=== PATIENT | male | born 1945 ===

== ENCOUNTER 2017-06-24 09:50 | Inpatient (IN) | payer MEDICARE ==
[2017-06-24 10:02] VITALS: BMI 30.2
--- NOTE | 2017-06-24 10:18 | RAD ---
PROCEDURE: CHEST RADIOGRAPH, 1 VIEW HISTORY: SOB COMPARISON: No prior FINDINGS: LUNGS: Clear. PLEURA: No pneumothorax or pleural fluid seen. CARDIOVASCULAR: Normal. OSSEOUS STRUCTURES: No significant abnormalities. VISUALIZED UPPER ABDOMEN: Normal. OTHER FINDINGS: None. IMPRESSION: No active disease.
[2017-06-24 10:24] LABS: BASO # 0.1 K/uL (0.0-0.2); BASO % 1.3 % (0.0-2.0); EOS # 0.1 K/uL (0.0-0.7); EOS % 1.3 % (0.0-4.0); HEMOGLOBIN 14.5 g/dL (12.0-18.0); LYMPH % 11.3 % (20.0-40.0); MEAN CELL VOLUME 88.3 fL (80.0-94.0); MEAN CORPUSCULAR HEMOGLOBIN 30.9 pg (27.0-31.0); MEAN PLATELET VOLUME 9.6 fL (7.2-11.7); MONO # 0.7 K/uL (0.0-0.8); MONO % 7.8 % (0.0-10.0); NEUT # 7.2 K/uL (1.8-7.0); NEUT % 78.3 % (50.0-75.0); NRBC % 0.1 % (0.0-2.0); RBC 4.7 Mil/uL (4.40-5.90); RED CELL DISTRIBUTION WIDTH 13.6 % (11.5-14.5); WHITE BLOOD COUNT 9.2 K/uL (4.8-10.8)
--- NOTE | 2017-06-24 10:35 | C.PDOC ---
History Of Present Illness 72 yr old male presents to the ER with complaints of SOB for the past 3 weeks. Patient states the SOB worsens at night time when he lays down. Also admits to increasing leg edema. Denies fever, chest pain, palpitations, cough, light headedness, nausea, vomiting, abdominal pain or dizziness. Time Seen by Provider: 06/24/17 09:53 Chief Complaint (Nursing): Shortness Of Breath History Per: Patient History/Exam Limitations: no limitations Onset/Duration Of Symptoms: Days (3 weeks) Current Symptoms Are (Timing): Still Present Exacerbating Factor(s): Laying Flat Current Respiratory Medications: See Home Med List Past Medical History Reviewed: Historical Data, Nursing Documentation, Vital Signs Vital Signs: Last Vital Signs Temp 98 F 06/24/17 10:03 Pulse 67 06/24/17 11:27 Resp 24 06/24/17 11:27 BP 154/86 H 06/24/17 11:27 Pulse Ox 82 L 06/24/17 12:39 - Medical History PMH: HTN, Hypercholesterolemia Family History: States: No Known Family Hx - Social History Hx Alcohol Use: Yes Hx Substance Use: No - Immunization History Hx Tetanus Toxoid Vaccination: Yes Hx Influenza Vaccination: No Hx Pneumococcal Vaccination: No Review Of Systems Except As Marked, All Systems Reviewed And Found Negative. Constitutional: Negative for: Fever Cardiovascular: Negative for: Chest Pain, Palpitations, Light Headedness Respiratory: Positive for: Shortness of Breath. Negative for: Cough Gastrointestinal: Negative for: Nausea, Vomiting, Abdominal Pain Neurological: Negative for: Dizziness Physical Exam - Physical Exam Appears: Non-toxic, No Acute Distress, Other ((+) comfortable) Skin: Warm, Dry, No Rash Eye(s): bilateral: Normal Inspection, PERRL, EOMI Nose: Normal Oral Mucosa: Moist Lips: Normal Appearing Throat: Normal, No Erythema, No Exudate, No Drooling, No Mass Neck: Normal, Normal ROM, Supple Cardiovascular: Rhythm Regular, No Murmur Respiratory: Rales (at the bases, bilaterally), No Wheezing Gastrointestinal/Abdominal: Normal Exam, Soft, No Tenderness, No Guarding, No Rebound Extremity: Normal ROM, Other ((+) +2 pitting edema of lower extremities) Neurological/Psych: Oriented x3, Normal Speech, Normal Motor ED Course And Treatment - Laboratory Results Result Diagrams: 06/24/17 10:21 06/24/17 10:21 ECG: Interpreted By Me, Viewed By Me ECG Rhythm: Atrial Fibrillation Interpretation Of ECG: Normal axis. No ST changes. T wave inversions in 2,3, AVF , V4-V6. Rate From EC (BPM) O2 Sat by Pulse Oximetry: 82 (RA) Pulse Ox Interpretation: Normal - Radiology CXR: Interpreted by Me, Viewed By Me CXR Interpretation: Yes: Other ((+) pulmonary vascular congestion) - CT Scan/US CT - Angio Chest Other Rad Studies (CT/US): Read By Radiologist, Radiology Report Reviewed Progress Note: PLAN: CT - Angio Chest, CXR, EKG, Labs, Nitroglycerin SL, Lasix IV & Re-eval. - Physician Consult Information Physician Contacted: Angel Armijo Outcome Of Conversation: Discussed patient with Dr. Armijo, he cofirms patient has h/o chronic atrial fibrillation on Xarelto, Digoxin. Disposition - Disposition Forms: [employer] (Togolese) - Scribe Statement The provider has reviewed the documentation as recorded by the Deuceibsusanna Samaniego Provider Attestation: All medical record entries made by the Scribe were at my direction and personally dictated by me. I have reviewed the chart and agree that the record accurately reflects my personal performance of the history, physical exam, medical decision making, and the department course for this patient. I have also personally directed, reviewed, and agree with the discharge instructions and disposition.
[2017-06-24 10:36] LABS: ABG ALLEN TEST POS; ARTERIAL BLOOD GAS O2 SAT 98.4 % (95-98); ARTERIAL BLOOD GAS PCO2 42 mm/Hg (35-45); ARTERIAL BLOOD GAS PH 7.33 (7.35-7.45); ARTERIAL BLOOD GAS PO2 95 mm/Hg (80-100); ARTERIAL BLOOD GAS TCO2 23.4 mmol/L (22-28)
[2017-06-24 10:37] LABS: ALB/GLOB RATIO 1.5 (1.0-2.1); ALBUMIN 4.1 g/dL (3.5-5.0); ALT/SGPT 54 U/L (21-72); AST/SGOT 35 U/L (17-59); BLOOD UREA NITROGEN 18 mg/dL (9-20); CALCIUM 8.5 mg/dl (8.6-10.4); GFR AFRICAN-AMERICAN > 60; GFR NON-AFRICAN AMERICAN > 60
[2017-06-24 10:49] LABS: B-TYPE NATRIURETIC PEPTIDE 3710 pg/mL (0-900); CK-MB 1.42 ng/mL (0.0-3.38)
[2017-06-24] MEDS ORDERED: (Novolin R) Insulin Human Regular 100 units/ml vial IV ONE (12:28)
[2017-06-24] MEDS ORDERED: Iodixanol 320 MG/ML 100 ML BOTTLE IV ONE (13:14)
[2017-06-24] MEDS ORDERED: (Novolin R) Insulin Human Regular 100 units/ml vial ONE (14:13)
--- NOTE | 2017-06-24 14:37 | CT ---
PROCEDURE: CT Chest with contrast (Pulmonary Angiogram) HISTORY: hypoxia, sob COMPARISON: None available. TECHNIQUE: Axial computed tomography images were obtained of the chest in the pulmonary arterial phase of enhancement. Coronal and sagittal reformatted images were created and reviewed. Intravenous contrast dose: 100 mL Visipaque 320 Radiation dose: Total exam DLP = 603.61 mGy-cm. This CT exam was performed using one or more of the following dose reduction techniques: Automated exposure control, adjustment of the mA and/or kV according to patient size, and/or use of iterative reconstruction technique. FINDINGS: PULMONARY ARTERIES: Unremarkable. No pulmonary embolism. AORTA: No acute findings. No thoracic aortic aneurysm. LUNGS: Diffuse ground-glass opacity in the upper portion of both lungs, predominantly in the apices. Nonspecific. Bilateral lower lobe compressive atelectasis secondary to pleural effusions. PLEURAL SPACES: Moderate bilateral pleural effusion. No pneumothorax. HEART: Normal heart size. LYMPH NODES: Few mildly enlarged mediastinal nodes, nonspecific. BONES, CHEST WALL: Unremarkable. No fracture or destructive lesion OTHER FINDINGS: Nonspecific pericholecystic fluid about a contracted gallbladder with no calcified stones. IMPRESSION: No evidence of pulmonary embolism. Moderate bilateral pleural effusion with lower lobe compressive atelectasis bilaterally. Nonspecific mild mediastinal lymphadenopathy. Diffuse ground-glass opacity in both lung apices. Extensive differential diagnosis. Please correlate with clinical evaluation.
--- NOTE | 2017-06-24 16:33 | CP.PCM.HP ---
History of Present Illness - History of Present Illness History of Present Illness: Full Code Health Care Proxy: Mykel Tillman (friend) # [phone] PMD: Dr. Armijo [place] Caller: Dr. Jose Hogue CC: "shortness of breath" HPI:72 year old male with past medical history of HTN, afib, DM, and HLD who presents to the ED for shortness of breath. Patient states he has been having shortness of breath for the past 3 weeks but it became worse this week and especially last night. Patient states he can barely walk one block without having shortness of breath. He states when he walks more than a block after eating he then becomes nauseated and vomits. He has been sleeping with 3 pillows for about a week. He denies recent travel or any one sick at home. Patient states he was recently at his PMD office Dr. Armijo who gave him a water pill to remove some of the swelling in his legs. He states he has noticed the swelling for the past 3 weeks. Patient states he was recently at his screen and cyclone [employer]aire[employer] office where he had some testing done but is not sure which tests those were. Past Medical History: HTN, Afib, DM, hypothyroid; HLD Past Surgical History: Denies Allergies: NKDA Family History: Mom - breast cancer Medications: Xeralto 20mg daily, digoxin 125mg daily, crestor 5mg HS, Losartan 100mg daily, Amlodipine 5mg daily, metoprolol XL 100mg daily, Metformin 1000mg BID, Januvia 100mg qd, Glimepride 4mg qd, Trulicity .75/1.5 qweek; Synthroid 100mg daily Social History: Lives at home with his who is currently in [facility]. Drinks about 1-2 shots of whiskey per day and 2-3 shots of whiskey on the weekends for the past 15 years and sometimes also has a beer with the whiskey, denies illicit drug use, denies smoking. Present on Admission - Present on Admission Any Indicators Present on Admission: No Review of Systems - Constitutional Constitutional: absent: Fever, Weakness - EENT Eyes: absent: Blurred Vision - Cardiovascular Cardiovascular: Dyspnea, Dyspnea on Exertion, Edema. absent: Chest Pain, Chest Pain with Activity, Lightheadedness, Palpitations - Respiratory Respiratory: Dyspnea, Dyspnea on Exertion - Gastrointestinal Gastrointestinal: Nausea, Vomiting. absent: Abdominal Pain, Constipation, Diarrhea - Genitourinary Genitourinary: absent: Dysuria - Neurological Neurological: absent: Dizziness, Headaches Past Patient History - Past Social History Smoking Status: Never Smoked - CARDIAC Hx Hypercholesterolemia: Yes Hx Hypertension: Yes - ENDOCRINE/METABOLIC Hx Diabetes Mellitus Type 1: Yes - PSYCHIATRIC Hx Substance Use: No - SURGICAL HISTORY Hx Surgeries: No - ANESTHESIA Hx Anesthesia: No Meds Allergies/Adverse Reactions: Allergies Allergy/AdvReac Type Severity Reaction Status Date / Time No Known Allergies Allergy Verified 06/24/17 10:02 Physical Exam - Constitutional Appears: No Acute Distress - Head Exam Head Exam: ATRAUMATIC, NORMAL INSPECTION - Eye Exam Eye Exam: EOMI, Normal appearance - ENT Exam ENT Exam: Mucous Membranes Moist - Respiratory Exam Respiratory Exam: Clear to Auscultation Bilateral, NORMAL BREATHING PATTERN - Cardiovascular Exam Cardiovascular Exam: Irregular Rhythm, +S1, +S2. absent: JVD - GI/Abdominal Exam GI & Abdominal Exam: Normal Bowel Sounds, Soft. absent: Tenderness - Extremities Exam Extremities exam: Positive for: pedal edema (+2 bilateral pedal edema ). Negative for: calf tenderness, tenderness - Neurological Exam Neurological exam: Alert, CN II-XII Intact, Oriented x3 - Psychiatric Exam Psychiatric exam: Normal Affect, Normal Mood - Skin Skin Exam: Dry, Intact, Normal Color, Warm Results - Vital Signs Recent Vital Signs: Last Vital Signs Temp 97.4 F L 06/24/17 14:05 Pulse 57 L 06/24/17 15:13 Resp 22 06/24/17 15:13 BP 134/80 06/24/17 14:05 Pulse Ox 99 06/24/17 15:13 - Labs Result Diagrams: 06/24/17 10:21 06/24/17 10:21 Labs: Laboratory Results - last 24 hr 06/24/17 06/24/17 06/24/17 10:21 10:21 10:33 WBC 9.2 RBC 4.70 Hgb 14.5 Hct 41.5 MCV 88.3 MCH 30.9 MCHC 35.0 RDW 13.6 Plt Count 181 MPV 9.6 Neut % (Auto) 78.3 H Lymph % (Auto) 11.3 L [place] % (Auto) 7.8 Eos % (Auto) 1.3 Baso % (Auto) 1.3 Neut # 7.2 H Lymph # 1.0 [place] # 0.7 Eos # 0.1 Baso # 0.1 Puncture Site Rr pCO2 42 pO2 95 HCO3 22.0 ABG pH 7.33 L ABG Total CO2 23.4 ABG O2 Saturation 98.4 H ABG Base Excess -3.7 L Ed Test Pos ABG Potassium 3.5 L A-a O2 Difference 566.0 Respiratory Index 6.0 Glucose 282 H Lactate 2.0 Liter Flow 15.0 FiO2 100.0 Sodium 128 L 131.0 L Potassium 4.8 Chloride 92 L 99.0 Carbon Dioxide 23 Anion Gap 18 BUN 18 Creatinine 1.0 Est GFR ( Amer) > 60 Est GFR (Non-Af Amer) > 60 POC Glucose (mg/dL) Random Glucose 300 H Calcium 8.5 L Total Bilirubin 0.8 AST 35 ALT 54 Alkaline Phosphatase 67 Total Creatine Kinase 40 L CK-MB (Mass) 1.42 Troponin I < 0.0120 NT-Pro-B Natriuret Pep 3710 H Total Protein 6.8 Albumin 4.1 Globulin 2.7 Albumin/Globulin Ratio 1.5 TSH 3rd Generation Arterial Blood Potassium 3.5 L Digoxin 06/24/17 06/24/17 06/24/17 12:39 12:39 14:08 WBC RBC Hgb Hct MCV MCH MCHC RDW Plt Count MPV Neut % (Auto) Lymph % (Auto) [place] % (Auto) Eos % (Auto) Baso % (Auto) Neut # Lymph # [place] # Eos # Baso # Puncture Site pCO2 pO2 HCO3 ABG pH ABG Total CO2 ABG O2 Saturation ABG Base Excess Ed Test ABG Potassium A-a O2 Difference Respiratory Index Glucose Lactate Liter Flow FiO2 Sodium Potassium Chloride Carbon Dioxide Anion Gap BUN Creatinine Est GFR ( Amer) Est GFR (Non-Af Amer) POC Glucose (mg/dL) 239 H Random Glucose Calcium Total Bilirubin AST ALT Alkaline Phosphatase Total Creatine Kinase CK-MB (Mass) Troponin I NT-Pro-B Natriuret Pep Total Protein Albumin Globulin Albumin/Globulin Ratio TSH 3rd Generation 8.47 H Arterial Blood Potassium Digoxin 1.9 Assessment & Plan - Assessment and Plan (Free Text) Assessment: 1.) New Onset CHF - Cardiology Consult: Dr. Bay --> help appreciated - ECHO was done as an outpatient 06/22/17: Please see full report in chart * EF 55-60% * Left ventricle cavity is normal in size; the aortic valve is tri-leaflet and calcified. There is no significant aortic regurgitation. - Monitory daily weight - Head of bed elevated - Strict I/Os - Images: * Chest X-ray: No active disease * Chest CT: No evidence of pulmonary embolism. Moderate bilateral pleural effusion with lower lobe compressive atelectasis bilaterally. Nonspecific mild mediastinal lymphadenopathy. Diffuse ground-glass opacity in both lung apices. Extensive differential diagnosis. Please correlate with clinical evaluation. - 1L fluid restriction - Lasix 40mg IV q12h 2.) Hypervolemia/Hyponatremia - likely secondary to CHF - 1L fluid restriction - Lasix 40mg IV q12h - Monitor weight daily - weight on admission 149.8lbs 3) Bilateral LE edema - f/u venous doppler - Wells Score: 1 4.) History of Hypothyroid - Elevated TSH - Repeat TSH and free T4 in the AM 5.) History of Afib - Monitor on tele for 24 hours if okay then can transfer to [facility]-surg - Rate controlled - CHADs(2) Score: 3 - Medications * Metoprolol Succinate XL 100mg po daily * Xarelto 20mg po daily * Digoxin 125mg po daily 6.) History of HTN - Continue home medications: * Norvasc 5mg po daily * Metoprolol Succinate XL 100mg po daily * Losartan 100mg po daily 7.) History of HLD - f/u lipid panel in the AM - Continue home medication * Crestor 5mg po HS 8.) History of DM Type 2 - f/u hA1c in the AM - home medications held - Insulin sliding scale - moderate - Accuchecks - Hypoglycemia protocol - Losartan 100mg po daily - Crestor 5mg po HS 9.) Bilateral Pleural effusion - Chest CT: Moderate bilateral pleural effusion with lower lobe compressive atelectasis bilaterally. - Pulm Consult: Dr. Newton --> help appreciated 10.) Prophylaxis - DVT: Xarelto 20mg po daily - GI: Protonix 40mg IV daily - Heart Healthy/Moderate Carb diet/2gNa Case discussed with Dr. Yeison Jack PGY-1
[2017-06-24] MEDS ORDERED: Ipratropium 0.02% Inhal Soln (0.5 mg/2.5 ml) UD IH ONE (16:40)
[2017-06-24] MEDS: (Novolin R) Insulin Human Regular 100 units/ml vial SC SCH (22:06)
[2017-06-24 22:17] LABS: ARTERIAL BLOOD GAS HCO3 25.6 mmol/L (21-28); ARTERIAL BLOOD GAS HEMOGLOBIN 13.7 g/dL (11.7-17.4); ARTERIAL BLOOD GAS O2 SAT 98.9 % (95-98); ARTERIAL BLOOD GAS PCO2 38 mm/Hg (35-45); ARTERIAL BLOOD GAS PH 7.43 (7.35-7.45); ARTERIAL BLOOD GAS PO2 95 mm/Hg (80-100); ARTERIAL BLOOD GAS TCO2 26.4 mmol/L (22-28)
[2017-06-25 06:30] LABS: BASO # 0.1 K/uL (0.0-0.2); BASO % 1.1 % (0.0-2.0); EOS # 0.2 K/uL (0.0-0.7); HEMOGLOBIN 13.6 g/dL (12.0-18.0); LYMPH # 0.9 K/uL (1.0-4.3); MEAN CELL VOLUME 87.1 fL (80.0-94.0); MEAN CORPUSCULAR HGB CONC 35.7 g/dL (33.0-37.0); MEAN PLATELET VOLUME 9.8 fL (7.2-11.7); MONO # 0.9 K/uL (0.0-0.8); MONO % 10.6 % (0.0-10.0); NEUT # 6.1 K/uL (1.8-7.0); NEUT % 75.3 % (50.0-75.0); RBC 4.38 Mil/uL (4.40-5.90); RED CELL DISTRIBUTION WIDTH 13.7 % (11.5-14.5); WHITE BLOOD COUNT 8.1 K/uL (4.8-10.8)
[2017-06-25] MEDS: Levothyroxine 100 MCG TAB PO SCH (06:38)
[2017-06-25 06:48] LABS: ALB/GLOB RATIO 1.4 (1.0-2.1); ALBUMIN 3.5 g/dL (3.5-5.0); ALT/SGPT 56 U/L (21-72); AST/SGOT 36 U/L (17-59); BLOOD UREA NITROGEN 20 mg/dL (9-20); CALCIUM 8.7 mg/dl (8.6-10.4); GFR AFRICAN-AMERICAN > 60; GFR NON-AFRICAN AMERICAN > 60; HDL CHOLESTEROL 25 mg/dL (30-70); MAGNESIUM 1.4 mg/dL (1.6-2.3)
[2017-06-25 06:56] LABS: LDL CHOLESTEROL 52 mg/dL (0-129)
[2017-06-25] MEDS: (Novolin R) Insulin Human Regular 100 units/ml vial SC SCH ×4 (08:00→21:13)
--- NOTE | 2017-06-25 09:02 | CP.PCM.CON ---
History of Present Illness - History of Present Illness History of Present Illness: CC: "shortness of breath" HPI:72 year old male with past medical history of HTN, afib, DM, and HLD who presents to the ED for shortness of breath. Patient states he has been having shortness of breath for the past 3 weeks but it became worse this week and especially last night. Patient states he can barely walk one block without having shortness of breath. He states when he walks more than a block after eating he then becomes nauseated and vomits. He has been sleeping with 3 pillows for about a week. He denies recent travel or any one sick at home. Patient states he was recently at his PMD office Dr. Armijo who gave him a water pill to remove some of the swelling in his legs. He states he has noticed the swelling for the past 3 weeks. Patient states he was recently at his [employer] office where he had some testing done but is not sure which tests those were. Past Medical History: HTN, Afib, DM, hypothyroid; HLD Past Surgical History: Denies Allergies: NKDA Family History: Mom - breast cancer Medications: Xeralto 20mg daily, digoxin 125mg daily, crestor 5mg HS, Losartan 100mg daily, Amlodipine 5mg daily, metoprolol XL 100mg daily, Metformin 1000mg BID, Januvia 100mg qd, Glimepride 4mg qd, Trulicity .75/1.5 qweek; Synthroid 100mg daily Social History: Lives at home with his who is currently in [facility]. Drinks about 1-2 shots of whiskey per day and 2-3 shots of whiskey on the weekends for the past 15 years and sometimes also has a beer with the whiskey, denies illicit drug use, denies smoking. Present on Admission - Present on Admission Any Indicators Present on Admission: No Review of Systems - Constitutional Constitutional: absent: Fever, Weakness - EENT Eyes: absent: Blurred Vision - Cardiovascular Cardiovascular: Dyspnea, Dyspnea on Exertion, Edema. absent: Chest Pain, Chest Pain with Activity, Lightheadedness, Palpitations - Respiratory Respiratory: Dyspnea, Dyspnea on Exertion - Gastrointestinal Gastrointestinal: Nausea, Vomiting. absent: Abdominal Pain, Constipation, Diarrhea - Genitourinary Genitourinary: absent: Dysuria - Neurological Neurological: absent: Dizziness, Headaches Meds Allergies/Adverse Reactions: Allergies Allergy/AdvReac Type Severity Reaction Status Date / Time No Known Allergies Allergy Verified 06/24/17 10:02 Physical Exam - Constitutional Appears: No Acute Distress - Head Exam Head Exam: ATRAUMATIC, NORMAL INSPECTION - Eye Exam Eye Exam: EOMI, Normal appearance - ENT Exam ENT Exam: Mucous Membranes Moist - Respiratory Exam Respiratory Exam: Clear to Auscultation Bilateral, NORMAL BREATHING PATTERN - Cardiovascular Exam Cardiovascular Exam: Irregular Rhythm, +S1, +S2. absent: JVD - GI/Abdominal Exam GI & Abdominal Exam: Normal Bowel Sounds, Soft. absent: Tenderness - Extremities Exam Extremities exam: Positive for: pedal edema (+2 bilateral pedal edema ). Negative for: calf tenderness, tenderness - Neurological Exam Neurological exam: Alert, CN II-XII Intact, Oriented x3 - Psychiatric Exam Psychiatric exam: Normal Affect, Normal Mood - Skin Skin Exam: Dry, Intact, Normal Color, Warm Past Patient History - Past Medical History & Family History Past Medical History?: Yes - Past Social History Smoking Status: Never Smoked - CARDIAC Hx Hypercholesterolemia: Yes Hx Hypertension: Yes - PULMONARY Hx Respiratory Disorders: No - NEUROLOGICAL Hx Neurological Disorder: No - HEENT Hx HEENT Problems: Yes Other/Comment: wear eyeglasses - RENAL Hx Chronic Kidney Disease: No - ENDOCRINE/METABOLIC Hx Diabetes Mellitus Type 1: Yes - HEMATOLOGICAL/ONCOLOGICAL Hx Blood Disorders: No - INTEGUMENTARY Hx Dermatological Problems: No - MUSCULOSKELETAL/RHEUMATOLOGICAL Hx Falls: No - GASTROINTESTINAL Hx Gastrointestinal Disorders: No - GENITOURINARY/GYNECOLOGICAL Hx Genitourinary Disorders: Yes Hx Prostate Problems: Yes (Hx of prostate surgery) - PSYCHIATRIC Hx Substance Use: No - SURGICAL HISTORY Hx Surgeries: No - ANESTHESIA Hx Anesthesia: No Meds Allergies/Adverse Reactions: Allergies Allergy/AdvReac Type Severity Reaction Status Date / Time No Known Allergies Allergy Verified 06/24/17 10:02 - Medications Medications: Current Medications Amlodipine Besylate (Norvasc) 5 mg PO DAILY [facility] Digoxin (Lanoxin) 125 mg PO DAILY@1800 [facility] Furosemide (Lasix) 40 mg IVP Q12H [facility] Last Admin: 06/25/17 06:38 Dose: 40 mg Insulin Human Regular (Novolin R) 0 unit SC ACHS [facility] PRN Reason: Protocol Last Admin: 06/24/17 22:06 Dose: Not Given Levothyroxine Sodium (Synthroid) 100 mcg PO DAILY@0630 [facility] Last Admin: 06/25/17 06:38 Dose: 100 mcg Losartan Potassium (Cozaar) 100 mg PO DAILY [facility] Metoprolol Succinate (Toprol Xl) 100 mg PO DAILY [facility] Pantoprazole Sodium (Protonix Inj) 40 mg IVP DAILY [facility] Rivaroxaban (Xarelto) 20 mg PO DAILY [facility] Rosuvastatin Calcium (Crestor) 5 mg PO HS [facility] Last Admin: 06/24/17 22:05 Dose: Not Given Results - Vital Signs Recent Vital Signs: Last Vital Signs Temp 97.5 F L 06/25/17 07:05 Pulse 70 06/25/17 07:40 Resp 20 06/25/17 07:05 BP 157/89 H 06/25/17 07:05 Pulse Ox 97 06/25/17 07:05 - Labs Result Diagrams: 06/25/17 06:21 06/25/17 06:21 Labs: Laboratory Results - last 24 hr 06/24/17 06/24/17 06/24/17 10:21 10:21 10:33 WBC 9.2 RBC 4.70 Hgb 14.5 Hct 41.5 MCV 88.3 MCH 30.9 MCHC 35.0 RDW 13.6 Plt Count 181 MPV 9.6 Neut % (Auto) 78.3 H Lymph % (Auto) 11.3 L [facility] % (Auto) 7.8 Eos % (Auto) 1.3 Baso % (Auto) 1.3 Neut # 7.2 H Lymph # 1.0 [facility] # 0.7 Eos # 0.1 Baso # 0.1 Puncture Site Rr pCO2 42 pO2 95 HCO3 22.0 ABG pH 7.33 L ABG Total CO2 23.4 ABG O2 Saturation 98.4 H ABG Base Excess -3.7 L ABG Hemoglobin ABG Carboxyhemoglobin POC ABG HHb (Measured) ABG Methemoglobin Ed Test Pos ABG Potassium 3.5 L A-a O2 Difference 566.0 Respiratory Index 6.0 Hgb O2 Saturation Glucose 282 H Lactate 2.0 Liter Flow 15.0 FiO2 100.0 Sodium 128 L 131.0 L Potassium 4.8 Chloride 92 L 99.0 Carbon Dioxide 23 Anion Gap 18 BUN 18 Creatinine 1.0 Est GFR ( Amer) > 60 Est GFR (Non-Af Amer) > 60 POC Glucose (mg/dL) Random Glucose 300 H Calcium 8.5 L Phosphorus Magnesium Total Bilirubin 0.8 AST 35 ALT 54 Alkaline Phosphatase 67 Total Creatine Kinase 40 L CK-MB (Mass) 1.42 Troponin I < 0.0120 NT-Pro-B Natriuret Pep 3710 H Total Protein 6.8 Albumin 4.1 Globulin 2.7 Albumin/Globulin Ratio 1.5 Triglycerides Cholesterol LDL Cholesterol Direct HDL Cholesterol Free T4 TSH 3rd Generation Arterial Blood Potassium 3.5 L Digoxin 06/24/17 06/24/17 06/24/17 12:39 12:39 14:08 WBC RBC Hgb Hct MCV MCH MCHC RDW Plt Count MPV Neut % (Auto) Lymph % (Auto) [facility] % (Auto) Eos % (Auto) Baso % (Auto) Neut # Lymph # [facility] # Eos # Baso # Puncture Site pCO2 pO2 HCO3 ABG pH ABG Total CO2 ABG O2 Saturation ABG Base Excess ABG Hemoglobin ABG Carboxyhemoglobin POC ABG HHb (Measured) ABG Methemoglobin Ed Test ABG Potassium A-a O2 Difference Respiratory Index Hgb O2 Saturation Glucose Lactate Liter Flow FiO2 Sodium Potassium Chloride Carbon Dioxide Anion Gap BUN Creatinine Est GFR ( Amer) Est GFR (Non-Af Amer) POC Glucose (mg/dL) 239 H Random Glucose Calcium Phosphorus Magnesium Total Bilirubin AST ALT Alkaline Phosphatase Total Creatine Kinase CK-MB (Mass) Troponin I NT-Pro-B Natriuret Pep Total Protein Albumin Globulin Albumin/Globulin Ratio Triglycerides Cholesterol LDL Cholesterol Direct HDL Cholesterol Free T4 TSH 3rd Generation 8.47 H Arterial Blood Potassium Digoxin 1.9 06/24/17 06/24/17 06/24/17 17:05 21:05 22:12 WBC RBC Hgb Hct MCV MCH MCHC RDW Plt Count MPV Neut % (Auto) Lymph % (Auto) [facility] % (Auto) Eos % (Auto) Baso % (Auto) Neut # Lymph # [facility] # Eos # Baso # Puncture Site Rra pCO2 38 pO2 95 HCO3 25.6 ABG pH 7.43 ABG Total CO2 26.4 ABG O2 Saturation 98.9 H ABG Base Excess 1.0 ABG Hemoglobin 13.7 ABG Carboxyhemoglobin 2.0 H POC ABG HHb (Measured) 1.1 ABG Methemoglobin 1.6 Ed Test Na ABG Potassium A-a O2 Difference 571.0 Respiratory Index 6.0 Hgb O2 Saturation 95.2 Glucose Lactate Liter Flow 15.0 FiO2 100.0 Sodium Potassium Chloride Carbon Dioxide Anion Gap BUN Creatinine Est GFR ( Amer) Est GFR (Non-Af Amer) POC Glucose (mg/dL) 164 H 185 H Random Glucose Calcium Phosphorus Magnesium Total Bilirubin AST ALT Alkaline Phosphatase Total Creatine Kinase CK-MB (Mass) Troponin I NT-Pro-B Natriuret Pep Total Protein Albumin Globulin Albumin/Globulin Ratio Triglycerides Cholesterol LDL Cholesterol Direct HDL Cholesterol Free T4 TSH 3rd Generation Arterial Blood Potassium Digoxin 06/25/17 06/25/17 06/25/17 06:21 06:21 06:21 WBC 8.1 RBC 4.38 L Hgb 13.6 Hct 38.1 MCV 87.1 MCH 31.0 MCHC 35.7 RDW 13.7 Plt Count 177 MPV 9.8 Neut % (Auto) 75.3 H Lymph % (Auto) 11.0 L [place] % (Auto) 10.6 H Eos % (Auto) 2.0 Baso % (Auto) 1.1 Neut # 6.1 Lymph # 0.9 L [place] # 0.9 H Eos # 0.2 Baso # 0.1 Puncture Site pCO2 pO2 HCO3 ABG pH ABG Total CO2 ABG O2 Saturation ABG Base Excess ABG Hemoglobin ABG Carboxyhemoglobin POC ABG HHb (Measured) ABG Methemoglobin Ed Test ABG Potassium A-a O2 Difference Respiratory Index Hgb O2 Saturation Glucose Lactate Liter Flow FiO2 Sodium 130 L Potassium 3.9 Chloride 93 L Carbon Dioxide 28 Anion Gap 12 BUN 20 Creatinine 0.9 Est GFR ( Amer) > 60 Est GFR (Non-Af Amer) > 60 POC Glucose (mg/dL) Random Glucose 173 H Calcium 8.7 Phosphorus 4.3 Magnesium 1.4 L Total Bilirubin 0.8 AST 36 ALT 56 Alkaline Phosphatase 59 Total Creatine Kinase CK-MB (Mass) Troponin I NT-Pro-B Natriuret Pep Total Protein 6.1 L Albumin 3.5 Globulin 2.5 Albumin/Globulin Ratio 1.4 Triglycerides 106 Cholesterol 98 LDL Cholesterol Direct 52 HDL Cholesterol 25 L Free T4 0.96 TSH 3rd Generation 6.42 H Arterial Blood Potassium Digoxin 06/25/17 06:33 WBC RBC Hgb Hct MCV MCH MCHC RDW Plt Count MPV Neut % (Auto) Lymph % (Auto) [facility] % (Auto) Eos % (Auto) Baso % (Auto) Neut # Lymph # [facility] # Eos # Baso # Puncture Site pCO2 pO2 HCO3 ABG pH ABG Total CO2 ABG O2 Saturation ABG Base Excess ABG Hemoglobin ABG Carboxyhemoglobin POC ABG HHb (Measured) ABG Methemoglobin Ed Test ABG Potassium A-a O2 Difference Respiratory Index Hgb O2 Saturation Glucose Lactate Liter Flow FiO2 Sodium Potassium Chloride Carbon Dioxide Anion Gap BUN Creatinine Est GFR ( Amer) Est GFR (Non-Af Amer) POC Glucose (mg/dL) 167 H Random Glucose Calcium Phosphorus Magnesium Total Bilirubin AST ALT Alkaline Phosphatase Total Creatine Kinase CK-MB (Mass) Troponin I NT-Pro-B Natriuret Pep Total Protein Albumin Globulin Albumin/Globulin Ratio Triglycerides Cholesterol LDL Cholesterol Direct HDL Cholesterol Free T4 TSH 3rd Generation Arterial Blood Potassium Digoxin Assessment & Plan - Assessment and Plan (Free Text) Assessment: Assessment & Plan - Assessment and Plan (Free Text) Assessment: 1.) New Onset CHF/CHF with preserved EF - ECHO was done as an outpatient 06/22/17: Please see full report in chart * EF 55-60% * Left ventricle cavity is normal in size; the aortic valve is tri-leaflet and calcified. There is no significant aortic regurgitation. - Monitory daily weight - Head of bed elevated - Strict I/Os - Images: * Chest X-ray: No active disease * Chest CT: No evidence of pulmonary embolism. Moderate bilateral pleural effusion with lower lobe compressive atelectasis bilaterally. Nonspecific mild mediastinal lymphadenopathy. Diffuse ground-glass opacity in both lung apices. Extensive differential diagnosis. Please correlate with clinical evaluation. - 1L fluid restriction - Lasix 40mg IV q12h 2.) Hypervolemia/Hyponatremia - likely secondary to CHF - 1L fluid restriction - Lasix 40mg IV q12h - Monitor weight daily - weight on admission 149.8lbs 3) Bilateral LE edema - f/u venous doppler - Wells Score: 1 4.) History of Hypothyroid - Elevated TSH - Repeat TSH and free T4 in the AM 5.) History of Afib - Monitor on tele for 24 hours if okay then can transfer to [facility]-surg - Rate controlled - CHADs(2) Score: 3 - Medications * Metoprolol Succinate XL 100mg po daily * Xarelto 20mg po daily * Digoxin 125mg po daily 6.) History of HTN - Continue home medications: * Norvasc 5mg po daily * Metoprolol Succinate XL 100mg po daily * Losartan 100mg po daily 7.) History of HLD - f/u lipid panel in the AM - Continue home medication * Crestor 5mg po HS 8.) History of DM Type 2 - f/u hA1c in the AM - home medications held - Insulin sliding scale - moderate - Accuchecks - Hypoglycemia protocol - Losartan 100mg po daily - Crestor 5mg po HS 9.) Bilateral Pleural effusion - Chest CT: Moderate bilateral pleural effusion with lower lobe compressive atelectasis bilaterally. - Pulm Consult: Dr. Newton --> help appreciated 10.) Prophylaxis - DVT: Xarelto 20mg po daily - GI: Protonix 40mg IV daily - Heart Healthy/Moderate Carb diet/2gNa No further cardiac work up recommended at this time. Trop: Negative Continue CHF mgt
[2017-06-25] MEDS: Metoprolol Succinate 100 mg XL Tab PO SCH (09:26)
--- NOTE | 2017-06-25 15:13 | CP.PCM.CON ---
Past Patient History - Past Medical History & Family History Past Medical History?: Yes - Past Social History Smoking Status: Never Smoked - CARDIAC Hx Hypercholesterolemia: Yes Hx Hypertension: Yes - PULMONARY Hx Respiratory Disorders: No - NEUROLOGICAL Hx Neurological Disorder: No - HEENT Hx HEENT Problems: Yes Other/Comment: wear eyeglasses - RENAL Hx Chronic Kidney Disease: No - ENDOCRINE/METABOLIC Hx Diabetes Mellitus Type 1: Yes - HEMATOLOGICAL/ONCOLOGICAL Hx Blood Disorders: No - INTEGUMENTARY Hx Dermatological Problems: No - MUSCULOSKELETAL/RHEUMATOLOGICAL Hx Falls: No - GASTROINTESTINAL Hx Gastrointestinal Disorders: No - GENITOURINARY/GYNECOLOGICAL Hx Genitourinary Disorders: Yes Hx Prostate Problems: Yes (Hx of prostate surgery) - PSYCHIATRIC Hx Substance Use: No - SURGICAL HISTORY Hx Surgeries: No - ANESTHESIA Hx Anesthesia: No Meds Allergies/Adverse Reactions: Allergies Allergy/AdvReac Type Severity Reaction Status Date / Time No Known Allergies Allergy Verified 06/24/17 10:02 - Medications Medications: Current Medications Amlodipine Besylate (Norvasc) 5 mg PO DAILY [facility] Last Admin: 06/25/17 09:25 Dose: 5 mg Digoxin (Lanoxin) 125 mg PO DAILY@1800 [facility] Furosemide (Lasix) 40 mg IVP Q12H [facility] Last Admin: 06/25/17 06:38 Dose: 40 mg Insulin Human Regular (Novolin R) 0 unit SC [facility] PRN Reason: Protocol Last Admin: 06/25/17 13:00 Dose: Not Given Levothyroxine Sodium (Synthroid) 100 mcg PO DAILY@0630 [facility] Last Admin: 06/25/17 06:38 Dose: 100 mcg Losartan Potassium (Cozaar) 100 mg PO DAILY [facility] Last Admin: 06/25/17 09:25 Dose: 100 mg Metoprolol Succinate (Toprol Xl) 100 mg PO DAILY [facility] Last Admin: 06/25/17 09:26 Dose: 100 mg Pantoprazole Sodium (Protonix Inj) 40 mg IVP DAILY [facility] Last Admin: 06/25/17 09:26 Dose: 40 mg Pneumococcal Polyvalent Vaccine (Pneumovax 23 Vaccine) 0.5 ml IM .ONCE ONE Stop: 06/27/17 12:01 Rivaroxaban (Xarelto) 20 mg PO DAILY [facility] Last Admin: 06/25/17 09:27 Dose: 20 mg Rosuvastatin Calcium (Crestor) 5 mg PO [facility] Last Admin: 06/24/17 22:05 Dose: Not Given Results - Vital Signs Recent Vital Signs: Last Vital Signs Temp 97.5 F L 06/25/17 07:05 Pulse 70 06/25/17 07:40 Resp 20 06/25/17 07:05 BP 157/89 H 06/25/17 07:05 Pulse Ox 97 06/25/17 07:05 - Labs Result Diagrams: 06/25/17 06:21 06/25/17 06:21 Labs: Laboratory Results - last 24 hr 06/24/17 06/24/17 06/24/17 17:05 21:05 22:12 WBC RBC Hgb Hct MCV MCH MCHC RDW Plt Count MPV Neut % (Auto) Lymph % (Auto) [place] % (Auto) Eos % (Auto) Baso % (Auto) Neut # Lymph # [place] # Eos # Baso # Puncture Site Rra pCO2 38 pO2 95 HCO3 25.6 ABG pH 7.43 ABG Total CO2 26.4 ABG O2 Saturation 98.9 H ABG Base Excess 1.0 ABG Hemoglobin 13.7 ABG Carboxyhemoglobin 2.0 H POC ABG HHb (Measured) 1.1 ABG Methemoglobin 1.6 Ed Test Na A-a O2 Difference 571.0 Respiratory Index 6.0 Hgb O2 Saturation 95.2 Liter Flow 15.0 FiO2 100.0 Sodium Potassium Chloride Carbon Dioxide Anion Gap BUN Creatinine Est GFR ( Amer) Est GFR (Non-Af Amer) POC Glucose (mg/dL) 164 H 185 H Random Glucose Calcium Phosphorus Magnesium Total Bilirubin AST ALT Alkaline Phosphatase Total Protein Albumin Globulin Albumin/Globulin Ratio Triglycerides Cholesterol LDL Cholesterol Direct HDL Cholesterol Free T4 TSH 3rd Generation 06/25/17 06/25/17 06/25/17 06:21 06:21 06:21 WBC 8.1 RBC 4.38 L Hgb 13.6 Hct 38.1 MCV 87.1 MCH 31.0 MCHC 35.7 RDW 13.7 Plt Count 177 MPV 9.8 Neut % (Auto) 75.3 H Lymph % (Auto) 11.0 L [place] % (Auto) 10.6 H Eos % (Auto) 2.0 Baso % (Auto) 1.1 Neut # 6.1 Lymph # 0.9 L [place] # 0.9 H Eos # 0.2 Baso # 0.1 Puncture Site pCO2 pO2 HCO3 ABG pH ABG Total CO2 ABG O2 Saturation ABG Base Excess ABG Hemoglobin ABG Carboxyhemoglobin POC ABG HHb (Measured) ABG Methemoglobin Ed Test A-a O2 Difference Respiratory Index Hgb O2 Saturation Liter Flow FiO2 Sodium 130 L Potassium 3.9 Chloride 93 L Carbon Dioxide 28 Anion Gap 12 BUN 20 Creatinine 0.9 Est GFR ( Amer) > 60 Est GFR (Non-Af Amer) > 60 POC Glucose (mg/dL) Random Glucose 173 H Calcium 8.7 Phosphorus 4.3 Magnesium 1.4 L Total Bilirubin 0.8 AST 36 ALT 56 Alkaline Phosphatase 59 Total Protein 6.1 L Albumin 3.5 Globulin 2.5 Albumin/Globulin Ratio 1.4 Triglycerides 106 Cholesterol 98 LDL Cholesterol Direct 52 HDL Cholesterol 25 L Free T4 0.96 TSH 3rd Generation 6.42 H 06/25/17 06/25/17 06:33 11:09 WBC RBC Hgb Hct MCV MCH MCHC RDW Plt Count MPV Neut % (Auto) Lymph % (Auto) [place] % (Auto) Eos % (Auto) Baso % (Auto) Neut # Lymph # [place] # Eos # Baso # Puncture Site pCO2 pO2 HCO3 ABG pH ABG Total CO2 ABG O2 Saturation ABG Base Excess ABG Hemoglobin ABG Carboxyhemoglobin POC ABG HHb (Measured) ABG Methemoglobin Ed Test A-a O2 Difference Respiratory Index Hgb O2 Saturation Liter Flow FiO2 Sodium Potassium Chloride Carbon Dioxide Anion Gap BUN Creatinine Est GFR ( Amer) Est GFR (Non-Af Amer) POC Glucose (mg/dL) 167 H 226 H Random Glucose Calcium Phosphorus Magnesium Total Bilirubin AST ALT Alkaline Phosphatase Total Protein Albumin Globulin Albumin/Globulin Ratio Triglycerides Cholesterol LDL Cholesterol Direct HDL Cholesterol Free T4 TSH 3rd Generation
--- NOTE | 2017-06-25 16:18 | CP.PCM.PN ---
<Ramos King - Last Filed: 06/25/17 18:46> Subjective - Date & Time of Evaluation Date of Evaluation: 06/25/17 Time of Evaluation: 08:16 - Subjective Subjective: Ramos Gallegos-PGY1 Patient was seen and examined at bedside. Per nursing no acute events occurred overnight. The patient denies any abdominal pain, fevers, chills, dizziness, changes in vision, abdominal pain, syncopal episodes, or any other complaints. Objective - Vital Signs/Intake and Output Vital Signs (last 24 hours): Temp Pulse Resp BP Pulse Ox 98.0 F 60 21 144/80 98 06/25/17 15:00 06/25/17 15:00 06/25/17 15:00 06/25/17 15:00 06/25/17 15:00 Intake and Output: 06/25/17 06/25/17 06:59 18:59 Intake Total 300 360 Output Total 1350 2200 Balance -1050 -1840 - Medications Medications: Current Medications Amlodipine Besylate (Norvasc) 5 mg PO DAILY [facility] Last Admin: 06/25/17 09:25 Dose: 5 mg Digoxin (Lanoxin) 125 mg PO DAILY@1800 [facility] Furosemide (Lasix) 40 mg IVP Q12H [facility] Last Admin: 06/25/17 06:38 Dose: 40 mg Insulin Human Regular (Novolin R) [address] [facility] PRN Reason: Protocol Last Admin: 06/25/17 13:00 Dose: Not Given Levothyroxine Sodium (Synthroid) 100 mcg PO DAILY@0630 [facility] Last Admin: 06/25/17 06:38 Dose: 100 mcg Losartan Potassium (Cozaar) 100 mg PO DAILY [facility] Last Admin: 06/25/17 09:25 Dose: 100 mg Metoprolol Succinate (Toprol Xl) 100 mg PO DAILY [facility] Last Admin: 06/25/17 09:26 Dose: 100 mg Pantoprazole Sodium (Protonix Inj) 40 mg IVP DAILY [facility] Last Admin: 06/25/17 09:26 Dose: 40 mg Pneumococcal Polyvalent Vaccine (Pneumovax 23 Vaccine) 0.5 ml IM .ONCE ONE Stop: 06/27/17 12:01 Rivaroxaban (Xarelto) 20 mg PO DAILY [facility] Last Admin: 06/25/17 09:27 Dose: 20 mg Rosuvastatin Calcium (Crestor) 5 mg PO HS [facility] Last Admin: 06/24/17 22:05 Dose: Not Given - Labs Labs: 06/25/17 06:21 06/25/17 06:21 - Head Exam Head Exam: ATRAUMATIC, NORMAL INSPECTION, NORMOCEPHALIC - Eye Exam Eye Exam: EOMI, Normal appearance, PERRL. absent: Periorbital tenderness Pupil Exam: NORMAL ACCOMODATION, PERRL. absent: Irregular, Unequal - ENT Exam ENT Exam: Mucous Membranes Moist, Normal Exam, Normal Oropharynx - Neck Exam Neck Exam: absent: Lymphadenopathy, Thyromegaly - Respiratory Exam Respiratory Exam: Clear to Ausculation Bilateral, NORMAL BREATHING PATTERN. absent: Chest Wall Tenderness, Prolonged Expiratory Phase, Respiratory Distress - Cardiovascular Exam Cardiovascular Exam: REGULAR RHYTHM, RRR, +S1, +S2. absent: Gallop, Rubs - GI/Abdominal Exam GI & Abdominal Exam: Soft, Normal Bowel Sounds. absent: Rigid, Hyperactive Bowel Sounds - Extremities Exam Extremities Exam: Full ROM. absent: Pedal Edema - Back Exam Back Exam: NORMAL INSPECTION. absent: CVA tenderness (L), CVA tenderness (R), paraspinal tenderness - Neurological Exam Neurological Exam: Alert, Awake - Psychiatric Exam Psychiatric exam: Normal Affect, Normal Mood - Skin Skin Exam: Dry, Intact, Normal Color, Warm Assessment and Plan - Assessment and Plan (Free Text) Plan: 1.) New Onset CHF - Cardiology Consult: Dr. Bay --> help appreciated - ECHO was done as an outpatient 06/22/17: Please see full report in chart * EF 55-60% * Left ventricle cavity is normal in size; the aortic valve is tri-leaflet and calcified. There is no significant aortic regurgitation. - Monitory daily weight - Head of bed elevated - Strict I/Os - Images: * Chest X-ray: No active disease * Chest CT: No evidence of pulmonary embolism. Moderate bilateral pleural effusion with lower lobe compressive atelectasis bilaterally. Nonspecific mild mediastinal lymphadenopathy. Diffuse ground-glass opacity in both lung apices. Extensive differential diagnosis. Please correlate with clinical evaluation. - 1L fluid restriction - Continue Lasix 40mg IV q12h 2.) Hypervolemia/Hyponatremia - likely secondary to CHF - 1L fluid restriction - Continue Lasix 40mg IV q12h - Monitor weight daily - weight on admission 149.8lbs. Weight today 141. Patient able to walk down the hallway with no complaints of shortness of breath. 3) Bilateral LE edema - venous doppler taken. Will f/u with official read. - Wells Score: 1 4.)Subclinical Hypothyroid - Elevated TSH - Repeat TSH elevated. Repeat T4 normal. Will continue to monitor. 5.) History of Afib - Monitor on tele for 24 hours if okay then can transfer to [facility] - Rate controlled - CHADs(2) Score: 3 - Medications * Metoprolol Succinate XL 100mg po daily * Xarelto 20mg po daily * Digoxin 125mg po daily 6.) History of HTN - Continue home medications: * Continue Norvasc 5mg po daily * Continue Metoprolol Succinate XL 100mg po daily * Continue Losartan 100mg po daily 7.) History of HLD - Lipid panel within normal limits except : HDL 25. - Continue home medication * Crestor 5mg po HS 8.) History of DM Type 2 - f/u hA1c in the AM - home medications held - Insulin sliding scale - moderate - Accuchecks - Hypoglycemia protocol - Losartan 100mg po daily - Crestor 5mg po HS 9.) Bilateral Pleural effusion - Chest CT: Moderate bilateral pleural effusion with lower lobe compressive atelectasis bilaterally. - Pulm Consult: Dr. Newton --> help appreciated 10.) Prophylaxis - DVT: Xarelto 20mg po daily - GI: Protonix 40mg IV daily - Heart Healthy/Moderate Carb diet/2gNa <Satnam Latham - Last Filed: 06/25/17 20:18> Objective - Vital Signs/Intake and Output Vital Signs (last 24 hours): Temp Pulse Resp BP Pulse Ox 98.0 F 60 21 136/72 98 06/25/17 15:00 06/25/17 15:00 06/25/17 15:00 06/25/17 18:15 06/25/17 15:00 Intake and Output: 06/25/17 06/26/17 18:59 06:59 Intake Total 360 Output Total 2200 Balance -1840 - Medications Medications: Current Medications Amlodipine Besylate (Norvasc) 5 mg PO DAILY [facility] Last Admin: 06/25/17 09:25 Dose: 5 mg Digoxin (Lanoxin) 0.125 mg PO DAILY@1800 [facility] Last Admin: 06/25/17 18:15 Dose: 0.125 mg Furosemide (Lasix) 40 mg IVP Q12H [facility] Last Admin: 06/25/17 18:15 Dose: 40 mg Insulin Human Regular (Novolin R) 0 unit SC [facility] PRN Reason: Protocol Last Admin: 06/25/17 17:06 Dose: 3 unit Levothyroxine Sodium (Synthroid) 100 mcg PO DAILY@0630 [facility] Last Admin: 06/25/17 06:38 Dose: 100 mcg Losartan Potassium (Cozaar) 100 mg PO DAILY [facility] Last Admin: 06/25/17 09:25 Dose: 100 mg Metoprolol Succinate (Toprol Xl) 100 mg PO DAILY [facility] Last Admin: 06/25/17 09:26 Dose: 100 mg Pantoprazole Sodium (Protonix Inj) 40 mg IVP DAILY [facility] Last Admin: 06/25/17 09:26 Dose: 40 mg Pneumococcal Polyvalent Vaccine (Pneumovax 23 Vaccine) 0.5 ml IM .ONCE ONE Stop: 06/27/17 12:01 Rivaroxaban (Xarelto) 20 mg PO DAILY [facility] Last Admin: 06/25/17 09:27 Dose: 20 mg Rosuvastatin Calcium (Crestor) 5 mg PO HS [facility] Last Admin: 06/24/17 22:05 Dose: Not Given - Labs Labs: 06/25/17 06:21 06/25/17 06:21 Attending/Attestation - Attestation I have personally seen and examined this patient.: Yes I have fully participated in the care of the patient.: Yes I have reviewed all pertinent clinical information, including history, physical exam and plan: Yes Notes (Text): 06/25/17 20:15 Patient was seen and examined at 3:45 PM 650 B Exam, assessment and plan were gone over with the resident Also on ROS: States he is urinating a lot because of the lasix SOB has significantly improved: can now lay flat in bed and only requiring 1 pillow, able to walk the length of the hallway with me without SOB Also on PE: Extremities: 1 + Pitting edema from the ankles to just below the bilateral tibial tuberosities (improved since my exam in the ER on 06/24/17) If patient continues to improve then we will likely discharge to home on morning. Satnam Latham D.O.
[2017-06-25] MEDS: Digoxin 125 mcg (0.125 mg) Tab PO SCH (18:15)
--- NOTE | 2017-06-25 18:35 | CARD ---
APPROVED REPORT EKG Measurement Heart [id number] <Conclusion> Atrial fibrillation ST & T wave abnormality, consider inferolateral ischemia Abnormal ECG
--- NOTE | 2017-06-25 22:33 | CP.PCM.PN ---
Objective - Vital Signs/Intake and Output Vital Signs (last 24 hours): Temp Pulse Resp BP Pulse Ox 98.0 F 60 21 136/72 98 06/25/17 15:00 06/25/17 15:00 06/25/17 15:00 06/25/17 18:15 06/25/17 15:00 Intake and Output: 06/25/17 06/26/17 18:59 06:59 Intake Total 360 Output Total 2200 Balance -1840 - Medications Medications: Current Medications Amlodipine Besylate (Norvasc) 5 mg PO DAILY [facility] Last Admin: 06/25/17 09:25 Dose: 5 mg Digoxin (Lanoxin) 0.125 mg PO DAILY@1800 [facility] Last Admin: 06/25/17 18:15 Dose: 0.125 mg Furosemide (Lasix) 40 mg IVP Q12H [facility] Last Admin: 06/25/17 18:15 Dose: 40 mg Insulin Human Regular (Novolin R) 0 unit SC [facility] PRN Reason: Protocol Last Admin: 06/25/17 21:13 Dose: Not Given Levothyroxine Sodium (Synthroid) 100 mcg PO DAILY@0630 [facility] Last Admin: 06/25/17 06:38 Dose: 100 mcg Losartan Potassium (Cozaar) 100 mg PO DAILY [facility] Last Admin: 06/25/17 09:25 Dose: 100 mg Metoprolol Succinate (Toprol Xl) 100 mg PO DAILY [facility] Last Admin: 06/25/17 09:26 Dose: 100 mg Pantoprazole Sodium (Protonix Inj) 40 mg IVP DAILY [facility] Last Admin: 06/25/17 09:26 Dose: 40 mg Pneumococcal Polyvalent Vaccine (Pneumovax 23 Vaccine) 0.5 ml IM .ONCE ONE Stop: 06/27/17 12:01 Rivaroxaban (Xarelto) 20 mg PO DAILY [facility] Last Admin: 06/25/17 09:27 Dose: 20 mg Rosuvastatin Calcium (Crestor) 5 mg PO HS [facility] Last Admin: 06/25/17 21:50 Dose: 5 mg - Labs Labs: 06/25/17 06:21 06/25/17 06:21
[2017-06-26 00:18] VITALS: RESP 20
[2017-06-26] MEDS: Levothyroxine 100 MCG TAB PO SCH (05:58)
[2017-06-26] MEDS: (Novolin R) Insulin Human Regular 100 units/ml vial SC SCH ×4 (07:40→21:45)
[2017-06-26 07:55] LABS: BASO # 0.1 K/uL (0.0-0.2); BASO % 0.7 % (0.0-2.0); EOS # 0.2 K/uL (0.0-0.7); EOS % 2.3 % (0.0-4.0); HEMOGLOBIN 13.7 g/dL (12.0-18.0); LYMPH # 1.2 K/uL (1.0-4.3); LYMPH % 13.7 % (20.0-40.0); MEAN CELL VOLUME 88.8 fL (80.0-94.0); MEAN CORPUSCULAR HEMOGLOBIN 30.3 pg (27.0-31.0); MEAN CORPUSCULAR HGB CONC 34.1 g/dL (33.0-37.0); MEAN PLATELET VOLUME 9.8 fL (7.2-11.7); MONO # 0.9 K/uL (0.0-0.8); MONO % 9.9 % (0.0-10.0); NEUT # 6.4 K/uL (1.8-7.0); NEUT % 73.4 % (50.0-75.0); RBC 4.53 Mil/uL (4.40-5.90); RED CELL DISTRIBUTION WIDTH 13.7 % (11.5-14.5); WHITE BLOOD COUNT 8.7 K/uL (4.8-10.8)
[2017-06-26 08:28] LABS: ALB/GLOB RATIO 1.2 (1.0-2.1); ALBUMIN 3.6 g/dL (3.5-5.0); ALT/SGPT 49 U/L (21-72); AST/SGOT 45 U/L (17-59); BLOOD UREA NITROGEN 20 mg/dL (9-20); CALCIUM 8.5 mg/dl (8.6-10.4); GFR AFRICAN-AMERICAN > 60; GFR NON-AFRICAN AMERICAN > 60; MAGNESIUM 1.5 mg/dL (1.6-2.3)
[2017-06-26] MEDS ORDERED: Potassium Chloride 20 mEq ER Tab PO ONE ×2 (09:45→12:30)
--- NOTE | 2017-06-26 09:46 | CP.PCM.PN ---
Subjective - Date & Time of Evaluation Date of Evaluation: 06/26/17 Time of Evaluation: 09:30 - Subjective Subjective: Hospitalist Progress Note Patient was seen and examined at 9:30 AM 06/26/17 72 year old male was admitted for new onset CHF on 06/24/17. Since the start of Lasix diuresis, he has lost 8 pounds, his bilateral lower extremity edema is now trace, he can walk the full lenght of 6 tower without getting SOB, he can lay flat on his bed without getting SOB or coughing/wheezing. Upon FULL ROS NO chest pain NO palpitations SOB has significantly improved: can lay flat in bed, no longer requiring 3 pillows at night, walking without getting short of breath NO dysphagia/odynophagia NO abdominal pain NO n/v/d/c: moving his bowels NO burning/pain with urination: urinating mucho because of the lasix NO lightheadedness/dizziness NO new changes in vision NO new changes in hearing NO paresthesias Exam: General: AAOX3, NAD HEENT: NCA, EOMI, PERRLA, NO cervical/supraclavicular/submandibular lymphadenopathy Cardio: NS1 and NS2, NO M/R/G Resp: CTA B/L, NO R/R/W GI: BSx4, Soft, NT, NO HSM, NO guarding/rebound tenderness Ext: Pulses are strong and equal, Capillary Refill is 2 seconds, Trace pitting edema from ankles to just below the tibial tuberosities Neuro: CN II through XII are grossly intact Exam: 1.) New Onset CHF - Cardiology Consult: Dr. Bay --> help appreciated - ECHO was done as an outpatient 06/22/17: Please see full report in chart * EF 55-60% * Left ventricle cavity is normal in size; the aortic valve is tri-leaflet and calcified. There is no significant aortic regurgitation. - Monitory daily weight: in ER on 06/23/17 his weight was 149.8 and today it is 141 - Head of bed elevated - Strict I/Os - Images: * Chest X-ray: No active disease * Chest CT: No evidence of pulmonary embolism. Moderate bilateral pleural effusion with lower lobe compressive atelectasis bilaterally. Nonspecific mild mediastinal lymphadenopathy. Diffuse ground-glass opacity in both lung apices. Extensive differential diagnosis. Please correlate with clinical evaluation. - 1L fluid restriction - Continue Lasix 40mg IV q12h 2.) Hypervolemia/Hyponatremia - likely secondary to CHF - 1L fluid restriction - Continue Lasix 40mg IV q12h - Monitor weight daily: in ER on 06/23/17 his weight was 149.8 and today 06/26/17 it is 141 3) Bilateral LE edema - Venous Dopplers Bilateral LE are negative for DVT 4.)Subclinical Hypothyroid - Elevated TSH - Repeat TSH elevated. Repeat T4 normal. Will continue to monitor. 5.) History of Afib - Rate controlled - CHADs(2) Score: 3 - Medications * Metoprolol Succinate XL 100mg po daily * Xarelto 20mg po daily * Digoxin 125mg po daily 6.) History of HTN - Continue home medications: * Continue Norvasc 5mg po daily * Continue Metoprolol Succinate XL 100mg po daily * Continue Losartan 100mg po daily 7.) History of HLD - Lipid panel within normal limits except : HDL 25. - Continue home medication * Crestor 5mg po HS 8.) History of DM Type 2 - HgBA1C 9.9 - home medications held due to the new onset CHF - Insulin sliding scale - moderate - Accuchecks - Hypoglycemia protocol - Losartan 100mg po daily - Crestor 5mg po HS 9.) Bilateral Pleural effusion - Chest CT: Moderate bilateral pleural effusion with lower lobe compressive atelectasis bilaterally. - Pulm Consult: Dr. Newton --> help appreciated - His breathing is significantly improved since admission. Repeat Chest X Ray ordered 10.) Prophylaxis - DVT: Xarelto 20mg po daily - GI: Protonix 40mg IV daily - Heart Healthy/Moderate Carb diet/2gNa Medicine Team please speak with Dr. Bay prior to discharging patient to get cardiac clearance. I have reached out to him at the time of my exam of this patient, but unfortunately not heard back from him. If cleared by Dr. Bay, then I recommend the following discharge instructions: 1). Follow up with your Primary Care Physician Dr. Armijo in the next 7 to 10 days. 2). Your diabetes is NOT under control. Through Dr. Armijo's office, obtain referral for [facility]. 3). Through Dr. Armijo's office you will have to have your Thyroid blood work repeated in 2 to 4 weeks. 4). Schedule follow up with your Colon Therapist Dr. Mykel Garcia to take place in the next 7 to 10 days. 5). The following prescriptions were provided to you. Please have them filled at your pharmacy and use as directed: Glimepiride 4 mg, 1 tablet by mouth 1x/day (lunch), Disp #30, NO refills Trulicity 1.5 mg/0.5 ml, Inject once a week on the normal day that you do it, Disp #4 prefilled syringes Januvia 100 mg, 1 tablet by mouth 1x/day (breakfast), Disp #30, NO refills Metformin 1000 mg, 1 tablet by mouth 2x/day (breakfast and dinner), Disp #60, NO refills Norvasc 5 mg, 1 tablet by mouth 1x/day (lunch), Disp #30, NO refills Metoprolol Succinate 100 mg, 1 tablet by mouth 1x/day (breakfast), Disp #30, NO refills Losartan 100 mg, 1 tablet by mouth 1x/day (dinner), Disp #30, NO refills Lasix 40 mg, 1 tablet by mouth 1x/day (breakfast), Disp #30, NO refills Digoxin 0.125 mg, 1 tablet by mouth 1x/day (lunch), Disp #30, NO refills Levothyroxine 100 mcg, 1 tablet by mouth 1x/day (breakfast), Disp #30, NO refills Xarelto 20 mg, 1 tablet by mouth 1x/day (lunch), Disp #30, NO refills Crestor 5 mg, 1 tablet by mouth 1x/day (dinner), Disp #30, NO refills 6). Until you see Dr. Armijo please continue to limit yourself to roughly 1 liter of fluids per day. 7). Weigh yourself daily in the morning. If your weight has increased by more than 3 pounds, please notify the office of your Colon Therapist Dr. Mykel Garcia or the office of your Primary Care Physician Dr. Armijo immediately for further instructions. 8). Please follow the instructions in the Heart Failure diet. 9). Please take care and be well. Objective - Vital Signs/Intake and Output Vital Signs (last 24 hours): Temp Pulse Resp BP Pulse Ox 97.3 F L 65 20 132/70 98 06/25/17 23:00 06/26/17 07:50 06/25/17 23:00 06/26/17 05:58 06/25/17 15:00 Intake and Output: 06/26/17 06/26/17 06:59 18:59 Intake Total 572 Output Total 1375 Balance -803 - Medications Medications: Current Medications Amlodipine Besylate (Norvasc) 5 mg PO DAILY [facility] Last Admin: 06/25/17 09:25 Dose: 5 mg Digoxin (Lanoxin) 0.125 mg PO DAILY@1800 [facility] Last Admin: 06/25/17 18:15 Dose: 0.125 mg Furosemide (Lasix) 40 mg IVP Q12H [facility] Last Admin: 06/26/17 05:58 Dose: 40 mg Insulin Human Regular (Novolin R) 0 unit SC [facility] PRN Reason: Protocol Last Admin: 06/26/17 07:40 Dose: 3 unit Levothyroxine Sodium (Synthroid) 100 mcg PO DAILY@0630 [facility] Last Admin: 06/26/17 05:58 Dose: 100 mcg Losartan Potassium (Cozaar) 100 mg PO DAILY [facility] Last Admin: 06/25/17 09:25 Dose: 100 mg Metoprolol Succinate (Toprol Xl) 100 mg PO DAILY [facility] Last Admin: 06/25/17 09:26 Dose: 100 mg Pantoprazole Sodium (Protonix Inj) 40 mg IVP DAILY [facility] Last Admin: 06/25/17 09:26 Dose: 40 mg Pneumococcal Polyvalent Vaccine (Pneumovax 23 Vaccine) 0.5 ml IM .ONCE ONE Stop: 06/27/17 12:01 Rivaroxaban (Xarelto) 20 mg PO DAILY [facility] Last Admin: 06/25/17 09:27 Dose: 20 mg Rosuvastatin Calcium (Crestor) 5 mg PO HS [facility] Last Admin: 06/25/17 21:50 Dose: 5 mg - Labs Labs: 06/26/17 07:45 06/26/17 07:45
[2017-06-26] MEDS: Metoprolol Succinate 100 mg XL Tab PO SCH (10:15)
--- NOTE | 2017-06-26 12:48 | RAD ---
Chest x-ray two views History: Congestive heart failure. Comparison: 06/24/2017 Findings: Persistent moderate venous congestion. Persistent bilateral hilar prominence. Tortuous ectatic aorta. Cardiomegaly. Degenerative changes in the spine. Impression: Persistent moderate venous congestion. Persistent bilateral hilar prominence. Tortuous ectatic aorta. Cardiomegaly. Degenerative changes in the spine.
[2017-06-26 17:14] VITALS: PULSE 67
[2017-06-26] MEDS: Digoxin 125 mcg (0.125 mg) Tab PO SCH (17:14)
[2017-06-27] MEDS: Levothyroxine 100 MCG TAB PO SCH (06:06)
[2017-06-27 06:36] LABS: BASO # 0.1 K/uL (0.0-0.2); BASO % 0.9 % (0.0-2.0); EOS # 0.2 K/uL (0.0-0.7); EOS % 1.9 % (0.0-4.0); HEMOGLOBIN 13.8 g/dL (12.0-18.0); LYMPH # 1.2 K/uL (1.0-4.3); LYMPH % 12.5 % (20.0-40.0); MEAN CELL VOLUME 88.5 fL (80.0-94.0); MEAN CORPUSCULAR HEMOGLOBIN 30.2 pg (27.0-31.0); MEAN CORPUSCULAR HGB CONC 34.1 g/dL (33.0-37.0); MEAN PLATELET VOLUME 9.9 fL (7.2-11.7); NEUT # 6.9 K/uL (1.8-7.0); NEUT % 73.7 % (50.0-75.0); RBC 4.59 Mil/uL (4.40-5.90); RED CELL DISTRIBUTION WIDTH 13.8 % (11.5-14.5); WHITE BLOOD COUNT 9.3 K/uL (4.8-10.8)
--- NOTE | 2017-06-27 07:49 | CP.PCM.PN ---
Objective - Vital Signs/Intake and Output Vital Signs (last 24 hours): Temp Pulse Resp BP Pulse Ox 97.8 F 91 H 20 165/80 H 97 06/27/17 04:00 06/27/17 04:00 06/27/17 04:00 06/27/17 06:05 06/26/17 23:00 Intake and Output: 06/27/17 06/27/17 06:59 18:59 Intake Total 150 Output Total 575 Balance -425 - Medications Medications: Current Medications Amlodipine Besylate (Norvasc) 5 mg PO DAILY [facility] Last Admin: 06/26/17 10:14 Dose: 5 mg Digoxin (Lanoxin) 0.125 mg PO DAILY@1800 [facility] Last Admin: 06/26/17 17:14 Dose: 0.125 mg Furosemide (Lasix) 40 mg IVP Q12H [facility] Last Admin: 06/27/17 06:05 Dose: 40 mg Insulin Human Regular (Novolin R) 0 unit SC ACHS [facility] PRN Reason: Protocol Last Admin: 06/26/17 21:45 Dose: Not Given Levothyroxine Sodium (Synthroid) 100 mcg PO DAILY@0630 [facility] Last Admin: 06/27/17 06:06 Dose: 100 mcg Losartan Potassium (Cozaar) 100 mg PO DAILY [facility] Last Admin: 06/26/17 10:14 Dose: 100 mg Metoprolol Succinate (Toprol Xl) 100 mg PO DAILY [facility] Last Admin: 06/26/17 10:15 Dose: 100 mg Pantoprazole Sodium (Protonix Inj) 40 mg IVP DAILY [facility] Last Admin: 06/26/17 10:15 Dose: 40 mg Pneumococcal Polyvalent Vaccine (Pneumovax 23 Vaccine) 0.5 ml IM .ONCE ONE Stop: 06/27/17 12:01 Rivaroxaban (Xarelto) 20 mg PO DAILY [facility] Last Admin: 06/26/17 10:15 Dose: 20 mg Rosuvastatin Calcium (Crestor) 5 mg PO HS [facility] Last Admin: 06/26/17 21:49 Dose: 5 mg - Labs Labs: 06/27/17 06:27 06/26/17 07:45
[2017-06-27 07:57] LABS: ALB/GLOB RATIO 1.4 (1.0-2.1); ALBUMIN 3.8 g/dL (3.5-5.0); ALT/SGPT 48 U/L (21-72); AST/SGOT 31 U/L (17-59); BLOOD UREA NITROGEN 18 mg/dL (9-20); CALCIUM 8.7 mg/dl (8.6-10.4); GFR AFRICAN-AMERICAN > 60; GFR NON-AFRICAN AMERICAN > 60; MAGNESIUM 1.4 mg/dL (1.6-2.3)
[2017-06-27] MEDS: (Novolin R) Insulin Human Regular 100 units/ml vial SC SCH ×2 (08:29→13:30)
[2017-06-27] MEDS: Metoprolol Succinate 100 mg XL Tab PO SCH (10:33)
[2017-06-27] MEDS ORDERED: Pneumococcal 23-Valent Vaccine IM ONE (12:00)
--- NOTE | 2017-06-27 14:05 | CP.PCM.DIS ---
<Amy Jack - Last Filed: 06/27/17 18:40> Provider - Provider Date of Admission: 06/24/17 12:43 Attending physician: Kriss Doshi DO Time Spent in preparation of Discharge (in minutes): 40 Hospital Course - Lab Results Lab Results: Most Recent Lab Values WBC 9.3 K/uL (4.8-10.8) 06/27/17 06:27 RBC 4.59 Mil/uL (4.40-5.90) 06/27/17 06:27 Hgb 13.8 g/dL (12.0-18.0) 06/27/17 06:27 Hct 40.6 % (35.0-51.0) 06/27/17 06:27 MCV 88.5 fL (80.0-94.0) 06/27/17 06:27 MCH 30.2 pg (27.0-31.0) 06/27/17 06:27 MCHC 34.1 g/dL (33.0-37.0) 06/27/17 06:27 RDW 13.8 % (11.5-14.5) 06/27/17 06:27 Plt Count 177 K/uL (130-400) 06/27/17 06:27 MPV 9.9 fL (7.2-11.7) 06/27/17 06:27 Neut % (Auto) 73.7 % (50.0-75.0) 06/27/17 06:27 Lymph % (Auto) 12.5 % (20.0-40.0) L 06/27/17 06:27 Gordon % (Auto) 11.0 % (0.0-10.0) H 06/27/17 06:27 Eos % (Auto) 1.9 % (0.0-4.0) 06/27/17 06:27 Baso % (Auto) 0.9 % (0.0-2.0) 06/27/17 06:27 Neut # 6.9 K/uL (1.8-7.0) 06/27/17 06:27 Lymph # 1.2 K/uL (1.0-4.3) 06/27/17 06:27 Gordon # 1.0 K/uL (0.0-0.8) H 06/27/17 06:27 Eos # 0.2 K/uL (0.0-0.7) 06/27/17 06:27 Baso # 0.1 K/uL (0.0-0.2) 06/27/17 06:27 Puncture Site Rra 06/24/17 22:12 pCO2 38 mm/Hg (35-45) 06/24/17 22:12 pO2 95 mm/Hg (80-100) 06/24/17 22:12 HCO3 25.6 mmol/L (21-28) 06/24/17 22:12 ABG pH 7.43 (7.35-7.45) 06/24/17 22:12 ABG Total CO2 26.4 mmol/L (22-28) 06/24/17 22:12 ABG O2 Saturation 98.9 % (95-98) H 06/24/17 22:12 ABG Base Excess 1.0 mmol/L (-2.0-3.0) 06/24/17 22:12 ABG Hemoglobin 13.7 g/dL (11.7-17.4) 06/24/17 22:12 ABG Carboxyhemoglobin 2.0 % (0.5-1.5) H 06/24/17 22:12 POC ABG HHb (Measured) 1.1 % (0.0-5.0) 06/24/17 22:12 ABG Methemoglobin 1.6 % (0.0-3.0) 06/24/17 22:12 Ed Test Na 06/24/17 22:12 ABG Potassium 3.5 mmol/L (3.6-5.2) L 06/24/17 10:33 A-a O2 Difference 571.0 mm/Hg 06/24/17 22:12 Respiratory Index 6.0 06/24/17 22:12 Hgb O2 Saturation 95.2 % (95.0-98.0) 06/24/17 22:12 Sodium 131.0 mmol/l (132-148) L 06/24/17 10:33 Chloride 99.0 mmol/L (98-107) 06/24/17 10:33 Glucose 282 mg/dl (75-110) H 06/24/17 10:33 Lactate 2.0 mmol/L (0.7-2.1) 06/24/17 10:33 Liter Flow 15.0 06/24/17 22:12 FiO2 100.0 % 06/24/17 22:12 Sodium 129 mmol/L (132-148) L 06/27/17 06:27 Potassium 4.1 mmol/L (3.6-5.2) 06/27/17 06:27 Chloride 92 mmol/L (98-107) L 06/27/17 06:27 Carbon Dioxide 30 mmol/L (22-30) 06/27/17 06:27 Anion Gap 11 (10-20) 06/27/17 06:27 BUN 18 mg/dL (9-20) 06/27/17 06:27 Creatinine 0.8 mg/dL (0.8-1.5) 06/27/17 06:27 Est GFR ( Amer) > 60 06/27/17 06:27 Est GFR (Non-Af Amer) > 60 06/27/17 06:27 POC Glucose (mg/dL) 253 mg/dL (65-110) H 06/27/17 11:34 Random Glucose 250 mg/dL (75-110) H 06/27/17 06:27 Hemoglobin A1c 9.9 % (4.2-6.5) H 06/25/17 06:21 Calcium 8.7 mg/dl (8.6-10.4) 06/27/17 06:27 Phosphorus 2.8 mg/dL (2.5-4.5) 06/27/17 06:27 Magnesium 1.4 mg/dL (1.6-2.3) L 06/27/17 06:27 Total Bilirubin 1.1 mg/dL (0.2-1.3) 06/27/17 06:27 AST 31 U/L (17-59) 06/27/17 06:27 ALT 48 U/L (21-72) 06/27/17 06:27 Alkaline Phosphatase 60 U/L (38-126) 06/27/17 06:27 Total Creatine Kinase 40 U/L (55-170) L 06/24/17 10:21 CK-MB (Mass) 1.42 ng/mL (0.0-3.38) 06/24/17 10:21 Troponin I < 0.0120 ng/mL (0.00-0.120) 06/24/17 10:21 NT-Pro-B Natriuret Pep 3710 pg/mL (0-900) H 06/24/17 10:21 Total Protein 6.5 g/dL (6.3-8.3) 06/27/17 06:27 Albumin 3.8 g/dL (3.5-5.0) 06/27/17 06:27 Globulin 2.7 gm/dL (2.2-3.9) 06/27/17 06:27 Albumin/Globulin Ratio 1.4 (1.0-2.1) 06/27/17 06:27 Triglycerides 106 mg/dL (0-149) 06/25/17 06:21 Cholesterol 98 mg/dL (0-199) 06/25/17 06:21 LDL Cholesterol Direct 52 mg/dL (0-129) 06/25/17 06:21 HDL Cholesterol 25 mg/dL (30-70) L 06/25/17 06:21 Free T4 0.96 ng/dL (0.78-2.19) 06/25/17 06:21 TSH 3rd Generation 6.42 mIU/L (0.46-4.68) H 06/25/17 06:21 Arterial Blood Potassium 3.5 mmol/L (3.6-5.2) L 06/24/17 10:33 Digoxin 1.9 ng/mL (0.8-2.0) 06/24/17 12:39 - Hospital Course Hospital Course: Full Code Health Care Proxy: Mykel Layne (friend) # [phone] PMD: Dr. Armijo [address] Man: Dr. Jose Hogue CC: "shortness of breath" HPI:72 year old male with past medical history of HTN, afib, DM, and HLD who presents to the ED for shortness of breath. Patient states he has been having shortness of breath for the past 3 weeks but it became worse this week and especially last night. Patient states he can barely walk one block without having shortness of breath. He states when he walks more than a block after eating he then becomes nauseated and vomits. He has been sleeping with 3 pillows for about a week. He denies recent travel or any one sick at home. Patient states he was recently at his PMD office Dr. Armijo who gave him a water pill to remove some of the swelling in his legs. He states he has noticed the swelling for the past 3 weeks. Patient states he was recently at his weeder thinner office where he had some testing done but is not sure which tests those were. Past Medical History: HTN, Afib, DM, hypothyroid; HLD Past Surgical History: Denies Allergies: NKDA Family History: Mom - breast cancer Medications: Xeralto 20mg daily, digoxin 125mg daily, crestor 5mg HS, Losartan 100mg daily, Amlodipine 5mg daily, metoprolol XL 100mg daily, Metformin 1000mg BID, Januvia 100mg qd, Glimepride 4mg qd, Trulicity .75/1.5 qweek; Synthroid 100mg daily Social History: Lives at home with his who is currently in [facility]. Drinks about 1-2 shots of whiskey per day and 2-3 shots of whiskey on the weekends for the past 15 years and sometimes also has a beer with the whiskey, denies illicit drug use, denies smokin Hospital Course: During hospital course patient's weeder thinner was contacted. ECHO was done as an outpatient 06/22/17: EF 55-60% and Left ventricle cavity is normal in size; the aortic valve is tri-leaflet and calcified. There is no significant aortic regurgitation. Patient had strict I/Os, daily weights, 1L fluid restriction and lasix 40mg IV q12h was given. [facility] Man Dr. Bay was consulted. Patient was placed on tele due to history of afib and new onset CHF. Patient was rate controlled and continued patient's home medications which were confirmed with patient's weeder thinner. - Images: * Chest X-ray: No active disease * Chest CT: No evidence of pulmonary embolism. Moderate bilateral pleural effusion with lower lobe compressive atelectasis bilaterally. Nonspecific mild mediastinal lymphadenopathy. Diffuse ground-glass opacity in both lung apices. Extensive differential diagnosis. Please correlate with clinical evaluation * Venous Doppler: negative Patient was seen and examined at bedside. Per nursing no acute events occurred overnight. The patient denies any abdominal pain, fevers, chills, dizziness, chest pain, difficulty breathing, nausea or vomiting. Patient states he is ready to go home. Discussed patient's discharge with weeder thinner Dr. Bay who stated patient was okay for discharge. Discussed with patient the importance of 1L fluid restriction. Also discussed with the patient to follow up with PMD and with weeder thinner. Patient states he has a weeder thinner appointment 07/01/17. 1). Follow up with your Primary Care Physician Dr. Armijo in the next 7 to 10 days. 2). Your diabetes is NOT under control. Through Dr. Armijo's office, obtain referral for Archives Director. 3). Through Dr. Armijo's office you will have to have your Thyroid blood work repeated in 2 to 4 weeks. 4). Schedule follow up with your [facility] [address] Man Dr. Mykel Garcia to take place in the next 7 to 10 days. 5). The following prescriptions were provided to you. Please have them filled at your pharmacy and use as directed: Glimepiride 4 mg, 1 tablet by mouth 1x/day (lunch), Disp #30, NO refills Trulicity 1.5 mg/0.5 ml, Inject once a week on the normal day that you do it, Disp #4 prefilled syringes Januvia 100 mg, 1 tablet by mouth 1x/day (breakfast), Disp #30, NO refills Metformin 1000 mg, 1 tablet by mouth 2x/day (breakfast and dinner), Disp #60, NO refills Norvasc 5 mg, 1 tablet by mouth 1x/day (lunch), Disp #30, NO refills Metoprolol Succinate 100 mg, 1 tablet by mouth 1x/day (breakfast), Disp #30, NO refills Losartan 100 mg, 1 tablet by mouth 1x/day (dinner), Disp #30, NO refills Lasix 40 mg, 1 tablet by mouth 1x/day (breakfast), Disp #30, NO refills Digoxin 0.125 mg, 1 tablet by mouth 1x/day (lunch), Disp #30, NO refills Levothyroxine 100 mcg, 1 tablet by mouth 1x/day (breakfast), Disp #30, NO refills Xarelto 20 mg, 1 tablet by mouth 1x/day (lunch), Disp #30, NO refills Crestor 5 mg, 1 tablet by mouth 1x/day (dinner), Disp #30, NO refills 6). Until you see Dr. Armijo please continue to limit yourself to roughly 1 liter of fluids per day. 7). Weigh yourself daily in the morning. If your weight has increased by more than 3 pounds, please notify the office of your [facility] [address] [facility] Dr. Mykel Garcia or the office of your Primary Care Physician Dr. Aleksander callejas for further instructions. 8). Please follow the instructions in the Heart Failure diet. This is a summary of patient's hospital course, please see chart for full details. Discharge Exam - Head Exam Head Exam: ATRAUMATIC, NORMAL INSPECTION, NORMOCEPHALIC - Eye Exam Eye Exam: EOMI, Normal appearance - ENT Exam ENT Exam: Mucous Membranes Moist - Respiratory Exam Respiratory Exam: Clear to PA & Lateral, NORMAL BREATHING PATTERN - Cardiovascular Exam Cardiovascular Exam: REGULAR RHYTHM, +S1, +S2 - GI/Abdominal Exam GI & Abdominal Exam: Normal Bowel Sounds, Soft. absent: Tenderness - Extremities Exam Extremities exam: normal inspection - Neurological Exam Neurological exam: Alert, Oriented x3 - Psychiatric Exam Psychiatric exam: Normal Affect, Normal Mood - Skin Skin Exam: Normal Color, Warm Discharge Plan - Discharge Medications Prescriptions: RX: amLODIPine [Norvasc] 5 mg PO DAILY #30 tab Dulaglutide [Trulicity] 1.5 mg SC Q7D #4 ml RX: Furosemide 40 mg PO DAILY #30 tablet RX: Glimepiride 4 mg PO DAILY #30 tablet RX: Levothyroxine [Synthroid] 100 mcg PO DAILY #30 tab RX: Losartan Potassium 100 mg PO DAILY #30 tablet RX: MetFORMIN [glucoPHAGE] 1,000 mg PO BID #60 tab RX: Metoprolol Succinate 100 mg PO DAILY #30 tab.er.24h RX: Rosuvastatin Calcium 5 mg PO DAILY #30 tablet SITagliptin [Januvia] 100 mg PO DAILY #30 tab - Follow Up Plan Condition: GOOD Disposition: HOME/ ROUTINE Instructions: Metoprolol (By mouth), Furosemide (By mouth), Levothyroxine (By mouth), Amlodipine (By mouth), Losartan (By mouth), Glimepiride (By mouth), Metformin (By mouth), Rosuvastatin (By mouth), Sitagliptin (By mouth), Dulaglutide (By injection), Heart Failure (DC), Heart Healthy Diet (DC), Diabetic Foot Care (DC), Basic Carbohydrate Counting (DC), Meal Planning with the Plate Method (DC), Meal Planning with Diabetes Exchanges (DC) Additional Instructions: 1). Follow up with your Primary Care Physician Dr. Armijo in the next 7 to 10 days. 2). Your diabetes is NOT under control. Through Dr. Armijo's office, obtain referral for Archives Director. 3). Through Dr. Armijo's office you will have to have your Thyroid blood work repeated in 2 to 4 weeks. 4). Schedule follow up with your [facility] [address] Man Dr. Mykel Garcia to take place in the next 7 to 10 days. 5). The following prescriptions were provided to you. Please have them filled at your pharmacy and use as directed: Glimepiride 4 mg, 1 tablet by mouth 1x/day (lunch), Disp #30, NO refills Trulicity 1.5 mg/0.5 ml, Inject once a week on the normal day that you do it, Disp #4 prefilled syringes Januvia 100 mg, 1 tablet by mouth 1x/day (breakfast), Disp #30, NO refills Metformin 1000 mg, 1 tablet by mouth 2x/day (breakfast and dinner), Disp #60, NO refills Norvasc 5 mg, 1 tablet by mouth 1x/day (lunch), Disp #30, NO refills Metoprolol Succinate 100 mg, 1 tablet by mouth 1x/day (breakfast), Disp #30, NO refills Losartan 100 mg, 1 tablet by mouth 1x/day (dinner), Disp #30, NO refills Lasix 40 mg, 1 tablet by mouth 1x/day (breakfast), Disp #30, NO refills Digoxin 0.125 mg, 1 tablet by mouth 1x/day (lunch), Disp #30, NO refills Levothyroxine 100 mcg, 1 tablet by mouth 1x/day (breakfast), Disp #30, NO refills Xarelto 20 mg, 1 tablet by mouth 1x/day (lunch), Disp #30, NO refills Crestor 5 mg, 1 tablet by mouth 1x/day (dinner), Disp #30, NO refills 6). Until you see Dr. Armijo please continue to limit yourself to roughly 1 liter of fluids per day. 7). Weigh yourself daily in the morning. If your weight has increased by more than 3 pounds, please notify the office of your [facility] [address] Man Dr. Mykel Garcia or the office of your Primary Care Physician Dr. Armijo immediately for further instructions. 8). Please follow the instructions in the Heart Failure diet. Referrals: Angel Armijo MD [Staff Provider] - <Kriss Doshi V - Last Filed: 06/27/17 21:21> Provider - Provider Date of Admission: 06/24/17 12:43 Attending physician: Kriss Doshi, Hospital Course - Lab Results Lab Results: Most Recent Lab Values WBC 9.3 K/uL (4.8-10.8) 06/27/17 06:27 RBC 4.59 Mil/uL (4.40-5.90) 06/27/17 06:27 Hgb 13.8 g/dL (12.0-18.0) 06/27/17 06:27 Hct 40.6 % (35.0-51.0) 06/27/17 06:27 MCV 88.5 fL (80.0-94.0) 06/27/17 06:27 MCH 30.2 pg (27.0-31.0) 06/27/17 06:27 MCHC 34.1 g/dL (33.0-37.0) 06/27/17 06:27 RDW 13.8 % (11.5-14.5) 06/27/17 06:27 Plt Count 177 K/uL (130-400) 06/27/17 06:27 MPV 9.9 fL (7.2-11.7) 06/27/17 06:27 Neut % (Auto) 73.7 % (50.0-75.0) 06/27/17 06:27 Lymph % (Auto) 12.5 % (20.0-40.0) L 06/27/17 06:27 Gordon % (Auto) 11.0 % (0.0-10.0) H 06/27/17 06:27 Eos % (Auto) 1.9 % (0.0-4.0) 06/27/17 06:27 Baso % (Auto) 0.9 % (0.0-2.0) 06/27/17 06:27 Neut # 6.9 K/uL (1.8-7.0) 06/27/17 06:27 Lymph # 1.2 K/uL (1.0-4.3) 06/27/17 06:27 Gordon # 1.0 K/uL (0.0-0.8) H 06/27/17 06:27 Eos # 0.2 K/uL (0.0-0.7) 06/27/17 06:27 Baso # 0.1 K/uL (0.0-0.2) 06/27/17 06:27 Puncture Site Rra 06/24/17 22:12 pCO2 38 mm/Hg (35-45) 06/24/17 22:12 pO2 95 mm/Hg (80-100) 06/24/17 22:12 HCO3 25.6 mmol/L (21-28) 06/24/17 22:12 ABG pH 7.43 (7.35-7.45) 06/24/17 22:12 ABG Total CO2 26.4 mmol/L (22-28) 06/24/17 22:12 ABG O2 Saturation 98.9 % (95-98) H 06/24/17 22:12 ABG Base Excess 1.0 mmol/L (-2.0-3.0) 06/24/17 22:12 ABG Hemoglobin 13.7 g/dL (11.7-17.4) 06/24/17 22:12 ABG Carboxyhemoglobin 2.0 % (0.5-1.5) H 06/24/17 22:12 POC ABG HHb (Measured) 1.1 % (0.0-5.0) 06/24/17 22:12 ABG Methemoglobin 1.6 % (0.0-3.0) 06/24/17 22:12 Ed Test Na 06/24/17 22:12 ABG Potassium 3.5 mmol/L (3.6-5.2) L 06/24/17 10:33 A-a O2 Difference 571.0 mm/Hg 06/24/17 22:12 Respiratory Index 6.0 06/24/17 22:12 Hgb O2 Saturation 95.2 % (95.0-98.0) 06/24/17 22:12 Sodium 131.0 mmol/l (132-148) L 06/24/17 10:33 Chloride 99.0 mmol/L (98-107) 06/24/17 10:33 Glucose 282 mg/dl (75-110) H 06/24/17 10:33 Lactate 2.0 mmol/L (0.7-2.1) 06/24/17 10:33 Liter Flow 15.0 06/24/17 22:12 FiO2 100.0 % 06/24/17 22:12 Sodium 129 mmol/L (132-148) L 06/27/17 06:27 Potassium 4.1 mmol/L (3.6-5.2) 06/27/17 06:27 Chloride 92 mmol/L (98-107) L 06/27/17 06:27 Carbon Dioxide 30 mmol/L (22-30) 06/27/17 06:27 Anion Gap 11 (10-20) 06/27/17 06:27 BUN 18 mg/dL (9-20) 06/27/17 06:27 Creatinine 0.8 mg/dL (0.8-1.5) 06/27/17 06:27 Est GFR ( Amer) > 60 06/27/17 06:27 Est GFR (Non-Af Amer) > 60 06/27/17 06:27 POC Glucose (mg/dL) 253 mg/dL (65-110) H 06/27/17 11:34 Random Glucose 250 mg/dL (75-110) H 06/27/17 06:27 Hemoglobin A1c 9.9 % (4.2-6.5) H 06/25/17 06:21 Calcium 8.7 mg/dl (8.6-10.4) 06/27/17 06:27 Phosphorus 2.8 mg/dL (2.5-4.5) 06/27/17 06:27 Magnesium 1.4 mg/dL (1.6-2.3) L 06/27/17 06:27 Total Bilirubin 1.1 mg/dL (0.2-1.3) 06/27/17 06:27 AST 31 U/L (17-59) 06/27/17 06:27 ALT 48 U/L (21-72) 06/27/17 06:27 Alkaline Phosphatase 60 U/L (38-126) 06/27/17 06:27 Total Creatine Kinase 40 U/L (55-170) L 06/24/17 10:21 CK-MB (Mass) 1.42 ng/mL (0.0-3.38) 06/24/17 10:21 Troponin I < 0.0120 ng/mL (0.00-0.120) 06/24/17 10:21 NT-Pro-B Natriuret Pep 3710 pg/mL (0-900) H 06/24/17 10:21 Total Protein 6.5 g/dL (6.3-8.3) 06/27/17 06:27 Albumin 3.8 g/dL (3.5-5.0) 06/27/17 06:27 Globulin 2.7 gm/dL (2.2-3.9) 06/27/17 06:27 Albumin/Globulin Ratio 1.4 (1.0-2.1) 06/27/17 06:27 Triglycerides 106 mg/dL (0-149) 06/25/17 06:21 Cholesterol 98 mg/dL (0-199) 06/25/17 06:21 LDL Cholesterol Direct 52 mg/dL (0-129) 06/25/17 06:21 HDL Cholesterol 25 mg/dL (30-70) L 06/25/17 06:21 Free T4 0.96 ng/dL (0.78-2.19) 06/25/17 06:21 TSH 3rd Generation 6.42 mIU/L (0.46-4.68) H 06/25/17 06:21 Arterial Blood Potassium 3.5 mmol/L (3.6-5.2) L 06/24/17 10:33 Digoxin 1.9 ng/mL (0.8-2.0) 06/24/17 12:39 Attending/Attestation - Attestation I have personally seen and examined this patient.: Yes I have fully participated in the care of the patient.: Yes I have reviewed all pertinent clinical information, including history, physical exam and plan: Yes Notes (Text): Patient seen, examined and case discussed with day-time resident. Patient denies acute complaints. Patient reports he is feeling better. Per pulmonary, stable for discharge. Per cardiology, stable for discharge. Patient to follow-up with his weeder thinner , Dr. Garcia on 07/01/17. Heart Failure core Measures completed on discharge. Discharge order and discharge instructions discussed with resident and patient at bedside. Discharge Diagnoses: 1) Acute on Chronic Heart Failure Exacerbation, Diastolic 2) Atrial Fibrillation 3) Lipid Disorder 4) Pleural Effusion secondary to Heart Failure Exacerbation 5) Hypertension 1) Norvasc 5 mg, 1 tablet by mouth 1x/day (lunch), Disp #30, NO refills 2) Metoprolol Succinate 100 mg, 1 tablet by mouth 1x/day (breakfast), Disp #30, NO refills 3) Losartan 100 mg, 1 tablet by mouth 1x/day (dinner), Disp #30, NO refills 4) Lasix 40 mg, 1 tablet by mouth 1x/day (breakfast), Disp #30, NO refills 5) Digoxin 0.125 mg, 1 tablet by mouth 1x/day (lunch), Disp #30, NO refills 6) Xarelto 20 mg, 1 tablet by mouth 1x/day (lunch), Disp #30, NO refills 7) Crestor 5 mg, 1 tablet by mouth 1x/day (dinner), Disp #30, NO refills Schedule follow up with your [facility] Dr. Mykel Garcia to take place in the next 7 to 10 days; appointment scheduled 07/01/17. Until you see Dr. Armijo please continue to limit yourself to roughly 1 liter of fluids per day. Weigh yourself daily in the morning. If your weight has increased by more than 3 pounds, please notify the office of your [facility] [address] [facility] Dr. Mykel Garcia or the office of your Primary Care Physician Dr. Armijo immediately for further instructions. Please follow the instructions in the Heart Failure diet. 6) Uncontrolled Diabetes Type 2 Scripts upon discharge: 1) Glimepiride 4 mg, 1 tablet by mouth 1x/day (lunch), Disp #30, NO refills 2) Trulicity 1.5 mg/0.5 ml, Inject once a week on the normal day that you do it , Disp #4 prefilled syringes 3) Januvia 100 mg, 1 tablet by mouth 1x/day (breakfast), Disp #30, NO refills 4)Metformin 1000 mg, 1 tablet by mouth 2x/day (breakfast and dinner), Disp #60, NO refills Your diabetes is NOT under control. Through Dr. Armijo's office, recommended for referral for Archives Director. 7) Thyroid Disease 1) Levothyroxine 100 mcg, 1 tablet by mouth 1x/day (breakfast), Disp #30, NO refills Through Dr. Armijo's office you will have to have your Thyroid blood work repeated in 2 to 4 weeks. This is a summary of patient's hospital course, please see chart for full details.
--- NOTE | 2017-06-27 15:14 | VASCLAB ---
PROCEDURE: Lower Extremity Venous Duplex Exam. HISTORY: bilateral pedal edema PRIORS: None. TECHNIQUE: Bilateral common femoral, femoral, popliteal and posterior tibial, peroneal and great saphenous veins were evaluated. Flow was assessed with color Doppler, compressibility, assessment of phasic flow and augmentation response. Report prepared by MELISSA Ulloa, RVT FINDINGS: RIGHT: 1. Common Femoral Vein: 1.1. Compressibility - Fully compressible: Thrombus - None : Flow - Phasic: Augmentation -Normal: Reflux - None. 2. Femoral Vein: 2.1. Compressibility - Fully compressible: Thrombus - None : Flow - Phasic: Augmentation -Normal: Reflux - None. 3. Popliteal Vein: 3.1. Compressibility - Fully compressible: Thrombus - None : Flow - Phasic: Augmentation -Normal: Reflux - None. 4. Posterior Tibial Vein: 4.1. Compressibility - Fully compressible: Thrombus - None: Flow - Phasic: Augmentation -Normal: Reflux - None. 5. Peroneal Vein: 5.1. Compressibility - Fully compressible: Thrombus - None: Flow - Phasic: Augmentation -Normal: Reflux - None. 6. Great Saphenous Vein: 6.1. Compressibility - Fully compressible: Thrombus - None: Flow - Phasic: Augmentation - Normal: Reflux - None. LEFT: 1. Common Femoral Vein: 1.1. Compressibility - Fully compressible: Thrombus - None: Flow - Phasic: Augmentation -Normal: Reflux - None. 2. Femoral Vein: 2.1. Compressibility - Fully compressible: Thrombus - None: Flow - Phasic: Augmentation -Normal: Reflux - None. 3. Popliteal Vein: 3.1. Compressibility - Fully compressible: Thrombus - None : Flow - Phasic: Augmentation -Normal: Reflux - None. 4. Posterior Tibial Vein: 4.1. Compressibility - Fully compressible: Thrombus - None: Flow - Phasic: Augmentation -Normal: Reflux - None. 5. Peroneal Vein: 5.1. Compressibility - Fully compressible: Thrombus - None: Flow - Phasic: Augmentation -Normal: Reflux - None. 6. Great Saphenous Vein: 6.1. Compressibility - Fully compressible: Thrombus - None: Flow - Phasic: Augmentation - Normal: Reflux - None. OTHER FINDINGS: Right: None significant. Left: None significant. IMPRESSION: Right: No evidence of deep or superficial vein thrombosis of the right lower extremity. Normal valve function noted of the right side. Left: No evidence of deep or superficial vein thrombosis of the left lower extremity. Normal valve function noted of the left side.
[2017-06-27 16:54] VITALS: BP 155/80; PULSE 68; TEMP 98.5; O2SAT 96
--- NOTE | 2017-06-27 21:22 | PCM.HF ---
Heart Failure Core Measure - Heart Failure Ejection Fraction: 40 % or Greater Left Ventricular Function to be assessed after discharge: Yes [id number] Inhibitor Prescribed: No Contraindication/Reason for not providing: ARB Beta-Abimael Prescribed: Metoprolol Succinate Angiotensin II Receptor Abimael Prescribed: Yes AnticoagulationTherapy for Atrial Fibrillation/Atrialflutter: Yes Aldosterone Antagonist Prescribed: No Contraindication/Reason for not providing: not clinically indicated Contraindication/Reason for not providing: not clinically indicated Contraindication/Reason for not providing: not clinically indicated Contraindication/Reason for not providing: not clinically indicated - Follow up Will be discharged to: Home Follow Up Date (must be within 7 days from discharge): 07/01/17 Follow Up Time: 09:00
== END 2017-06-27 16:51 | disposition home or self-care (01) | DRG 292 ==
LOC: C.ER 09:50 → C.9E 12:43 → C.6T 15:47
PROVIDERS: ADMIT Hospitalist; ATTEND Hospitalist
DX: I11.0 Hypertensive heart disease with heart failure (principal); E87.1 Hypo-osmolality and hyponatremia; E11.65 Type 2 diabetes mellitus with hyperglycemia; I48.91 Unspecified atrial fibrillation; J98.11 Atelectasis; E78.5 Hyperlipidemia, unspecified; I50.33 Acute on chronic diastolic (congestive) heart failure; Z79.4 Long term (current) use of insulin; E03.9 Hypothyroidism, unspecified; Z79.84 Long term (current) use of oral hypoglycemic drugs

== ENCOUNTER 2017-09-08 13:20 | Inpatient (IN) | payer MEDICARE ==
[2017-09-08 13:36] VITALS: BMI 26.6
[2017-09-08 14:07] LABS: BASO # 0.1 K/uL (0.0-0.2); BASO % 1.2 % (0.0-2.0); EOS # 0.2 K/uL (0.0-0.7); HEMOGLOBIN 14.9 g/dL (12.0-18.0); LYMPH # 0.6 K/uL (1.0-4.3); LYMPH % 7.2 % (20.0-40.0); MEAN CORPUSCULAR HEMOGLOBIN 29.6 pg (27.0-31.0); MEAN CORPUSCULAR HGB CONC 34.4 g/dL (33.0-37.0); MEAN PLATELET VOLUME 9.3 fL (7.2-11.7); MONO # 0.7 K/uL (0.0-0.8); MONO % 8.5 % (0.0-10.0); NEUT # 6.7 K/uL (1.8-7.0); NEUT % 81.1 % (50.0-75.0); NRBC % 0.1 % (0.0-2.0); PLATELET COUNT 185 K/uL (130-400); RBC 5.03 Mil/uL (4.40-5.90); RED CELL DISTRIBUTION WIDTH 15.5 % (11.5-14.5); WHITE BLOOD COUNT 8.3 K/uL (4.8-10.8)
[2017-09-08 14:11] LABS: MEAN CELL VOLUME 86.2 fL (80.0-94.0)
[2017-09-08 14:15] LABS: INR 1.2; PROTHROMBIN TIME 13.8 SECONDS (9.7-12.2)
[2017-09-08 14:24] LABS: ALB/GLOB RATIO 1.2 (1.0-2.1); ALBUMIN 3.7 g/dL (3.5-5.0); ALT/SGPT 15 U/L (21-72); AST/SGOT 28 U/L (17-59); BLOOD UREA NITROGEN 17 mg/dL (9-20); CALCIUM 8.6 mg/dl (8.6-10.4); GFR AFRICAN-AMERICAN > 60; GFR NON-AFRICAN AMERICAN 59
[2017-09-08 14:33] LABS: B-TYPE NATRIURETIC PEPTIDE 5540 pg/mL (0-900); BANDS 1 % (0-2); BASOPHIL 1 % (0-2); LYMPHOCYTE 5 % (20-40); MONOCYTE 12 % (0-10); NEUTROPHIL 80 % (50-75); PLATELET ESTIMATE NORMAL (NORMAL); REACTIVE LYMPHOCYTES 1 % (0-0); TOTAL CELLS COUNTED 100
[2017-09-08 14:34] LABS: ANISOCYTOSIS SLIGHT; BURR CELLS MODERATE
--- NOTE | 2017-09-08 15:28 | C.PDOC ---
Time Seen by Provider: 09/08/17 13:39 Chief Complaint (Nursing): Shortness Of Breath History Per: Patient Onset/Duration Of Symptoms: Days (1) Current Symptoms Are (Timing): Worse Associated Symptoms: Ankle/Leg Swelling, Other (Nausea) Additional History Per: Prior Records Past Medical History Reviewed: Historical Data, Nursing Documentation, Vital Signs Vital Signs: Last Vital Signs Temp 97.3 F L 09/08/17 13:35 Pulse 60 09/08/17 14:43 Resp 18 09/08/17 14:43 BP 92/69 L 09/08/17 14:43 Pulse Ox 88 L 09/08/17 15:30 - Medical History PMH: Atrial Fibrillation, CHF, HTN, Hypercholesterolemia Family History: States: Unknown Family Hx - Social History Hx Tobacco Use: No Hx Alcohol Use: Yes Hx Substance Use: No - Immunization History Hx Tetanus Toxoid Vaccination: Yes Hx Influenza Vaccination: No Hx Pneumococcal Vaccination: No Review Of Systems Except As Marked, All Systems Reviewed And Found Negative. Constitutional: Negative for: Fever Cardiovascular: Positive for: Edema. Negative for: Chest Pain Respiratory: Positive for: Shortness of Breath. Negative for: Hemoptysis Gastrointestinal: Positive for: Nausea. Negative for: Vomiting, Abdominal Pain Musculoskeletal: Negative for: Neck Pain Skin: Negative for: Rash Neurological: Negative for: Weakness, Numbness, Headache Physical Exam - Physical Exam Appears: In Acute Distress Skin: Normal Color, Warm, Dry, No Rash Head: Atraumatic, Normacephalic Eye(s): bilateral: PERRL, EOMI Neck: Normal ROM, Supple Cardiovascular: Rhythm Irregular Respiratory: No Accessory Muscle Use, Rales Gastrointestinal/Abdominal: Soft, No Tenderness Extremity: Normal ROM, Pedal Edema Neurological/Psych: Oriented x3, Normal Motor, Normal Sensation ED Course And Treatment - Laboratory Results Result Diagrams: 09/08/17 14:03 09/08/17 14:03 Lab Interpretation: Abnormal Interpretation Of Abnormal: Elevated BNP ECG: Interpreted By Me, Viewed By Me ECG Rhythm: Atrial Fibrillation, Nonspecific Changes ECG Interpretation: No Changes From Prior Rate From EC O2 Sat by Pulse Oximetry: 88 (on RA) Pulse Ox Interpretation: Abnormal Interpretation Of Abnormal: Hypoxia on RA - Radiology CXR: Interpreted by Me, Viewed By Me CXR Interpretation: Yes: Cardiomegaly, Other (CHF) Progress Note: Pt was placed on BiPAP with improvement. Reassessment Condition: Improved Progress - Interventions Interventions:: Observation, Oxygen - Medications Administered Intravenous: Antiemetic, Diuretic - Data Reviewed Data Reviewed: Lab, Diagnostic imaging, EKG, Old records - Patient Status Patient status: Partially improved - Critical Care Citical Care: Excluding Proc Time Critical Care Time: 45 minutes - Continuity of Care Discussed patient case with:: Patient, ED Nurse, Covering for PMD - Patient Plan Patient Plan: Admission, Telemetry Disposition Discussed With : Ella Harrington Comment: She accepted pt on hospitalist service. Doctor Will See Patient In The: Hospital Counseled Patient/Family Regarding: Studies Performed, Diagnosis - Disposition Disposition: HOSPITALIZED Disposition Time: 15:30 Condition: GUARDED - Clinical Impression Clinical Impression: Acute exacerbation of CHF (congestive heart failure), Hypoxia
[2017-09-08] MEDS ORDERED: Home Med 1 UNIT (Dulaglutide [Trulicity] 1.5 MG) SC SCH (15:45)
--- NOTE | 2017-09-08 15:51 | RAD ---
Chest x-ray single frontal view History: Chest pain. Comparison: 06/24/2017 Findings: Mild venous congestion. Small right pleural effusion. Patchy right basilar airspace opacity. Enlarged ectatic aorta. Mild cardiomegaly. Degenerative changes in the spine and shoulders. Impression: Mild venous congestion. Small right pleural effusion. Patchy right basilar airspace opacity. Enlarged ectatic aorta. Mild cardiomegaly.
--- NOTE | 2017-09-08 15:51 | CP.PCM.HP ---
<Pranav TANKeri Cristian - Last Filed: 09/08/17 16:10> History of Present Illness - History of Present Illness History of Present Illness: CC: "shortness of breath" HPI:72 year old male with past medical history of HTN, afib, DM, and HLD who presents to the ED for shortness of breath. Patient states he vomited three times this morning and became short of breath and called ambulance. Patient reports lightheadedness but denies fevers, chills. Patient denies sore throat. Patient admits to cough productive of white phlegm. Patient also states his legs have been more swollen for the past one week. Patient states he did not eat today. Patient reports compliance with all medications and states he took all prescribed medications today. Past Medical History: HTN, Afib, DM, hypothyroid; HLD Past Surgical History: Denies Allergies: NKDA Family History: Mom - breast cancer Medications: Xeralto 20mg daily, digoxin 125mg daily, crestor 5mg HS, Losartan 100mg daily, Amlodipine 5mg daily, metoprolol XL 100mg daily, Metformin 1000mg BID, Januvia 100mg qd, Glimepride 4mg qd, Trulicity .75/1.5 qweek (Tuesdays); Synthroid 100mg daily Social History: Lives alone. Drinks about 1-2 shots of whiskey per day and 2-3 shots of whiskey on the weekends for the past 15 years and sometimes also has a beer with the whiskey, denies illicit drug use, denies smoking. Full Code Health Care Proxy: Mykel Tillman (friend) # [phone] PMD: Dr. Armijo Human Resources Assistant Manager: Dr. Jose Hogue Present on Admission - Present on Admission Any Indicators Present on Admission: Yes History of Uncontrolled Diabetes: Yes Review of Systems - Constitutional Constitutional: absent: Chills, Fever - EENT Eyes: absent: Change in Vision Nose/Mouth/Throat: absent: Nasal Congestion - Cardiovascular Cardiovascular: Dyspnea, Leg Edema, Lightheadedness, Pedal Edema. absent: Chest Pain, Chest Pain at Rest, Leg Ulcers, Palpitations - Respiratory Respiratory: Cough, Dyspnea, Dyspnea on Exertion - Gastrointestinal Gastrointestinal: Nausea, Vomiting. absent: Abdominal Pain, Constipation, Diarrhea - Genitourinary Genitourinary: absent: Difficulty Urinating, Dysuria - Musculoskeletal Musculoskeletal: absent: Muscle Weakness - Integumentary Integumentary: absent: Rash - Neurological Neurological: Dizziness. absent: Confusion, Focal Weakness Past Patient History - Past Medical History & Family History Past Medical History?: Yes - Past Social History Smoking Status: Never Smoked - CARDIAC Hx Atrial Fibrillation: Yes Hx Congestive Heart Failure: Yes Hx Hypercholesterolemia: Yes Hx Hypertension: Yes - PULMONARY Hx Respiratory Disorders: No - NEUROLOGICAL Hx Neurological Disorder: No - HEENT Hx HEENT Problems: Yes Other/Comment: wear eyeglasses - ENDOCRINE/METABOLIC Hx Endocrine Disorders: Yes Hx Diabetes Mellitus Type 1: Yes - HEMATOLOGICAL/ONCOLOGICAL Hx Blood Disorders: No - INTEGUMENTARY Hx Dermatological Problems: No - MUSCULOSKELETAL/RHEUMATOLOGICAL Hx Falls: No - GASTROINTESTINAL Hx Gastrointestinal Disorders: No - GENITOURINARY/GYNECOLOGICAL Hx Genitourinary Disorders: Yes Hx Prostate Problems: Yes (Hx of prostate surgery) - PSYCHIATRIC Hx Substance Use: No - SURGICAL HISTORY Hx Surgeries: No - ANESTHESIA Hx Anesthesia: No Meds Allergies/Adverse Reactions: Allergies Allergy/AdvReac Type Severity Reaction Status Date / Time No Known Allergies Allergy Verified 09/08/17 13:35 Physical Exam - Constitutional Appears: Non-toxic, No Acute Distress Additional comments: on bipap - Head Exam Head Exam: ATRAUMATIC, NORMAL INSPECTION - Eye Exam Eye Exam: EOMI, Normal appearance - ENT Exam ENT Exam: Mucous Membranes Moist - Neck Exam Neck exam: Positive for: Normal Inspection - Respiratory Exam Respiratory Exam: Rales (very mild basilar). absent: Accessory Muscle Use, Respiratory Distress - Cardiovascular Exam Cardiovascular Exam: Irregular Rhythm, +S1, +S2 - GI/Abdominal Exam GI & Abdominal Exam: Distended, Normal Bowel Sounds, Soft. absent: Firm, Guarding, Tenderness - Extremities Exam Extremities exam: Positive for: pedal edema (to knees b/l) - Back Exam Back exam: NORMAL INSPECTION. absent: CVA tenderness (L), CVA tenderness (R) - Neurological Exam Neurological exam: Alert, Oriented x3 - Psychiatric Exam Psychiatric exam: Normal Affect, Normal Mood - Skin Skin Exam: Warm Results - Vital Signs Recent Vital Signs: Last Vital Signs Temp 97.3 F L 09/08/17 13:35 Pulse 60 09/08/17 14:43 Resp 18 09/08/17 14:43 BP 92/69 L 09/08/17 14:43 Pulse Ox 88 L 09/08/17 15:30 - Labs Result Diagrams: 09/08/17 14:03 09/08/17 14:03 Labs: Laboratory Results - last 24 hr 09/08/17 09/08/17 09/08/17 13:31 14:03 14:03 WBC 8.3 RBC 5.03 Hgb 14.9 Hct 43.4 MCV 86.2 D MCH 29.6 MCHC 34.4 RDW 15.5 H Plt Count 185 MPV 9.3 Neut % (Auto) 81.1 H Lymph % (Auto) 7.2 L Hardeman % (Auto) 8.5 Eos % (Auto) 2.0 Baso % (Auto) 1.2 Neut # (Auto) 6.7 Lymph # (Auto) 0.6 L Hardeman # (Auto) 0.7 Eos # (Auto) 0.2 Baso # (Auto) 0.1 Neutrophils % (Manual) 80 H Band Neutrophils % 1 Lymphocytes % (Manual) 5 L Reactive Lymphs % 1 H Monocytes % (Manual) 12 H Basophils % (Manual) 1 Platelet Estimate Normal Anisocytosis (manual) Slight Lincoln Cells Moderate PT INR APTT Sodium 129 L Potassium 4.7 Chloride 91 L Carbon Dioxide 22 Anion Gap 21 H BUN 17 Creatinine 1.2 Est GFR ( Amer) > 60 Est GFR (Non-Af Amer) 59 POC Glucose (mg/dL) 158 H Random Glucose 140 H Calcium 8.6 Magnesium 1.7 Total Bilirubin 1.3 AST 28 ALT 15 L D Alkaline Phosphatase 53 Troponin I < 0.0120 NT-Pro-B Natriuret Pep 5540 H Total Protein 6.6 Albumin 3.7 Globulin 3.0 Albumin/Globulin Ratio 1.2 Digoxin 09/08/17 09/08/17 14:03 14:03 WBC RBC Hgb Hct MCV MCH MCHC RDW Plt Count MPV Neut % (Auto) Lymph % (Auto) Hardeman % (Auto) Eos % (Auto) Baso % (Auto) Neut # (Auto) Lymph # (Auto) Hardeman # (Auto) Eos # (Auto) Baso # (Auto) Neutrophils % (Manual) Band Neutrophils % Lymphocytes % (Manual) Reactive Lymphs % Monocytes % (Manual) Basophils % (Manual) Platelet Estimate Anisocytosis (manual) Vinny Cells PT 13.8 H INR 1.2 APTT 30 Sodium Potassium Chloride Carbon Dioxide Anion Gap BUN Creatinine Est GFR ( Amer) Est GFR (Non-Af Amer) POC Glucose (mg/dL) Random Glucose Calcium Magnesium Total Bilirubin AST ALT Alkaline Phosphatase Troponin I NT-Pro-B Natriuret Pep Total Protein Albumin Globulin Albumin/Globulin Ratio Digoxin 1.5 Assessment & Plan - Assessment and Plan (Free Text) Assessment: CHF exacerbation, acute on chronic (preserved EF) - Patient is comfortable on BIPAP - BNP 5540 - first troponin negative, will continue to trend - ECHO was done as an outpatient 06/22/17: * EF 55-60% * Left ventricle cavity is normal in size; the aortic valve is tri-leaflet and calcified. There is no significant aortic regurgitation. * will order repeat echo - Monitory daily weight - Head of bed elevated - Strict I/Os - Images: * Chest X-ray: mild venous congestion, small right pleural effusion, patchy right basilar airspace opacity. enlarged ectatic aorta. mild cardiomegaly. degenerative changes in spine and shoulders - will start coverage with zithromax and rocephin due to possible infiltrate/ opacity on CXR - 1500cc fluid restriction - Dr. Bay, cardiology, consulted- help appreciated * Lasix 40mg IV stat x 1 dose, then 20 IV BID Hypervolemia/Hyponatremia - likely secondary to CHF - 1500cc fluid restriction - Lasix 20mg IV q12h - Monitor weight daily - monitor I/Os Hypothyroid - Continue home medication * Synthroid 100mg PO daily History of Afib - Monitor on tele - Rate controlled - CHADs(2) Score: 3 - Medications * Metoprolol Succinate XL 100mg po daily * Xarelto 20mg po daily * Digoxin 0.125mg po daily, dig level 1.5 Hypertension - Continue home medications: * Metoprolol Succinate XL 100mg po daily * Losartan 100mg po daily - holding Norvasc as patient's blood pressure currently low-end normal History of HLD - Continue home medication * Crestor 5mg po HS Diabetes - Continue Januvia 100mg daily - patient used Trulicity on Tuesday (once/ weekly medication) - Insulin sliding scale - moderate - Accuchecks - Hypoglycemia protocol Prophylaxis - DVT: Xarelto 20mg po daily - GI: Not indicated <Ella Harrington - Last Filed: 09/08/17 17:43> Results - Vital Signs Recent Vital Signs: Last Vital Signs Temp 97.8 F 09/08/17 17:10 Pulse 62 09/08/17 17:10 Resp 20 09/08/17 17:10 BP 120/81 09/08/17 17:10 Pulse Ox 95 09/08/17 17:10 - Labs Result Diagrams: 09/08/17 14:03 09/08/17 14:03 Labs: Laboratory Results - last 24 hr 09/08/17 09/08/17 09/08/17 13:31 14:03 14:03 WBC 8.3 RBC 5.03 Hgb 14.9 Hct 43.4 MCV 86.2 D MCH 29.6 MCHC 34.4 RDW 15.5 H Plt Count 185 MPV 9.3 Neut % (Auto) 81.1 H Lymph % (Auto) 7.2 L Hardeman % (Auto) 8.5 Eos % (Auto) 2.0 Baso % (Auto) 1.2 Neut # (Auto) 6.7 Lymph # (Auto) 0.6 L Hardeman # (Auto) 0.7 Eos # (Auto) 0.2 Baso # (Auto) 0.1 Neutrophils % (Manual) 80 H Band Neutrophils % 1 Lymphocytes % (Manual) 5 L Reactive Lymphs % 1 H Monocytes % (Manual) 12 H Basophils % (Manual) 1 Platelet Estimate Normal Anisocytosis (manual) Slight Lincoln Cells Moderate PT INR APTT Sodium 129 L Potassium 4.7 Chloride 91 L Carbon Dioxide 22 Anion Gap 21 H BUN 17 Creatinine 1.2 Est GFR ( Amer) > 60 Est GFR (Non-Af Amer) 59 POC Glucose (mg/dL) 158 H Random Glucose 140 H Calcium 8.6 Magnesium 1.7 Total Bilirubin 1.3 AST 28 ALT 15 L D Alkaline Phosphatase 53 Troponin I < 0.0120 NT-Pro-B Natriuret Pep 5540 H Total Protein 6.6 Albumin 3.7 Globulin 3.0 Albumin/Globulin Ratio 1.2 Digoxin 09/08/17 09/08/17 09/08/17 14:03 14:03 16:31 WBC RBC Hgb Hct MCV MCH MCHC RDW Plt Count MPV Neut % (Auto) Lymph % (Auto) Hardeman % (Auto) Eos % (Auto) Baso % (Auto) Neut # (Auto) Lymph # (Auto) Hardeman # (Auto) Eos # (Auto) Baso # (Auto) Neutrophils % (Manual) Band Neutrophils % Lymphocytes % (Manual) Reactive Lymphs % Monocytes % (Manual) Basophils % (Manual) Platelet Estimate Anisocytosis (manual) Vinny Cells PT 13.8 H INR 1.2 APTT 30 Sodium Potassium Chloride Carbon Dioxide Anion Gap BUN Creatinine Est GFR ( Amer) Est GFR (Non-Af Amer) POC Glucose (mg/dL) 123 H Random Glucose Calcium Magnesium Total Bilirubin AST ALT Alkaline Phosphatase Troponin I NT-Pro-B Natriuret Pep Total Protein Albumin Globulin Albumin/Globulin Ratio Digoxin 1.5 Attending/Attestation - Attestation I have personally seen and examined this patient.: Yes I have fully participated in the care of the patient.: Yes I have reviewed all pertinent clinical information: Yes Notes (Text): 72 year old male with past medical history of HTN, afib, DM, and HLD who presents to the ED for shortness of breath.Increasing leg swelling,sob and s/p vomiting.He has pulmonary congestion,anasarca and cough with sputum.No fever. Chest x ray mild congestion with right side effusion. In the ER his BP was low.It improved during examination. Patient was seen and examined by me in the emergency room.He is complaining of leg edema and s/p . 1. CHF exacerbation, acute on chronic (preserved EF) 2.Hypervolemia/Hyponatremia 3.Hypothyroid 4.History of Afib 5.Hypertension 6.History of HLD 7.Diabetes patient feels better after started on BIPAP and had Lasix d/W The assessment and the plan discussed with the resident in detail. I agree with the documentation. 09/08/17 17:40
[2017-09-08] MEDS ORDERED: Glucagon Recombinant 1 mg Inj IM PRN (15:54)
[2017-09-08] MEDS ORDERED: Dextrose 50% SYRINGE Inj (50 ml) IV PRN (15:54)
[2017-09-08] MEDS: (Novolin R) Insulin Human Regular 100 units/ml vial SC SCH ×2 (16:31→21:37)
[2017-09-08] MEDS: Azithromycin 500 MG in Sodium Chloride 0.9% 250 ML IVPB SCH (17:17)
[2017-09-08] MEDS: Digoxin 125 mcg (0.125 mg) Tab PO SCH (18:06)
[2017-09-09] MEDS: Levothyroxine 100 MCG TAB PO SCH (06:50)
--- NOTE | 2017-09-09 07:10 | CP.PCM.PN ---
Addendum entered and electronically signed by Catalina Ewing 09/09/17 15:42 : hematuria -- Dr. Smith (urology) consulted, help appreciated Original Note: <Catalina Ewing - Last Filed: 09/09/17 14:25> Subjective - Date & Time of Evaluation Date of Evaluation: 09/09/17 Time of Evaluation: 07:00 - Subjective Subjective: PGY1- Medicine Note for Dr. Harrington Patient seen and examined at bedside and in no acute distress. Patient sitting up and eating and says he is feeling much better. Patient still has some shortness of breath, but says it is much better than yesterday. Patient noted to have hematuria from mendoza, but says at home his urine has just been dark. Patient denies having had any symptoms of urinary frequency, hesitancy, or dysuria. Patient denies any chest pain, abdominal pain, nausea, vomiting, constipation, or diarrhea. Objective - Vital Signs/Intake and Output Vital Signs (last 24 hours): Temp Pulse Resp BP Pulse Ox 97.2 F L 66 20 168/96 H 95 09/08/17 23:50 09/08/17 23:50 09/08/17 23:50 09/09/17 06:50 09/08/17 23:50 Intake and Output: 09/09/17 09/09/17 06:59 18:59 Intake Total 400 100 Output Total 600 Balance -200 100 - Medications Medications: Current Medications Amlodipine Besylate (Norvasc) 5 mg PO DAILY [facility] Dextrose (Dextrose 50% Inj) 0 ml IV STAT PRN; Protocol PRN Reason: Hypoglycemia Protocol Dextrose (Glutose 15) 0 gm PO ONCE PRN; Protocol PRN Reason: Hypoglycemia Protocol Digoxin (Digoxin) 0.125 mg PO DAILY@1800 [facility] Last Admin: 09/08/17 18:06 Dose: 0.125 mg Furosemide (Lasix) 20 mg IVP BID [facility] Last Admin: 09/09/17 06:50 Dose: 20 mg Glucagon (Glucagen Diagnostic Kit) 0 mg IM STAT PRN; Protocol PRN Reason: Hypoglycemia Protocol Dextrose (Dextrose 5% In Water 1000 Ml) 1,000 mls @ 0 mls/hr IV .Q0M PRN; Protocol; Per Protocol PRN Reason: Hypoglycemia Protocol Ceftriaxone Sodium 1 gm/ (Sodium Chloride) 100 mls @ 100 mls/hr IVPB DAILY [facility] PRN Reason: Protocol Last Admin: 09/08/17 17:12 Dose: 100 mls/hr Azithromycin 500 mg/ Sodium (Chloride) 250 mls @ 167 mls/hr IVPB Q24H [facility] PRN Reason: Protocol Last Admin: 09/08/17 17:17 Dose: 167 mls/hr Insulin Human Regular (Novolin R) 0 unit SC ACHS [facility] PRN Reason: Protocol Last Admin: 09/08/17 21:37 Dose: Not Given Levothyroxine Sodium (Synthroid) 100 mcg PO 0630 [facility] Last Admin: 09/09/17 06:50 Dose: 100 mcg Losartan Potassium (Cozaar) 100 mg PO DAILY [facility] Metoprolol Succinate (Toprol Xl) 100 mg PO DAILY [facility] Pneumococcal Polyvalent Vaccine (Pneumovax 23 Vaccine) 0.5 ml IM .ONCE ONE Stop: 09/11/17 10:01 Rivaroxaban (Xarelto) 20 mg PO DAILY [facility] Rosuvastatin Calcium (Crestor) 5 mg PO DAILY [facility] Sitagliptin Phosphate (Januvia) 100 mg PO DAILY [facility] - Labs Labs: 09/08/17 14:03 09/08/17 14:03 PT 13.8 SECONDS (9.7-12.2) H 09/08/17 14:03 INR 1.2 09/08/17 14:03 APTT 30 SECONDS (21-34) 09/08/17 14:03 - Constitutional Appears: Non-toxic, No Acute Distress - Head Exam Head Exam: ATRAUMATIC, NORMAL INSPECTION, NORMOCEPHALIC - Eye Exam Eye Exam: EOMI, Normal appearance - ENT Exam ENT Exam: Mucous Membranes Moist - Respiratory Exam Respiratory Exam: Decreased Breath Sounds, Rhonchi. absent: Accessory Muscle Use - Cardiovascular Exam Cardiovascular Exam: RRR, +S1, +S2 - GI/Abdominal Exam GI & Abdominal Exam: Firm, Normal Bowel Sounds. absent: Tenderness - Extremities Exam Extremities Exam: Pedal Edema. absent: Tenderness - Neurological Exam Neurological Exam: Alert, Awake, Oriented x3 - Psychiatric Exam Psychiatric exam: Normal Affect, Normal Mood - Skin Skin Exam: Intact, Normal Color, Warm Assessment and Plan - Assessment and Plan (Free Text) Assessment: CHF exacerbation, acute on chronic (preserved EF) - Patient is comfortable on BIPAP - BNP 5540 -troponins negative x 3 - ECHO was done as an outpatient 06/22/17: * EF 55-60% * Left ventricle cavity is normal in size; the aortic valve is tri-leaflet and calcified. There is no significant aortic regurgitation. * will order repeat echo - Monitory daily weight - Head of bed elevated - Strict I/Os - Images: * Chest X-ray: mild venous congestion, small right pleural effusion, patchy right basilar airspace opacity. enlarged ectatic aorta. mild cardiomegaly. degenerative changes in spine and shoulders - will start coverage with zithromax and rocephin due to possible infiltrate/ opacity on CXR - 1500cc fluid restriction - Dr. Bay, cardiology, consulted- help appreciated * Lasix 40mg IV stat x 1 dose, then 20 IV BID Hypervolemia/Hyponatremia - likely secondary to CHF - 1500cc fluid restriction - Lasix 20mg IV q12h - Monitor weight daily - monitor I/Os Hematuria -f/u UA, urine culture Hypothyroid - Continue home medication * Synthroid 100mg PO daily History of Afib - Monitor on tele - Rate controlled - CHADs(2) Score: 3 - Medications * Metoprolol Succinate XL 100mg po daily * Xarelto 20mg po daily * Digoxin 0.125mg po daily, dig level 1.5 Hypertension - Continue home medications: * Metoprolol Succinate XL 100mg po daily * Losartan 100mg po daily * Norvasc 5mg po daily History of HLD - Continue home medication * Crestor 5mg po HS Diabetes - Continue Januvia 100mg daily - patient used Trulicity on Tuesday (once/ weekly medication) - Insulin sliding scale - moderate - Accuchecks - Hypoglycemia protocol Prophylaxis - DVT: Xarelto 20mg po daily, scds contraindicated - GI: Not indicated <Ella Harrington - Last Filed: 09/09/17 16:36> Objective - Vital Signs/Intake and Output Vital Signs (last 24 hours): Temp Pulse Resp BP Pulse Ox 97.4 F L 78 20 132/83 97 09/09/17 08:15 09/09/17 12:41 09/09/17 10:44 09/09/17 12:41 09/09/17 10:44 Intake and Output: 09/09/17 09/09/17 06:59 18:59 Intake Total 400 550 Output Total 600 200 Balance -200 350 - Medications Medications: Current Medications Amlodipine Besylate (Norvasc) 5 mg PO DAILY [facility] Last Admin: 09/09/17 12:42 Dose: 5 mg Dextrose (Dextrose 50% Inj) 0 ml IV STAT PRN; Protocol PRN Reason: Hypoglycemia Protocol Dextrose (Glutose 15) 0 gm PO ONCE PRN; Protocol PRN Reason: Hypoglycemia Protocol Digoxin (Digoxin) 0.125 mg PO DAILY@1800 [facility] Last Admin: 09/08/17 18:06 Dose: 0.125 mg Furosemide (Lasix) 20 mg IVP BID [facility] Last Admin: 09/09/17 10:21 Dose: Not Given Glucagon (Glucagen Diagnostic Kit) 0 mg IM STAT PRN; Protocol PRN Reason: Hypoglycemia Protocol Dextrose (Dextrose 5% In Water 1000 Ml) 1,000 mls @ 0 mls/hr IV .Q0M PRN; Protocol; Per Protocol PRN Reason: Hypoglycemia Protocol Ceftriaxone Sodium 1 gm/ (Sodium Chloride) 100 mls @ 100 mls/hr IVPB DAILY [facility] PRN Reason: Protocol Last Admin: 09/09/17 10:46 Dose: 100 mls/hr Azithromycin 500 mg/ Sodium (Chloride) 250 mls @ 167 mls/hr IVPB Q24H [facility] PRN Reason: Protocol Last Admin: 09/08/17 17:17 Dose: 167 mls/hr Insulin Human Regular (Novolin R) 0 unit SC ACHS [facility] PRN Reason: Protocol Last Admin: 09/09/17 12:42 Dose: 2 unit Levothyroxine Sodium (Synthroid) 100 mcg PO 0630 [facility] Last Admin: 09/09/17 06:50 Dose: 100 mcg Losartan Potassium (Cozaar) 100 mg PO DAILY [facility] Last Admin: 09/09/17 10:46 Dose: 100 mg Metoprolol Succinate (Toprol Xl) 100 mg PO DAILY [facility] Last Admin: 09/09/17 10:46 Dose: 100 mg Pneumococcal Polyvalent Vaccine (Pneumovax 23 Vaccine) 0.5 ml IM .ONCE ONE Stop: 09/11/17 10:01 Rivaroxaban (Xarelto) 20 mg PO DAILY [facility] Last Admin: 09/09/17 10:46 Dose: 20 mg Rosuvastatin Calcium (Crestor) 5 mg PO [facility] Sitagliptin Phosphate (Januvia) 100 mg PO DAILY [facility] Last Admin: 09/09/17 10:46 Dose: 100 mg - Labs Labs: 09/09/17 07:06 09/09/17 07:06 PT 13.8 SECONDS (9.7-12.2) H 09/08/17 14:03 INR 1.2 09/08/17 14:03 APTT 30 SECONDS (21-34) 09/08/17 14:03 Attending/Attestation - Attestation I have personally seen and examined this patient.: Yes I have fully participated in the care of the patient.: Yes I have reviewed all pertinent clinical information, including history, physical exam and plan: Yes Notes (Text): Patient was seen and examined Has no complain,sitting and eating.Feels much better Off BIPAP. Had pink urine/hematuria s/p Mendoza cath for urinary retention. continue xarelta,monitor hematuria and follow cbc 1. CHF exacerbation, acute on chronic (preserved EF) 2.Hypervolemia/Hyponatremia 3.Hypothyroid 4.History of Afib 5.Hypertension 6.History of HLD 7.Diabetes continue current medication d/W The assessment and the plan discussed with the resident in detail. I agree with the documentation of the resident's assessment and the plan 09/09/17 16:35
[2017-09-09 07:22] LABS: BASO # 0.1 K/uL (0.0-0.2); BASO % 0.5 % (0.0-2.0); EOS # 0.1 K/uL (0.0-0.7); EOS % 0.8 % (0.0-4.0); HEMOGLOBIN 14.5 g/dL (12.0-18.0); LYMPH # 0.6 K/uL (1.0-4.3); LYMPH % 5.9 % (20.0-40.0); MEAN CELL VOLUME 86.2 fL (80.0-94.0); MEAN CORPUSCULAR HEMOGLOBIN 29.9 pg (27.0-31.0); MEAN CORPUSCULAR HGB CONC 34.6 g/dL (33.0-37.0); MEAN PLATELET VOLUME 9.3 fL (7.2-11.7); MONO # 1.2 K/uL (0.0-0.8); MONO % 11.2 % (0.0-10.0); NEUT # 8.9 K/uL (1.8-7.0); NEUT % 81.6 % (50.0-75.0); NRBC % 0.1 % (0.0-2.0); PLATELET COUNT 162 K/uL (130-400); RBC 4.87 Mil/uL (4.40-5.90); RED CELL DISTRIBUTION WIDTH 15.4 % (11.5-14.5); WHITE BLOOD COUNT 10.9 K/uL (4.8-10.8)
[2017-09-09 07:43] LABS: ALB/GLOB RATIO 1.2 (1.0-2.1); ALBUMIN 3.4 g/dL (3.5-5.0); CALCIUM 8.6 mg/dl (8.6-10.4)
[2017-09-09] MEDS: (Novolin R) Insulin Human Regular 100 units/ml vial SC SCH ×4 (08:16→21:44)
[2017-09-09 09:25] LABS: ANISOCYTOSIS SLIGHT; LYMPHOCYTE 6 % (20-40); MONOCYTE 10 % (0-10); NEUTROPHIL 84 % (50-75); PLATELET ESTIMATE NORMAL (NORMAL); POIKILOCYTOSIS SLIGHT; TOTAL CELLS COUNTED 100
[2017-09-09 09:26] LABS: OVALOCYTES SLIGHT
[2017-09-09 09:27] LABS: BURR CELLS SLIGHT; GIANT PLATELETS PRESENT; LARGE PLATELETS PRESENT
[2017-09-09] MEDS: Metoprolol Succinate 100 mg XL Tab PO SCH (10:46)
--- NOTE | 2017-09-09 11:39 | CP.PCM.PN ---
Subjective - Date & Time of Evaluation Date of Evaluation: 09/09/17 Time of Evaluation: 11:39 - Subjective Subjective: PGY [address] Bay's Cardiology service Objective - Vital Signs/Intake and Output Vital Signs (last 24 hours): Temp Pulse Resp BP Pulse Ox 97.4 F L 71 20 125/80 97 09/09/17 08:15 09/09/17 10:44 09/09/17 10:44 09/09/17 10:44 09/09/17 10:44 Intake and Output: 09/09/17 09/09/17 06:59 18:59 Intake Total 400 100 Output Total 600 Balance -200 100 - Medications Medications: Current Medications Amlodipine Besylate (Norvasc) 5 mg PO DAILY [facility] Dextrose (Dextrose 50% Inj) 0 ml IV STAT PRN; Protocol PRN Reason: Hypoglycemia Protocol Dextrose (Glutose 15) 0 gm PO ONCE PRN; Protocol PRN Reason: Hypoglycemia Protocol Digoxin (Digoxin) 0.125 mg PO DAILY@1800 [facility] Last Admin: 09/08/17 18:06 Dose: 0.125 mg Furosemide (Lasix) 20 mg IVP BID [facility] Last Admin: 09/09/17 10:21 Dose: Not Given Glucagon (Glucagen Diagnostic Kit) 0 mg IM STAT PRN; Protocol PRN Reason: Hypoglycemia Protocol Dextrose (Dextrose 5% In Water 1000 Ml) 1,000 mls @ 0 mls/hr IV .Q0M PRN; Protocol; Per Protocol PRN Reason: Hypoglycemia Protocol Ceftriaxone Sodium 1 gm/ (Sodium Chloride) 100 mls @ 100 mls/hr IVPB DAILY [facility] PRN Reason: Protocol Last Admin: 09/09/17 10:46 Dose: 100 mls/hr Azithromycin 500 mg/ Sodium (Chloride) 250 mls @ 167 mls/hr IVPB Q24H [facility] PRN Reason: Protocol Last Admin: 09/08/17 17:17 Dose: 167 mls/hr Insulin Human Regular (Novolin R) 0 unit SC ACHS [facility] PRN Reason: Protocol Last Admin: 09/09/17 08:16 Dose: Not Given Levothyroxine Sodium (Synthroid) 100 mcg PO 0630 [facility] Last Admin: 09/09/17 06:50 Dose: 100 mcg Losartan Potassium (Cozaar) 100 mg PO DAILY [facility] Last Admin: 09/09/17 10:46 Dose: 100 mg Metoprolol Succinate (Toprol Xl) 100 mg PO DAILY [facility] Last Admin: 09/09/17 10:46 Dose: 100 mg Pneumococcal Polyvalent Vaccine (Pneumovax 23 Vaccine) 0.5 ml IM .ONCE ONE Stop: 09/11/17 10:01 Rivaroxaban (Xarelto) 20 mg PO DAILY [facility] Last Admin: 09/09/17 10:46 Dose: 20 mg Rosuvastatin Calcium (Crestor) 5 mg PO [facility] Sitagliptin Phosphate (Januvia) 100 mg PO DAILY [facility] Last Admin: 09/09/17 10:46 Dose: 100 mg - Labs Labs: 09/09/17 07:06 09/09/17 07:06 PT 13.8 SECONDS (9.7-12.2) H 09/08/17 14:03 INR 1.2 09/08/17 14:03 APTT 30 SECONDS (21-34) 09/08/17 14:03
--- NOTE | 2017-09-09 12:46 | CP.PCM.CON ---
<Andres Turner - Last Filed: 09/09/17 18:45> History of Present Illness - History of Present Illness History of Present Illness: PGY-[address] BAY's Cardiology service Consult reason: CHF exacerbation HPI: Patient is a 72 year old black male, with PMHx of HTN, afib, DM, and HLD, who presents to the ED for shortness of breath. Admits vomited three times this morning and became short of breath and called ambulance. Patient reports lightheadedness but denies fevers, chills. Patient denies sore throat. Patient admits to cough productive of white phlegm. Patient also states his legs have been more swollen for the past one week. Patient states he did not eat today. Patient reports compliance with all medications and states he took all prescribed medications today. Patient seen and examined at bedside. Patient found resting comfortably. Denies acute chest pain/palpitations, but admits to shortness of breath with more than "a few steps." Admits using 2-3 pillows to sleep at night recently. Past Medical History: HTN, Afib, DM, hypothyroid, HLD Past Surgical History: Denies Allergies: NKDA Family History: Mom - breast cancer Medications: Xeralto 20mg daily, digoxin 125mg daily, crestor 5mg HS, Losartan 100mg daily, Amlodipine 5mg daily, metoprolol XL 100mg daily, Metformin 1000mg BID, Januvia 100mg qd, Glimepride 4mg qd, Trulicity .75/1.5 qweek (Tuesdays); Synthroid 100mg daily Social History: Lives alone. Drinks about 1-2 shots of whiskey per day and 2-3 shots of whiskey on the weekends for the past 15 years and sometimes also has a beer with the whiskey, denies illicit drug use, denies smoking. PMD: Dr. Armijo Lumber Sticker: Dr. Jose Hogue Review of Systems - Constitutional Constitutional: absent: Chills, Fever - EENT Eyes: absent: Change in Vision - Respiratory Respiratory: Cough, Dyspnea, Dyspnea on Exertion. absent: Wheezing - Gastrointestinal Gastrointestinal: absent: Abdominal Pain, Vomiting - Musculoskeletal Musculoskeletal: absent: Numbness, Tingling - Integumentary Integumentary: absent: Jaundice - Neurological Neurological: absent: Numbness, Tingling - Endocrine Endocrine: absent: Polydipsia, Polyuria Past Patient History - Past Medical History & Family History Past Medical History?: Yes - Past Social History Smoking Status: Never Smoked - CARDIAC Hx Atrial Fibrillation: Yes Hx Congestive Heart Failure: Yes Hx Hypercholesterolemia: Yes Hx Hypertension: Yes - PULMONARY Hx Respiratory Disorders: No - NEUROLOGICAL Hx Neurological Disorder: No - HEENT Hx HEENT Problems: Yes Other/Comment: wear eyeglasses - ENDOCRINE/METABOLIC Hx Endocrine Disorders: Yes Hx Diabetes Mellitus Type 1: Yes - HEMATOLOGICAL/ONCOLOGICAL Hx Blood Disorders: No - INTEGUMENTARY Hx Dermatological Problems: No - MUSCULOSKELETAL/RHEUMATOLOGICAL Hx Falls: No - GASTROINTESTINAL Hx Gastrointestinal Disorders: No - GENITOURINARY/GYNECOLOGICAL Hx Genitourinary Disorders: Yes Hx Prostate Problems: Yes (Hx of prostate surgery) - PSYCHIATRIC Hx Substance Use: No - SURGICAL HISTORY Hx Surgeries: No - ANESTHESIA Hx Anesthesia: No Meds Allergies/Adverse Reactions: Allergies Allergy/AdvReac Type Severity Reaction Status Date / Time No Known Allergies Allergy Verified 09/08/17 13:35 - Medications Medications: Current Medications Amlodipine Besylate (Norvasc) 5 mg PO DAILY [facility] Dextrose (Dextrose 50% Inj) 0 ml IV STAT PRN; Protocol PRN Reason: Hypoglycemia Protocol Dextrose (Glutose 15) 0 gm PO ONCE PRN; Protocol PRN Reason: Hypoglycemia Protocol Digoxin (Digoxin) 0.125 mg PO DAILY@1800 [facility] Last Admin: 09/08/17 18:06 Dose: 0.125 mg Furosemide (Lasix) 20 mg IVP BID [facility] Last Admin: 09/09/17 10:21 Dose: Not Given Glucagon (Glucagen Diagnostic Kit) 0 mg IM STAT PRN; Protocol PRN Reason: Hypoglycemia Protocol Dextrose (Dextrose 5% In Water 1000 Ml) 1,000 mls @ 0 mls/hr IV .Q0M PRN; Protocol; Per Protocol PRN Reason: Hypoglycemia Protocol Ceftriaxone Sodium 1 gm/ (Sodium Chloride) 100 mls @ 100 mls/hr IVPB DAILY [facility] PRN Reason: Protocol Last Admin: 09/09/17 10:46 Dose: 100 mls/hr Azithromycin 500 mg/ Sodium (Chloride) 250 mls @ 167 mls/hr IVPB Q24H [facility] PRN Reason: Protocol Last Admin: 09/08/17 17:17 Dose: 167 mls/hr Insulin Human Regular (Novolin R) 0 unit SC ACHS [facility] PRN Reason: Protocol Last Admin: 09/09/17 08:16 Dose: Not Given Levothyroxine Sodium (Synthroid) 100 mcg PO 0630 [facility] Last Admin: 09/09/17 06:50 Dose: 100 mcg Losartan Potassium (Cozaar) 100 mg PO DAILY [facility] Last Admin: 09/09/17 10:46 Dose: 100 mg Metoprolol Succinate (Toprol Xl) 100 mg PO DAILY [facility] Last Admin: 09/09/17 10:46 Dose: 100 mg Pneumococcal Polyvalent Vaccine (Pneumovax 23 Vaccine) 0.5 ml IM .ONCE ONE Stop: 09/11/17 10:01 Rivaroxaban (Xarelto) 20 mg PO DAILY [facility] Last Admin: 09/09/17 10:46 Dose: 20 mg Rosuvastatin Calcium (Crestor) 5 mg PO [facility] Sitagliptin Phosphate (Januvia) 100 mg PO DAILY [facility] Last Admin: 09/09/17 10:46 Dose: 100 mg Physical Exam - Constitutional Appears: Non-toxic, No Acute Distress - Head Exam Head Exam: ATRAUMATIC, NORMAL INSPECTION - Eye Exam Eye Exam: EOMI, PERRL - ENT Exam ENT Exam: Mucous Membranes Moist - Respiratory Exam Respiratory Exam: absent: Clear to Auscultation Bilateral, Rales, Rhonchi - Cardiovascular Exam Cardiovascular Exam: REGULAR RHYTHM, +S1, +S2 - GI/Abdominal Exam GI & Abdominal Exam: Normal Bowel Sounds, Soft. absent: Tenderness - Extremities Exam Extremities exam: Positive for: pedal edema, pedal pulses present. Negative for : normal inspection - Back Exam Back exam: absent: CVA tenderness (L), CVA tenderness (R) - Neurological Exam Neurological exam: Alert, Oriented x3 - Psychiatric Exam Psychiatric exam: Normal Mood - Skin Skin Exam: Dry, Intact Results - Vital Signs Recent Vital Signs: Last Vital Signs Temp 97.4 F L 09/09/17 08:15 Pulse 71 09/09/17 10:44 Resp 20 09/09/17 10:44 BP 125/80 09/09/17 10:44 Pulse Ox 97 09/09/17 10:44 - Labs Result Diagrams: 09/09/17 07:06 09/09/17 07:06 Labs: Laboratory Results - last 24 hr 09/08/17 09/08/17 09/08/17 13:31 14:03 14:03 WBC 8.3 RBC 5.03 Hgb 14.9 Hct 43.4 MCV 86.2 D MCH 29.6 MCHC 34.4 RDW 15.5 H Plt Count 185 MPV 9.3 Neut % (Auto) 81.1 H Lymph % (Auto) 7.2 L [place] % (Auto) 8.5 Eos % (Auto) 2.0 Baso % (Auto) 1.2 Neut # (Auto) 6.7 Lymph # (Auto) 0.6 L [place] # (Auto) 0.7 Eos # (Auto) 0.2 Baso # (Auto) 0.1 Neutrophils % (Manual) 80 H Band Neutrophils % 1 Lymphocytes % (Manual) 5 L Reactive Lymphs % 1 H Monocytes % (Manual) 12 H Basophils % (Manual) 1 Platelet Estimate Normal Plt Clumps, EDTA Large Platelets Giant Platelets Poikilocytosis (manual Anisocytosis (manual) Slight Ovalocytes Amenia Cells Moderate PT INR APTT Sodium 129 L Potassium 4.7 Chloride 91 L Carbon Dioxide 22 Anion Gap 21 H BUN 17 Creatinine 1.2 Est GFR ( Amer) > 60 Est GFR (Non-Af Amer) 59 POC Glucose (mg/dL) 158 H Random Glucose 140 H Calcium 8.6 Phosphorus Magnesium 1.7 Total Bilirubin 1.3 AST 28 ALT 15 L D Alkaline Phosphatase 53 Total Creatine Kinase CK-MB (Mass) Troponin I < 0.0120 NT-Pro-B Natriuret Pep 5540 H Total Protein 6.6 Albumin 3.7 Globulin 3.0 Albumin/Globulin Ratio 1.2 Procalcitonin Digoxin 09/08/17 09/08/17 09/08/17 14:03 14:03 16:31 WBC RBC Hgb Hct MCV MCH MCHC RDW Plt Count MPV Neut % (Auto) Lymph % (Auto) [place] % (Auto) Eos % (Auto) Baso % (Auto) Neut # (Auto) Lymph # (Auto) [place] # (Auto) Eos # (Auto) Baso # (Auto) Neutrophils % (Manual) Band Neutrophils % Lymphocytes % (Manual) Reactive Lymphs % Monocytes % (Manual) Basophils % (Manual) Platelet Estimate Plt Clumps, EDTA Large Platelets Giant Platelets Poikilocytosis (manual Anisocytosis (manual) Ovalocytes Amenia Cells PT 13.8 H INR 1.2 APTT 30 Sodium Potassium Chloride Carbon Dioxide Anion Gap BUN Creatinine Est GFR ( Amer) Est GFR (Non-Af Amer) POC Glucose (mg/dL) 123 H Random Glucose Calcium Phosphorus Magnesium Total Bilirubin AST ALT Alkaline Phosphatase Total Creatine Kinase CK-MB (Mass) Troponin I NT-Pro-B Natriuret Pep Total Protein Albumin Globulin Albumin/Globulin Ratio Procalcitonin Digoxin 1.5 09/08/17 09/08/17 09/08/17 19:29 19:29 21:05 WBC RBC Hgb Hct MCV MCH MCHC RDW Plt Count MPV Neut % (Auto) Lymph % (Auto) [place] % (Auto) Eos % (Auto) Baso % (Auto) Neut # (Auto) Lymph # (Auto) [place] # (Auto) Eos # (Auto) Baso # (Auto) Neutrophils % (Manual) Band Neutrophils % Lymphocytes % (Manual) Reactive Lymphs % Monocytes % (Manual) Basophils % (Manual) Platelet Estimate Plt Clumps, EDTA Large Platelets Giant Platelets Poikilocytosis (manual Anisocytosis (manual) Ovalocytes Vinny Cells PT INR APTT Sodium Potassium Chloride Carbon Dioxide Anion Gap BUN Creatinine Est GFR ( Amer) Est GFR (Non-Af Amer) POC Glucose (mg/dL) 147 H Random Glucose Calcium Phosphorus Magnesium Total Bilirubin AST ALT Alkaline Phosphatase Total Creatine Kinase 47 L CK-MB (Mass) 1.30 Troponin I < 0.0120 NT-Pro-B Natriuret Pep Total Protein Albumin Globulin Albumin/Globulin Ratio Procalcitonin < 0.05 L Digoxin 09/09/17 09/09/17 09/09/17 02:24 06:36 07:06 WBC 10.9 H RBC 4.87 Hgb 14.5 Hct 41.9 MCV 86.2 MCH 29.9 MCHC 34.6 RDW 15.4 H Plt Count 162 MPV 9.3 Neut % (Auto) 81.6 H Lymph % (Auto) 5.9 L [place] % (Auto) 11.2 H Eos % (Auto) 0.8 Baso % (Auto) 0.5 Neut # (Auto) 8.9 H Lymph # (Auto) 0.6 L [place] # (Auto) 1.2 H Eos # (Auto) 0.1 Baso # (Auto) 0.1 Neutrophils % (Manual) 84 H Band Neutrophils % Lymphocytes % (Manual) 6 L Reactive Lymphs % Monocytes % (Manual) 10 Basophils % (Manual) Platelet Estimate Normal Plt Clumps, EDTA Large Platelets Present Giant Platelets Present Poikilocytosis (manual Slight Anisocytosis (manual) Slight Ovalocytes Slight Vinny Cells Slight PT INR APTT Sodium Potassium Chloride Carbon Dioxide Anion Gap BUN Creatinine Est GFR ( Amer) Est GFR (Non-Af Amer) POC Glucose (mg/dL) 98 Random Glucose Calcium Phosphorus Magnesium Total Bilirubin AST ALT Alkaline Phosphatase Total Creatine Kinase 49 L CK-MB (Mass) 1.40 Troponin I < 0.0120 NT-Pro-B Natriuret Pep Total Protein Albumin Globulin Albumin/Globulin Ratio Procalcitonin Digoxin 09/09/17 09/09/17 07:06 11:41 WBC RBC Hgb Hct MCV MCH MCHC RDW Plt Count MPV Neut % (Auto) Lymph % (Auto) [place] % (Auto) Eos % (Auto) Baso % (Auto) Neut # (Auto) Lymph # (Auto) [place] # (Auto) Eos # (Auto) Baso # (Auto) Neutrophils % (Manual) Band Neutrophils % Lymphocytes % (Manual) Reactive Lymphs % Monocytes % (Manual) Basophils % (Manual) Platelet Estimate Plt Clumps, EDTA Large Platelets Giant Platelets Poikilocytosis (manual Anisocytosis (manual) Ovalocytes Vinny Cells PT INR APTT Sodium 127 L Potassium 4.6 Chloride 93 L Carbon Dioxide 22 Anion Gap 16 BUN 20 Creatinine 1.4 Est GFR ( Amer) 60 Est GFR (Non-Af Amer) 50 POC Glucose (mg/dL) 182 H Random Glucose 91 Calcium 8.6 Phosphorus 5.0 H Magnesium 1.7 Total Bilirubin 0.9 AST 23 ALT 17 L Alkaline Phosphatase 54 Total Creatine Kinase CK-MB (Mass) Troponin I NT-Pro-B Natriuret Pep Total Protein 6.2 L Albumin 3.4 L Globulin 2.8 Albumin/Globulin Ratio 1.2 Procalcitonin Digoxin Assessment & Plan - Assessment and Plan (Free Text) Plan: CHF exacerbation, acute on chronic (preserved EF) Admitted to [facility] Continue fluid restriction, daily weights, I/Os - BNP 5540 (previous 3710) - Chest X-ray: mild venous congestion, small right pleural effusion, patchy right basilar airspace opacity. enlarged ectatic aorta. mild cardiomegaly. degenerative changes in spine and shoulders - Troponin negative x3 - ECHO (06/22/17): EF 55-60%, Left ventricle cavity is normal in size; the aortic valve is tri-leaflet and calcified. There is no significant aortic regurgitation. - f/u repeat ECHO History of Afib Rate controlled - CHADs(2) Score: 3; Hasbled 2 Continue Medications - Metoprolol Succinate XL 100mg po daily - Xarelto 20mg po daily - Digoxin 0.125mg po daily, dig level 1.5 Hypertension Elevated once this AM, o/w well controlled Metoprolol Succinate XL 100mg po daily Losartan 100mg po daily Norvasc 5mg po daily History of HLD Crestor 5mg po HS Disposition: Waiting on results of echo. Continue diuresis. Possible stress test 09/12/17. Andres Turner PGY-2 D/w with Dr. Bay <Jesus Bay - Last Filed: 09/09/17 22:05> Meds - Medications Medications: Current Medications Amlodipine Besylate (Norvasc) 5 mg PO DAILY [facility] Last Admin: 09/09/17 12:42 Dose: 5 mg Dextrose (Dextrose 50% Inj) 0 ml IV STAT PRN; Protocol PRN Reason: Hypoglycemia Protocol Dextrose (Glutose 15) 0 gm PO ONCE PRN; Protocol PRN Reason: Hypoglycemia Protocol Digoxin (Digoxin) 0.125 mg PO DAILY@1800 [facility] Last Admin: 09/09/17 18:49 Dose: 0.125 mg Furosemide (Lasix) 20 mg IVP BID [facility] Last Admin: 09/09/17 20:00 Dose: Not Given Glucagon (Glucagen Diagnostic Kit) 0 mg IM STAT PRN; Protocol PRN Reason: Hypoglycemia Protocol Dextrose (Dextrose 5% In Water 1000 Ml) 1,000 mls @ 0 mls/hr IV .Q0M PRN; Protocol; Per Protocol PRN Reason: Hypoglycemia Protocol Ceftriaxone Sodium 1 gm/ (Sodium Chloride) 100 mls @ 100 mls/hr IVPB DAILY [facility] PRN Reason: Protocol Last Admin: 09/09/17 10:46 Dose: 100 mls/hr Azithromycin 500 mg/ Sodium (Chloride) 250 mls @ 167 mls/hr IVPB Q24H [facility] PRN Reason: Protocol Last Admin: 09/09/17 18:57 Dose: 167 mls/hr Insulin Human Regular (Novolin R) 0 unit SC ACHS [facility] PRN Reason: Protocol Last Admin: 09/09/17 21:44 Dose: Not Given Levothyroxine Sodium (Synthroid) 100 mcg PO 0630 [facility] Last Admin: 09/09/17 06:50 Dose: 100 mcg Losartan Potassium (Cozaar) 100 mg PO DAILY [facility] Last Admin: 09/09/17 10:46 Dose: 100 mg Metoprolol Succinate (Toprol Xl) 100 mg PO DAILY [facility] Last Admin: 09/09/17 10:46 Dose: 100 mg Pneumococcal Polyvalent Vaccine (Pneumovax 23 Vaccine) 0.5 ml IM .ONCE ONE Stop: 09/11/17 10:01 Rivaroxaban (Xarelto) 20 mg PO DAILY [facility] Last Admin: 09/09/17 10:46 Dose: 20 mg Rosuvastatin Calcium (Crestor) 5 mg PO [facility] Sitagliptin Phosphate (Januvia) 100 mg PO DAILY [facility] Last Admin: 09/09/17 10:46 Dose: 100 mg Results - Vital Signs Recent Vital Signs: Last Vital Signs Temp 97.1 F L 09/09/17 15:18 Pulse 74 09/09/17 15:18 Resp 20 09/09/17 15:18 BP 91/45 L 09/09/17 20:00 Pulse Ox 97 09/09/17 15:18 - Labs Result Diagrams: 09/09/17 07:06 09/09/17 07:06 Labs: Laboratory Results - last 24 hr 09/09/17 09/09/17 09/09/17 02:24 06:36 07:06 WBC 10.9 H RBC 4.87 Hgb 14.5 Hct 41.9 MCV 86.2 MCH 29.9 MCHC 34.6 RDW 15.4 H Plt Count 162 MPV 9.3 Neut % (Auto) 81.6 H Lymph % (Auto) 5.9 L [place] % (Auto) 11.2 H Eos % (Auto) 0.8 Baso % (Auto) 0.5 Neut # (Auto) 8.9 H Lymph # (Auto) 0.6 L [place] # (Auto) 1.2 H Eos # (Auto) 0.1 Baso # (Auto) 0.1 Neutrophils % (Manual) 84 H Lymphocytes % (Manual) 6 L Monocytes % (Manual) 10 Platelet Estimate Normal Plt Clumps, EDTA Large Platelets Present Giant Platelets Present Poikilocytosis (manual Slight Anisocytosis (manual) Slight Ovalocytes Slight Amenia Cells Slight Sodium Potassium Chloride Carbon Dioxide Anion Gap BUN Creatinine Est GFR ( Amer) Est GFR (Non-Af Amer) POC Glucose (mg/dL) 98 Random Glucose Calcium Phosphorus Magnesium Total Bilirubin AST ALT Alkaline Phosphatase Total Creatine Kinase 49 L CK-MB (Mass) 1.40 Troponin I < 0.0120 Total Protein Albumin Globulin Albumin/Globulin Ratio Urine Color Urine Clarity Urine pH Ur Specific [place] Urine Protein Urine Glucose (UA) Urine Ketones Urine Blood Urine Nitrate Urine Bilirubin Urine Urobilinogen Ur Leukocyte Esterase Urine WBC (Auto) Urine RBC (Auto) Ur Squamous Epith Cells Urine Bacteria 09/09/17 09/09/17 09/09/17 07:06 11:41 14:52 WBC RBC Hgb Hct MCV MCH MCHC RDW Plt Count MPV Neut % (Auto) Lymph % (Auto) [place] % (Auto) Eos % (Auto) Baso % (Auto) Neut # (Auto) Lymph # (Auto) [place] # (Auto) Eos # (Auto) Baso # (Auto) Neutrophils % (Manual) Lymphocytes % (Manual) Monocytes % (Manual) Platelet Estimate Plt Clumps, EDTA Large Platelets Giant Platelets Poikilocytosis (manual Anisocytosis (manual) Ovalocytes Vinny Cells Sodium 127 L Potassium 4.6 Chloride 93 L Carbon Dioxide 22 Anion Gap 16 BUN 20 Creatinine 1.4 Est GFR ( Amer) 60 Est GFR (Non-Af Amer) 50 POC Glucose (mg/dL) 182 H Random Glucose 91 Calcium 8.6 Phosphorus 5.0 H Magnesium 1.7 Total Bilirubin 0.9 AST 23 ALT 17 L Alkaline Phosphatase 54 Total Creatine Kinase CK-MB (Mass) Troponin I Total Protein 6.2 L Albumin 3.4 L Globulin 2.8 Albumin/Globulin Ratio 1.2 Urine Color Red Urine Clarity Hazy Urine pH 6.0 Ur Specific [place] 1.011 Urine Protein 2+ H Urine Glucose (UA) Normal Urine Ketones Negative Urine Blood 3+ H Urine Nitrate Negative Urine Bilirubin Negative Urine Urobilinogen Normal Ur Leukocyte Esterase 1+ H Urine WBC (Auto) 88 H Urine RBC (Auto) 4129 H Ur Squamous Epith Cells 5 Urine Bacteria Occ H 09/09/17 09/09/17 16:25 21:23 WBC RBC Hgb Hct MCV MCH MCHC RDW Plt Count MPV Neut % (Auto) Lymph % (Auto) [place] % (Auto) Eos % (Auto) Baso % (Auto) Neut # (Auto) Lymph # (Auto) [place] # (Auto) Eos # (Auto) Baso # (Auto) Neutrophils % (Manual) Lymphocytes % (Manual) Monocytes % (Manual) Platelet Estimate Plt Clumps, EDTA Large Platelets Giant Platelets Poikilocytosis (manual Anisocytosis (manual) Ovalocytes Vinny Cells Sodium Potassium Chloride Carbon Dioxide Anion Gap BUN Creatinine Est GFR ( Amer) Est GFR (Non-Af Amer) POC Glucose (mg/dL) 154 H 143 H Random Glucose Calcium Phosphorus Magnesium Total Bilirubin AST ALT Alkaline Phosphatase Total Creatine Kinase CK-MB (Mass) Troponin I Total Protein Albumin Globulin Albumin/Globulin Ratio Urine Color Urine Clarity Urine pH Ur Specific [place] Urine Protein Urine Glucose (UA) Urine Ketones Urine Blood Urine Nitrate Urine Bilirubin Urine Urobilinogen Ur Leukocyte Esterase Urine WBC (Auto) Urine RBC (Auto) Ur Squamous Epith Cells Urine Bacteria Assessment & Plan - Assessment and Plan (Free Text) Plan: Patient seen and evaluated personally by mn Plan of care d/w the medical bill processor and as documented
[2017-09-09 15:38] LABS: SQUAMOUS EPITHIAL 5 /hpf (0-5); URINE BACTERIA OCC (<OCC); URINE BILIRUBIN NEGATIVE (NEGATIVE); URINE BLOOD 3+ (NEGATIVE); URINE CLARITY Hazy (Clear); URINE COLOR Red (YELLOW); URINE GLUCOSE (UA) NORMAL (Normal); URINE LEUKOCYTE ESTERASE 1+ Leu/uL (Negative); URINE PROTEIN 2+ mg/dL (NEGATIVE); URINE UROBILINOGEN NORMAL mg/dL (0.2-1.0)
--- NOTE | 2017-09-09 17:44 | CARD ---
APPROVED REPORT EXAM: Two-dimensional and M-mode echocardiogram with Doppler and color Doppler. Other Information Quality : GoodRhythm : INDICATION Dyspnea Congestive Heart Failure 2D DIMENSIONS IVSd1.3 (0.7-1.1cm)LVDd3.8 (3.9-5.9cm) PWd1.3 (0.7-1.1cm)LVDs2.7 (2.5-4.0cm) FS (%) 27.5 %LVEF (%)55.0 (>50%) M-Mode DIMENSIONS Left Atrium (MM)4.43 (2.5-4.0cm)Aortic Root3.95 (2.2-3.7cm) Aortic Cusp Exc.1.47 (1.5-2.0cm) Mitral Valve MV E Owxiakon06.7cm/sE/A ratio0.0 TDI E/Lateral E'0.0E/Medial E'0.0 Tricuspid Valve TR Peak [id number] Peak Gr.65mmHg LEFT VENTRICLE There is borderline concentric left ventricular hypertrophy. The left ventricular systolic function is normal. The left ventricular ejection fraction is within the normal range. There is a flattened septum consistent with right ventricle volume and pressure overload. Transmitral Doppler flow pattern is Grade II-pseudonormal filling dynamics. RIGHT VENTRICLE The right ventricle is mildly to moderately dilated. Systolic function is mildly to moderately reduced. ATRIA The left atrium is moderately dilated. The right atrium is moderately to severely dilated. The interatrial septum bows toward left atrium consistent with elevated right atrial pressure. AORTIC VALVE The aortic valve is moderately sclerotic with mildly dreasec systolic excursion. No aortic regurgitation is present. MITRAL VALVE The mitral valve is normal in structure. TRICUSPID VALVE The tricuspid valve is normal in structure. There is severe tricuspid regurgitation. Right ventricular systolic pressure is estimated at greater than 60 mmHg. There is severe pulmonary hypertension. PULMONIC VALVE The pulmonic valve is not well visualized. There is mild pulmonic valvular regurgitation. GREAT VESSELS The aortic root is borderline enlarged. The aortic root displays mild to moderate sclerocalcific changes. Dilated IVC with poor inspiration collapse is consistent with elevated right atrial pressure. PERICARDIAL EFFUSION There is no pericardial effusion. <Conclusion> There is borderline concentric left ventricular hypertrophy. The left ventricular systolic function is normal. There is a flattened septum consistent with right ventricle pressure overload. Transmitral Doppler flow pattern is Grade II-pseudonormal filling dynamics. The right ventricle is moderately dilated with mildly to moderately reduced systolic function. The right atrium is moderately to severely dilated. The interatrial septum bows toward left atrium consistent with elevated right atrial pressure. Aortic valve sclerosis. The aortic valve is moderately sclerotic with mildly dreasec systolic excursion. There is severe tricuspid regurgitation. Right ventricular systolic pressure is estimated at greater than 60 mmHg compatible with severe pulmonary hypertension. Dilated IVC with poor inspiration collapse is consistent with elevated right atrial pressure. There is no pericardial effusion.
[2017-09-09] MEDS: Digoxin 125 mcg (0.125 mg) Tab PO SCH (18:49)
[2017-09-09] MEDS: Azithromycin 500 MG in Sodium Chloride 0.9% 250 ML IVPB SCH (18:57)
[2017-09-10] MEDS: Levothyroxine 100 MCG TAB PO SCH (06:16)
[2017-09-10] MEDS: (Novolin R) Insulin Human Regular 100 units/ml vial SC SCH ×4 (07:55→21:49)
[2017-09-10 08:24] LABS: BASO # 0.1 K/uL (0.0-0.2); BASO % 1.1 % (0.0-2.0); EOS # 0.2 K/uL (0.0-0.7); EOS % 1.4 % (0.0-4.0); HEMOGLOBIN 13.9 g/dL (12.0-18.0); LYMPH # 0.8 K/uL (1.0-4.3); LYMPH % 6.1 % (20.0-40.0); MEAN CELL VOLUME 86.6 fL (80.0-94.0); MEAN CORPUSCULAR HEMOGLOBIN 29.3 pg (27.0-31.0); MEAN CORPUSCULAR HGB CONC 33.9 g/dL (33.0-37.0); MEAN PLATELET VOLUME 9.3 fL (7.2-11.7); MONO # 1.5 K/uL (0.0-0.8); MONO % 11.3 % (0.0-10.0); NEUT # 10.7 K/uL (1.8-7.0); NEUT % 80.1 % (50.0-75.0); NRBC % 0.1 % (0.0-2.0); PLATELET COUNT 167 K/uL (130-400); RBC 4.74 Mil/uL (4.40-5.90); RED CELL DISTRIBUTION WIDTH 15.6 % (11.5-14.5); WHITE BLOOD COUNT 13.4 K/uL (4.8-10.8)
[2017-09-10 08:41] LABS: ALB/GLOB RATIO 1.1 (1.0-2.1); ALBUMIN 3.2 g/dL (3.5-5.0); ALT/SGPT 16 U/L (21-72); AST/SGOT 28 U/L (17-59); BLOOD UREA NITROGEN 22 mg/dL (9-20); CALCIUM 8.6 mg/dl (8.6-10.4); GFR AFRICAN-AMERICAN > 60; GFR NON-AFRICAN AMERICAN 54
[2017-09-10] MEDS: Metoprolol Succinate 100 mg XL Tab PO SCH (10:19)
[2017-09-10 10:45] LABS: ANISOCYTOSIS SLIGHT; BANDS 2 % (0-2); BASOPHIL 1 % (0-2); EOSINOPHIL 1 % (0-4); LYMPHOCYTE 7 % (20-40); MONOCYTE 11 % (0-10); NEUTROPHIL 78 % (50-75); PLATELET ESTIMATE NORMAL (NORMAL); TOTAL CELLS COUNTED 100
[2017-09-10 10:46] LABS: BURR CELLS SLIGHT; LARGE PLATELETS PRESENT; OVALOCYTES SLIGHT; POIKILOCYTOSIS SLIGHT
--- NOTE | 2017-09-10 11:58 | CP.PCM.PN ---
<Dasha Harley - Last Filed: 09/10/17 11:55> Subjective - Date & Time of Evaluation Date of Evaluation: 09/10/17 Time of Evaluation: 08:00 - Subjective Subjective: Patient seen and examined at bedside and in no acute distress. Patient sitting up and eating and says he is feeling much better. Patient still has some shortness of breath, but says it is much better than yesterday. Patient noted to have hematuria from mendoza yesterday but now is dorothea blood. Per nursing the patient accidentally pulled out his mendoza overnight and has since been reinserted. Patient was also noted to have blood around his IV site. Patient denies having had any symptoms of urinary frequency, hesitancy, or dysuria. Patient denies any chest pain, abdominal pain, dizziness, nausea, vomiting, constipation, or diarrhea. Objective - Vital Signs/Intake and Output Vital Signs (last 24 hours): Temp Pulse Resp BP Pulse Ox 97.6 F 63 20 103/72 96 09/10/17 07:00 09/10/17 07:00 09/10/17 07:00 09/10/17 10:20 09/10/17 07:00 Intake and Output: 09/10/17 09/10/17 06:59 18:59 Output Total 600 Balance -600 - Medications Medications: Current Medications Amlodipine Besylate (Norvasc) 5 mg PO DAILY [facility] Last Admin: 09/10/17 10:19 Dose: 5 mg Dextrose (Dextrose 50% Inj) 0 ml IV STAT PRN; Protocol PRN Reason: Hypoglycemia Protocol Dextrose (Glutose 15) 0 gm PO ONCE PRN; Protocol PRN Reason: Hypoglycemia Protocol Digoxin (Digoxin) 0.125 mg PO DAILY@1800 [facility] Last Admin: 09/09/17 18:49 Dose: 0.125 mg Furosemide (Lasix) 40 mg IVP Q12 [facility] Last Admin: 09/10/17 10:20 Dose: 40 mg Glucagon (Glucagen Diagnostic Kit) 0 mg IM STAT PRN; Protocol PRN Reason: Hypoglycemia Protocol Dextrose (Dextrose 5% In Water 1000 Ml) 1,000 mls @ 0 mls/hr IV .Q0M PRN; Protocol; Per Protocol PRN Reason: Hypoglycemia Protocol Ceftriaxone Sodium 1 gm/ (Sodium Chloride) 100 mls @ 100 mls/hr IVPB DAILY [facility] PRN Reason: Protocol Last Admin: 09/10/17 10:20 Dose: 100 mls/hr Azithromycin 500 mg/ Sodium (Chloride) 250 mls @ 167 mls/hr IVPB Q24H [facility] PRN Reason: Protocol Last Admin: 09/09/17 18:57 Dose: 167 mls/hr Insulin Human Regular (Novolin R) 0 unit SC ACHS [facility] PRN Reason: Protocol Last Admin: 09/10/17 07:55 Dose: Not Given Levothyroxine Sodium (Synthroid) 100 mcg PO 0630 [facility] Last Admin: 09/10/17 06:16 Dose: 100 mcg Losartan Potassium (Cozaar) 100 mg PO DAILY [facility] Last Admin: 09/10/17 10:19 Dose: 100 mg Metoprolol Succinate (Toprol Xl) 100 mg PO DAILY [facility] Last Admin: 09/10/17 10:19 Dose: 100 mg Pneumococcal Polyvalent Vaccine (Pneumovax 23 Vaccine) 0.5 ml IM .ONCE ONE Stop: 09/11/17 10:01 Rivaroxaban (Xarelto) 20 mg PO DAILY [facility] Last Admin: 09/09/17 10:46 Dose: 20 mg Rosuvastatin Calcium (Crestor) 5 mg PO HS [facility] Last Admin: 09/09/17 22:14 Dose: 5 mg Sitagliptin Phosphate (Januvia) 100 mg PO DAILY [facility] Last Admin: 09/10/17 10:19 Dose: 100 mg - Labs Labs: 09/10/17 08:11 09/10/17 08:11 PT 13.8 SECONDS (9.7-12.2) H 09/08/17 14:03 INR 1.2 09/08/17 14:03 APTT 30 SECONDS (21-34) 09/08/17 14:03 - Constitutional Appears: Non-toxic, No Acute Distress - Head Exam Head Exam: NORMAL INSPECTION - Eye Exam Eye Exam: EOMI - ENT Exam ENT Exam: Mucous Membranes Moist - Respiratory Exam Respiratory Exam: Clear to Ausculation Bilateral, NORMAL BREATHING PATTERN. absent: Respiratory Distress - Cardiovascular Exam Cardiovascular Exam: Irregular Rhythm, +S1, +S2 - GI/Abdominal Exam GI & Abdominal Exam: Soft, Normal Bowel Sounds. absent: Distended, Firm, Guarding, Tenderness - Exam Additional comments: dorothea blood in mendoza bag. - Extremities Exam Extremities Exam: Pedal Edema Additional comments: small amount of blood around IV site on left arm - Back Exam Back Exam: NORMAL INSPECTION - Neurological Exam Neurological Exam: Alert, Awake, CN II-XII Intact, Oriented x3 - Psychiatric Exam Psychiatric exam: Normal Affect, Normal Mood Assessment and Plan - Assessment and Plan (Free Text) Assessment: CHF exacerbation, acute on chronic (preserved EF) - Dr. Bay, cardiology, consulted- help appreciated * Lasix 40mg IV stat x 1 dose, then 20 IV BID - possible stress test on tuesday - Patient is comfortable on BIPAP at night - BNP 5540 -troponins negative x 3 - ECHO was done as an outpatient 06/22/17: * EF 55-60% * Left ventricle cavity is normal in size; the aortic valve is tri-leaflet and calcified. There is no significant aortic regurgitation. * will order repeat echo - Monitory daily weight - Head of bed elevated - Strict I/Os - Images: * Chest X-ray: mild venous congestion, small right pleural effusion, patchy right basilar airspace opacity. enlarged ectatic aorta. mild cardiomegaly. degenerative changes in spine and shoulders - will start coverage with zithromax and rocephin due to possible infiltrate/ opacity on CXR - 1500cc fluid restriction Hematuria -Dr. Smith consulted (urology) - help appreciated - f/u urine culture - Dorothea blood seen in mendoza bag (patient pulled out on accident overnight), will monitor CBC Hypervolemia/Hyponatremia - likely secondary to CHF - 1500cc fluid restriction - Lasix 20mg IV q12h - Monitor weight daily - monitor I/Os Hypothyroid - Continue home medication * Synthroid 100mg PO daily History of Afib - Monitor on tele - Rate controlled - CHADs(2) Score: 3 - Medications * Metoprolol Succinate XL 100mg po daily * Xarelto 20mg po daily - will hold today during to bleeding * Digoxin 0.125mg po daily, dig level 1.5 Hypertension - Continue home medications: * Metoprolol Succinate XL 100mg po daily * Losartan 100mg po daily * Norvasc 5mg po daily History of HLD - Continue home medication * Crestor 5mg po HS Diabetes - Continue Januvia 100mg daily - patient used Trulicity on Tuesday (once/ weekly medication) - Insulin sliding scale - moderate - Accuchecks - Hypoglycemia protocol Prophylaxis - DVT: Xarelto 20mg po daily, scds contraindicated - will hold xarelto today due to dorothea hematuria - GI: Not indicated <Ella Harrington - Last Filed: 09/10/17 14:35> Objective - Vital Signs/Intake and Output Vital Signs (last 24 hours): Temp Pulse Resp BP Pulse Ox 97.6 F 63 20 103/72 96 09/10/17 07:00 09/10/17 07:00 09/10/17 07:00 09/10/17 10:20 09/10/17 07:00 Intake and Output: 09/10/17 09/10/17 06:59 18:59 Output Total 600 Balance -600 - Medications Medications: Current Medications Amlodipine Besylate (Norvasc) 5 mg PO DAILY [facility] Last Admin: 09/10/17 10:19 Dose: 5 mg Dextrose (Dextrose 50% Inj) 0 ml IV STAT PRN; Protocol PRN Reason: Hypoglycemia Protocol Dextrose (Glutose 15) 0 gm PO ONCE PRN; Protocol PRN Reason: Hypoglycemia Protocol Digoxin (Digoxin) 0.125 mg PO DAILY@1800 [facility] Last Admin: 09/09/17 18:49 Dose: 0.125 mg Furosemide (Lasix) 40 mg IVP Q12 [facility] Last Admin: 09/10/17 10:20 Dose: 40 mg Glucagon (Glucagen Diagnostic Kit) 0 mg IM STAT PRN; Protocol PRN Reason: Hypoglycemia Protocol Dextrose (Dextrose 5% In Water 1000 Ml) 1,000 mls @ 0 mls/hr IV .Q0M PRN; Protocol; Per Protocol PRN Reason: Hypoglycemia Protocol Ceftriaxone Sodium 1 gm/ (Sodium Chloride) 100 mls @ 100 mls/hr IVPB DAILY [facility] PRN Reason: Protocol Last Admin: 09/10/17 10:20 Dose: 100 mls/hr Azithromycin 500 mg/ Sodium (Chloride) 250 mls @ 167 mls/hr IVPB Q24H [facility] PRN Reason: Protocol Last Admin: 09/09/17 18:57 Dose: 167 mls/hr Insulin Human Regular (Novolin R) 0 unit SC ACHS [facility] PRN Reason: Protocol Last Admin: 09/10/17 13:10 Dose: Not Given Levothyroxine Sodium (Synthroid) 100 mcg PO 0630 [facility] Last Admin: 09/10/17 06:16 Dose: 100 mcg Losartan Potassium (Cozaar) 100 mg PO DAILY [facility] Last Admin: 09/10/17 10:19 Dose: 100 mg Metoprolol Succinate (Toprol Xl) 100 mg PO DAILY [facility] Last Admin: 09/10/17 10:19 Dose: 100 mg Pneumococcal Polyvalent Vaccine (Pneumovax 23 Vaccine) 0.5 ml IM .ONCE ONE Stop: 09/11/17 10:01 Rivaroxaban (Xarelto) 20 mg PO DAILY [facility] Last Admin: 09/09/17 10:46 Dose: 20 mg Rosuvastatin Calcium (Crestor) 5 mg PO HS [facility] Last Admin: 09/09/17 22:14 Dose: 5 mg Sitagliptin Phosphate (Januvia) 100 mg PO DAILY [facility] Last Admin: 09/10/17 10:19 Dose: 100 mg - Labs Labs: 09/10/17 08:11 09/10/17 08:11 PT 13.8 SECONDS (9.7-12.2) H 09/08/17 14:03 INR 1.2 09/08/17 14:03 APTT 30 SECONDS (21-34) 09/08/17 14:03 Attending/Attestation - Attestation I have personally seen and examined this patient.: Yes I have fully participated in the care of the patient.: Yes I have reviewed all pertinent clinical information, including history, physical exam and plan: Yes Notes (Text): Patient was seen and examined by me. has gross hematuria.Not in pain,Has edematous legs and scrotum.lying on bed without sob His faley came out last night.started bleeding. s/p Mendoza cath replaced Hold Xarelta 1. CHF exacerbation, acute on chronic (preserved EF) 2.Hypervolemia/Hyponatremia 3.Hypothyroid 4.History of Afib 5.Hypertension 6.History of HLD 7.Diabetes d/w Dr Bay. we will hold Xarelta and consider DVT prophylaxis tomorrow. I increased his Lasix to 40mg bid.Monitor BP d/W The assessment and the plan discussed with the resident in detail. I agree with the documentation of the resident's assessment and the plan
[2017-09-10] MEDS ORDERED: Iodixanol 320 MG/ML 100 ML BOTTLE IV ONE (14:19)
--- NOTE | 2017-09-10 16:46 | CT ---
PROCEDURE: CT Abdomen and Pelvis with and without intravenous contrast HISTORY: hemaaturia/ trauma from mendoza, patient ripped out COMPARISON: None. TECHNIQUE: Axial images of the abdomen were obtained in the pre contrast, portal venous and delayed phases of enhancement. Coronal and sagittal reformats were generated. Contrast dose: 100 Visipaque 320 Radiation dose: Total exam DLP = 2790.01 mGy-cm. This CT exam was performed using one or more of the following dose reduction techniques: Automated exposure control, adjustment of the mA and/or kV according to patient size, and/or use of iterative reconstruction technique. FINDINGS: LOWER THORAX: UnremarkableThere is moderate right and small left pleural effusion. Partial atelectasis of the right lung lower lobe. The heart is mildly to moderately enlarged. No evidence of pericardial effusion. . LIVER: Unremarkable. No gross lesion or ductal dilatation. GALLBLADDER AND BILE DUCTS: Unremarkable. PANCREAS: Unremarkable. No gross lesion or ductal dilatation. SPLEEN: Unremarkable. ADRENALS: Unremarkable. No mass. KIDNEYS AND URETERS: There is no evidence of nephrolithiasis or hydronephrosis. Focal defect noted at the right kidney cortex in the mid to upper pole likely represent prior injury or infarction. VASCULATURE: Unremarkable. No aortic aneurysm. BOWEL: Unremarkable. No obstruction. No gross mural thickening. APPENDIX: There is no evidence of appendicitis. PERITONEUM: There is a small to moderate amount of ascites in the abdomen and pelvis. LYMPH NODES: Unremarkable. No enlarged lymph nodes. BLADDER: There is high attenuation fluid noted in the urinary bladder likely hemorrhage. There is Mendoza catheter seen in the bladder. The delayed post-contrast images demonstrate foci of filling defect around the Mendoza catheter likely represent clots. No evidence of contrast extravasation outside the urinary bladder. REPRODUCTIVE: Prostate is moderately enlarged. BONES: No acute fracture. OTHER FINDINGS: Small inguinal hernia seen bilaterally contains fat and fluid. Incidentally noted is moderate hydrocele in the scrotum. IMPRESSION: High attenuation fluid in the bladder likely represent hemorrhage and clots. No CT evidence of bladder rupture. Small to moderate amount of ascites in the abdomen and pelvis. Moderate anasarca. Moderately enlarged prostate. Moderate right and small left pleural effusion.
[2017-09-10] MEDS: Digoxin 125 mcg (0.125 mg) Tab PO SCH (17:52)
[2017-09-10] MEDS: Azithromycin 500 MG in Sodium Chloride 0.9% 250 ML IVPB SCH (17:52)
[2017-09-11] MEDS: Levothyroxine 100 MCG TAB PO SCH (05:56)
--- NOTE | 2017-09-11 06:20 | CP.PCM.PN ---
Subjective - Date & Time of Evaluation Date of Evaluation: 09/10/17 Time of Evaluation: 19:10 - Subjective Subjective: Patient seen and evaluated Improved breathing Acute on Chronic diastolic CHF (EF 55%) A Fib Severe pulmonary HTN Xarelto held due to hematuria (Traumatic) Check CTA r/o PE (Severe pulmonary HTN on ECHO) Continue diuresis Objective - Vital Signs/Intake and Output Vital Signs (last 24 hours): Temp Pulse Resp BP Pulse Ox 97.3 F L 69 20 102/65 96 09/10/17 23:45 09/11/17 04:44 09/10/17 23:45 09/10/17 23:45 09/10/17 23:45 - Medications Medications: Current Medications Amlodipine Besylate (Norvasc) 5 mg PO DAILY [facility] Last Admin: 09/10/17 10:19 Dose: 5 mg Dextrose (Dextrose 50% Inj) 0 ml IV STAT PRN; Protocol PRN Reason: Hypoglycemia Protocol Dextrose (Glutose 15) 0 gm PO ONCE PRN; Protocol PRN Reason: Hypoglycemia Protocol Digoxin (Digoxin) 0.125 mg PO DAILY@1800 [facility] Last Admin: 09/10/17 17:52 Dose: 0.125 mg Furosemide (Lasix) 40 mg IVP Q12 [facility] Last Admin: 09/10/17 21:48 Dose: 40 mg Glucagon (Glucagen Diagnostic Kit) 0 mg IM STAT PRN; Protocol PRN Reason: Hypoglycemia Protocol Dextrose (Dextrose 5% In Water 1000 Ml) 1,000 mls @ 0 mls/hr IV .Q0M PRN; Protocol; Per Protocol PRN Reason: Hypoglycemia Protocol Azithromycin 500 mg/ Sodium (Chloride) 250 mls @ 167 mls/hr IVPB Q24H [facility] PRN Reason: Protocol Last Admin: 09/10/17 17:52 Dose: 167 mls/hr Ceftriaxone Sodium (Rocephin Iv 1 Gm Duplex) 50 mls @ 100 mls/hr IVPB DAILY [facility] PRN Reason: Protocol Insulin Human Regular (Novolin R) 0 unit SC ACHS [facility] PRN Reason: Protocol Last Admin: 09/10/17 21:49 Dose: Not Given Levothyroxine Sodium (Synthroid) 100 mcg PO 0630 [facility] Last Admin: 09/11/17 05:56 Dose: 100 mcg Losartan Potassium (Cozaar) 100 mg PO DAILY [facility] Last Admin: 04/14/18 10:19 Dose: 100 mg Metoprolol Succinate (Toprol Xl) 100 mg PO DAILY [facility] Last Admin: 09/10/17 10:19 Dose: 100 mg Pneumococcal Polyvalent Vaccine (Pneumovax 23 Vaccine) 0.5 ml IM .ONCE ONE Stop: 09/11/17 10:01 Rivaroxaban (Xarelto) 20 mg PO DAILY [facility] Last Admin: 09/09/17 10:46 Dose: 20 mg Rosuvastatin Calcium (Crestor) 5 mg PO HS [facility] Last Admin: 09/10/17 21:48 Dose: 5 mg Sitagliptin Phosphate (Januvia) 100 mg PO DAILY [facility] Last Admin: 09/10/17 10:19 Dose: 100 mg - Labs Labs: 09/10/17 08:11 09/10/17 08:11 PT 13.8 SECONDS (9.7-12.2) H 09/08/17 14:03 INR 1.2 09/08/17 14:03 APTT 30 SECONDS (21-34) 09/08/17 14:03
[2017-09-11 07:53] LABS: BASO # 0.1 K/uL (0.0-0.2); BASO % 1.2 % (0.0-2.0); EOS # 0.2 K/uL (0.0-0.7); EOS % 1.8 % (0.0-4.0); HEMOGLOBIN 12.4 g/dL (12.0-18.0); LYMPH # 0.9 K/uL (1.0-4.3); LYMPH % 8.9 % (20.0-40.0); MEAN CELL VOLUME 85.9 fL (80.0-94.0); MEAN CORPUSCULAR HEMOGLOBIN 29.7 pg (27.0-31.0); MEAN CORPUSCULAR HGB CONC 34.6 g/dL (33.0-37.0); MEAN PLATELET VOLUME 9.2 fL (7.2-11.7); MONO # 1.3 K/uL (0.0-0.8); MONO % 13.3 % (0.0-10.0); NEUT # 7.4 K/uL (1.8-7.0); NEUT % 74.8 % (50.0-75.0); NRBC % 0.1 % (0.0-2.0); PLATELET COUNT 140 K/uL (130-400); RBC 4.19 Mil/uL (4.40-5.90); RED CELL DISTRIBUTION WIDTH 15.5 % (11.5-14.5); WHITE BLOOD COUNT 9.8 K/uL (4.8-10.8)
[2017-09-11 08:05] LABS: ALBUMIN 2.8 g/dL (3.5-5.0); ALT/SGPT 27 U/L (21-72); AST/SGOT 23 U/L (17-59); BLOOD UREA NITROGEN 26 mg/dL (9-20); CALCIUM 8.2 mg/dl (8.6-10.4); GFR AFRICAN-AMERICAN > 60; GFR NON-AFRICAN AMERICAN 54
[2017-09-11] MEDS: (Novolin R) Insulin Human Regular 100 units/ml vial SC SCH ×4 (08:08→21:24)
[2017-09-11 09:00] LABS: EOSINOPHIL 3 % (0-4); LYMPHOCYTE 13 % (20-40); MONOCYTE 6 % (0-10); NEUTROPHIL 78 % (50-75); TOTAL CELLS COUNTED 100
[2017-09-11 09:01] LABS: ANISOCYTOSIS SLIGHT; PLATELET ESTIMATE NORMAL (NORMAL); POIKILOCYTOSIS SLIGHT
[2017-09-11 09:02] LABS: BURR CELLS SLIGHT; OVALOCYTES SLIGHT
[2017-09-11 09:03] LABS: LARGE PLATELETS PRESENT
[2017-09-11] MEDS ORDERED: Pneumococcal 23-Valent Vaccine IM ONE (10:00)
[2017-09-11] MEDS: Metoprolol Succinate 100 mg XL Tab PO SCH (10:11)
[2017-09-11] MEDS: cefTRIAXone IV 1 gm in Dextros 50 ML IVPB SCH (10:11)
--- NOTE | 2017-09-11 10:38 | CARD ---
APPROVED REPORT EKG Measurement Heart [id number] <Conclusion> Atrial fibrillation Low voltage QRS Septal infarct, age undetermined cannot be excluded. Nonspecific ST/T abnormality. Abnormal ECG
--- NOTE | 2017-09-11 10:40 | CARD ---
APPROVED REPORT EKG Measurement Heart [id number] <Conclusion> Atrial fibrillation Poor R wave progression ST & T wave abnormality: nonspecific Abnormal ECG
--- NOTE | 2017-09-11 10:47 | CP.PCM.PN ---
<Dasha Harley - Last Filed: 09/11/17 10:51> Subjective - Date & Time of Evaluation Date of Evaluation: 09/11/17 Time of Evaluation: 08:00 - Subjective Subjective: Patient seen and examined at bedside and in no acute distress. He was eating is breakfast and was not using bipap. Patient sitting up and eating and says he is feeling much better. Patient still has some shortness of breath, but says it is much better than yesterday. Patient noted to have hematuria from mendoza yesterday but now improving. Patient denies any chest pain, abdominal pain, dizziness, nausea, vomiting, constipation, or diarrhea. Objective - Vital Signs/Intake and Output Vital Signs (last 24 hours): Temp Pulse Resp BP Pulse Ox 97.8 F 63 20 133/84 96 09/11/17 08:10 09/11/17 08:10 09/11/17 08:10 09/11/17 10:07 09/11/17 08:10 - Medications Medications: Current Medications Amlodipine Besylate (Norvasc) 5 mg PO DAILY [facility] Last Admin: 09/11/17 10:10 Dose: 5 mg Dextrose (Dextrose 50% Inj) 0 ml IV STAT PRN; Protocol PRN Reason: Hypoglycemia Protocol Dextrose (Glutose 15) 0 gm PO ONCE PRN; Protocol PRN Reason: Hypoglycemia Protocol Digoxin (Digoxin) 0.125 mg PO DAILY@1800 [facility] Last Admin: 09/10/17 17:52 Dose: 0.125 mg Furosemide (Lasix) 40 mg IVP Q12 [facility] Last Admin: 09/11/17 10:07 Dose: 40 mg Glucagon (Glucagen Diagnostic Kit) 0 mg IM STAT PRN; Protocol PRN Reason: Hypoglycemia Protocol Heparin Sodium (Porcine) (Heparin) 5,000 units SC Q12 [facility] Dextrose (Dextrose 5% In Water 1000 Ml) 1,000 mls @ 0 mls/hr IV .Q0M PRN; Protocol; Per Protocol PRN Reason: Hypoglycemia Protocol Azithromycin 500 mg/ Sodium (Chloride) 250 mls @ 167 mls/hr IVPB Q24H [facility] PRN Reason: Protocol Last Admin: 09/10/17 17:52 Dose: 167 mls/hr Ceftriaxone Sodium (Rocephin Iv 1 Gm Duplex) 50 mls @ 100 mls/hr IVPB DAILY [facility] PRN Reason: Protocol Last Admin: 09/11/17 10:11 Dose: 100 mls/hr Insulin Human Regular (Novolin R) 0 unit SC ACHS [facility] PRN Reason: Protocol Last Admin: 09/11/17 08:08 Dose: Not Given Levothyroxine Sodium (Synthroid) 100 mcg PO 0630 [facility] Last Admin: 09/11/17 05:56 Dose: 100 mcg Losartan Potassium (Cozaar) 100 mg PO DAILY [facility] Last Admin: 09/11/17 10:10 Dose: 100 mg Metoprolol Succinate (Toprol Xl) 100 mg PO DAILY [facility] Last Admin: 09/11/17 10:11 Dose: 100 mg Rivaroxaban (Xarelto) 20 mg PO DAILY [facility] Last Admin: 09/09/17 10:46 Dose: 20 mg Rosuvastatin Calcium (Crestor) 5 mg PO HS [facility] Last Admin: 09/10/17 21:48 Dose: 5 mg Sitagliptin Phosphate (Januvia) 100 mg PO DAILY [facility] Last Admin: 09/11/17 10:10 Dose: 100 mg - Labs Labs: 09/11/17 07:41 09/11/17 07:41 PT 13.8 SECONDS (9.7-12.2) H 09/08/17 14:03 INR 1.2 09/08/17 14:03 APTT 30 SECONDS (21-34) 09/08/17 14:03 - Constitutional Appears: Non-toxic, No Acute Distress, Chronically Ill - Head Exam Head Exam: NORMAL INSPECTION - Eye Exam Eye Exam: Normal appearance Pupil Exam: NORMAL ACCOMODATION - Respiratory Exam Respiratory Exam: Decreased Breath Sounds, NORMAL BREATHING PATTERN. absent: Respiratory Distress - Cardiovascular Exam Cardiovascular Exam: Irregular Rhythm, +S1, +S2 - GI/Abdominal Exam GI & Abdominal Exam: Soft, Normal Bowel Sounds. absent: Distended, Firm, Guarding, Tenderness - Exam Additional comments: testicular swelling present but improving - Extremities Exam Extremities Exam: Pedal Edema. absent: Calf Tenderness Additional comments: b/l leg edema improving from yesterday - Back Exam Back Exam: NORMAL INSPECTION - Neurological Exam Neurological Exam: Alert, Awake, CN II-XII Intact, Oriented x3 - Psychiatric Exam Psychiatric exam: Normal Affect, Normal Mood Assessment and Plan - Assessment and Plan (Free Text) Assessment: CHF exacerbation, acute on chronic (preserved EF) - Dr. Bay, cardiology, consulted- help appreciated * Lasix 40mg IV BID possible stress test on tuesday - Patient is comfortable on BIPAP at night - BNP 5540 -troponins negative x 3 - ECHO was done as an outpatient 06/22/17: * EF 55-60% * Left ventricle cavity is normal in size; the aortic valve is tri-leaflet and calcified. There is no significant aortic regurgitation. * Repeat echo shows severe pulm htn - f/u official report - Monitory daily weight, Head of bed elevated , Strict I/Os, 1500cc fluid restriction - Images: * Chest X-ray: mild venous congestion, small right pleural effusion, patchy right basilar airspace opacity. enlarged ectatic aorta. mild cardiomegaly. degenerative changes in spine and shoulders - Will start coverage with zithromax and rocephin due to possible infiltrate/ opacity on CXR Pulmonary hypertension Per cardiology the repeat echo shows progressed pulmonary htn. Would like to order CT Angio to look for PE but the patient received contrast yesterday for abdominal ct scan. Renal function is boarderline so will hold off and order CT Angio on Tuesday (tomorrow) Hematuria -Dr. Perico Smith consulted (urology) - help appreciated - Urine culture 09/09 - negative - CBC is stable, hematuria is improving today (09/10 [place] blood seen in mendoza bag- patient pulled out on accident overnight on 09/10) - f/u CT abd/pelvis Hypervolemia/Hyponatremia - likely secondary to CHF - 1500cc fluid restriction - Lasix 40mg IV q12h - Monitor weight daily - monitor I/Os Hypothyroid - Continue home medication * Synthroid 100mg PO daily History of Afib - Monitor on tele - Rate controlled - CHADs(2) Score: 3 - Medications * Metoprolol Succinate XL 100mg po daily * Xarelto 20mg po daily - will hold today during to bleeding * Digoxin 0.125mg po daily, dig level 1.5 Hypertension - Continue home medications: * Metoprolol Succinate XL 100mg po daily * Losartan 100mg po daily * Norvasc 5mg po daily History of HLD - Continue home medication * Crestor 5mg po HS Diabetes - Continue Januvia 100mg daily - patient used Trulicity on Tuesday (once/ weekly medication) - Insulin sliding scale - moderate - Accuchecks - Hypoglycemia protocol Prophylaxis - DVT: Xarelto 20mg po daily, scds contraindicated - will hold xarelto today due to dorothea hematuria Will give Heparin 5000 U SC Q12 for now until Xarelto can be restarted - GI: Not indicated <Ella Harrington - Last Filed: 09/11/17 11:11> Objective - Vital Signs/Intake and Output Vital Signs (last 24 hours): Temp Pulse Resp BP Pulse Ox 97.8 F 63 20 133/84 96 09/11/17 08:10 09/11/17 08:10 09/11/17 08:10 09/11/17 10:07 09/11/17 08:10 - Medications Medications: Current Medications Amlodipine Besylate (Norvasc) 5 mg PO DAILY [facility] Last Admin: 09/11/17 10:10 Dose: 5 mg Dextrose (Dextrose 50% Inj) 0 ml IV STAT PRN; Protocol PRN Reason: Hypoglycemia Protocol Dextrose (Glutose 15) 0 gm PO ONCE PRN; Protocol PRN Reason: Hypoglycemia Protocol Digoxin (Digoxin) 0.125 mg PO DAILY@1800 [facility] Last Admin: 09/10/17 17:52 Dose: 0.125 mg Furosemide (Lasix) 40 mg IVP Q12 [facility] Last Admin: 09/11/17 10:07 Dose: 40 mg Glucagon (Glucagen Diagnostic Kit) 0 mg IM STAT PRN; Protocol PRN Reason: Hypoglycemia Protocol Heparin Sodium (Porcine) (Heparin) 5,000 units SC Q12 [facility] Dextrose (Dextrose 5% In Water 1000 Ml) 1,000 mls @ 0 mls/hr IV .Q0M PRN; Protocol; Per Protocol PRN Reason: Hypoglycemia Protocol Azithromycin 500 mg/ Sodium (Chloride) 250 mls @ 167 mls/hr IVPB Q24H [facility] PRN Reason: Protocol Last Admin: 09/10/17 17:52 Dose: 167 mls/hr Ceftriaxone Sodium (Rocephin Iv 1 Gm Duplex) 50 mls @ 100 mls/hr IVPB DAILY [facility] PRN Reason: Protocol Last Admin: 09/11/17 10:11 Dose: 100 mls/hr Insulin Human Regular (Novolin R) 0 unit SC ACHS [facility] PRN Reason: Protocol Last Admin: 09/11/17 08:08 Dose: Not Given Levothyroxine Sodium (Synthroid) 100 mcg PO 0630 [facility] Last Admin: 04/15/18 05:56 Dose: 100 mcg Losartan Potassium (Cozaar) 100 mg PO DAILY [facility] Last Admin: 09/11/17 10:10 Dose: 100 mg Metoprolol Succinate (Toprol Xl) 100 mg PO DAILY [facility] Last Admin: 09/11/17 10:11 Dose: 100 mg Rivaroxaban (Xarelto) 20 mg PO DAILY [facility] Last Admin: 09/09/17 10:46 Dose: 20 mg Rosuvastatin Calcium (Crestor) 5 mg PO HS [facility] Last Admin: 09/10/17 21:48 Dose: 5 mg Sitagliptin Phosphate (Januvia) 100 mg PO DAILY [facility] Last Admin: 09/11/17 10:10 Dose: 100 mg - Labs Labs: 09/11/17 07:41 09/11/17 07:41 PT 13.8 SECONDS (9.7-12.2) H 09/08/17 14:03 INR 1.2 09/08/17 14:03 APTT 30 SECONDS (21-34) 09/08/17 14:03 Attending/Attestation - Attestation I have personally seen and examined this patient.: Yes I have fully participated in the care of the patient.: Yes I have reviewed all pertinent clinical information, including history, physical exam and plan: Yes Notes (Text): Patient was seen and examined by me.Lying on bed comfortable,no sob,no complain.His leg and scrotal edema is improving. His urine is clear,no more hematuria. Xarelta on hold.We started on Heparin SQ for DVT prophylaxis. May resume Xarelta to tomorrow. Echo report noted. Has severe pulmonary HTN. Dr Bay is recommending CTA chest to rule out PE. Patient had CT abd pelvis with contrast yesterday. His Creatinine is 1.3 with GFR 54 and he is on Lasix. We will avoid contrast today.Dr Beard agrees to have CTA tomorrow Patient has faley cath ,s/p urinary retention follows Dr Smith Afib rate controlled on toprol xl and digoxin.Resume xarelta if no bleeding His sodium is 128 .Continue lasix,monitor sodium. continue fluid restriction continue his diabetic home meds except metformin Discussed with the resident taking care of the patient I agree with the documentation of the resident's assessment and the plan
[2017-09-11] MEDS: Azithromycin 500 MG in Sodium Chloride 0.9% 250 ML IVPB SCH (17:23)
[2017-09-11] MEDS: Digoxin 125 mcg (0.125 mg) Tab PO SCH (17:35)
--- NOTE | 2017-09-11 22:41 | CP.PCM.PN ---
Subjective - Date & Time of Evaluation Date of Evaluation: 09/11/17 Time of Evaluation: 16:20 - Subjective Subjective: Patient seen and evaluated Denies chest pain and dyspnea Review of Systems - Constitutional Constitutional: absent: Chills, Fever - EENT Eyes: absent: Change in Vision - Respiratory Respiratory: Cough, Dyspnea, Dyspnea on Exertion. absent: Wheezing - Gastrointestinal Gastrointestinal: absent: Abdominal Pain, Vomiting - Musculoskeletal Musculoskeletal: absent: Numbness, Tingling - Integumentary Integumentary: absent: Jaundice - Neurological Neurological: absent: Numbness, Tingling - Endocrine Endocrine: absent: Polydipsia, Polyuria Physical Exam - Constitutional Appears: Non-toxic, No Acute Distress - Head Exam Head Exam: ATRAUMATIC, NORMAL INSPECTION - Eye Exam Eye Exam: EOMI, PERRL - ENT Exam ENT Exam: Mucous Membranes Moist - Respiratory Exam Respiratory Exam: absent: Clear to Auscultation Bilateral, Rales, Rhonchi - Cardiovascular Exam Cardiovascular Exam: REGULAR RHYTHM, +S1, +S2 - GI/Abdominal Exam GI & Abdominal Exam: Normal Bowel Sounds, Soft. absent: Tenderness - Extremities Exam Extremities exam: Positive for: pedal edema, pedal pulses present. Negative for : normal inspection - Back Exam Back exam: absent: CVA tenderness (L), CVA tenderness (R) - Neurological Exam Neurological exam: Alert, Oriented x3 - Psychiatric Exam Psychiatric exam: Normal Mood - Skin Skin Exam: Dry, Intact Objective - Vital Signs/Intake and Output Vital Signs (last 24 hours): Temp Pulse Resp BP Pulse Ox 98 F 78 20 135/90 99 09/11/17 16:00 09/11/17 22:01 09/11/17 16:00 09/11/17 21:38 09/11/17 16:00 Intake and Output: 09/11/17 09/12/17 18:59 06:59 Intake Total 450 Output Total 600 600 Balance -150 -600 - Medications Medications: Current Medications Amlodipine Besylate (Norvasc) 5 mg PO DAILY [facility] Last Admin: 09/11/17 10:10 Dose: 5 mg Dextrose (Dextrose 50% Inj) 0 ml IV STAT PRN; Protocol PRN Reason: Hypoglycemia Protocol Dextrose (Glutose 15) 0 gm PO ONCE PRN; Protocol PRN Reason: Hypoglycemia Protocol Digoxin (Digoxin) 0.125 mg PO DAILY@1800 [facility] Last Admin: 09/11/17 17:35 Dose: 0.125 mg Furosemide (Lasix) 40 mg IVP Q12 [facility] Last Admin: 09/11/17 21:38 Dose: 40 mg Glucagon (Glucagen Diagnostic Kit) 0 mg IM STAT PRN; Protocol PRN Reason: Hypoglycemia Protocol Heparin Sodium (Porcine) (Heparin) 5,000 units SC Q12 [facility] Last Admin: 09/11/17 12:29 Dose: Not Given Dextrose (Dextrose 5% In Water 1000 Ml) 1,000 mls @ 0 mls/hr IV .Q0M PRN; Protocol; Per Protocol PRN Reason: Hypoglycemia Protocol Azithromycin 500 mg/ Sodium (Chloride) 250 mls @ 167 mls/hr IVPB Q24H [facility] PRN Reason: Protocol Last Admin: 09/11/17 17:23 Dose: 167 mls/hr Ceftriaxone Sodium (Rocephin Iv 1 Gm Duplex) 50 mls @ 100 mls/hr IVPB DAILY [facility] PRN Reason: Protocol Last Admin: 09/11/17 10:11 Dose: 100 mls/hr Insulin Human Regular (Novolin R) 0 unit SC ACHS [facility] PRN Reason: Protocol Last Admin: 09/11/17 21:24 Dose: Not Given Levothyroxine Sodium (Synthroid) 100 mcg PO 0630 [facility] Last Admin: 09/11/17 05:56 Dose: 100 mcg Losartan Potassium (Cozaar) 100 mg PO DAILY [facility] Last Admin: 09/11/17 10:10 Dose: 100 mg Metoprolol Succinate (Toprol Xl) 100 mg PO DAILY [facility] Last Admin: 09/11/17 10:11 Dose: 100 mg Rivaroxaban (Xarelto) 20 mg PO DAILY [facility] Last Admin: 09/09/17 10:46 Dose: 20 mg Rosuvastatin Calcium (Crestor) 5 mg PO HS [facility] Last Admin: 09/11/17 21:38 Dose: 5 mg Sitagliptin Phosphate (Januvia) 100 mg PO DAILY [facility] Last Admin: 09/11/17 10:10 Dose: 100 mg - Labs Labs: 09/11/17 07:41 09/11/17 07:41 PT 13.8 SECONDS (9.7-12.2) H 09/08/17 14:03 INR 1.2 09/08/17 14:03 APTT 30 SECONDS (21-34) 09/08/17 14:03 Assessment and Plan - Assessment and Plan (Free Text) Assessment: CHF exacerbation, acute on chronic (preserved EF) * Lasix 40mg IV BID. [place] decrease as tolerated. Monitor lytes * Diastolic CHF Pulmonary hypertension Per cardiology the repeat echo shows progressed pulmonary htn. Would like to order CT Angio to look for PE but the patient received contrast yesterday for abdominal ct scan. Renal function is boarderline so will hold off and order CT Angio on Tuesday (tomorrow) Hematuria -Dr. Perico Smith consulted (urology) - help appreciated - Urine culture 09/09 - negative - CBC is stable, hematuria is improving today (09/10 [place] blood seen in mendoza bag- patient pulled out on accident overnight on 09/10) - f/u CT abd/pelvis Hypervolemia/Hyponatremia - likely secondary to CHF - 1500cc fluid restriction - Lasix 40mg IV q12h - Monitor weight daily - monitor I/Os Hypothyroid - Continue home medication * Synthroid 100mg PO daily History of Afib - Monitor on tele - Rate controlled - CHADs(2) Score: 3 - Medications * Metoprolol Succinate XL 100mg po daily * Xarelto 20mg po daily - will hold today during to bleeding * Digoxin 0.125mg po daily, dig level 1.5 Hypertension - Continue home medications: * Metoprolol Succinate XL 100mg po daily * Losartan 100mg po daily * Norvasc 5mg po daily History of HLD - Continue home medication * Crestor 5mg po HS Diabetes - Continue Januvia 100mg daily - patient used Trulicity on Tuesday (once/ weekly medication) - Insulin sliding scale - moderate - Accuchecks - Hypoglycemia protocol Prophylaxis - DVT: Xarelto 20mg po daily, scds contraindicated - will hold xarelto today due to dorothea hematuria Will give Heparin 5000 U SC Q12 for now until Xarelto can be restarted - GI: Not indicated
[2017-09-12] MEDS: Levothyroxine 100 MCG TAB PO SCH (05:57)
[2017-09-12 06:46] LABS: BASO # 0.1 K/uL (0.0-0.2); EOS # 0.3 K/uL (0.0-0.7); EOS % 2.3 % (0.0-4.0); HEMOGLOBIN 12.7 g/dL (12.0-18.0); LYMPH # 0.7 K/uL (1.0-4.3); LYMPH % 6.1 % (20.0-40.0); MEAN CELL VOLUME 86.3 fL (80.0-94.0); MEAN CORPUSCULAR HEMOGLOBIN 29.7 pg (27.0-31.0); MEAN CORPUSCULAR HGB CONC 34.4 g/dL (33.0-37.0); MEAN PLATELET VOLUME 9.1 fL (7.2-11.7); MONO # 1.1 K/uL (0.0-0.8); MONO % 9.6 % (0.0-10.0); NEUT # 9.3 K/uL (1.8-7.0); PLATELET COUNT 137 K/uL (130-400); RBC 4.27 Mil/uL (4.40-5.90); RED CELL DISTRIBUTION WIDTH 15.7 % (11.5-14.5); WHITE BLOOD COUNT 11.5 K/uL (4.8-10.8)
[2017-09-12 07:13] LABS: ALB/GLOB RATIO 1.1 (1.0-2.1); ALBUMIN 3.2 g/dL (3.5-5.0); ALT/SGPT 15 U/L (21-72); AST/SGOT 22 U/L (17-59); BLOOD UREA NITROGEN 23 mg/dL (9-20); CALCIUM 8.5 mg/dl (8.6-10.4); GFR AFRICAN-AMERICAN > 60; GFR NON-AFRICAN AMERICAN 54
[2017-09-12] MEDS: (Novolin R) Insulin Human Regular 100 units/ml vial SC SCH ×4 (07:45→21:40)
[2017-09-12 08:20] LABS: EOSINOPHIL 2 % (0-4); LYMPHOCYTE 3 % (20-40); MONOCYTE 4 % (0-10); NEUTROPHIL 91 % (50-75); PLATELET ESTIMATE NORMAL (NORMAL); TOTAL CELLS COUNTED 100
[2017-09-12 08:23] LABS: ANISOCYTOSIS SLIGHT
[2017-09-12 08:24] LABS: LARGE PLATELETS PRESENT; OVALOCYTES SLIGHT
[2017-09-12] MEDS: cefTRIAXone IV 1 gm in Dextros 50 ML IVPB SCH (09:35)
[2017-09-12] MEDS: Metoprolol Succinate 100 mg XL Tab PO SCH (09:39)
--- NOTE | 2017-09-12 10:52 | CP.PCM.PN ---
Addendum entered and electronically signed by Catalina Ewing 09/12/17 17:04 : No PE, increased lasix to 60mg ivp q12h Original Note: <Catalnia Ewing - Last Filed: 09/12/17 15:43> Subjective - Date & Time of Evaluation Date of Evaluation: 09/12/17 Time of Evaluation: 07:00 - Subjective Subjective: PGY1- Medicine Note for Dr. Chan Patient seen and examined at bedside and in no acute distress. Patient is on bipap and says that he feels okay. Patient is comfortable on bipap, but gets very short of breath without it. Patient denies chest pain, abdominal pain, nausea, vomiting, constipation, diarrhea. As per nursing, staff tried to help him walk to the bathroom but he could not tolerate being off of bipap and became very short of breath. Objective - Vital Signs/Intake and Output Vital Signs (last 24 hours): Temp Pulse Resp BP Pulse Ox 98 F 80 20 132/70 96 09/12/17 07:50 09/12/17 09:00 09/12/17 07:50 09/12/17 09:38 09/11/17 23:50 Intake and Output: 09/12/17 09/12/17 06:59 18:59 Output Total 1900 Balance -1900 - Medications Medications: Current Medications Amlodipine Besylate (Norvasc) 5 mg PO DAILY [facility] Last Admin: 09/12/17 09:39 Dose: 5 mg Dextrose (Dextrose 50% Inj) 0 ml IV STAT PRN; Protocol PRN Reason: Hypoglycemia Protocol Dextrose (Glutose 15) 0 gm PO ONCE PRN; Protocol PRN Reason: Hypoglycemia Protocol Digoxin (Digoxin) 0.125 mg PO DAILY@1800 [facility] Last Admin: 09/11/17 17:35 Dose: 0.125 mg Furosemide (Lasix) 40 mg IVP Q12 [facility] Last Admin: 09/12/17 09:38 Dose: 40 mg Glucagon (Glucagen Diagnostic Kit) 0 mg IM STAT PRN; Protocol PRN Reason: Hypoglycemia Protocol Heparin Sodium (Porcine) (Heparin) 5,000 units SC Q12 [facility] Last Admin: 09/12/17 09:52 Dose: Not Given Dextrose (Dextrose 5% In Water 1000 Ml) 1,000 mls @ 0 mls/hr IV .Q0M PRN; Protocol; Per Protocol PRN Reason: Hypoglycemia Protocol Azithromycin 500 mg/ Sodium (Chloride) 250 mls @ 167 mls/hr IVPB Q24H [facility] PRN Reason: Protocol Last Admin: 09/11/17 17:23 Dose: 167 mls/hr Ceftriaxone Sodium (Rocephin Iv 1 Gm Duplex) 50 mls @ 100 mls/hr IVPB DAILY [facility] PRN Reason: Protocol Last Admin: 09/12/17 09:35 Dose: 100 mls/hr Insulin Human Regular (Novolin R) 0 unit SC ACHS [facility] PRN Reason: Protocol Last Admin: 09/12/17 07:45 Dose: Not Given Levothyroxine Sodium (Synthroid) 100 mcg PO 0630 [facility] Last Admin: 09/12/17 05:57 Dose: 100 mcg Losartan Potassium (Cozaar) 100 mg PO DAILY [facility] Last Admin: 09/12/17 09:37 Dose: 100 mg Metoprolol Succinate (Toprol Xl) 100 mg PO DAILY [facility] Last Admin: 09/12/17 09:39 Dose: 100 mg Rivaroxaban (Xarelto) 20 mg PO DAILY [facility] Last Admin: 09/09/17 10:46 Dose: 20 mg Rosuvastatin Calcium (Crestor) 5 mg PO HS [facility] Last Admin: 09/11/17 21:38 Dose: 5 mg Sitagliptin Phosphate (Januvia) 100 mg PO DAILY [facility] Last Admin: 09/12/17 09:38 Dose: 100 mg - Labs Labs: 09/12/17 06:38 09/12/17 06:38 PT 13.8 SECONDS (9.7-12.2) H 09/08/17 14:03 INR 1.2 09/08/17 14:03 APTT 30 SECONDS (21-34) 09/08/17 14:03 - Constitutional Appears: Non-toxic, No Acute Distress - Head Exam Head Exam: ATRAUMATIC, NORMAL INSPECTION, NORMOCEPHALIC - Eye Exam Eye Exam: EOMI, Normal appearance - ENT Exam ENT Exam: Mucous Membranes Moist - Respiratory Exam Respiratory Exam: Decreased Breath Sounds, Rhonchi. absent: Accessory Muscle Use - Cardiovascular Exam Cardiovascular Exam: Irregular Rhythm, RRR, +S1, +S2 - GI/Abdominal Exam GI & Abdominal Exam: Soft, Normal Bowel Sounds. absent: Tenderness - Extremities Exam Extremities Exam: Pedal Edema Additional comments: 3+ pitting edema b/l - Neurological Exam Neurological Exam: Alert, Awake, Oriented x3 - Psychiatric Exam Psychiatric exam: Normal Affect, Normal Mood - Skin Skin Exam: Intact, Normal Color, Warm Assessment and Plan - Assessment and Plan (Free Text) Assessment: CHF exacerbation, acute on chronic (preserved EF) - Dr. Bay, cardiology, consulted- help appreciated * Lasix 40mg IV BID possible stress test on tuesday - Patient is comfortable on BIPAP at night - BNP 5540 -troponins negative x 3 - ECHO was done as an outpatient 06/22/17: * EF 55-60%, borderline conecntric left ventricular hypertrophy, grade II pseudonormal filling dynamics * Left ventricle cavity is normal in size; the aortic valve is tri-leaflet and calcified. There is no significant aortic regurgitation. * Repeat echo 09/08/17: LVEF-55%, - Monitory daily weight, Head of bed elevated , Strict I/Os, 1500cc fluid restriction - Images: * Chest X-ray: mild venous congestion, small right pleural effusion, patchy right basilar airspace opacity. enlarged ectatic aorta. mild cardiomegaly. degenerative changes in spine and shoulders - Will start coverage with zithromax and rocephin due to possible infiltrate/ opacity on CXR -f/u cxray Pulmonary hypertension Per cardiology the repeat echo shows progressed pulmonary htn F/U CTA B/L Pleural Effusion follow up CTA Pulm consult, Dr. Newton, help appreciated Hematuria -Dr. Perico Smith consulted (urology) - help appreciated - Urine culture 09/09 - negative - CBC is stable, hematuria is improving (09/10 Praveen blood seen in mendoza bag- patient pulled out on accident overnight on 09/10) - CT abd/pelvis: high attenuation fluid in bladder likely represent hemorrhage and clots. No CT evidence of bladder rupture. Small to moderate amount of ascites in abdomen and pelvis. Moderate anasarca. Moderately enlarged prostate. Moderate right and small left pleural effusion. Hypervolemia/Hyponatremia - likely secondary to CHF - 1500cc fluid restriction - Lasix 40mg IV q12h - Monitor weight daily - monitor I/Os Hypothyroid - Continue home medication * Synthroid 100mg PO daily History of Afib - Monitor on tele - Rate controlled - CHADs(2) Score: 3 - Medications * Metoprolol Succinate XL 100mg po daily * Xarelto 20mg po daily will restart on 09/13 * Digoxin 0.125mg po daily, dig level 1.5 Hypertension - Continue home medications: * Metoprolol Succinate XL 100mg po daily * Losartan 100mg po daily * Norvasc 5mg po daily History of HLD - Continue home medication * Crestor 5mg po HS Diabetes - Continue Januvia 100mg daily - patient used Trulicity on Tuesday (once/ weekly medication) - Insulin sliding scale - moderate - Accuchecks - Hypoglycemia protocol Prophylaxis - DVT: Xarelto 20mg po daily (restart on 09/13, stopped heparin) scds contraindicated - GI: Not indicated <Luis M Chan H - Last Filed: 09/12/17 18:41> Objective - Vital Signs/Intake and Output Vital Signs (last 24 hours): Temp Pulse Resp BP Pulse Ox 97.8 F 90 18 147/83 96 09/12/17 15:06 09/12/17 15:06 09/12/17 15:06 09/12/17 15:06 09/12/17 15:06 Intake and Output: 09/12/17 09/12/17 06:59 18:59 Intake Total 400 Output Total 1900 1100 Balance -1900 -700 - Medications Medications: Current Medications Amlodipine Besylate (Norvasc) 5 mg PO DAILY [facility] Last Admin: 09/12/17 09:39 Dose: 5 mg Dextrose (Dextrose 50% Inj) 0 ml IV STAT PRN; Protocol PRN Reason: Hypoglycemia Protocol Dextrose (Glutose 15) 0 gm PO ONCE PRN; Protocol PRN Reason: Hypoglycemia Protocol Digoxin (Digoxin) 0.125 mg PO DAILY@1800 [facility] Last Admin: 09/12/17 18:21 Dose: 0.125 mg Furosemide (Lasix) 60 mg IVP Q12 [facility] Glucagon (Glucagen Diagnostic Kit) 0 mg IM STAT PRN; Protocol PRN Reason: Hypoglycemia Protocol Dextrose (Dextrose 5% In Water 1000 Ml) 1,000 mls @ 0 mls/hr IV .Q0M PRN; Protocol; Per Protocol PRN Reason: Hypoglycemia Protocol Azithromycin 500 mg/ Sodium (Chloride) 250 mls @ 167 mls/hr IVPB Q24H [facility] PRN Reason: Protocol Last Admin: 09/12/17 18:23 Dose: 167 mls/hr Ceftriaxone Sodium (Rocephin Iv 1 Gm Duplex) 50 mls @ 100 mls/hr IVPB DAILY [facility] PRN Reason: Protocol Last Admin: 09/12/17 09:35 Dose: 100 mls/hr Insulin Human Regular (Novolin R) 0 unit SC ACHS [facility] PRN Reason: Protocol Last Admin: 09/12/17 18:22 Dose: 2 unit Levothyroxine Sodium (Synthroid) 100 mcg PO 0630 [facility] Last Admin: 09/12/17 05:57 Dose: 100 mcg Losartan Potassium (Cozaar) 100 mg PO DAILY [facility] Last Admin: 09/12/17 09:37 Dose: 100 mg Metoprolol Succinate (Toprol Xl) 100 mg PO DAILY [facility] Last Admin: 09/12/17 09:39 Dose: 100 mg Rivaroxaban (Xarelto) 20 mg PO DAILY [facility] Last Admin: 09/09/17 10:46 Dose: 20 mg Rosuvastatin Calcium (Crestor) 5 mg PO HS [facility] Last Admin: 09/11/17 21:38 Dose: 5 mg Sitagliptin Phosphate (Januvia) 100 mg PO DAILY [facility] Last Admin: 09/12/17 09:38 Dose: 100 mg - Labs Labs: 09/12/17 06:38 09/12/17 06:38 PT 13.8 SECONDS (9.7-12.2) H 09/08/17 14:03 INR 1.2 09/08/17 14:03 APTT 30 SECONDS (21-34) 09/08/17 14:03 Attending/Attestation - Attestation I have personally seen and examined this patient.: Yes I have fully participated in the care of the patient.: Yes I have reviewed all pertinent clinical information, including history, physical exam and plan: Yes Notes (Text): 09/12/17 18:32 Medical attending: Patient was seen and examined by me. Agree with the above note by the resident. The patient earlier in the morning tried to stand and walk to the bathroom on his own according to the nurse. The RN oberserved the patient being short of breath and had him layback down. The Bipap was then restarted As mentioned previously there is a history of CHF as well as valvular disease. We will try increasing his Lasix IV to 60 BID. Hopefully this will help further diurese the patient He had a CTA and this ruled out PE This also showed he does have pleural effusions - they are smaller than the previous time he was here. I was worried he may have had larger pleural effusions and then require a thoracentesis With reguards to the hematuria - we are continuing to hold the Xarelto at this time. Today the mendoza bag appeared dark yellow - there was some debris seen. Urology is planning on possible cystotoscopy soon. He has atrial fibrillation and currently not on Xarelto due to the recent hematuria. The rate is controlled with digoxin, BB, and cardizem thank you Luis M Chan
--- NOTE | 2017-09-12 12:48 | RAD ---
Chest x-ray single frontal view History: Pleural effusion. Congestive heart failure. Comparison: 09/08/2017 Findings Biapical pleural thickening with upper lobe granulomatous changes. Moderate to severe venous congestion with patchy bibasilar airspace opacities. Right hilar prominence. Trace bilateral pleural effusions. Cardiomegaly. Degenerative changes in the spine and shoulders. Impression: Biapical pleural thickening with upper lobe granulomatous changes. Moderate to severe venous congestion with patchy bibasilar airspace opacities. Right hilar prominence. Trace bilateral pleural effusions. Cardiomegaly.
--- NOTE | 2017-09-12 13:30 | PCM.URO ---
Urology Progress Note - Objective Lab Studies: Reviewed (dx: hematuria plans : to be discussed cystoscopy -- the timing is to be discussed) Lab Results Last 24 Hours: Laboratory Results - last 24 hr 09/11/17 09/11/17 09/12/17 16:50 21:07 06:38 WBC 11.5 H RBC 4.27 L Hgb 12.7 Hct 36.8 MCV 86.3 MCH 29.7 MCHC 34.4 RDW 15.7 H Plt Count 137 MPV 9.1 Neut % (Auto) 81.0 H Lymph % (Auto) 6.1 L Gray % (Auto) 9.6 Eos % (Auto) 2.3 Baso % (Auto) 1.0 Neut # (Auto) 9.3 H Lymph # (Auto) 0.7 L Gray # (Auto) 1.1 H Eos # (Auto) 0.3 Baso # (Auto) 0.1 Neutrophils % (Manual) 91 H Lymphocytes % (Manual) 3 L Monocytes % (Manual) 4 Eosinophils % (Manual) 2 Platelet Estimate Normal Large Platelets Present Anisocytosis (manual) Slight Ovalocytes Slight Sodium Potassium Chloride Carbon Dioxide Anion Gap BUN Creatinine Est GFR ( Amer) Est GFR (Non-Af Amer) POC Glucose (mg/dL) 166 H 138 H Random Glucose Calcium Phosphorus Magnesium Total Bilirubin AST ALT Alkaline Phosphatase Total Protein Albumin Globulin Albumin/Globulin Ratio 09/12/17 06:38 WBC RBC Hgb Hct MCV MCH MCHC RDW Plt Count MPV Neut % (Auto) Lymph % (Auto) Gray % (Auto) Eos % (Auto) Baso % (Auto) Neut # (Auto) Lymph # (Auto) Gray # (Auto) Eos # (Auto) Baso # (Auto) Neutrophils % (Manual) Lymphocytes % (Manual) Monocytes % (Manual) Eosinophils % (Manual) Platelet Estimate Large Platelets Anisocytosis (manual) Ovalocytes Sodium 133 Potassium 4.0 Chloride 95 L Carbon Dioxide 26 Anion Gap 15 BUN 23 H Creatinine 1.3 Est GFR ( Amer) > 60 Est GFR (Non-Af Amer) 54 POC Glucose (mg/dL) Random Glucose 151 H Calcium 8.5 L Phosphorus 3.1 Magnesium 1.7 Total Bilirubin 0.7 AST 22 ALT 15 L D Alkaline Phosphatase 72 Total Protein 6.2 L Albumin 3.2 L Globulin 3.0 Albumin/Globulin Ratio 1.1 Intake & Output: Intake & Output 04/15/18 04/16/18 04/16/18 18:59 06:59 18:59 Intake Total 450 Output Total 600 1900 Balance -150 -1900 Weight 171 lb Intake: Intake, IV Amount 50 Left Antecubital 50 Oral 400 Output: Urine 600 1900 Urethral (Cao) 600 1900 Vital Signs: Vital Signs - 24 hr 09/11/17 09/11/17 09/11/17 15:13 16:00 16:09 Temperature 98 F Pulse Rate 77 73 72 Respiratory 20 Rate Blood Pressure 118/77 O2 Sat by Pulse 99 Oximetry 09/11/17 09/11/17 09/11/17 21:38 22:01 23:40 Temperature Pulse Rate 78 81 Respiratory Rate Blood Pressure 135/90 O2 Sat by Pulse Oximetry 09/11/17 09/12/17 09/12/17 23:50 00:50 04:04 Temperature 97.5 F L Pulse Rate 77 77 75 Respiratory 20 Rate Blood Pressure 123/81 O2 Sat by Pulse 96 Oximetry 09/12/17 09/12/17 09/12/17 04:16 07:40 07:50 Temperature 98 F Pulse Rate 75 74 71 Respiratory 20 Rate Blood Pressure 130/71 O2 Sat by Pulse Oximetry 09/12/17 09/12/17 09/12/17 09:00 09:38 13:12 Temperature Pulse Rate 80 85 Respiratory Rate Blood Pressure 132/70 O2 Sat by Pulse Oximetry
[2017-09-12] MEDS ORDERED: Iodixanol 320 MG/ML 100 ML BOTTLE IV ONE (14:49)
--- NOTE | 2017-09-12 16:30 | CT ---
PROCEDURE: CT Chest with contrast (Pulmonary Angiogram) HISTORY: sob, pleural effusions, chf COMPARISON: None available. TECHNIQUE: Axial computed tomography images were obtained of the chest in the pulmonary arterial phase of enhancement. Coronal and sagittal reformatted images were created and reviewed. Intravenous contrast dose: 100 mL Visipaque 320 Radiation dose: Total exam DLP = 600.48 mGy-cm. This CT exam was performed using one or more of the following dose reduction techniques: Automated exposure control, adjustment of the mA and/or kV according to patient size, and/or use of iterative reconstruction technique. FINDINGS: PULMONARY ARTERIES: Evaluation is somewhat technically limited by timing of the scan relative to contrast bolus. Limited evaluation of segmental/subsegmental pulmonary artery branches particularly in the right lung. No pulmonary arterial filling defect is visualized in the opacified vessels. AORTA: No acute findings. No thoracic aortic aneurysm. LUNGS: Bilateral lower lobe subsegmental/compressive atelectasis. Extensive patchy ground-glass opacity in both upper lobes common nonspecific. No pulmonary mass identified. PLEURAL SPACES: Small left pleural effusion and small to moderate right pleural effusion. HEART: Cardiomegaly. LYMPH NODES: No lymphadenopathy. BONES, CHEST WALL: Unremarkable. No fracture or destructive lesion OTHER FINDINGS: Abdominal ascites. There are wedge like areas of nonenhancement seen in the upper half of both the right and left kidney raising suspicion of pyelonephritis. However, the scan is obtained early enough in the arterial phase that the reliability of this finding is questionable. Please correlate with urinalysis. IMPRESSION: No evidence of pulmonary embolism. Examination technically limited for evaluation of segmental/subsegmental pulmonary artery branches particularly on the right side. Small to moderate pleural effusions. Lower lobe compressive atelectasis. Extensive patchy ground-glass opacities in both upper lobes, possibly infectious. Ascites. Finding of wedge like areas of decreased cortical enhancement in the upper half of both kidneys of questionable significance due to the very early stage of enhancement at the time of image acquisition. He has DEXA by openings scan
--- NOTE | 2017-09-12 17:00 | CP.PCM.CON ---
History of Present Illness - History of Present Illness History of Present Illness: Reason for consult: pleural effusions, CHF HPI: 72M with PMHx HTN, DM, Afib, Hypothryoid, HLD presented to the ED 09/08 with shortness of breath and vomiting and leg swelling x 1 day. He admitted to a cough productive of white sputum. He was admitted for a CHF exacerbation. Patient has been on BiPAP and states that he does not feel short of breath when on it. Per nursing, the patient was being assisted to the toilet and was taken off BiPAP and oxygen when he became cyanotic and lethargic. They immediately brought him back to bed and put on the BiPAP and he improved. Today, during the interview, the patient was on BiPAP resting comfortably, although he did have periods of increased RR after sitting up. He reports a non- productive cough at night but did not complain of it today. He notes that he still has leg swelling but that it is a bit better. he denies palpitations, nausea, vomiting, fever, chills and headache. PMHx: HTN, DM, Afib, Hypothryoid, HLD PSH: none Allergies: NKDA SH: denies tobacco use, illicit drug use. active alcohol use Review of Systems - Review of Systems All systems: reviewed and no additional remarkable complaints except (Shortness of breath) Past Patient History - Past Medical History & Family History Past Medical History?: Yes - Past Social History Smoking Status: Never Smoked - CARDIAC Hx Atrial Fibrillation: Yes Hx Congestive Heart Failure: Yes Hx Hypercholesterolemia: Yes Hx Hypertension: Yes - PULMONARY Hx Respiratory Disorders: No - NEUROLOGICAL Hx Neurological Disorder: No - HEENT Hx HEENT Problems: Yes Other/Comment: wear eyeglasses - ENDOCRINE/METABOLIC Hx Endocrine Disorders: Yes Hx Diabetes Mellitus Type 1: Yes - HEMATOLOGICAL/ONCOLOGICAL Hx Blood Disorders: No - INTEGUMENTARY Hx Dermatological Problems: No - MUSCULOSKELETAL/RHEUMATOLOGICAL Hx Falls: No - GASTROINTESTINAL Hx Gastrointestinal Disorders: No - GENITOURINARY/GYNECOLOGICAL Hx Genitourinary Disorders: Yes Hx Prostate Problems: Yes (Hx of prostate surgery) - PSYCHIATRIC Hx Substance Use: No - SURGICAL HISTORY Hx Surgeries: No - ANESTHESIA Hx Anesthesia: No Meds Allergies/Adverse Reactions: Allergies Allergy/AdvReac Type Severity Reaction Status Date / Time No Known Allergies Allergy Verified 09/08/17 13:35 - Medications Medications: Current Medications Amlodipine Besylate (Norvasc) 5 mg PO DAILY [facility] Last Admin: 09/12/17 09:39 Dose: 5 mg Dextrose (Dextrose 50% Inj) 0 ml IV STAT PRN; Protocol PRN Reason: Hypoglycemia Protocol Dextrose (Glutose 15) 0 gm PO ONCE PRN; Protocol PRN Reason: Hypoglycemia Protocol Digoxin (Digoxin) 0.125 mg PO DAILY@1800 [facility] Last Admin: 09/11/17 17:35 Dose: 0.125 mg Furosemide (Lasix) 40 mg IVP Q12 [facility] Last Admin: 09/12/17 09:38 Dose: 40 mg Glucagon (Glucagen Diagnostic Kit) 0 mg IM STAT PRN; Protocol PRN Reason: Hypoglycemia Protocol Dextrose (Dextrose 5% In Water 1000 Ml) 1,000 mls @ 0 mls/hr IV .Q0M PRN; Protocol; Per Protocol PRN Reason: Hypoglycemia Protocol Azithromycin 500 mg/ Sodium (Chloride) 250 mls @ 167 mls/hr IVPB Q24H [facility] PRN Reason: Protocol Last Admin: 09/11/17 17:23 Dose: 167 mls/hr Ceftriaxone Sodium (Rocephin Iv 1 Gm Duplex) 50 mls @ 100 mls/hr IVPB DAILY [facility] PRN Reason: Protocol Last Admin: 09/12/17 09:35 Dose: 100 mls/hr Insulin Human Regular (Novolin R) 0 unit SC ACHS [facility] PRN Reason: Protocol Last Admin: 09/12/17 11:30 Dose: Not Given Levothyroxine Sodium (Synthroid) 100 mcg PO 0630 [facility] Last Admin: 09/12/17 05:57 Dose: 100 mcg Losartan Potassium (Cozaar) 100 mg PO DAILY [facility] Last Admin: 09/12/17 09:37 Dose: 100 mg Metoprolol Succinate (Toprol Xl) 100 mg PO DAILY [facility] Last Admin: 09/12/17 09:39 Dose: 100 mg Rivaroxaban (Xarelto) 20 mg PO DAILY [facility] Last Admin: 09/09/17 10:46 Dose: 20 mg Rosuvastatin Calcium (Crestor) 5 mg PO HS [facility] Last Admin: 09/11/17 21:38 Dose: 5 mg Sitagliptin Phosphate (Januvia) 100 mg PO DAILY [facility] Last Admin: 09/12/17 09:38 Dose: 100 mg Physical Exam - Head Exam Head Exam: ATRAUMATIC, NORMOCEPHALIC Results - Vital Signs Recent Vital Signs: Last Vital Signs Temp 97.8 F 09/12/17 15:06 Pulse 90 09/12/17 15:06 Resp 18 09/12/17 15:06 BP 147/83 09/12/17 15:06 Pulse Ox 96 09/12/17 15:06 - Labs Result Diagrams: 09/12/17 06:38 09/12/17 06:38 Labs: Laboratory Results - last 24 hr 09/11/17 09/11/17 09/12/17 16:50 21:07 06:38 WBC 11.5 H RBC 4.27 L Hgb 12.7 Hct 36.8 MCV 86.3 MCH 29.7 MCHC 34.4 RDW 15.7 H Plt Count 137 MPV 9.1 Neut % (Auto) 81.0 H Lymph % (Auto) 6.1 L Hudson % (Auto) 9.6 Eos % (Auto) 2.3 Baso % (Auto) 1.0 Neut # (Auto) 9.3 H Lymph # (Auto) 0.7 L Hudson # (Auto) 1.1 H Eos # (Auto) 0.3 Baso # (Auto) 0.1 Neutrophils % (Manual) 91 H Lymphocytes % (Manual) 3 L Monocytes % (Manual) 4 Eosinophils % (Manual) 2 Platelet Estimate Normal Large Platelets Present Anisocytosis (manual) Slight Ovalocytes Slight Sodium Potassium Chloride Carbon Dioxide Anion Gap BUN Creatinine Est GFR ( Amer) Est GFR (Non-Af Amer) POC Glucose (mg/dL) 166 H 138 H Random Glucose Calcium Phosphorus Magnesium Total Bilirubin AST ALT Alkaline Phosphatase Total Protein Albumin Globulin Albumin/Globulin Ratio 09/12/17 09/12/17 09/12/17 06:38 11:34 16:21 WBC RBC Hgb Hct MCV MCH MCHC RDW Plt Count MPV Neut % (Auto) Lymph % (Auto) Hudson % (Auto) Eos % (Auto) Baso % (Auto) Neut # (Auto) Lymph # (Auto) Hudson # (Auto) Eos # (Auto) Baso # (Auto) Neutrophils % (Manual) Lymphocytes % (Manual) Monocytes % (Manual) Eosinophils % (Manual) Platelet Estimate Large Platelets Anisocytosis (manual) Ovalocytes Sodium 133 Potassium 4.0 Chloride 95 L Carbon Dioxide 26 Anion Gap 15 BUN 23 H Creatinine 1.3 Est GFR ( Amer) > 60 Est GFR (Non-Af Amer) 54 POC Glucose (mg/dL) 167 H 162 H Random Glucose 151 H Calcium 8.5 L Phosphorus 3.1 Magnesium 1.7 Total Bilirubin 0.7 AST 22 ALT 15 L D Alkaline Phosphatase 72 Total Protein 6.2 L Albumin 3.2 L Globulin 3.0 Albumin/Globulin Ratio 1.1 Assessment & Plan - Assessment and Plan (Free Text) Assessment: 1. Dyspnea on Exertion, CHF exacerbation vs. PE - Patient received contrast tuesday for CT Abd/Pelvis, stat CTA ordered by primary team for today - Dr. Bay, cardiology on-board - Echo 09/08: right atrial and right ventricular dilation, pulmonary hypertension with RVSP>60 mmHg - duresis - ABG 2. Bilateral pleural effusions - CXR 09/12 after dyspneic episode: biapical pleural thickening with upper lobe granulomatous changes, moderate to severe venous congestion with patchy bibasilar airspace opacities, right hilar prominence, trace b/l pleural effusions, cardiomegaly - CXR 09/08: small right pleural effusion, patchy right basilar airspace opacity , mild cardiomegaly - CT Abd/Pelvis 09/10: moderate right and small left pleural effusions, partial atelectasis of the RLLL - pleural effusion secondary to CHF - CTA - Continue diuretics -Continue BiPAP
[2017-09-12] MEDS: Digoxin 125 mcg (0.125 mg) Tab PO SCH (18:21)
[2017-09-12] MEDS: Azithromycin 500 MG in Sodium Chloride 0.9% 250 ML IVPB SCH (18:23)
--- NOTE | 2017-09-12 22:43 | CP.PCM.PN ---
Subjective - Date & Time of Evaluation Date of Evaluation: 09/12/17 Time of Evaluation: 12:10 - Subjective Subjective: Patient seen and evaluated Denies chest pain and dyspnea Review of Systems - Constitutional Constitutional: absent: Chills, Fever - EENT Eyes: absent: Change in Vision - Respiratory Respiratory: Cough, Dyspnea, Dyspnea on Exertion. absent: Wheezing - Gastrointestinal Gastrointestinal: absent: Abdominal Pain, Vomiting - Musculoskeletal Musculoskeletal: absent: Numbness, Tingling - Integumentary Integumentary: absent: Jaundice - Neurological Neurological: absent: Numbness, Tingling - Endocrine Endocrine: absent: Polydipsia, Polyuria Physical Exam - Constitutional Appears: Non-toxic, No Acute Distress - Head Exam Head Exam: ATRAUMATIC, NORMAL INSPECTION - Eye Exam Eye Exam: EOMI, PERRL - ENT Exam ENT Exam: Mucous Membranes Moist - Respiratory Exam Respiratory Exam: absent: Clear to Auscultation Bilateral, Rales, Rhonchi - Cardiovascular Exam Cardiovascular Exam: REGULAR RHYTHM, +S1, +S2 - GI/Abdominal Exam GI & Abdominal Exam: Normal Bowel Sounds, Soft. absent: Tenderness - Extremities Exam Extremities exam: Positive for: pedal edema, pedal pulses present. Negative for : normal inspection - Back Exam Back exam: absent: CVA tenderness (L), CVA tenderness (R) - Neurological Exam Neurological exam: Alert, Oriented x3 - Psychiatric Exam Psychiatric exam: Normal Mood - Skin Skin Exam: Dry, Intact Objective - Vital Signs/Intake and Output Vital Signs (last 24 hours): Temp Pulse Resp BP Pulse Ox 97.8 F 88 18 143/83 96 09/12/17 15:06 09/12/17 22:14 09/12/17 15:06 09/12/17 21:45 09/12/17 15:06 Intake and Output: 09/12/17 09/13/17 18:59 06:59 Intake Total 400 Output Total 1100 Balance -700 - Medications Medications: Current Medications Amlodipine Besylate (Norvasc) 5 mg PO DAILY [facility] Last Admin: 09/12/17 09:39 Dose: 5 mg Dextrose (Dextrose 50% Inj) 0 ml IV STAT PRN; Protocol PRN Reason: Hypoglycemia Protocol Dextrose (Glutose 15) 0 gm PO ONCE PRN; Protocol PRN Reason: Hypoglycemia Protocol Digoxin (Digoxin) 0.125 mg PO DAILY@1800 [facility] Last Admin: 09/12/17 18:21 Dose: 0.125 mg Furosemide (Lasix) 60 mg IVP Q12 [facility] Last Admin: 09/12/17 21:45 Dose: 60 mg Glucagon (Glucagen Diagnostic Kit) 0 mg IM STAT PRN; Protocol PRN Reason: Hypoglycemia Protocol Dextrose (Dextrose 5% In Water 1000 Ml) 1,000 mls @ 0 mls/hr IV .Q0M PRN; Protocol; Per Protocol PRN Reason: Hypoglycemia Protocol Azithromycin 500 mg/ Sodium (Chloride) 250 mls @ 167 mls/hr IVPB Q24H [facility] PRN Reason: Protocol Last Admin: 09/12/17 18:23 Dose: 167 mls/hr Ceftriaxone Sodium (Rocephin Iv 1 Gm Duplex) 50 mls @ 100 mls/hr IVPB DAILY [facility] PRN Reason: Protocol Last Admin: 09/12/17 09:35 Dose: 100 mls/hr Insulin Human Regular (Novolin R) 0 unit SC ACHS [facility] PRN Reason: Protocol Last Admin: 09/12/17 21:40 Dose: Not Given Levothyroxine Sodium (Synthroid) 100 mcg PO 0630 [facility] Last Admin: 09/12/17 05:57 Dose: 100 mcg Losartan Potassium (Cozaar) 100 mg PO DAILY [facility] Last Admin: 09/12/17 09:37 Dose: 100 mg Metoprolol Succinate (Toprol Xl) 100 mg PO DAILY [facility] Last Admin: 09/12/17 09:39 Dose: 100 mg Rosuvastatin Calcium (Crestor) 5 mg PO HS [facility] Last Admin: 09/12/17 21:45 Dose: 5 mg Sitagliptin Phosphate (Januvia) 100 mg PO DAILY [facility] Last Admin: 09/12/17 09:38 Dose: 100 mg - Labs Labs: 09/12/17 06:38 09/12/17 06:38 PT 13.8 SECONDS (9.7-12.2) H 09/08/17 14:03 INR 1.2 09/08/17 14:03 APTT 30 SECONDS (21-34) 09/08/17 14:03 Assessment and Plan - Assessment and Plan (Free Text) Assessment: CHF exacerbation, acute on chronic (preserved EF) * Lasix 40mg IV BID. [place] decrease as tolerated. Monitor lytes * Diastolic CHF Pulmonary hypertension Per cardiology the repeat echo shows progressed pulmonary htn. Would like to order CT Angio to look for PE but the patient received contrast yesterday for abdominal ct scan. Renal function is boarderline so will hold off and order CT Angio on Tuesday (tomorrow) Hematuria -Dr. Perico Smith consulted (urology) - help appreciated - Urine culture 09/09 - negative - CBC is stable, hematuria is improving today (09/10 [place] blood seen in mendoza bag- patient pulled out on accident overnight on 09/10) - f/u CT abd/pelvis Hypervolemia/Hyponatremia - likely secondary to CHF - 1500cc fluid restriction - Lasix 40mg IV q12h - Monitor weight daily - monitor I/Os Hypothyroid - Continue home medication * Synthroid 100mg PO daily History of Afib - Monitor on tele - Rate controlled - CHADs(2) Score: 3 - Medications * Metoprolol Succinate XL 100mg po daily * Xarelto 20mg po daily - will hold today during to bleeding * Digoxin 0.125mg po daily, dig level 1.5 Hypertension - Continue home medications: * Metoprolol Succinate XL 100mg po daily * Losartan 100mg po daily * Norvasc 5mg po daily History of HLD - Continue home medication * Crestor 5mg po HS Diabetes - Continue Januvia 100mg daily - patient used Trulicity on Tuesday (once/ weekly medication) - Insulin sliding scale - moderate - Accuchecks - Hypoglycemia protocol Prophylaxis - DVT: Xarelto 20mg po daily, scds contraindicated - will hold xarelto today due to dorothea hematuria Will give Heparin 5000 U SC Q12 for now until Xarelto can be restarted - GI: Not indicated
[2017-09-13] MEDS: Levothyroxine 100 MCG TAB PO SCH (06:24)
[2017-09-13] MEDS ORDERED: Oxycodone/Acetaminophen 5/325 mg Tab PO PRN (07:12)
[2017-09-13] MEDS: (Novolin R) Insulin Human Regular 100 units/ml vial SC SCH ×4 (08:16→22:00)
[2017-09-13 08:41] LABS: BASO % 0.4 % (0.0-2.0); EOS # 0.2 K/uL (0.0-0.7); EOS % 1.6 % (0.0-4.0); HEMOGLOBIN 12.9 g/dL (12.0-18.0); LYMPH # 0.7 K/uL (1.0-4.3); MEAN CORPUSCULAR HEMOGLOBIN 29.4 pg (27.0-31.0); MEAN CORPUSCULAR HGB CONC 33.8 g/dL (33.0-37.0); MONO % 9.3 % (0.0-10.0); NEUT # 9.3 K/uL (1.8-7.0); NEUT % 82.7 % (50.0-75.0); PLATELET COUNT 153 K/uL (130-400); RBC 4.38 Mil/uL (4.40-5.90); RED CELL DISTRIBUTION WIDTH 15.7 % (11.5-14.5); WHITE BLOOD COUNT 11.3 K/uL (4.8-10.8)
[2017-09-13] MEDS: Metoprolol Succinate 100 mg XL Tab PO SCH ×2 (08:43→10:16)
[2017-09-13 09:01] LABS: ALB/GLOB RATIO 1.1 (1.0-2.1); ALBUMIN 3.6 g/dL (3.5-5.0); ALT/SGPT 19 U/L (21-72); AST/SGOT 28 U/L (17-59); BLOOD UREA NITROGEN 16 mg/dL (9-20); CALCIUM 8.8 mg/dl (8.6-10.4); GFR AFRICAN-AMERICAN > 60; GFR NON-AFRICAN AMERICAN > 60
[2017-09-13] MEDS: cefTRIAXone IV 1 gm in Dextros 50 ML IVPB SCH (10:15)
--- NOTE | 2017-09-13 10:19 | CP.PCM.PN ---
<Catalina Ewing - Last Filed: 09/13/17 16:21> Subjective - Date & Time of Evaluation Date of Evaluation: 09/13/17 Time of Evaluation: 07:00 - Subjective Subjective: PGY1- Medicine Note for Dr. Chan Patient seen and examined at bedside and in no acute distress. Patient is on bipap and says that he feels okay. Patient is comfortable on bipap, but gets very short of breath without it. Patient denies chest pain, abdominal pain, nausea, vomiting, constipation, diarrhea. Later in the morning patient was seen tolerating nasal cannula. Objective - Vital Signs/Intake and Output Vital Signs (last 24 hours): Temp Pulse Resp BP Pulse Ox 98.8 F 105 H 20 146/90 95 09/13/17 07:00 09/13/17 07:00 09/13/17 07:00 09/13/17 10:14 09/13/17 07:00 Intake and Output: 09/13/17 09/13/17 06:59 18:59 Intake Total 200 Output Total 1900 Balance -1700 - Medications Medications: Current Medications Amlodipine Besylate (Norvasc) 5 mg PO DAILY [facility] Last Admin: 09/13/17 10:15 Dose: Not Given Dextrose (Dextrose 50% Inj) 0 ml IV STAT PRN; Protocol PRN Reason: Hypoglycemia Protocol Dextrose (Glutose 15) 0 gm PO ONCE PRN; Protocol PRN Reason: Hypoglycemia Protocol Digoxin (Digoxin) 0.125 mg PO DAILY@1800 [facility] Last Admin: 09/12/17 18:21 Dose: 0.125 mg Furosemide (Lasix) 40 mg IVP Q12 [facility] Last Admin: 09/13/17 10:14 Dose: 40 mg Glucagon (Glucagen Diagnostic Kit) 0 mg IM STAT PRN; Protocol PRN Reason: Hypoglycemia Protocol Dextrose (Dextrose 5% In Water 1000 Ml) 1,000 mls @ 0 mls/hr IV .Q0M PRN; Protocol; Per Protocol PRN Reason: Hypoglycemia Protocol Azithromycin 500 mg/ Sodium (Chloride) 250 mls @ 167 mls/hr IVPB Q24H [facility] PRN Reason: Protocol Last Admin: 09/12/17 18:23 Dose: 167 mls/hr Ceftriaxone Sodium (Rocephin Iv 1 Gm Duplex) 50 mls @ 100 mls/hr IVPB DAILY [facility] PRN Reason: Protocol Last Admin: 09/13/17 10:15 Dose: 100 mls/hr Insulin Human Regular (Novolin R) 0 unit SC ACHS [facility] PRN Reason: Protocol Last Admin: 09/13/17 08:16 Dose: Not Given Levothyroxine Sodium (Synthroid) 100 mcg PO 0630 [facility] Last Admin: 09/13/17 06:24 Dose: 100 mcg Losartan Potassium (Cozaar) 100 mg PO DAILY [facility] Last Admin: 09/13/17 10:14 Dose: Not Given Metoprolol Succinate (Toprol Xl) 100 mg PO DAILY [facility] Last Admin: 09/13/17 10:16 Dose: Not Given Oxycodone/Acetaminophen (Percocet 5/325 Mg Tab) 1 tab PO Q6H PRN PRN Reason: Pain, moderate (4-7) Stop: 09/16/17 07:13 Rosuvastatin Calcium (Crestor) 5 mg PO HS [facility] Last Admin: 09/12/17 21:45 Dose: 5 mg Sitagliptin Phosphate (Januvia) 100 mg PO DAILY [facility] Last Admin: 09/13/17 10:14 Dose: Not Given Spironolactone (Aldactone) 50 mg PO DAILY [facility] - Labs Labs: 09/13/17 08:27 09/13/17 08:27 PT 13.8 SECONDS (9.7-12.2) H 09/08/17 14:03 INR 1.2 09/08/17 14:03 APTT 30 SECONDS (21-34) 09/08/17 14:03 - Additional Findings Additional findings: - Constitutional Appears: Non-toxic, No Acute Distress - Head Exam Head Exam: ATRAUMATIC, NORMAL INSPECTION, NORMOCEPHALIC - Eye Exam Eye Exam: EOMI, Normal appearance - ENT Exam ENT Exam: Mucous Membranes Moist - Respiratory Exam Respiratory Exam: Decreased Breath Sounds B/L lung bases absent: Accessory Muscle Use - Cardiovascular Exam Cardiovascular Exam: Irregular Rhythm, RRR, +S1, +S2 - GI/Abdominal Exam GI & Abdominal Exam: Soft, Normal Bowel Sounds. absent: Tenderness - Extremities Exam Extremities Exam: Pedal Edema Additional comments: 3+ pitting edema b/l - Neurological Exam Neurological Exam: Alert, Awake, Oriented x3 - Psychiatric Exam Psychiatric exam: Normal Affect, Normal Mood - Skin Skin Exam: Intact, Normal Color, Warm Assessment and Plan - Assessment and Plan (Free Text) Assessment: CHF exacerbation, acute on chronic (preserved EF) - Dr. Bay, cardiology, consulted- help appreciated * Lasix 40mg IV BID * Aldactone 50 mg po daily (added on 09/13/17) - Patient is comfortable on BIPAP at night - BNP 5540 -troponins negative x 3 - ECHO was done as an outpatient 06/22/17: * EF 55-60%, borderline conecntric left ventricular hypertrophy, grade II pseudonormal filling dynamics * Left ventricle cavity is normal in size; the aortic valve is tri-leaflet and calcified. There is no significant aortic regurgitation. * Repeat echo 09/08/17: LVEF-55%, borderline concentric left ventricular hypertrophy. left ventricular systolic function is normal. flattened septum consistent with right ventricle pressure overload. Grade II-pseudonormal filling dynamics. right ventricle is moderately dilated with mildly to moderately reduced systolic function. right atrium is moderately to severly dilated. aortic valve sclerosis. Severe tricuspid regurgitation. right ventricular systolic pressure is estimated at greater than 60 mmHg compatible with severe pulmonary hypertension. - Monitory daily weight, Head of bed elevated , Strict I/Os, 1500cc fluid restriction - Images: * Chest X-ray: mild venous congestion, small right pleural effusion, patchy right basilar airspace opacity. enlarged ectatic aorta. mild cardiomegaly. degenerative changes in spine and shoulders - Will start coverage with zithromax and rocephin due to possible infiltrate/ opacity on CXR Pulmonary hypertension Per cardiology the repeat echo shows progressed pulmonary htn CTA: No PE. Small to moderate pleural effusions. Lower lobe compressive atelectasis. Extensive patchy ground glass opacities in both upper lobes, possibly infectious. Ascites. Finding of wedge like areas of decreased cortical enhancement in the upper half of both kidneys of questionable significance due to the very early stage of enhancement at the time of image acquisition. B/L Pleural Effusion CTA- as above Pulm consult, Dr. Newton, help appreciated Hematuria -Dr. Perico Smith consulted (urology) - help appreciated -possible cystoscopy today 09/13, held xarelto - Urine culture 09/09 - negative - CBC is stable, hematuria is improving (09/10 [place] blood seen in mendoza bag- patient pulled out on accident overnight on 09/10) - CT abd/pelvis: high attenuation fluid in bladder likely represent hemorrhage and clots. No CT evidence of bladder rupture. Small to moderate amount of ascites in abdomen and pelvis. Moderate anasarca. Moderately enlarged prostate. Moderate right and small left pleural effusion. Hypervolemia/Hyponatremia - likely secondary to CHF - 1500cc fluid restriction - Lasix 40mg IV q12h - Monitor weight daily - monitor I/Os Hypothyroid - Continue home medication * Synthroid 100mg PO daily History of Afib - Monitor on tele - Rate controlled - CHADs(2) Score: 3 - Medications * Metoprolol Succinate XL 100mg po daily * Xarelto 20mg po daily will restart on 09/13 * Digoxin 0.125mg po daily, dig level 1.5 Hypertension - Continue home medications: * Metoprolol Succinate XL 100mg po daily * Losartan 100mg po daily * Norvasc 5mg po daily History of HLD - Continue home medication * Crestor 5mg po HS Diabetes - Continue Januvia 100mg daily - patient used Trulicity on Tuesday (once/ weekly medication) - Insulin sliding scale - moderate - Accuchecks - Hypoglycemia protocol Prophylaxis - DVT: Xarelto 20mg po daily (held due to possible cystoscopy) scds contraindicated - GI: Not indicated <RocioPeter H - Last Filed: 09/13/17 19:00> Objective - Vital Signs/Intake and Output Vital Signs (last 24 hours): Temp Pulse Resp BP Pulse Ox 98.0 F 208 H 18 149/84 94 L 09/13/17 15:12 09/13/17 15:12 09/13/17 15:12 09/13/17 15:12 09/13/17 15:12 Intake and Output: 09/13/17 09/13/17 06:59 18:59 Intake Total 200 1230 Output Total 1900 600 Balance -1700 630 - Medications Medications: Current Medications Amlodipine Besylate (Norvasc) 5 mg PO DAILY [facility] Last Admin: 09/13/17 10:15 Dose: Not Given Dextrose (Dextrose 50% Inj) 0 ml IV STAT PRN; Protocol PRN Reason: Hypoglycemia Protocol Dextrose (Glutose 15) 0 gm PO ONCE PRN; Protocol PRN Reason: Hypoglycemia Protocol Digoxin (Digoxin) 0.125 mg PO DAILY@1800 [facility] Last Admin: 09/12/17 18:21 Dose: 0.125 mg Furosemide (Lasix) 40 mg IVP Q12 [facility] Last Admin: 09/13/17 10:14 Dose: 40 mg Glucagon (Glucagen Diagnostic Kit) 0 mg IM STAT PRN; Protocol PRN Reason: Hypoglycemia Protocol Dextrose (Dextrose 5% In Water 1000 Ml) 1,000 mls @ 0 mls/hr IV .Q0M PRN; Protocol; Per Protocol PRN Reason: Hypoglycemia Protocol Azithromycin 500 mg/ Sodium (Chloride) 250 mls @ 167 mls/hr IVPB Q24H [facility] PRN Reason: Protocol Last Admin: 09/12/17 18:23 Dose: 167 mls/hr Ceftriaxone Sodium (Rocephin Iv 1 Gm Duplex) 50 mls @ 100 mls/hr IVPB DAILY [facility] PRN Reason: Protocol Last Admin: 09/13/17 10:15 Dose: 100 mls/hr Insulin Human Regular (Novolin R) 0 unit SC ACHS [facility] PRN Reason: Protocol Last Admin: 09/13/17 13:40 Dose: Not Given Levothyroxine Sodium (Synthroid) 100 mcg PO 0630 [facility] Last Admin: 09/13/17 06:24 Dose: 100 mcg Losartan Potassium (Cozaar) 100 mg PO DAILY [facility] Last Admin: 09/13/17 10:14 Dose: Not Given Metoprolol Succinate (Toprol Xl) 100 mg PO DAILY [facility] Last Admin: 09/13/17 10:16 Dose: Not Given Oxycodone/Acetaminophen (Percocet 5/325 Mg Tab) 1 tab PO Q6H PRN PRN Reason: Pain, moderate (4-7) Stop: 09/16/17 07:13 Rosuvastatin Calcium (Crestor) 5 mg PO HS [facility] Last Admin: 09/12/17 21:45 Dose: 5 mg Sitagliptin Phosphate (Januvia) 100 mg PO DAILY [facility] Last Admin: 09/13/17 10:14 Dose: Not Given Spironolactone (Aldactone) 50 mg PO DAILY [facility] - Labs Labs: 09/13/17 08:27 09/13/17 08:27 PT 13.8 SECONDS (9.7-12.2) H 09/08/17 14:03 INR 1.2 09/08/17 14:03 APTT 30 SECONDS (21-34) 09/08/17 14:03 Attending/Attestation - Attestation I have personally seen and examined this patient.: Yes I have fully participated in the care of the patient.: Yes I have reviewed all pertinent clinical information, including history, physical exam and plan: Yes
[2017-09-13 11:04] LABS: EOSINOPHIL 1 % (0-4); LYMPHOCYTE 3 % (20-40); MONOCYTE 11 % (0-10); NEUTROPHIL 85 % (50-75); TOTAL CELLS COUNTED 100
[2017-09-13 11:06] LABS: ANISOCYTOSIS SLIGHT; PLATELET ESTIMATE NORMAL (NORMAL)
--- NOTE | 2017-09-13 13:19 | RAD ---
HISTORY: Shortness of breath. COMPARISON: September 12, 2017. Single-view chest and CT pulmonary angiogram. FINDINGS: LUNGS: Worsening pulmonary edema. PLEURA: No significant pleural effusion identified, no pneumothorax apparent. CARDIOVASCULAR: Cardiomegaly/assumed cardiogenic pulmonary edema. OSSEOUS STRUCTURES: No significant abnormalities. VISUALIZED UPPER ABDOMEN: Normal. OTHER FINDINGS: None. IMPRESSION: Worsening pulmonary edema.
--- NOTE | 2017-09-13 15:49 | CP.PCM.PN ---
Subjective - Date & Time of Evaluation Date of Evaluation: 09/13/17 Time of Evaluation: 11:00 - Subjective Subjective: Patient seen and examined seated in a chair at bedside. The patient was on BiPAP resting comfortably, He reports that he feels better today. Spoke with his primary physician Dr. Chan. Assessment and Plan: 1. Dyspnea on Exertion, CHF exacerbation - O2 Sat 95-97% - CTA 09/12: No evidence of PE, extensive patchy ground-glass opacities in b/l upper lobes possibly infectious. - cardiology follow-up 4 severe pulmonary hypertension - Echo 09/08: right atrial and right ventricular dilation, pulmonary hypertension with RVSP>60 mmHg - duresis 2. Bilateral pleural effusions - CXR 09/12 after dyspneic episode: biapical pleural thickening with upper lobe granulomatous changes, moderate to severe venous congestion with patchy bibasilar airspace opacities, right hilar prominence, trace b/l pleural effusions, cardiomegaly - CXR 09/08: small right pleural effusion, patchy right basilar airspace opacity , mild cardiomegaly - CT Abd/Pelvis 09/10: moderate right and small left pleural effusions, partial atelectasis of the RLLL - CTA 09/12: small to moderate pleural effusions - consider to discontinue IV zithromax and rocephin Objective - Vital Signs/Intake and Output Vital Signs (last 24 hours): Temp Pulse Resp BP Pulse Ox 97.9 F 96 H 21 136/90 96 09/13/17 13:39 09/13/17 13:39 09/13/17 13:39 09/13/17 13:39 09/13/17 13:39 Intake and Output: 09/13/17 09/13/17 06:59 18:59 Intake Total 200 1180 Output Total 1900 600 Balance -1700 580 - Medications Medications: Current Medications Amlodipine Besylate (Norvasc) 5 mg PO DAILY [facility] Last Admin: 09/13/17 10:15 Dose: Not Given Dextrose (Dextrose 50% Inj) 0 ml IV STAT PRN; Protocol PRN Reason: Hypoglycemia Protocol Dextrose (Glutose 15) 0 gm PO ONCE PRN; Protocol PRN Reason: Hypoglycemia Protocol Digoxin (Digoxin) 0.125 mg PO DAILY@1800 [facility] Last Admin: 09/12/17 18:21 Dose: 0.125 mg Furosemide (Lasix) 40 mg IVP Q12 [facility] Last Admin: 09/13/17 10:14 Dose: 40 mg Glucagon (Glucagen Diagnostic Kit) 0 mg IM STAT PRN; Protocol PRN Reason: Hypoglycemia Protocol Dextrose (Dextrose 5% In Water 1000 Ml) 1,000 mls @ 0 mls/hr IV .Q0M PRN; Protocol; Per Protocol PRN Reason: Hypoglycemia Protocol Azithromycin 500 mg/ Sodium (Chloride) 250 mls @ 167 mls/hr IVPB Q24H [facility] PRN Reason: Protocol Last Admin: 09/12/17 18:23 Dose: 167 mls/hr Ceftriaxone Sodium (Rocephin Iv 1 Gm Duplex) 50 mls @ 100 mls/hr IVPB DAILY [facility] PRN Reason: Protocol Last Admin: 09/13/17 10:15 Dose: 100 mls/hr Insulin Human Regular (Novolin R) 0 unit SC ACHS [facility] PRN Reason: Protocol Last Admin: 09/13/17 13:40 Dose: Not Given Levothyroxine Sodium (Synthroid) 100 mcg PO 0630 [facility] Last Admin: 09/13/17 06:24 Dose: 100 mcg Losartan Potassium (Cozaar) 100 mg PO DAILY [facility] Last Admin: 09/13/17 10:14 Dose: Not Given Metoprolol Succinate (Toprol Xl) 100 mg PO DAILY [facility] Last Admin: 09/13/17 10:16 Dose: Not Given Oxycodone/Acetaminophen (Percocet 5/325 Mg Tab) 1 tab PO Q6H PRN PRN Reason: Pain, moderate (4-7) Stop: 09/16/17 07:13 Rosuvastatin Calcium (Crestor) 5 mg PO HS [facility] Last Admin: 09/12/17 21:45 Dose: 5 mg Sitagliptin Phosphate (Januvia) 100 mg PO DAILY [facility] Last Admin: 09/13/17 10:14 Dose: Not Given Spironolactone (Aldactone) 50 mg PO DAILY [facility] - Labs Labs: 09/13/17 08:27 09/13/17 08:27 PT 13.8 SECONDS (9.7-12.2) H 09/08/17 14:03 INR 1.2 09/08/17 14:03 APTT 30 SECONDS (21-34) 09/08/17 14:03
[2017-09-13] MEDS ORDERED: Midazolam 2 MG/2 ML VIAL ONE (16:38)
[2017-09-13] MEDS ORDERED: Iohexol 240 (50 ml) ONE (16:45)
[2017-09-13] MEDS ORDERED: Lidocaine 2% Jelly (Uro-Jet) ONE (16:45)
[2017-09-13] MEDS: Azithromycin 500 MG in Sodium Chloride 0.9% 250 ML IVPB SCH (18:00)
--- NOTE | 2017-09-13 18:45 | RAD ---
HISTORY: HEMATURIA COMPARISON: No prior. FINDINGS: BOWEL: Normal. No obstruction. No free air. BONES: Normal. OTHER FINDINGS: Delayed nephrograms identified consistent with a recent CT angiogram for pulmonary embolism with administration of 100 cc Visipaque 320 IMPRESSION: No acute findings related to/accounting for the clinical presentation. Additional benign and/or incidental findings described above.
[2017-09-13 22:03] LABS: ARTERIAL BLOOD GAS HCO3 24.5 mmol/L (21-28); ARTERIAL BLOOD GAS O2 SAT 98.8 % (95-98); ARTERIAL BLOOD GAS PCO2 46 mm/Hg (35-45); ARTERIAL BLOOD GAS PH 7.35 (7.35-7.45); ARTERIAL BLOOD GAS PO2 104 mm/Hg (80-100); ARTERIAL BLOOD GAS TCO2 26.8 mmol/L (22-28)
--- NOTE | 2017-09-13 22:33 | PCM.RRT ---
<Stephen Grove - Last Filed: 09/13/17 22:34> EGG BUYER Nurses Assessment - Situation Date: 09/13/17 Time EGG BUYER was called: 21:45 EGG BUYER Responder Arrival Time:: 21:45 EGG BUYER Location:: Med/Surg Room Number: 671A EGG BUYER Reason for Call: O2 Saturation below 90% EGG BUYER Called By: RN - IV IV Inserted during EGG BUYER?: No - Respiratory EGG BUYER Delivery Method: BiPAP @% Oxygen Flow Rate: 100 Received Nebulizer Treatments: Yes Was the Patient Intubated?: No Was the Patient Placed on a Ventilator?: No - Ventilator Settings FIO2 (% Oxygen): 100 - Diagnostic Test Ordered Other Diagnostic Test Ordered: bladder scan - Stat Labs Ordered EGG BUYER Stat Labs Ordered: ABG CPR started during EGG BUYER?: No - Vital Signs Vital Signs: Rapid Response Vital Sign Blood Pressure 169/124 Pulse Rate 98 Respiratory Rate 20 Oxygen Saturation 98 - Sepsis Screen Part 2 Sepsis Screen Part 2: Glucose elevated, Pt not on steroids - Time EGG BUYER Ended Time EGG BUYER Ended: 22:00 - Vital Signs at end of EGG BUYER Vital Signs at end of EGG BUYER: Rapid Response End Vital Sign Blood Pressure 146/101 Pulse Rate 98 Respiratory Rate 20 O2 Sat by Pulse Oximetry 98 - Recommendations Notifications: Attending Physician I.Reason for EGG BUYER - A) Acute Change in Patient: Subjective: Rapid responsive was called at 21:45 to room 671A where the patient was found to be unresponsive with oxygen sat of 78%. Per staff, patient was never placed back on BIPAP after dinner this evening. Bag valve mask was applied to relief patient's CO2 retention. Patient's saturation improved immediately and BIPAP was resumed. Upon reassessment, patient is awake, alert, oriented x3 and is resting in bed comfortably with 98% O2 saturation. - Neurological Status (Select all that apply): Alert, Oriented - Respiratory Oxygen Delivery Method: BiPAP @% Oxygen Flow Rate: 100 <Esau Hays - Last Filed: 09/14/17 07:35> EGG BUYER Nurses Assessment - Vital Signs Vital Signs: Rapid Response Vital Sign Blood Pressure 169/124 Pulse Rate 98 Respiratory Rate 20 Oxygen Saturation 98 - Vital Signs at end of EGG BUYER Vital Signs at end of EGG BUYER: Rapid Response End Vital Sign Blood Pressure 146/101 Pulse Rate 98 Respiratory Rate 20 O2 Sat by Pulse Oximetry 98 Attending/Attestation - Attestation I have personally seen and examined this patient.: Yes I have fully participated in the care of the patient.: Yes I have reviewed all pertinent clinical information, including history, physical exam and plan: Yes Notes (Text): 09/14/17 07:29 Patient was completely unresponsive during EGG BUYER, was put off bipap for meal, after aggressive bagging he woke up, and improved, and maintained tidal volume on bipap in about 450ml. Prior to EGG BUYER was on 70% fio2, overnight on 100% fio2 po2 was 100, this am even though ph improved, pco2 is 40, po2 is 65, on 100% fio2. Patient is not in distress, but lower side bp could not be diuresed. D/w Dr. Newton agreed to ICU transfer, since patient is negative for PE, RV function could be improved with dobutamine/milrenone drip with levophed to counter act vasodiation, or and diures aggressively. Cardiology may assess him for impella.
[2017-09-13] MEDS: Digoxin 125 mcg (0.125 mg) Tab PO SCH (23:04)
--- NOTE | 2017-09-13 23:30 | CP.PCM.PN ---
Subjective - Date & Time of Evaluation Date of Evaluation: 09/13/17 Time of Evaluation: 09:20 - Subjective Subjective: Patient seen and evaluated Denies chest pain and dyspnea Objective - Vital Signs/Intake and Output Vital Signs (last 24 hours): Temp Pulse Resp BP Pulse Ox 98.0 F 94 H 18 133/83 95 09/13/17 19:25 09/13/17 19:25 09/13/17 19:25 09/13/17 23:05 09/13/17 19:25 Intake and Output: 09/13/17 09/14/17 18:59 06:59 Intake Total 1455 Output Total 725 100 Balance 730 -100 - Medications Medications: Current Medications Amlodipine Besylate (Norvasc) 5 mg PO DAILY [facility] Last Admin: 09/13/17 10:15 Dose: Not Given Dextrose (Dextrose 50% Inj) 0 ml IV STAT PRN; Protocol PRN Reason: Hypoglycemia Protocol Dextrose (Glutose 15) 0 gm PO ONCE PRN; Protocol PRN Reason: Hypoglycemia Protocol Digoxin (Digoxin) 0.125 mg PO DAILY@1800 [facility] Last Admin: 09/13/17 23:04 Dose: 0.125 mg Furosemide (Lasix) 40 mg IVP Q12 [facility] Last Admin: 09/13/17 23:05 Dose: 40 mg Glucagon (Glucagen Diagnostic Kit) 0 mg IM STAT PRN; Protocol PRN Reason: Hypoglycemia Protocol Dextrose (Dextrose 5% In Water 1000 Ml) 1,000 mls @ 0 mls/hr IV .Q0M PRN; Protocol; Per Protocol PRN Reason: Hypoglycemia Protocol Azithromycin 500 mg/ Sodium (Chloride) 250 mls @ 167 mls/hr IVPB Q24H [facility] PRN Reason: Protocol Last Admin: 09/13/17 18:00 Dose: 175 mls Ceftriaxone Sodium (Rocephin Iv 1 Gm Duplex) 50 mls @ 100 mls/hr IVPB DAILY [facility] PRN Reason: Protocol Last Admin: 09/13/17 10:15 Dose: 100 mls/hr Insulin Human Regular (Novolin R) 0 unit SC ACHS [facility] PRN Reason: Protocol Last Admin: 09/13/17 22:00 Dose: Not Given Levothyroxine Sodium (Synthroid) 100 mcg PO 0630 [facility] Last Admin: 09/13/17 06:24 Dose: 100 mcg Losartan Potassium (Cozaar) 100 mg PO DAILY [facility] Last Admin: 04/17/18 10:14 Dose: Not Given Metoprolol Succinate (Toprol Xl) 100 mg PO DAILY [facility] Last Admin: 09/13/17 10:16 Dose: Not Given Oxycodone/Acetaminophen (Percocet 5/325 Mg Tab) 1 tab PO Q6H PRN PRN Reason: Pain, moderate (4-7) Stop: 09/16/17 07:13 Rosuvastatin Calcium (Crestor) 5 mg PO HS [facility] Last Admin: 09/13/17 23:04 Dose: 5 mg Sitagliptin Phosphate (Januvia) 100 mg PO DAILY [facility] Last Admin: 09/13/17 10:14 Dose: Not Given Spironolactone (Aldactone) 50 mg PO DAILY [facility] - Labs Labs: 09/13/17 08:27 09/13/17 08:27 PT 13.8 SECONDS (9.7-12.2) H 09/08/17 14:03 INR 1.2 09/08/17 14:03 APTT 30 SECONDS (21-34) 09/08/17 14:03
[2017-09-14] MEDS: Levothyroxine 100 MCG TAB PO SCH (05:30)
[2017-09-14 06:27] LABS: ABG ALLEN TEST POS; ARTERIAL BLOOD GAS HCO3 28.6 mmol/L (21-28); ARTERIAL BLOOD GAS O2 SAT 96.3 % (95-98); ARTERIAL BLOOD GAS PCO2 41 mm/Hg (35-45); ARTERIAL BLOOD GAS PH 7.46 (7.35-7.45); ARTERIAL BLOOD GAS PO2 65 mm/Hg (80-100); ARTERIAL BLOOD GAS TCO2 30.5 mmol/L (22-28)
[2017-09-14] MEDS: (Novolin R) Insulin Human Regular 100 units/ml vial SC SCH ×4 (08:01→21:34)
[2017-09-14 08:09] LABS: BASO # 0.1 K/uL (0.0-0.2); BASO % 0.7 % (0.0-2.0); EOS # 0.1 K/uL (0.0-0.7); EOS % 0.7 % (0.0-4.0); HEMOGLOBIN 11.6 g/dL (12.0-18.0); LYMPH # 0.5 K/uL (1.0-4.3); LYMPH % 5.9 % (20.0-40.0); MEAN CELL VOLUME 87.2 fL (80.0-94.0); MEAN CORPUSCULAR HEMOGLOBIN 29.6 pg (27.0-31.0); MEAN PLATELET VOLUME 9.1 fL (7.2-11.7); MONO # 0.7 K/uL (0.0-0.8); MONO % 8.1 % (0.0-10.0); NEUT # 7.3 K/uL (1.8-7.0); NEUT % 84.6 % (50.0-75.0); PLATELET COUNT 134 K/uL (130-400); RBC 3.91 Mil/uL (4.40-5.90); RED CELL DISTRIBUTION WIDTH 15.8 % (11.5-14.5); WHITE BLOOD COUNT 8.7 K/uL (4.8-10.8)
[2017-09-14 08:23] LABS: ALB/GLOB RATIO 1.1 (1.0-2.1); ALT/SGPT 33 U/L (21-72); AST/SGOT 35 U/L (17-59); BLOOD UREA NITROGEN 18 mg/dL (9-20); CALCIUM 8.3 mg/dl (8.6-10.4); GFR AFRICAN-AMERICAN > 60; GFR NON-AFRICAN AMERICAN > 60
--- NOTE | 2017-09-14 08:34 | RAD ---
HISTORY: SOB needing 100% fio2 COMPARISON: No prior. FINDINGS: LUNGS: Improved aeration bilaterally. Decreased, but persistent pulmonary vascular congestion. No focal consolidation. PLEURA: No significant pleural effusion identified, no pneumothorax apparent. CARDIOVASCULAR: Cardiomediastinal silhouette stably enlarged. OSSEOUS STRUCTURES: Unchanged. VISUALIZED UPPER ABDOMEN: Normal. OTHER FINDINGS: None. IMPRESSION: Improved aeration bilaterally with decreased, but persistent pulmonary vascular congestion.
--- NOTE | 2017-09-14 09:30 | CP.PCM.PN ---
Subjective - Date & Time of Evaluation Date of Evaluation: 09/14/17 Time of Evaluation: 09:15 - Subjective Subjective: Patient has now been moved down to the ICU bed 12 Overnight he did not have the Bipap on and an DUSTER TENDER was called after he was found to have a low SpO2 and AMS. The DUSTER TENDER team was able to bag valve mask patient and then after being placed back on Bipap he returned to his baseline. ABG showed he was retaining a lot of CO2 The chest XRAYs still look like a lot of vascular congestion. Previously I had him on 60 IV lasix BID. He has ongoing R side CHF and severe PHTN and also the R ventricular pressure is almost 70 mm Hg. RA is dilated and also tricupisid valve has a lot of problems I came and saw him @ 9:20 am and he was awake, alert, orientated and following commands on [place]. Objective - Vital Signs/Intake and Output Vital Signs (last 24 hours): Temp Pulse Resp BP Pulse Ox 98 F 72 20 133/87 94 L 09/14/17 07:00 09/14/17 08:09 09/14/17 07:00 09/14/17 07:00 09/14/17 07:00 Intake and Output: 09/14/17 09/14/17 06:59 18:59 Intake Total 200 Output Total 325 Balance -125 - Medications Medications: Current Medications Amlodipine Besylate (Norvasc) 5 mg PO DAILY [facility] Last Admin: 09/13/17 10:15 Dose: Not Given Dextrose (Dextrose 50% Inj) 0 ml IV STAT PRN; Protocol PRN Reason: Hypoglycemia Protocol Dextrose (Glutose 15) 0 gm PO ONCE PRN; Protocol PRN Reason: Hypoglycemia Protocol Digoxin (Digoxin) 0.125 mg PO DAILY@1800 [facility] Last Admin: 09/13/17 23:04 Dose: 0.125 mg Furosemide (Lasix) 40 mg IVP Q12 [facility] Last Admin: 09/13/17 23:05 Dose: 40 mg Glucagon (Glucagen Diagnostic Kit) 0 mg IM STAT PRN; Protocol PRN Reason: Hypoglycemia Protocol Dextrose (Dextrose 5% In Water 1000 Ml) 1,000 mls @ 0 mls/hr IV .Q0M PRN; Protocol; Per Protocol PRN Reason: Hypoglycemia Protocol Azithromycin 500 mg/ Sodium (Chloride) 250 mls @ 167 mls/hr IVPB Q24H [facility] PRN Reason: Protocol Last Admin: 09/13/17 18:00 Dose: 175 mls Ceftriaxone Sodium (Rocephin Iv 1 Gm Duplex) 50 mls @ 100 mls/hr IVPB DAILY [facility] PRN Reason: Protocol Last Admin: 09/13/17 10:15 Dose: 100 mls/hr Insulin Human Regular (Novolin R) 0 unit SC ACHS [facility] PRN Reason: Protocol Last Admin: 09/14/17 08:01 Dose: Not Given Levothyroxine Sodium (Synthroid) 100 mcg PO 0630 [facility] Last Admin: 09/14/17 05:30 Dose: 100 mcg Losartan Potassium (Cozaar) 100 mg PO DAILY [facility] Last Admin: 09/13/17 10:14 Dose: Not Given Metoprolol Succinate (Toprol Xl) 100 mg PO DAILY [facility] Last Admin: 09/13/17 10:16 Dose: Not Given Oxycodone/Acetaminophen (Percocet 5/325 Mg Tab) 1 tab PO Q6H PRN PRN Reason: Pain, moderate (4-7) Stop: 09/16/17 07:13 Rosuvastatin Calcium (Crestor) 5 mg PO HS [facility] Last Admin: 09/13/17 23:04 Dose: 5 mg Sitagliptin Phosphate (Januvia) 100 mg PO DAILY [facility] Last Admin: 09/13/17 10:14 Dose: Not Given Spironolactone (Aldactone) 50 mg PO DAILY [facility] - Labs Labs: 09/14/17 08:02 09/14/17 08:02 PT 13.8 SECONDS (9.7-12.2) H 09/08/17 14:03 INR 1.2 09/08/17 14:03 APTT 30 SECONDS (21-34) 09/08/17 14:03 - Constitutional Appears: Older Than Stated Age, Chronically Ill - Eye Exam Eye Exam: EOMI, Normal appearance - Respiratory Exam Respiratory Exam: Decreased Breath Sounds, Rales, Rhonchi - Cardiovascular Exam Cardiovascular Exam: Irregular Rhythm - GI/Abdominal Exam GI & Abdominal Exam: Distended, Soft, Normal Bowel Sounds. absent: Tenderness - Neurological Exam Neurological Exam: Alert, Awake, Oriented x3 Neuro motor strength exam: Left Upper Extremity: 5, Right Upper Extremity: 5 - Psychiatric Exam Psychiatric exam: Normal Affect, Normal Mood - Skin Skin Exam: Pallor, Pallor Assessment and Plan - Assessment and Plan (Free Text) Assessment: Hypercapnic Respiratory failure secondary to Right side CHF 09/14: Now moved to ICU. He remains on Bipap. ABG showed a lot of CO2 retention and this improved after he was placed back on Bipap The CXRAY still has a lot of congestion. Right side CHF exacerbation, acute on chronic (preserved EF) 09/14: CXRAYs still have a lot of congestion, on exam still with signifigant pitting edema. Will try increasing lasix back to 60 mg IV BID, Continue with Aldactone, and ARB, and BB - Patient is comfortable on BIPAP at night - BNP 5540 -troponins negative x 3 - ECHO was done as an outpatient 06/22/17: * EF 55-60%, borderline conecntric left ventricular hypertrophy, grade II pseudonormal filling dynamics * Left ventricle cavity is normal in size; the aortic valve is tri-leaflet and calcified. There is no significant aortic regurgitation. * Repeat echo 09/08/17: LVEF-55%, borderline concentric left ventricular hypertrophy. left ventricular systolic function is normal. flattened septum consistent with right ventricle pressure overload. Grade II-pseudonormal filling dynamics. right ventricle is moderately dilated with mildly to moderately reduced systolic function. right atrium is moderately to severly dilated. aortic valve sclerosis. Severe tricuspid regurgitation. right ventricular systolic pressure is estimated at greater than 60 mmHg compatible with severe pulmonary hypertension. Pulmonary hypertension Per cardiology the repeat echo shows progressed pulmonary htn CTA: No PE. Small to moderate pleural effusions. Lower lobe compressive atelectasis. Extensive patchy ground glass opacities in both upper lobes, possibly infectious. Ascites. Finding of wedge like areas of decreased cortical enhancement in the upper half of both kidneys of questionable significance due to the very early stage of enhancement at the time of image acquisition. B/L Pleural Effusion 09/14: We ordered the CT scan in case he developed worsening pleural effusion however compared to previous hospitalizations - the pleural effusions are smaller. I had thought maybe he would need a thoracenteis - however for now will monitor. Hematuria -Dr. Perico Smith consulted (urology) - help appreciated -possible cystoscopy today 09/13, held xarelto - Urine culture 09/09 - negative - CBC is stable, hematuria is improving (09/10 Praveen blood seen in mendoza bag- patient pulled out on accident overnight on 09/10) - CT abd/pelvis: high attenuation fluid in bladder likely represent hemorrhage and clots. No CT evidence of bladder rupture. Small to moderate amount of ascites in abdomen and pelvis. Moderate anasarca. Moderately enlarged prostate. Moderate right and small left pleural effusion. Hypervolemia/Hyponatremia 09/14: Today increased lasix to 60 IV BID. - Monitor weight daily - monitor I/Os Hypothyroid - Continue home medication * Synthroid 100mg PO daily History of Afib 09/14/2017: Currently of of the Xarelto at this moment as he just had procedure - Monitor on tele - Rate controlled - CHADs(2) Score: 3 - Medications * Metoprolol Succinate XL 100mg po daily * Xarelto 20mg po daily will restart on 09/13 * Digoxin 0.125mg po daily, dig level 1.5 Hypertension - Continue home medications: * Metoprolol Succinate XL 100mg po daily * Losartan 100mg po daily * Norvasc 5mg po daily History of HLD - Continue home medication * Crestor 5mg po HS Diabetes - Continue Januvia 100mg daily - patient used Trulicity on Tuesday (once/ weekly medication) - Insulin sliding scale - moderate - Accuchecks - Hypoglycemia protocol Prophylaxis - DVT: Xarelto 20mg po daily (held due to possible cystoscopy) scds contraindicated - GI: Not indicated
[2017-09-14 09:37] LABS: TOTAL CELLS COUNTED 100
[2017-09-14 09:38] LABS: ANISOCYTOSIS SLIGHT; BURR CELLS SLIGHT; HYPOCHROMIC SLIGHT; LYMPHOCYTE 5 % (20-40); MONOCYTE 8 % (0-10); NEUTROPHIL 87 % (50-75); PLATELET ESTIMATE NORMAL (NORMAL); POIKILOCYTOSIS SLIGHT
[2017-09-14] MEDS: Metoprolol Succinate 100 mg XL Tab PO SCH (09:56)
--- NOTE | 2017-09-14 10:26 | CP.PCM.CON ---
<Min Taylor - Last Filed: 09/14/17 12:26> History of Present Illness - History of Present Illness History of Present Illness: Critical Care Consult note for Dr. Newton Reason for consult: EXECUTIVE ADMIN This is a 72 year old male with PMHx HTN, A-fib, DM, HLD who presented to the hospital for shortness of breath. He was diagnosed with acute on chronic right sided CHF. Patient was being managed on the floors and kept on BiPAP. However, patient was taken off of BiPAP in order to eat but was never placed back on. Patient had episode of respiratory distress overnight and was bag masked for a period of time until he became responsive. He was subsequently placed back on BiPAP and critical care evaluation was requested. At this time, the patient is resting comfortably and is not short of breath. PMHx: HTN, Afib, DM, hypothyroid; HLD PSHx: Denies Allergies: NKDA Social History: Lives alone. Drinks about 1-2 shots of whiskey per day and 2-3 shots of whiskey on the weekends for the past 15 years and sometimes also has a beer with the whiskey, denies illicit drug use, denies smoking. Family History: Mother with breast cancer Review of Systems - Constitutional Constitutional: absent: Chills, Fever - EENT Eyes: absent: Change in Vision Ears: absent: Decreased Hearing Nose/Mouth/Throat: absent: Nasal Congestion - Cardiovascular Cardiovascular: absent: Chest Pain - Respiratory Respiratory: absent: Dyspnea - Gastrointestinal Gastrointestinal: absent: Abdominal Pain, Nausea, Vomiting - Genitourinary Genitourinary: Hematuria. absent: Dysuria - Musculoskeletal Musculoskeletal: absent: Back Pain - Integumentary Integumentary: absent: Rash - Neurological Neurological: absent: Weakness - Psychiatric Psychiatric: absent: Anxiety - Endocrine Endocrine: absent: Palpitations Past Patient History - Past Medical History & Family History Past Medical History?: Yes - Past Social History Smoking Status: Never Smoked - CARDIAC Hx Atrial Fibrillation: Yes Hx Congestive Heart Failure: Yes Hx Hypercholesterolemia: Yes Hx Hypertension: Yes - PULMONARY Hx Respiratory Disorders: No - NEUROLOGICAL Hx Neurological Disorder: No - HEENT Hx HEENT Problems: Yes Other/Comment: wear eyeglasses - ENDOCRINE/METABOLIC Hx Endocrine Disorders: Yes Hx Diabetes Mellitus Type 1: Yes - HEMATOLOGICAL/ONCOLOGICAL Hx Blood Disorders: No - INTEGUMENTARY Hx Dermatological Problems: No - MUSCULOSKELETAL/RHEUMATOLOGICAL Hx Falls: No - GASTROINTESTINAL Hx Gastrointestinal Disorders: No - GENITOURINARY/GYNECOLOGICAL Hx Genitourinary Disorders: Yes Hx Prostate Problems: Yes (Hx of prostate surgery) - PSYCHIATRIC Hx Substance Use: No - SURGICAL HISTORY Hx Surgeries: No - ANESTHESIA Hx Anesthesia: No Meds Allergies/Adverse Reactions: Allergies Allergy/AdvReac Type Severity Reaction Status Date / Time No Known Allergies Allergy Verified 09/08/17 13:35 - Medications Medications: Current Medications Amlodipine Besylate (Norvasc) 5 mg PO DAILY [facility] Last Admin: 09/14/17 09:56 Dose: 5 mg Dextrose (Dextrose 50% Inj) 0 ml IV STAT PRN; Protocol PRN Reason: Hypoglycemia Protocol Dextrose (Glutose 15) 0 gm PO ONCE PRN; Protocol PRN Reason: Hypoglycemia Protocol Digoxin (Digoxin) 0.125 mg PO DAILY@1800 [facility] Last Admin: 09/13/17 23:04 Dose: 0.125 mg Furosemide (Lasix) 60 mg IVP Q12 [facility] Last Admin: 09/14/17 09:56 Dose: 60 mg Glucagon (Glucagen Diagnostic Kit) 0 mg IM STAT PRN; Protocol PRN Reason: Hypoglycemia Protocol Dextrose (Dextrose 5% In Water 1000 Ml) 1,000 mls @ 0 mls/hr IV .Q0M PRN; Protocol; Per Protocol PRN Reason: Hypoglycemia Protocol Insulin Human Regular (Novolin R) 0 unit SC ACHS [facility] PRN Reason: Protocol Last Admin: 09/14/17 08:01 Dose: Not Given Levothyroxine Sodium (Synthroid) 100 mcg PO 0630 [facility] Last Admin: 09/14/17 05:30 Dose: 100 mcg Losartan Potassium (Cozaar) 100 mg PO DAILY [facility] Last Admin: 09/14/17 09:56 Dose: 100 mg Metoprolol Succinate (Toprol Xl) 100 mg PO DAILY [facility] Last Admin: 09/14/17 09:56 Dose: 100 mg Oxycodone/Acetaminophen (Percocet 5/325 Mg Tab) 1 tab PO Q6H PRN PRN Reason: Pain, moderate (4-7) Stop: 09/16/17 07:13 Rosuvastatin Calcium (Crestor) 5 mg PO HS [facility] Last Admin: 09/13/17 23:04 Dose: 5 mg Sitagliptin Phosphate (Januvia) 100 mg PO DAILY [facility] Last Admin: 04/18/18 09:56 Dose: 100 mg Spironolactone (Aldactone) 50 mg PO DAILY [facility] Last Admin: 09/14/17 09:56 Dose: 50 mg Physical Exam - Constitutional Appears: No Acute Distress - Head Exam Head Exam: ATRAUMATIC, NORMOCEPHALIC - Eye Exam Eye Exam: EOMI, PERRL - ENT Exam ENT Exam: Mucous Membranes Moist - Respiratory Exam Respiratory Exam: absent: Rales, Rhonchi, Wheezes Additional comments: Coarse breath sounds - Cardiovascular Exam Cardiovascular Exam: Irregular Rhythm, +S1, +S2 - GI/Abdominal Exam GI & Abdominal Exam: Distended, Normal Bowel Sounds, Soft. absent: Tenderness - Extremities Exam Extremities exam: Positive for: pedal edema (bilateral pitting), pedal pulses present - Neurological Exam Neurological exam: Alert, CN II-XII Intact, Oriented x3 - Psychiatric Exam Psychiatric exam: Normal Affect, Normal Mood - Skin Skin Exam: Dry, Warm Results - Vital Signs Recent Vital Signs: Last Vital Signs Temp 98 F 09/14/17 07:00 Pulse 72 09/14/17 08:09 Resp 20 09/14/17 07:00 BP 132/90 09/14/17 09:56 Pulse Ox 94 L 09/14/17 07:00 - Labs Result Diagrams: 09/14/17 08:02 09/14/17 08:02 Labs: Laboratory Results - last 24 hr 09/13/17 09/13/17 09/13/17 08:27 11:18 18:21 WBC RBC Hgb Hct MCV MCH MCHC RDW Plt Count MPV Neut % (Auto) Lymph % (Auto) Williamson % (Auto) Eos % (Auto) Baso % (Auto) Neut # (Auto) Lymph # (Auto) Williamson # (Auto) Eos # (Auto) Baso # (Auto) Neutrophils % (Manual) 85 H Lymphocytes % (Manual) 3 L Monocytes % (Manual) 11 H Eosinophils % (Manual) 1 Platelet Estimate Normal Hypochromasia (manual) Poikilocytosis (manual Anisocytosis (manual) Slight [place] Cells Puncture Site pCO2 pO2 HCO3 ABG pH ABG Total CO2 ABG O2 Saturation ABG Base Excess Ed Test ABG Potassium A-a O2 Difference Respiratory Index Sodium Chloride Glucose Lactate Vent Mode Mechanical Rate FiO2 Inspiratory BiPAP Expiratory BiPAP Crit Value Called To Crit Value Called By Crit Value Read Back Blood Gas Notified Time Potassium Carbon Dioxide Anion Gap BUN Creatinine Est GFR ( Amer) Est GFR (Non-Af Amer) POC Glucose (mg/dL) 214 H 116 H Random Glucose Calcium Phosphorus Magnesium Total Bilirubin AST ALT Alkaline Phosphatase Total Protein Albumin Globulin Albumin/Globulin Ratio Arterial Blood Potassium 09/13/17 09/13/17 09/13/17 21:16 21:50 22:00 WBC RBC Hgb Hct MCV MCH MCHC RDW Plt Count MPV Neut % (Auto) Lymph % (Auto) Williamson % (Auto) Eos % (Auto) Baso % (Auto) Neut # (Auto) Lymph # (Auto) Williamson # (Auto) Eos # (Auto) Baso # (Auto) Neutrophils % (Manual) Lymphocytes % (Manual) Monocytes % (Manual) Eosinophils % (Manual) Platelet Estimate Hypochromasia (manual) Poikilocytosis (manual Anisocytosis (manual) [place]inny Cells Puncture Site Rra pCO2 46 H pO2 104 H HCO3 24.5 ABG pH 7.35 ABG Total CO2 26.8 ABG O2 Saturation 98.8 H ABG Base Excess -0.6 Ed Test Na ABG Potassium 4.6 A-a O2 Difference 552.0 Respiratory Index 5.3 Sodium 138.0 Chloride 102.0 Glucose 193 H Lactate 4.9 H* Vent Mode Bipap Mechanical Rate 10 FiO2 100.0 Inspiratory BiPAP 14 Expiratory BiPAP 7 Crit Value Called To 6 tower nurse ladarius Crit Value Called By Beulah rt Crit Value Read Back Y Blood Gas Notified Time 2203 Potassium Carbon Dioxide Anion Gap BUN Creatinine Est GFR ( Amer) Est GFR (Non-Af Amer) POC Glucose (mg/dL) 118 H 171 H Random Glucose Calcium Phosphorus Magnesium Total Bilirubin AST ALT Alkaline Phosphatase Total Protein Albumin Globulin Albumin/Globulin Ratio Arterial Blood Potassium 4.6 09/14/17 09/14/17 09/14/17 06:20 06:47 08:02 WBC 8.7 RBC 3.91 L Hgb 11.6 L Hct 34.1 L MCV 87.2 MCH 29.6 MCHC 34.0 RDW 15.8 H Plt Count 134 MPV 9.1 Neut % (Auto) 84.6 H Lymph % (Auto) 5.9 L Williamson % (Auto) 8.1 Eos % (Auto) 0.7 Baso % (Auto) 0.7 Neut # (Auto) 7.3 H Lymph # (Auto) 0.5 L Williamson # (Auto) 0.7 Eos # (Auto) 0.1 Baso # (Auto) 0.1 Neutrophils % (Manual) 87 H Lymphocytes % (Manual) 5 L Monocytes % (Manual) 8 Eosinophils % (Manual) Platelet Estimate Normal Hypochromasia (manual) Slight Poikilocytosis (manual Slight Anisocytosis (manual) Slight [place] Cells Slight Puncture Site Rr pCO2 41 pO2 65 L HCO3 28.6 H ABG pH 7.46 H ABG Total CO2 30.5 H ABG O2 Saturation 96.3 ABG Base Excess 4.9 H Ed Test Pos ABG Potassium 4.1 A-a O2 Difference 597.0 Respiratory Index 9.2 Sodium 138.0 Chloride 104.0 Glucose 153 H Lactate 1.2 Vent Mode Bipap Mechanical Rate FiO2 100.0 Inspiratory BiPAP 14 Expiratory BiPAP 7 Crit Value Called To Crit Value Called By Crit Value Read Back Blood Gas Notified Time Potassium Carbon Dioxide Anion Gap BUN Creatinine Est GFR ( Amer) Est GFR (Non-Af Amer) POC Glucose (mg/dL) 159 H Random Glucose Calcium Phosphorus Magnesium Total Bilirubin AST ALT Alkaline Phosphatase Total Protein Albumin Globulin Albumin/Globulin Ratio Arterial Blood Potassium 4.1 09/14/17 08:02 WBC RBC Hgb Hct MCV MCH MCHC RDW Plt Count MPV Neut % (Auto) Lymph % (Auto) Williamson % (Auto) Eos % (Auto) Baso % (Auto) Neut # (Auto) Lymph # (Auto) Williamson # (Auto) Eos # (Auto) Baso # (Auto) Neutrophils % (Manual) Lymphocytes % (Manual) Monocytes % (Manual) Eosinophils % (Manual) Platelet Estimate Hypochromasia (manual) Poikilocytosis (manual Anisocytosis (manual) [place] Cells Puncture Site pCO2 pO2 HCO3 ABG pH ABG Total CO2 ABG O2 Saturation ABG Base Excess Ed Test ABG Potassium A-a O2 Difference Respiratory Index Sodium 137 Chloride 98 Glucose Lactate Vent Mode Mechanical Rate FiO2 Inspiratory BiPAP Expiratory BiPAP Crit Value Called To Crit Value Called By Crit Value Read Back Blood Gas Notified Time Potassium 4.1 Carbon Dioxide 29 Anion Gap 15 BUN 18 Creatinine 1.0 Est GFR ( Amer) > 60 Est GFR (Non-Af Amer) > 60 POC Glucose (mg/dL) Random Glucose 141 H Calcium 8.3 L Phosphorus 3.4 Magnesium 1.6 Total Bilirubin 0.9 AST 35 ALT 33 Alkaline Phosphatase 107 Total Protein 5.8 L Albumin 3.0 L Globulin 2.8 Albumin/Globulin Ratio 1.1 Arterial Blood Potassium Assessment & Plan - Assessment and Plan (Free Text) Assessment: This is a 72 year old male with PMHx HTN, A-fib, DM, HLD who presented to the hospital for shortness of breath. He was diagnosed with acute on chronic right sided CHF. Neuro Awake, verbal Cardio Acute on Chronic right sided CHF--right ventricle systolic dysfunction on echo Norvasc 5 mg PO daily Digoxin 0.125 mg PO daily Lasix 20 mg IV Q12H Losartan 100 mg PO daily Toprol XL 100 mg PO daily Aldactone 50 mg PO daily Crestor 5 mg PO HS Pulm Saturating well on BiPAP GI Heart Healthy Diet Endocrine Accuchecks ACHS Regular ISS Januvia 100 mg PO daily Synthroid 100 mcg PO daily Urology Hematuria urology on consult Prophylaxis VTE contraindicated due to bleed Discussed with Dr. Newton <Shilo Newton S - Last Filed: 09/14/17 18:10> Meds - Medications Medications: Current Medications Amlodipine Besylate (Norvasc) 5 mg PO DAILY [facility] Last Admin: 09/14/17 09:56 Dose: 5 mg Dextrose (Dextrose 50% Inj) 0 ml IV STAT PRN; Protocol PRN Reason: Hypoglycemia Protocol Dextrose (Glutose 15) 0 gm PO ONCE PRN; Protocol PRN Reason: Hypoglycemia Protocol Digoxin (Digoxin) 0.125 mg PO DAILY@1800 [facility] Last Admin: 09/14/17 17:24 Dose: 0.125 mg Furosemide (Lasix) 20 mg IVP Q12 [facility] Last Admin: 09/14/17 12:15 Dose: Not Given Glucagon (Glucagen Diagnostic Kit) 0 mg IM STAT PRN; Protocol PRN Reason: Hypoglycemia Protocol Dextrose (Dextrose 5% In Water 1000 Ml) 1,000 mls @ 0 mls/hr IV .Q0M PRN; Protocol; Per Protocol PRN Reason: Hypoglycemia Protocol Insulin Human Regular (Novolin R) 0 unit SC ACHS [facility] PRN Reason: Protocol Last Admin: 09/14/17 17:24 Dose: Not Given Levothyroxine Sodium (Synthroid) 100 mcg PO 0630 [facility] Last Admin: 09/14/17 05:30 Dose: 100 mcg Losartan Potassium (Cozaar) 100 mg PO DAILY [facility] Last Admin: 09/14/17 09:56 Dose: 100 mg Metoprolol Succinate (Toprol Xl) 100 mg PO DAILY [facility] Last Admin: 09/14/17 09:56 Dose: 100 mg Oxycodone/Acetaminophen (Percocet 5/325 Mg Tab) 1 tab PO Q6H PRN PRN Reason: Pain, moderate (4-7) Stop: 09/16/17 07:13 Rosuvastatin Calcium (Crestor) 5 mg PO [facility] Last Admin: 09/13/17 23:04 Dose: 5 mg Sitagliptin Phosphate (Januvia) 100 mg PO DAILY [facility] Last Admin: 09/14/17 09:56 Dose: 100 mg Spironolactone (Aldactone) 50 mg PO DAILY [facility] Last Admin: 09/14/17 09:56 Dose: 50 mg Results - Vital Signs Recent Vital Signs: Last Vital Signs Temp 97.8 F 09/14/17 16:00 Pulse 76 09/14/17 17:00 Resp 17 09/14/17 17:00 BP 136/85 09/14/17 16:31 Pulse Ox 96 09/14/17 17:00 - Labs Result Diagrams: 09/14/17 08:02 09/14/17 08:02 Labs: Laboratory Results - last 24 hr 09/13/17 09/13/17 09/13/17 18:21 21:16 21:50 WBC RBC Hgb Hct MCV MCH MCHC RDW Plt Count MPV Neut % (Auto) Lymph % (Auto) Williamson % (Auto) Eos % (Auto) Baso % (Auto) Neut # (Auto) Lymph # (Auto) Williamson # (Auto) Eos # (Auto) Baso # (Auto) Neutrophils % (Manual) Lymphocytes % (Manual) Monocytes % (Manual) Platelet Estimate Hypochromasia (manual) Poikilocytosis (manual Anisocytosis (manual) Vinny Cells Puncture Site pCO2 pO2 HCO3 ABG pH ABG Total CO2 ABG O2 Saturation ABG Base Excess Ed Test ABG Potassium A-a O2 Difference Respiratory Index Sodium Chloride Glucose Lactate Vent Mode Mechanical Rate FiO2 Inspiratory BiPAP Expiratory BiPAP Crit Value Called To Crit Value Called By Crit Value Read Back Blood Gas Notified Time Potassium Carbon Dioxide Anion Gap BUN Creatinine Est GFR ( Amer) Est GFR (Non-Af Amer) POC Glucose (mg/dL) 116 H 118 H 171 H Random Glucose Calcium Phosphorus Magnesium Total Bilirubin AST ALT Alkaline Phosphatase Total Protein Albumin Globulin Albumin/Globulin Ratio Arterial Blood Potassium 09/13/17 09/14/17 09/14/17 22:00 06:20 06:47 WBC RBC Hgb Hct MCV MCH MCHC RDW Plt Count MPV Neut % (Auto) Lymph % (Auto) Williamson % (Auto) Eos % (Auto) Baso % (Auto) Neut # (Auto) Lymph # (Auto) Williamson # (Auto) Eos # (Auto) Baso # (Auto) Neutrophils % (Manual) Lymphocytes % (Manual) Monocytes % (Manual) Platelet Estimate Hypochromasia (manual) Poikilocytosis (manual Anisocytosis (manual) [place] Cells Puncture Site Rra Rr pCO2 46 H 41 pO2 104 H 65 L HCO3 24.5 28.6 H ABG pH 7.35 7.46 H ABG Total CO2 26.8 30.5 H ABG O2 Saturation 98.8 H 96.3 ABG Base Excess -0.6 4.9 H Ed Test Na Pos ABG Potassium 4.6 4.1 A-a O2 Difference 552.0 597.0 Respiratory Index 5.3 9.2 Sodium 138.0 138.0 Chloride 102.0 104.0 Glucose 193 H 153 H Lactate 4.9 H* 1.2 Vent Mode Bipap Bipap Mechanical Rate 10 FiO2 100.0 100.0 Inspiratory BiPAP 14 14 Expiratory BiPAP 7 7 Crit Value Called To 6 shadeer nurse ladarius Crit Value Called By Beulah rt Crit Value Read Back Y Blood Gas Notified Time 3 Potassium Carbon Dioxide Anion Gap BUN Creatinine Est GFR ( Amer) Est GFR (Non-Af Amer) POC Glucose (mg/dL) 159 H Random Glucose Calcium Phosphorus Magnesium Total Bilirubin AST ALT Alkaline Phosphatase Total Protein Albumin Globulin Albumin/Globulin Ratio Arterial Blood Potassium 4.6 4.1 09/14/17 09/14/17 09/14/17 08:02 08:02 11:09 WBC 8.7 RBC 3.91 L Hgb 11.6 L Hct 34.1 L MCV 87.2 MCH 29.6 MCHC 34.0 RDW 15.8 H Plt Count 134 MPV 9.1 Neut % (Auto) 84.6 H Lymph % (Auto) 5.9 L Williamson % (Auto) 8.1 Eos % (Auto) 0.7 Baso % (Auto) 0.7 Neut # (Auto) 7.3 H Lymph # (Auto) 0.5 L Williamson # (Auto) 0.7 Eos # (Auto) 0.1 Baso # (Auto) 0.1 Neutrophils % (Manual) 87 H Lymphocytes % (Manual) 5 L Monocytes % (Manual) 8 Platelet Estimate Normal Hypochromasia (manual) Slight Poikilocytosis (manual Slight Anisocytosis (manual) Slight [place] Cells Slight Puncture Site pCO2 pO2 HCO3 ABG pH ABG Total CO2 ABG O2 Saturation ABG Base Excess Ed Test ABG Potassium A-a O2 Difference Respiratory Index Sodium 137 Chloride 98 Glucose Lactate Vent Mode Mechanical Rate FiO2 Inspiratory BiPAP Expiratory BiPAP Crit Value Called To Crit Value Called By Crit Value Read Back Blood Gas Notified Time Potassium 4.1 Carbon Dioxide 29 Anion Gap 15 BUN 18 Creatinine 1.0 Est GFR ( Amer) > 60 Est GFR (Non-Af Amer) > 60 POC Glucose (mg/dL) 133 H Random Glucose 141 H Calcium 8.3 L Phosphorus 3.4 Magnesium 1.6 Total Bilirubin 0.9 AST 35 ALT 33 Alkaline Phosphatase 107 Total Protein 5.8 L Albumin 3.0 L Globulin 2.8 Albumin/Globulin Ratio 1.1 Arterial Blood Potassium 09/14/18 16:03 WBC RBC Hgb Hct MCV MCH MCHC RDW Plt Count MPV Neut % (Auto) Lymph % (Auto) Williamson % (Auto) Eos % (Auto) Baso % (Auto) Neut # (Auto) Lymph # (Auto) Williamson # (Auto) Eos # (Auto) Baso # (Auto) Neutrophils % (Manual) Lymphocytes % (Manual) Monocytes % (Manual) Platelet Estimate Hypochromasia (manual) Poikilocytosis (manual Anisocytosis (manual) [place] Cells Puncture Site pCO2 pO2 HCO3 ABG pH ABG Total CO2 ABG O2 Saturation ABG Base Excess Ed Test ABG Potassium A-a O2 Difference Respiratory Index Sodium Chloride Glucose Lactate Vent Mode Mechanical Rate FiO2 Inspiratory BiPAP Expiratory BiPAP Crit Value Called To Crit Value Called By Crit Value Read Back Blood Gas Notified Time Potassium Carbon Dioxide Anion Gap BUN Creatinine Est GFR ( Amer) Est GFR (Non-Af Amer) POC Glucose (mg/dL) 149 H Random Glucose Calcium Phosphorus Magnesium Total Bilirubin AST ALT Alkaline Phosphatase Total Protein Albumin Globulin Albumin/Globulin Ratio Arterial Blood Potassium Attending/Attestation - Attestation I have personally seen and examined this patient.: Yes I have fully participated in the care of the patient.: Yes I have reviewed all pertinent clinical information: Yes Notes (Text): 09/14/17 18:07 patient seen and examined 72-year-old male transferred to ICU for respiratory failure requiring BiPAP Overnight off BiPAP patient became hypoxemic and hypercapnic Echocardiogram consistent with severely elevated right-sided pressures/ pulmonary hypertension Continue patient on BiPAP IV diuretics Continue to monitor in ICU Follow-up ABG
--- NOTE | 2017-09-14 11:51 | CP.PCM.PN ---
<Andres Turner - Last Filed: 09/14/17 11:53> Subjective - Date & Time of Evaluation Date of Evaluation: 09/14/17 Time of Evaluation: 11:51 - Subjective Subjective: PGY-[address] SEAMAN's Cardiology service Pt seen and examined at bedside. REHABILITATION MEDICINE PHYSICIAN note noted overnight - patient AMS after being off bipap and low spo2/high co2. Patient resting comfortably now on bipap. Denies chest pain, SOB, palpitations at this time. Objective - Vital Signs/Intake and Output Vital Signs (last 24 hours): Temp Pulse Resp BP Pulse Ox 98.2 F 80 13 137/88 97 09/14/17 08:30 09/14/17 11:00 09/14/17 11:00 09/14/17 10:31 09/14/17 11:00 Intake and Output: 09/14/17 09/14/17 06:59 18:59 Intake Total 200 120 Output Total 325 100 Balance -125 20 - Medications Medications: Current Medications Amlodipine Besylate (Norvasc) 5 mg PO DAILY [facility] Last Admin: 09/14/17 09:56 Dose: 5 mg Dextrose (Dextrose 50% Inj) 0 ml IV STAT PRN; Protocol PRN Reason: Hypoglycemia Protocol Dextrose (Glutose 15) 0 gm PO ONCE PRN; Protocol PRN Reason: Hypoglycemia Protocol Digoxin (Digoxin) 0.125 mg PO DAILY@1800 [facility] Last Admin: 09/13/17 23:04 Dose: 0.125 mg Furosemide (Lasix) 20 mg IVP Q12 [facility] Glucagon (Glucagen Diagnostic Kit) 0 mg IM STAT PRN; Protocol PRN Reason: Hypoglycemia Protocol Dextrose (Dextrose 5% In Water 1000 Ml) 1,000 mls @ 0 mls/hr IV .Q0M PRN; Protocol; Per Protocol PRN Reason: Hypoglycemia Protocol Insulin Human Regular (Novolin R) 0 unit SC ACHS [facility] PRN Reason: Protocol Last Admin: 09/14/17 11:35 Dose: Not Given Levothyroxine Sodium (Synthroid) 100 mcg PO 0630 [facility] Last Admin: 09/14/17 05:30 Dose: 100 mcg Losartan Potassium (Cozaar) 100 mg PO DAILY [facility] Last Admin: 09/14/17 09:56 Dose: 100 mg Metoprolol Succinate (Toprol Xl) 100 mg PO DAILY [facility] Last Admin: 09/14/17 09:56 Dose: 100 mg Oxycodone/Acetaminophen (Percocet 5/325 Mg Tab) 1 tab PO Q6H PRN PRN Reason: Pain, moderate (4-7) Stop: 09/16/17 07:13 Rosuvastatin Calcium (Crestor) 5 mg PO HS [facility] Last Admin: 09/13/17 23:04 Dose: 5 mg Sitagliptin Phosphate (Januvia) 100 mg PO DAILY [facility] Last Admin: 09/14/17 09:56 Dose: 100 mg Spironolactone (Aldactone) 50 mg PO DAILY [facility] Last Admin: 09/14/17 09:56 Dose: 50 mg - Labs Labs: 09/14/17 08:02 09/14/17 08:02 PT 13.8 SECONDS (9.7-12.2) H 09/08/17 14:03 INR 1.2 09/08/17 14:03 APTT 30 SECONDS (21-34) 09/08/17 14:03 - Additional Findings Additional findings: - Constitutional Appears: Older Than Stated Age, Chronically Ill - Eye Exam Eye Exam: EOMI, Normal appearance - Respiratory Exam Respiratory Exam: Decreased Breath Sounds, Rales, Rhonchi - pt on bipap machine - Cardiovascular Exam Cardiovascular Exam: Irregular Rhythm - GI/Abdominal Exam GI & Abdominal Exam: Distended, Soft, Normal Bowel Sounds. absent: Tenderness - Neurological Exam Neurological Exam: Alert, Awake, Oriented x3 - Psychiatric Exam Psychiatric exam: Normal Affect, Normal Mood - Skin Skin Exam: Pallor Assessment and Plan - Assessment and Plan (Free Text) Plan: CHF exacerbation, acute on chronic (preserved EF) Admitted to [facility] Continue fluid restriction, daily weights, I/Os - BNP 5540 (previous 3710) - Chest X-ray: mild venous congestion, small right pleural effusion, patchy right basilar airspace opacity. enlarged ectatic aorta. mild cardiomegaly. degenerative changes in spine and shoulders - Troponin negative x3 Decrease Lasix 20mg IV BID Aldactone 50 mg po daily Start IV nesiritide ggt - ECHO (06/22/17): EF 55-60%, Left ventricle cavity is normal in size; the aortic valve is tri-leaflet and calcified. There is no significant aortic regurgitation * Repeat echo 09/08/17: LVEF-55%, borderline concentric left ventricular hypertrophy. left ventricular systolic function is normal. flattened septum consistent with right ventricle pressure overload. Grade II-pseudonormal filling dynamics. right ventricle is moderately dilated with mildly to moderately reduced systolic function. right atrium is moderately to severly dilated. aortic valve sclerosis. Severe tricuspid regurgitation. right ventricular systolic pressure is estimated at greater than 60 mmHg compatible with severe pulmonary hypertension. Pulmonary hypertension repeat echo shows progressed pulmonary htn History of Afib Rate controlled - CHADs(2) Score: 3; Hasbled 2 Continue Medications - Metoprolol Succinate XL 100mg po daily - Digoxin 0.125mg po daily, dig level 1.5 Hypertension well controlled Metoprolol Succinate XL 100mg po daily Losartan 100mg po daily Norvasc 5mg po daily History of HLD Crestor 5mg po HS Discussed with Dr. Phu Turner PGY-2 <Jesus Seaman - Last Filed: 09/14/17 22:03> Objective - Vital Signs/Intake and Output Vital Signs (last 24 hours): Temp Pulse Resp BP Pulse Ox 98.7 F 78 14 112/79 93 L 09/14/17 20:00 09/14/17 21:00 09/14/17 21:00 09/14/17 21:34 09/14/17 21:00 Intake and Output: 09/14/17 09/15/17 18:59 06:59 Intake Total 670 50 Output Total 410 85 Balance 260 -35 - Medications Medications: Current Medications Amlodipine Besylate (Norvasc) 5 mg PO DAILY [facility] Last Admin: 09/14/17 09:56 Dose: 5 mg Dextrose (Dextrose 50% Inj) 0 ml IV STAT PRN; Protocol PRN Reason: Hypoglycemia Protocol Dextrose (Glutose 15) 0 gm PO ONCE PRN; Protocol PRN Reason: Hypoglycemia Protocol Digoxin (Digoxin) 0.125 mg PO DAILY@1800 [facility] Last Admin: 09/14/17 17:24 Dose: 0.125 mg Furosemide (Lasix) 20 mg IVP Q12 [facility] Last Admin: 09/14/17 21:34 Dose: 20 mg Glucagon (Glucagen Diagnostic Kit) 0 mg IM STAT PRN; Protocol PRN Reason: Hypoglycemia Protocol Dextrose (Dextrose 5% In Water 1000 Ml) 1,000 mls @ 0 mls/hr IV .Q0M PRN; Protocol; Per Protocol PRN Reason: Hypoglycemia Protocol Insulin Human Regular (Novolin R) 0 unit SC ACHS [facility] PRN Reason: Protocol Last Admin: 09/14/17 21:34 Dose: Not Given Levothyroxine Sodium (Synthroid) 100 mcg PO 0630 [facility] Last Admin: 09/14/17 05:30 Dose: 100 mcg Losartan Potassium (Cozaar) 100 mg PO DAILY [facility] Last Admin: 09/14/17 09:56 Dose: 100 mg Metoprolol Succinate (Toprol Xl) 100 mg PO DAILY [facility] Last Admin: 09/14/17 09:56 Dose: 100 mg Oxycodone/Acetaminophen (Percocet 5/325 Mg Tab) 1 tab PO Q6H PRN PRN Reason: Pain, moderate (4-7) Stop: 09/16/17 07:13 Rosuvastatin Calcium (Crestor) 5 mg PO HS [facility] Last Admin: 09/14/17 21:34 Dose: 5 mg Sitagliptin Phosphate (Januvia) 100 mg PO DAILY [facility] Last Admin: 09/14/17 09:56 Dose: 100 mg Spironolactone (Aldactone) 50 mg PO DAILY [facility] Last Admin: 09/14/17 09:56 Dose: 50 mg - Labs Labs: 09/14/17 08:02 09/14/17 08:02 PT 13.8 SECONDS (9.7-12.2) H 09/08/17 14:03 INR 1.2 09/08/17 14:03 APTT 30 SECONDS (21-34) 09/08/17 14:03 Assessment and Plan - Assessment and Plan (Free Text) Plan: Patient seen and evaluated personally by nm Plan of care d/w the biomedical equipment tech and as documented
--- NOTE | 2017-09-14 15:08 | RAD ---
INTRAOPERATIVE FLUOROSCOPY HISTORY: Hematuria. TECHNIQUE/FINDINGS: Fluoroscopic guidance was provided by Radiology department. Please see operative report for full details. 1 image was provided. Total fluoroscopy time was 1.5 seconds. IMPRESSION: As above
[2017-09-14] MEDS: Digoxin 125 mcg (0.125 mg) Tab PO SCH (17:24)
[2017-09-15] MEDS: Levothyroxine 100 MCG TAB PO SCH (05:46)
[2017-09-15 06:01] LABS: BASO # 0.1 K/uL (0.0-0.2); BASO % 0.8 % (0.0-2.0); EOS # 0.3 K/uL (0.0-0.7); EOS % 2.3 % (0.0-4.0); LYMPH # 0.6 K/uL (1.0-4.3); LYMPH % 5.2 % (20.0-40.0); MEAN CELL VOLUME 87.2 fL (80.0-94.0); MEAN CORPUSCULAR HEMOGLOBIN 29.8 pg (27.0-31.0); MEAN CORPUSCULAR HGB CONC 34.2 g/dL (33.0-37.0); MEAN PLATELET VOLUME 9.5 fL (7.2-11.7); MONO # 1.1 K/uL (0.0-0.8); NEUT # 8.9 K/uL (1.8-7.0); NEUT % 81.7 % (50.0-75.0); PLATELET COUNT 132 K/uL (130-400); RBC 4.37 Mil/uL (4.40-5.90); RED CELL DISTRIBUTION WIDTH 15.9 % (11.5-14.5); WHITE BLOOD COUNT 10.9 K/uL (4.8-10.8)
[2017-09-15 06:21] LABS: ALB/GLOB RATIO 1.1 (1.0-2.1); ALBUMIN 3.3 g/dL (3.5-5.0); ALT/SGPT 33 U/L (21-72); AST/SGOT 29 U/L (17-59); BLOOD UREA NITROGEN 19 mg/dL (9-20); CALCIUM 8.8 mg/dl (8.6-10.4); GFR AFRICAN-AMERICAN > 60; GFR NON-AFRICAN AMERICAN > 60
[2017-09-15] MEDS: (Novolin R) Insulin Human Regular 100 units/ml vial SC SCH ×4 (07:42→21:46)
[2017-09-15 08:21] LABS: EOSINOPHIL 2 % (0-4); LYMPHOCYTE 8 % (20-40); MONOCYTE 9 % (0-10); NEUTROPHIL 81 % (50-75); PLATELET ESTIMATE NORMAL (NORMAL); TOTAL CELLS COUNTED 100
[2017-09-15] MEDS: Metoprolol Succinate 100 mg XL Tab PO SCH (09:15)
--- NOTE | 2017-09-15 09:28 | RAD ---
HISTORY: sob, needing bipap COMPARISON: Chest x-ray 09/14/2017 TECHNIQUE: Chest one view . FINDINGS: LUNGS: Stable moderate pulmonary vascular congestion. PLEURA: Trace right pleural effusion. CARDIOVASCULAR: Stable cardiomegaly. OSSEOUS STRUCTURES: Osteoarthritic changes bilateral shoulders, right greater than left. VISUALIZED UPPER ABDOMEN: Unremarkable. OTHER FINDINGS: None. IMPRESSION: Stable moderate pulmonary vascular congestion. Stable cardiomegaly.
[2017-09-15 11:46] LABS: ARTERIAL BLOOD GAS HCO3 26.3 mmol/L (21-28); ARTERIAL BLOOD GAS HEMOGLOBIN 11.8 g/dL (11.7-17.4); ARTERIAL BLOOD GAS O2 SAT 94.1 % (95-98); ARTERIAL BLOOD GAS PCO2 36 mm/Hg (35-45); ARTERIAL BLOOD GAS PH 7.46 (7.35-7.45); ARTERIAL BLOOD GAS PO2 60 mm/Hg (80-100); ARTERIAL BLOOD GAS TCO2 26.7 mmol/L (22-28)
--- NOTE | 2017-09-15 16:04 | CP.CCUPN ---
<Min Taylor - Last Filed: 09/15/17 16:01> CCU Subjective - Physician Review Subjective (Free Text): 09/15/17 16:01 Patient seen and examined. Patient reports no acute complaints at this time. He is not short of breath nor does he have any chest pain at this time. Per nursing staff, he does well as long as he is not moving or off of the BiPAP. CCU Objective - Vital Signs / Intake & Output Vital Signs (Last 4 hours): Vital Signs Pulse Resp BP Pulse Ox 09/15/17 15:45 63 09/15/17 14:09 75 09/15/17 14:00 79 29 H 92 L 09/15/17 13:56 67 29 H 129/90 92 L 09/15/17 13:14 75 32 H 125/89 93 L 09/15/17 13:00 78 33 H 92 L 09/15/17 12:57 75 28 H 168/144 H 92 L Intake and Output (Last 8hrs): Intake & Output 09/15/17 09/15/17 09/15/17 06:59 14:59 22:59 Intake Total 150 540 Output Total 310 215 Balance -160 325 Weight 162 lb 12.8 oz Intake: Oral 150 540 Output: Urine 310 215 Urethral (Cao) 310 215 - Physical Exam Head: Positive for: Atraumatic, Normocephalic Pupils: Positive for: PERRL Extroacular Muscles: Positive for: EOMI Conjunctiva: Positive for: Normal Mouth: Positive for: Moist Mucous Membranes Respiratory/Chest: Positive for: Other (Coarse breath sounds). Negative for: Wheezes, Rales, Rhonchi Cardiovascular: Positive for: Normal S1, S2, Irregular Rhythm Abdomen: Positive for: Distention, Normal Bowel Sounds. Negative for: Tenderness Upper Extremity: Positive for: Normal Inspection Lower Extremity: Positive for: Edema Neurological: Positive for: GCS=15 Skin: Positive for: Warm, Dry Psychiatric: Positive for: Alert, Oriented x 3 - Medications Active Medications: Active Medications Generic Name Dose Route Start Last Admin Trade Name Freq PRN Reason Stop Dose Admin Amlodipine Besylate 5 mg 09/09/17 10:00 09/15/17 09:15 Norvasc PO 5 mg DAILY OMAR Administration Dextrose 0 ml 09/08/17 15:54 Dextrose 50% Inj IV STAT PRN Hypoglycemia Protocol Protocol Dextrose 0 gm 09/08/17 15:54 Glutose 15 PO ONCE PRN Hypoglycemia Protocol Protocol Digoxin 0.125 mg 09/08/17 18:00 09/14/17 17:24 Digoxin PO 0.125 mg DAILY@1800 OMAR Administration Furosemide 20 mg 09/14/17 12:00 09/15/17 09:15 Lasix IVP 20 mg Q12 OMAR Administration Glucagon 0 mg 09/08/17 15:54 Glucagen Diagnostic Kit IM STAT PRN Hypoglycemia Protocol Protocol Dextrose 1,000 mls @ 0 mls/hr 09/08/17 15:54 Dextrose 5% In Water 1000 Ml IV .Q0M PRN Hypoglycemia Protocol Protocol Per Protocol Insulin Human Regular 0 unit 09/08/17 16:30 09/15/17 11:38 Novolin R SC 2 unit ACHS OMAR Administration Protocol Levothyroxine Sodium 100 mcg 09/09/17 06:30 09/15/17 05:46 Synthroid PO 100 mcg 0630 OMAR Administration Losartan Potassium 100 mg 09/09/17 10:00 09/15/17 09:14 Cozaar PO 100 mg DAILY OMAR Administration Metoprolol Succinate 100 mg 09/09/17 10:00 09/15/17 09:15 Toprol Xl PO 100 mg DAILY OMAR Administration Oxycodone/Acetaminophen 1 tab 09/13/17 07:12 Percocet 5/325 Mg Tab PO 09/16/17 07:13 Q6H PRN Pain, moderate (4-7) Rosuvastatin Calcium 5 mg 09/09/17 22:00 09/14/17 21:34 Crestor PO 5 mg HS OMAR Administration Sitagliptin Phosphate 100 mg 09/09/17 10:00 09/15/17 09:15 Januvia PO 100 mg DAILY OMAR Administration Spironolactone 50 mg 09/13/17 10:00 09/15/17 09:15 Aldactone PO 50 mg DAILY OMAR Administration - Patient Studies Lab Studies: Microbiology Studies 09/14/17 Unknown MRSA Culture (Admit) - Final Nose MRSA NOT DETECTED Lab Studies 09/15/17 09/15/17 09/15/17 Range/Units 11:40 11:01 07:29 WBC (4.8-10.8) K/uL RBC (4.40-5.90) Mil/uL Hgb (12.0-18.0) g/dL Hct (35.0-51.0) % MCV (80.0-94.0) fL MCH (27.0-31.0) pg MCHC (33.0-37.0) g/dL RDW (11.5-14.5) % Plt Count (130-400) K/uL MPV (7.2-11.7) fL Neut % (Auto) (50.0-75.0) % Lymph % (Auto) (20.0-40.0) % Sabine % (Auto) (0.0-10.0) % Eos % (Auto) (0.0-4.0) % Baso % (Auto) (0.0-2.0) % Neut # (Auto) (1.8-7.0) K/uL Lymph # (Auto) (1.0-4.3) K/uL Sabine # (Auto) (0.0-0.8) K/uL Eos # (Auto) (0.0-0.7) K/uL Baso # (Auto) (0.0-0.2) K/uL Neutrophils % (Manual) (50-75) % Lymphocytes % (Manual) (20-40) % Monocytes % (Manual) (0-10) % Eosinophils % (Manual) (0-4) % Platelet Estimate (NORMAL) Puncture Site Lb pCO2 36 (35-45) mm/Hg pO2 60 L (80-100) mm/Hg HCO3 26.3 (21-28) mmol/L ABG pH 7.46 H (7.35-7.45) ABG Total CO2 26.7 (22-28) mmol/L ABG O2 Saturation 94.1 L (95-98) % ABG Base Excess 1.9 (-2.0-3.0) mmol/L ABG Hemoglobin 11.8 (11.7-17.4) g/dL ABG Carboxyhemoglobin 2.0 H (0.5-1.5) % POC ABG HHb (Measured) 5.7 H (0.0-5.0) % ABG Methemoglobin 1.1 (0.0-3.0) % Ed Test Na A-a O2 Difference 465.0 mm/Hg Respiratory Index 7.8 Hgb O2 Saturation 91.3 L (95.0-98.0) % FiO2 80.0 % Inspiratory BiPAP 14 Expiratory BiPAP 7 Sodium (132-148) mmol/L Potassium (3.6-5.2) mmol/L Chloride (98-107) mmol/L Carbon Dioxide (22-30) mmol/L Anion Gap (10-20) BUN (9-20) mg/dL Creatinine (0.8-1.5) mg/dL Est GFR ( Amer) Est GFR (Non-Af Amer) POC Glucose (mg/dL) 186 H 138 H (65-110) mg/dL Random Glucose (75-110) mg/dL Calcium (8.6-10.4) mg/dl Phosphorus (2.5-4.5) mg/dL Magnesium (1.6-2.3) mg/dL Total Bilirubin (0.2-1.3) mg/dL AST (17-59) U/L ALT (21-72) U/L Alkaline Phosphatase (38-126) U/L Total Protein (6.3-8.3) g/dL Albumin (3.5-5.0) g/dL Globulin (2.2-3.9) gm/dL Albumin/Globulin Ratio (1.0-2.1) Digoxin (0.8-2.0) ng/mL 09/15/17 09/15/17 09/15/17 Range/Units 05:53 05:53 05:53 WBC 10.9 H (4.8-10.8) K/uL RBC 4.37 L (4.40-5.90) Mil/uL Hgb 13.0 (12.0-18.0) g/dL Hct 38.1 (35.0-51.0) % MCV 87.2 (80.0-94.0) fL MCH 29.8 (27.0-31.0) pg MCHC 34.2 (33.0-37.0) g/dL RDW 15.9 H (11.5-14.5) % Plt Count 132 (130-400) K/uL MPV 9.5 (7.2-11.7) fL Neut % (Auto) 81.7 H (50.0-75.0) % Lymph % (Auto) 5.2 L (20.0-40.0) % Sabine % (Auto) 10.0 (0.0-10.0) % Eos % (Auto) 2.3 (0.0-4.0) % Baso % (Auto) 0.8 (0.0-2.0) % Neut # (Auto) 8.9 H (1.8-7.0) K/uL Lymph # (Auto) 0.6 L (1.0-4.3) K/uL Sabine # (Auto) 1.1 H (0.0-0.8) K/uL Eos # (Auto) 0.3 (0.0-0.7) K/uL Baso # (Auto) 0.1 (0.0-0.2) K/uL Neutrophils % (Manual) 81 H (50-75) % Lymphocytes % (Manual) 8 L (20-40) % Monocytes % (Manual) 9 (0-10) % Eosinophils % (Manual) 2 (0-4) % Platelet Estimate Normal (NORMAL) Puncture Site pCO2 (35-45) mm/Hg pO2 (80-100) mm/Hg HCO3 (21-28) mmol/L ABG pH (7.35-7.45) ABG Total CO2 (22-28) mmol/L ABG O2 Saturation (95-98) % ABG Base Excess (-2.0-3.0) mmol/L ABG Hemoglobin (11.7-17.4) g/dL ABG Carboxyhemoglobin (0.5-1.5) % POC ABG HHb (Measured) (0.0-5.0) % ABG Methemoglobin (0.0-3.0) % Ed Test A-a O2 Difference mm/Hg Respiratory Index Hgb O2 Saturation (95.0-98.0) % FiO2 % Inspiratory BiPAP Expiratory BiPAP Sodium 137 (132-148) mmol/L Potassium 4.1 (3.6-5.2) mmol/L Chloride 96 L (98-107) mmol/L Carbon Dioxide 28 (22-30) mmol/L Anion Gap 16 (10-20) BUN 19 (9-20) mg/dL Creatinine 1.0 (0.8-1.5) mg/dL Est GFR ( Amer) > 60 Est GFR (Non-Af Amer) > 60 POC Glucose (mg/dL) (65-110) mg/dL Random Glucose 139 H (75-110) mg/dL Calcium 8.8 (8.6-10.4) mg/dl Phosphorus 3.3 (2.5-4.5) mg/dL Magnesium 1.7 (1.6-2.3) mg/dL Total Bilirubin 1.2 (0.2-1.3) mg/dL AST 29 (17-59) U/L ALT 33 (21-72) U/L Alkaline Phosphatase 97 (38-126) U/L Total Protein 6.3 (6.3-8.3) g/dL Albumin 3.3 L (3.5-5.0) g/dL Globulin 3.1 (2.2-3.9) gm/dL Albumin/Globulin Ratio 1.1 (1.0-2.1) Digoxin 1.6 (0.8-2.0) ng/mL 09/14/17 09/14/17 Range/Units 21:11 16:03 WBC (4.8-10.8) K/uL RBC (4.40-5.90) Mil/uL Hgb (12.0-18.0) g/dL Hct (35.0-51.0) % MCV (80.0-94.0) fL MCH (27.0-31.0) pg MCHC (33.0-37.0) g/dL RDW (11.5-14.5) % Plt Count (130-400) K/uL MPV (7.2-11.7) fL Neut % (Auto) (50.0-75.0) % Lymph % (Auto) (20.0-40.0) % Sabine % (Auto) (0.0-10.0) % Eos % (Auto) (0.0-4.0) % Baso % (Auto) (0.0-2.0) % Neut # (Auto) (1.8-7.0) K/uL Lymph # (Auto) (1.0-4.3) K/uL Sabine # (Auto) (0.0-0.8) K/uL Eos # (Auto) (0.0-0.7) K/uL Baso # (Auto) (0.0-0.2) K/uL Neutrophils % (Manual) (50-75) % Lymphocytes % (Manual) (20-40) % Monocytes % (Manual) (0-10) % Eosinophils % (Manual) (0-4) % Platelet Estimate (NORMAL) Puncture Site pCO2 (35-45) mm/Hg pO2 (80-100) mm/Hg HCO3 (21-28) mmol/L ABG pH (7.35-7.45) ABG Total CO2 (22-28) mmol/L ABG O2 Saturation (95-98) % ABG Base Excess (-2.0-3.0) mmol/L ABG Hemoglobin (11.7-17.4) g/dL ABG Carboxyhemoglobin (0.5-1.5) % POC ABG HHb (Measured) (0.0-5.0) % ABG Methemoglobin (0.0-3.0) % Ed Test A-a O2 Difference mm/Hg Respiratory Index Hgb O2 Saturation (95.0-98.0) % FiO2 % Inspiratory BiPAP Expiratory BiPAP Sodium (132-148) mmol/L Potassium (3.6-5.2) mmol/L Chloride (98-107) mmol/L Carbon Dioxide (22-30) mmol/L Anion Gap (10-20) BUN (9-20) mg/dL Creatinine (0.8-1.5) mg/dL Est GFR ( Amer) Est GFR (Non-Af Amer) POC Glucose (mg/dL) 141 H 149 H (65-110) mg/dL Random Glucose (75-110) mg/dL Calcium (8.6-10.4) mg/dl Phosphorus (2.5-4.5) mg/dL Magnesium (1.6-2.3) mg/dL Total Bilirubin (0.2-1.3) mg/dL AST (17-59) U/L ALT (21-72) U/L Alkaline Phosphatase (38-126) U/L Total Protein (6.3-8.3) g/dL Albumin (3.5-5.0) g/dL Globulin (2.2-3.9) gm/dL Albumin/Globulin Ratio (1.0-2.1) Digoxin (0.8-2.0) ng/mL Laboratory Results - last 24 hr 04/09/14/17 09/15/17 16:03 21:11 05:53 WBC 10.9 H RBC 4.37 L Hgb 13.0 Hct 38.1 MCV 87.2 MCH 29.8 MCHC 34.2 RDW 15.9 H Plt Count 132 MPV 9.5 Neut % (Auto) 81.7 H Lymph % (Auto) 5.2 L Sabine % (Auto) 10.0 Eos % (Auto) 2.3 Baso % (Auto) 0.8 Neut # (Auto) 8.9 H Lymph # (Auto) 0.6 L Sabine # (Auto) 1.1 H Eos # (Auto) 0.3 Baso # (Auto) 0.1 Neutrophils % (Manual) 81 H Lymphocytes % (Manual) 8 L Monocytes % (Manual) 9 Eosinophils % (Manual) 2 Platelet Estimate Normal Puncture Site pCO2 pO2 HCO3 ABG pH ABG Total CO2 ABG O2 Saturation ABG Base Excess ABG Hemoglobin ABG Carboxyhemoglobin POC ABG HHb (Measured) ABG Methemoglobin Ed Test A-a O2 Difference Respiratory Index Hgb O2 Saturation FiO2 Inspiratory BiPAP Expiratory BiPAP Sodium Potassium Chloride Carbon Dioxide Anion Gap BUN Creatinine Est GFR ( Amer) Est GFR (Non-Af Amer) POC Glucose (mg/dL) 149 H 141 H Random Glucose Calcium Phosphorus Magnesium Total Bilirubin AST ALT Alkaline Phosphatase Total Protein Albumin Globulin Albumin/Globulin Ratio Digoxin 09/15/17 09/15/17 09/15/17 05:53 05:53 07:29 WBC RBC Hgb Hct MCV MCH MCHC RDW Plt Count MPV Neut % (Auto) Lymph % (Auto) Sabine % (Auto) Eos % (Auto) Baso % (Auto) Neut # (Auto) Lymph # (Auto) Sabine # (Auto) Eos # (Auto) Baso # (Auto) Neutrophils % (Manual) Lymphocytes % (Manual) Monocytes % (Manual) Eosinophils % (Manual) Platelet Estimate Puncture Site pCO2 pO2 HCO3 ABG pH ABG Total CO2 ABG O2 Saturation ABG Base Excess ABG Hemoglobin ABG Carboxyhemoglobin POC ABG HHb (Measured) ABG Methemoglobin Ed Test A-a O2 Difference Respiratory Index Hgb O2 Saturation FiO2 Inspiratory BiPAP Expiratory BiPAP Sodium 137 Potassium 4.1 Chloride 96 L Carbon Dioxide 28 Anion Gap 16 BUN 19 Creatinine 1.0 Est GFR ( Amer) > 60 Est GFR (Non-Af Amer) > 60 POC Glucose (mg/dL) 138 H Random Glucose 139 H Calcium 8.8 Phosphorus 3.3 Magnesium 1.7 Total Bilirubin 1.2 AST 29 ALT 33 Alkaline Phosphatase 97 Total Protein 6.3 Albumin 3.3 L Globulin 3.1 Albumin/Globulin Ratio 1.1 Digoxin 1.6 09/15/17 09/15/17 11:01 11:40 WBC RBC Hgb Hct MCV MCH MCHC RDW Plt Count MPV Neut % (Auto) Lymph % (Auto) Sabine % (Auto) Eos % (Auto) Baso % (Auto) Neut # (Auto) Lymph # (Auto) Sabine # (Auto) Eos # (Auto) Baso # (Auto) Neutrophils % (Manual) Lymphocytes % (Manual) Monocytes % (Manual) Eosinophils % (Manual) Platelet Estimate Puncture Site Lb pCO2 36 pO2 60 L HCO3 26.3 ABG pH 7.46 H ABG Total CO2 26.7 ABG O2 Saturation 94.1 L ABG Base Excess 1.9 ABG Hemoglobin 11.8 ABG Carboxyhemoglobin 2.0 H POC ABG HHb (Measured) 5.7 H ABG Methemoglobin 1.1 Ed Test Na A-a O2 Difference 465.0 Respiratory Index 7.8 Hgb O2 Saturation 91.3 L FiO2 80.0 Inspiratory BiPAP 14 Expiratory BiPAP 7 Sodium Potassium Chloride Carbon Dioxide Anion Gap BUN Creatinine Est GFR ( Amer) Est GFR (Non-Af Amer) POC Glucose (mg/dL) 186 H Random Glucose Calcium Phosphorus Magnesium Total Bilirubin AST ALT Alkaline Phosphatase Total Protein Albumin Globulin Albumin/Globulin Ratio Digoxin Fingerstick Blood Sugar Results: 186 Critical Care Progress Note - Nutrition Nutrition: Nutrition Category Date Time Status Heart Healthy Diet [DIET] Diets 09/14/17 Dinner Active Assessment/Plan - Assessment and Plan (Free Text) Assessment: This is a 72 year old male with PMHx HTN, A-fib, DM, HLD who presented to the hospital for shortness of breath. Echocardiogram showed acute on chronic right sided CHF He was diagnosed with acute on chronic right sided CHF. Patient was sent to the ICU because of rapid response on 09/14/17 where he desaturated off of BiPAP. He is being medically managed at this time with diuresis. Neuro Awake, verbal Cardio Assessments: Acute on Chronic right sided CHF, Hypertension, Atrial Fibrillation Norvasc 5 mg PO daily Digoxin 0.125 mg PO daily Lasix 20 mg IV Q12H Losartan 100 mg PO daily Toprol XL 100 mg PO daily Aldactone 50 mg PO daily Crestor 5 mg PO HS Pulm Assessments: Pulmonary Hypertension Saturating well on BiPAP GI Heart Healthy Diet Endocrine Assessments: DM 2, Hypothyroidism Accuchecks ACHS Regular ISS Januvia 100 mg PO daily Synthroid 100 mcg PO daily Urology Assessment: Blood clots in the bladder Hematuria urology on consult s/p cystoscopy and removal of clots Prophylaxis VTE contraindicated due to bleed GI ppx contraindicated Discussed with Dr. Houston <Alberto Houston - Last Filed: 09/15/17 16:59> CCU Objective - Vital Signs / Intake & Output Vital Signs (Last 4 hours): Vital Signs Pulse Resp BP Pulse Ox 09/15/17 16:00 70 28 H 95 09/15/17 15:56 63 25 H 116/90 93 L 09/15/17 15:45 63 09/15/17 15:00 60 13 91 L 09/15/17 14:56 61 17 121/88 91 L 09/15/17 14:09 75 09/15/17 14:00 79 29 H 92 L 09/15/17 13:56 67 29 H 129/90 92 L 09/15/17 13:14 75 32 H 125/89 93 L 09/15/17 13:00 78 33 H 92 L Intake and Output (Last 8hrs): Intake & Output 09/15/17 09/15/17 09/15/17 06:59 14:59 22:59 Intake Total 150 540 Output Total 310 215 Balance -160 325 Weight 162 lb 12.8 oz Intake: Oral 150 540 Output: Urine 310 215 Urethral (Cao) 310 215 - Medications Active Medications: Active Medications Generic Name Dose Route Start Last Admin Trade Name Freq PRN Reason Stop Dose Admin Amlodipine Besylate 5 mg 09/09/17 10:00 09/15/17 09:15 Norvasc PO 5 mg DAILY OMAR Administration Dextrose 0 ml 09/08/17 15:54 Dextrose 50% Inj IV STAT PRN Hypoglycemia Protocol Protocol Dextrose 0 gm 09/08/17 15:54 Glutose 15 PO ONCE PRN Hypoglycemia Protocol Protocol Digoxin 0.125 mg 09/08/17 18:00 09/14/17 17:24 Digoxin PO 0.125 mg DAILY@1800 OMAR Administration Furosemide 20 mg 09/14/17 12:00 09/15/17 09:15 Lasix IVP 20 mg Q12 OMAR Administration Glucagon 0 mg 09/08/17 15:54 Glucagen Diagnostic Kit IM STAT PRN Hypoglycemia Protocol Protocol Dextrose 1,000 mls @ 0 mls/hr 09/08/17 15:54 Dextrose 5% In Water 1000 Ml IV .Q0M PRN Hypoglycemia Protocol Protocol Per Protocol Insulin Human Regular 0 unit 09/08/17 16:30 09/15/17 16:24 Novolin R SC 2 unit ACHS OMAR Administration Protocol Levothyroxine Sodium 100 mcg 09/09/17 06:30 09/15/17 05:46 Synthroid PO 100 mcg 0630 OMAR Administration Losartan Potassium 100 mg 09/09/17 10:00 09/15/17 09:14 Cozaar PO 100 mg DAILY OMAR Administration Metoprolol Succinate 100 mg 09/09/17 10:00 09/15/17 09:15 Toprol Xl PO 100 mg DAILY OMAR Administration Oxycodone/Acetaminophen 1 tab 09/13/17 07:12 Percocet 5/325 Mg Tab PO 09/16/17 07:13 Q6H PRN Pain, moderate (4-7) Rosuvastatin Calcium 5 mg 09/09/17 22:00 09/14/17 21:34 Crestor PO 5 mg HS OMAR Administration Sitagliptin Phosphate 100 mg 09/09/17 10:00 09/15/17 09:15 Januvia PO 100 mg DAILY OMAR Administration Spironolactone 50 mg 09/13/17 10:00 09/15/17 09:15 Aldactone PO 50 mg DAILY OMAR Administration - Patient Studies Lab Studies: Microbiology Studies 09/14/17 Unknown MRSA Culture (Admit) - Final Nose MRSA NOT DETECTED Lab Studies 09/15/17 09/15/17 09/15/17 Range/Units 16:09 11:40 11:01 WBC (4.8-10.8) K/uL RBC (4.40-5.90) Mil/uL Hgb (12.0-18.0) g/dL Hct (35.0-51.0) % MCV (80.0-94.0) fL MCH (27.0-31.0) pg MCHC (33.0-37.0) g/dL RDW (11.5-14.5) % Plt Count (130-400) K/uL MPV (7.2-11.7) fL Neut % (Auto) (50.0-75.0) % Lymph % (Auto) (20.0-40.0) % Sabine % (Auto) (0.0-10.0) % Eos % (Auto) (0.0-4.0) % Baso % (Auto) (0.0-2.0) % Neut # (Auto) (1.8-7.0) K/uL Lymph # (Auto) (1.0-4.3) K/uL Sabine # (Auto) (0.0-0.8) K/uL Eos # (Auto) (0.0-0.7) K/uL Baso # (Auto) (0.0-0.2) K/uL Neutrophils % (Manual) (50-75) % Lymphocytes % (Manual) (20-40) % Monocytes % (Manual) (0-10) % Eosinophils % (Manual) (0-4) % Platelet Estimate (NORMAL) Puncture Site Lb pCO2 36 (35-45) mm/Hg pO2 60 L (80-100) mm/Hg HCO3 26.3 (21-28) mmol/L ABG pH 7.46 H (7.35-7.45) ABG Total CO2 26.7 (22-28) mmol/L ABG O2 Saturation 94.1 L (95-98) % ABG Base Excess 1.9 (-2.0-3.0) mmol/L ABG Hemoglobin 11.8 (11.7-17.4) g/dL ABG Carboxyhemoglobin 2.0 H (0.5-1.5) % POC ABG HHb (Measured) 5.7 H (0.0-5.0) % ABG Methemoglobin 1.1 (0.0-3.0) % Ed Test Na A-a O2 Difference 465.0 mm/Hg Respiratory Index 7.8 Hgb O2 Saturation 91.3 L (95.0-98.0) % FiO2 80.0 % Inspiratory BiPAP 14 Expiratory BiPAP 7 Sodium (132-148) mmol/L Potassium (3.6-5.2) mmol/L Chloride (98-107) mmol/L Carbon Dioxide (22-30) mmol/L Anion Gap (10-20) BUN (9-20) mg/dL Creatinine (0.8-1.5) mg/dL Est GFR ( Amer) Est GFR (Non-Af Amer) POC Glucose (mg/dL) 174 H 186 H (65-110) mg/dL Random Glucose (75-110) mg/dL Calcium (8.6-10.4) mg/dl Phosphorus (2.5-4.5) mg/dL Magnesium (1.6-2.3) mg/dL Total Bilirubin (0.2-1.3) mg/dL AST (17-59) U/L ALT (21-72) U/L Alkaline Phosphatase (38-126) U/L Total Protein (6.3-8.3) g/dL Albumin (3.5-5.0) g/dL Globulin (2.2-3.9) gm/dL Albumin/Globulin Ratio (1.0-2.1) Digoxin (0.8-2.0) ng/mL 09/15/17 09/15/17 09/15/17 Range/Units 07:29 05:53 05:53 WBC (4.8-10.8) K/uL RBC (4.40-5.90) Mil/uL Hgb (12.0-18.0) g/dL Hct (35.0-51.0) % MCV (80.0-94.0) fL MCH (27.0-31.0) pg MCHC (33.0-37.0) g/dL RDW (11.5-14.5) % Plt Count (130-400) K/uL MPV (7.2-11.7) fL Neut % (Auto) (50.0-75.0) % Lymph % (Auto) (20.0-40.0) % Sabine % (Auto) (0.0-10.0) % Eos % (Auto) (0.0-4.0) % Baso % (Auto) (0.0-2.0) % Neut # (Auto) (1.8-7.0) K/uL Lymph # (Auto) (1.0-4.3) K/uL Sabine # (Auto) (0.0-0.8) K/uL Eos # (Auto) (0.0-0.7) K/uL Baso # (Auto) (0.0-0.2) K/uL Neutrophils % (Manual) (50-75) % Lymphocytes % (Manual) (20-40) % Monocytes % (Manual) (0-10) % Eosinophils % (Manual) (0-4) % Platelet Estimate (NORMAL) Puncture Site pCO2 (35-45) mm/Hg pO2 (80-100) mm/Hg HCO3 (21-28) mmol/L ABG pH (7.35-7.45) ABG Total CO2 (22-28) mmol/L ABG O2 Saturation (95-98) % ABG Base Excess (-2.0-3.0) mmol/L ABG Hemoglobin (11.7-17.4) g/dL ABG Carboxyhemoglobin (0.5-1.5) % POC ABG HHb (Measured) (0.0-5.0) % ABG Methemoglobin (0.0-3.0) % Ed Test A-a O2 Difference mm/Hg Respiratory Index Hgb O2 Saturation (95.0-98.0) % FiO2 % Inspiratory BiPAP Expiratory BiPAP Sodium 137 (132-148) mmol/L Potassium 4.1 (3.6-5.2) mmol/L Chloride 96 L (98-107) mmol/L Carbon Dioxide 28 (22-30) mmol/L Anion Gap 16 (10-20) BUN 19 (9-20) mg/dL Creatinine 1.0 (0.8-1.5) mg/dL Est GFR ( Amer) > 60 Est GFR (Non-Af Amer) > 60 POC Glucose (mg/dL) 138 H (65-110) mg/dL Random Glucose 139 H (75-110) mg/dL Calcium 8.8 (8.6-10.4) mg/dl Phosphorus 3.3 (2.5-4.5) mg/dL Magnesium 1.7 (1.6-2.3) mg/dL Total Bilirubin 1.2 (0.2-1.3) mg/dL AST 29 (17-59) U/L ALT 33 (21-72) U/L Alkaline Phosphatase 97 (38-126) U/L Total Protein 6.3 (6.3-8.3) g/dL Albumin 3.3 L (3.5-5.0) g/dL Globulin 3.1 (2.2-3.9) gm/dL Albumin/Globulin Ratio 1.1 (1.0-2.1) Digoxin 1.6 (0.8-2.0) ng/mL 09/15/17 09/14/17 Range/Units 05:53 21:11 WBC 10.9 H (4.8-10.8) K/uL RBC 4.37 L (4.40-5.90) Mil/uL Hgb 13.0 (12.0-18.0) g/dL Hct 38.1 (35.0-51.0) % MCV 87.2 (80.0-94.0) fL MCH 29.8 (27.0-31.0) pg MCHC 34.2 (33.0-37.0) g/dL RDW 15.9 H (11.5-14.5) % Plt Count 132 (130-400) K/uL MPV 9.5 (7.2-11.7) fL Neut % (Auto) 81.7 H (50.0-75.0) % Lymph % (Auto) 5.2 L (20.0-40.0) % Sabine % (Auto) 10.0 (0.0-10.0) % Eos % (Auto) 2.3 (0.0-4.0) % Baso % (Auto) 0.8 (0.0-2.0) % Neut # (Auto) 8.9 H (1.8-7.0) K/uL Lymph # (Auto) 0.6 L (1.0-4.3) K/uL Sabine # (Auto) 1.1 H (0.0-0.8) K/uL Eos # (Auto) 0.3 (0.0-0.7) K/uL Baso # (Auto) 0.1 (0.0-0.2) K/uL Neutrophils % (Manual) 81 H (50-75) % Lymphocytes % (Manual) 8 L (20-40) % Monocytes % (Manual) 9 (0-10) % Eosinophils % (Manual) 2 (0-4) % Platelet Estimate Normal (NORMAL) Puncture Site pCO2 (35-45) mm/Hg pO2 (80-100) mm/Hg HCO3 (21-28) mmol/L ABG pH (7.35-7.45) ABG Total CO2 (22-28) mmol/L ABG O2 Saturation (95-98) % ABG Base Excess (-2.0-3.0) mmol/L ABG Hemoglobin (11.7-17.4) g/dL ABG Carboxyhemoglobin (0.5-1.5) % POC ABG HHb (Measured) (0.0-5.0) % ABG Methemoglobin (0.0-3.0) % Ed Test A-a O2 Difference mm/Hg Respiratory Index Hgb O2 Saturation (95.0-98.0) % FiO2 % Inspiratory BiPAP Expiratory BiPAP Sodium (132-148) mmol/L Potassium (3.6-5.2) mmol/L Chloride (98-107) mmol/L Carbon Dioxide (22-30) mmol/L Anion Gap (10-20) BUN (9-20) mg/dL Creatinine (0.8-1.5) mg/dL Est GFR ( Amer) Est GFR (Non-Af Amer) POC Glucose (mg/dL) 141 H (65-110) mg/dL Random Glucose (75-110) mg/dL Calcium (8.6-10.4) mg/dl Phosphorus (2.5-4.5) mg/dL Magnesium (1.6-2.3) mg/dL Total Bilirubin (0.2-1.3) mg/dL AST (17-59) U/L ALT (21-72) U/L Alkaline Phosphatase (38-126) U/L Total Protein (6.3-8.3) g/dL Albumin (3.5-5.0) g/dL Globulin (2.2-3.9) gm/dL Albumin/Globulin Ratio (1.0-2.1) Digoxin (0.8-2.0) ng/mL Laboratory Results - last 24 hr 09/14/17 09/15/17 09/15/17 21:11 05:53 05:53 WBC 10.9 H RBC 4.37 L Hgb 13.0 Hct 38.1 MCV 87.2 MCH 29.8 MCHC 34.2 RDW 15.9 H Plt Count 132 MPV 9.5 Neut % (Auto) 81.7 H Lymph % (Auto) 5.2 L Sabine % (Auto) 10.0 Eos % (Auto) 2.3 Baso % (Auto) 0.8 Neut # (Auto) 8.9 H Lymph # (Auto) 0.6 L Sabine # (Auto) 1.1 H Eos # (Auto) 0.3 Baso # (Auto) 0.1 Neutrophils % (Manual) 81 H Lymphocytes % (Manual) 8 L Monocytes % (Manual) 9 Eosinophils % (Manual) 2 Platelet Estimate Normal Puncture Site pCO2 pO2 HCO3 ABG pH ABG Total CO2 ABG O2 Saturation ABG Base Excess ABG Hemoglobin ABG Carboxyhemoglobin POC ABG HHb (Measured) ABG Methemoglobin Ed Test A-a O2 Difference Respiratory Index Hgb O2 Saturation FiO2 Inspiratory BiPAP Expiratory BiPAP Sodium 137 Potassium 4.1 Chloride 96 L Carbon Dioxide 28 Anion Gap 16 BUN 19 Creatinine 1.0 Est GFR ( Amer) > 60 Est GFR (Non-Af Amer) > 60 POC Glucose (mg/dL) 141 H Random Glucose 139 H Calcium 8.8 Phosphorus 3.3 Magnesium 1.7 Total Bilirubin 1.2 AST 29 ALT 33 Alkaline Phosphatase 97 Total Protein 6.3 Albumin 3.3 L Globulin 3.1 Albumin/Globulin Ratio 1.1 Digoxin 09/15/17 09/15/17 09/15/17 05:53 07:29 11:01 WBC RBC Hgb Hct MCV MCH MCHC RDW Plt Count MPV Neut % (Auto) Lymph % (Auto) Sabine % (Auto) Eos % (Auto) Baso % (Auto) Neut # (Auto) Lymph # (Auto) Sabine # (Auto) Eos # (Auto) Baso # (Auto) Neutrophils % (Manual) Lymphocytes % (Manual) Monocytes % (Manual) Eosinophils % (Manual) Platelet Estimate Puncture Site pCO2 pO2 HCO3 ABG pH ABG Total CO2 ABG O2 Saturation ABG Base Excess ABG Hemoglobin ABG Carboxyhemoglobin POC ABG HHb (Measured) ABG Methemoglobin Ed Test A-a O2 Difference Respiratory Index Hgb O2 Saturation FiO2 Inspiratory BiPAP Expiratory BiPAP Sodium Potassium Chloride Carbon Dioxide Anion Gap BUN Creatinine Est GFR ( Amer) Est GFR (Non-Af Amer) POC Glucose (mg/dL) 138 H 186 H Random Glucose Calcium Phosphorus Magnesium Total Bilirubin AST ALT Alkaline Phosphatase Total Protein Albumin Globulin Albumin/Globulin Ratio Digoxin 1.6 09/15/17 09/15/17 11:40 16:09 WBC RBC Hgb Hct MCV MCH MCHC RDW Plt Count MPV Neut % (Auto) Lymph % (Auto) [place]ine % (Auto) Eos % (Auto) Baso % (Auto) Neut # (Auto) Lymph # (Auto) Sabine # (Auto) Eos # (Auto) Baso # (Auto) Neutrophils % (Manual) Lymphocytes % (Manual) Monocytes % (Manual) Eosinophils % (Manual) Platelet Estimate Puncture Site Lb pCO2 36 pO2 60 L HCO3 26.3 ABG pH 7.46 H ABG Total CO2 26.7 ABG O2 Saturation 94.1 L ABG Base Excess 1.9 ABG Hemoglobin 11.8 ABG Carboxyhemoglobin 2.0 H POC ABG HHb (Measured) 5.7 H ABG Methemoglobin 1.1 Ed Test Na A-a O2 Difference 465.0 Respiratory Index 7.8 Hgb O2 Saturation 91.3 L FiO2 80.0 Inspiratory BiPAP 14 Expiratory BiPAP 7 Sodium Potassium Chloride Carbon Dioxide Anion Gap BUN Creatinine Est GFR ( Amer) Est GFR (Non-Af Amer) POC Glucose (mg/dL) 174 H Random Glucose Calcium Phosphorus Magnesium Total Bilirubin AST ALT Alkaline Phosphatase Total Protein Albumin Globulin Albumin/Globulin Ratio Digoxin Critical Care Progress Note - Nutrition Nutrition: Nutrition Category Date Time Status Heart Healthy Diet [DIET] Diets 09/14/17 Dinner Active Attending/Attestation - Attestation I have personally seen and examined this patient.: Yes I have fully participated in the care of the patient.: Yes I have reviewed all pertinent clinical information: Yes Notes (Text): 09/15/17 16:58 I have seen and examined the patient. Medical records, lab studies, and imaging were reviewed by me and a management plan was formulated on multidisciplinary rounds with resident Dr. Taylor. I agree with their documented assessment and plan. Patient has severe pulmonary HTN with acute hypoxic respiratory failure requiring persistent BIPAP. Patient stable but not improving. Critical Care Time 35 minutes. Multi-disciplinary rounds were performed with house staff, nursing, speech therapy, respiratory therapy, pharmacy and nutrition with integrated input from the primary team/attending and other consulting services. The documented time is cumulative and includes review of patient data/exams/labs/chart review and examination of the patient on rounds and throughout the day; time is exclusive of any procedures or teaching time.
--- NOTE | 2017-09-15 17:08 | CP.PCM.PN ---
Subjective - Date & Time of Evaluation Date of Evaluation: 09/15/17 Time of Evaluation: 10:40 - Subjective Subjective: Patient seen and examined at bedside . Patient on BiPAP in no acute distress. The patient states that he is feeling better and that his breathing has improved. No remarkable findings on physical exam. Assessment and Plan: 1. Dyspnea on Exertion, idiopathic pulmonary hypertension vs. secondary pulmonary hypertension - CTA 09/12: No evidence of PE, extensive patchy ground-glass opacities in b/l upper lobes possibly infectious. - Dr. Bay, cardiology on-board - Echo 09/08: right atrial and right ventricular dilation, pulmonary hypertension with RVSP>60 mmHg, LVEF 55%, - amlodipine - digoxin - diuresis - Continue on BiPAP FiO2 80% IP / 2. Bilateral pleural effusions, resolving - CXR 09/15: Stable moderate pulmonary vascular congestion, trace right pleural effusion - CTA 09/12: small to moderate pleural effusions - IV antibiotics completed Objective - Vital Signs/Intake and Output Vital Signs (last 24 hours): Temp Pulse Resp BP Pulse Ox 98.1 F 70 28 H 116/90 95 09/15/17 12:00 09/15/17 16:00 09/15/17 16:00 09/15/17 15:56 09/15/17 16:00 Intake and Output: 09/15/17 09/15/17 06:59 18:59 Intake Total 200 540 Output Total 445 215 Balance -245 325 - Medications Medications: Current Medications Amlodipine Besylate (Norvasc) 5 mg PO DAILY [facility] Last Admin: 09/15/17 09:15 Dose: 5 mg Dextrose (Dextrose 50% Inj) 0 ml IV STAT PRN; Protocol PRN Reason: Hypoglycemia Protocol Dextrose (Glutose 15) 0 gm PO ONCE PRN; Protocol PRN Reason: Hypoglycemia Protocol Digoxin (Digoxin) 0.125 mg PO DAILY@1800 [facility] Last Admin: 09/14/17 17:24 Dose: 0.125 mg Furosemide (Lasix) 20 mg IVP Q12 [facility] Last Admin: 09/15/17 09:15 Dose: 20 mg Glucagon (Glucagen Diagnostic Kit) 0 mg IM STAT PRN; Protocol PRN Reason: Hypoglycemia Protocol Dextrose (Dextrose 5% In Water 1000 Ml) 1,000 mls @ 0 mls/hr IV .Q0M PRN; Protocol; Per Protocol PRN Reason: Hypoglycemia Protocol Insulin Human Regular (Novolin R) 0 unit SC ACHS [facility] PRN Reason: Protocol Last Admin: 09/15/17 16:24 Dose: 2 unit Levothyroxine Sodium (Synthroid) 100 mcg PO 0630 [facility] Last Admin: 09/15/17 05:46 Dose: 100 mcg Losartan Potassium (Cozaar) 100 mg PO DAILY [facility] Last Admin: 09/15/17 09:14 Dose: 100 mg Metoprolol Succinate (Toprol Xl) 100 mg PO DAILY [facility] Last Admin: 09/15/17 09:15 Dose: 100 mg Oxycodone/Acetaminophen (Percocet 5/325 Mg Tab) 1 tab PO Q6H PRN PRN Reason: Pain, moderate (4-7) Stop: 09/16/17 07:13 Rosuvastatin Calcium (Crestor) 5 mg PO HS [facility] Last Admin: 09/14/17 21:34 Dose: 5 mg Sitagliptin Phosphate (Januvia) 100 mg PO DAILY [facility] Last Admin: 09/15/17 09:15 Dose: 100 mg Spironolactone (Aldactone) 50 mg PO DAILY [facility] Last Admin: 09/15/17 09:15 Dose: 50 mg - Labs Labs: 09/15/17 05:53 09/15/17 05:53 PT 13.8 SECONDS (9.7-12.2) H 09/08/17 14:03 INR 1.2 09/08/17 14:03 APTT 30 SECONDS (21-34) 09/08/17 14:03
[2017-09-15] MEDS: Digoxin 125 mcg (0.125 mg) Tab PO SCH (18:00)
--- NOTE | 2017-09-15 18:32 | CP.PCM.PN ---
Subjective - Date & Time of Evaluation Date of Evaluation: 09/15/17 Time of Evaluation: 18:30 - Subjective Subjective: on bipap able to voice while on bipap reports feeling better Objective - Vital Signs/Intake and Output Vital Signs (last 24 hours): Temp Pulse Resp BP Pulse Ox 98.1 F 74 31 H 138/85 92 L 09/15/17 16:00 09/15/17 18:00 09/15/17 18:00 09/15/17 17:56 09/15/17 18:00 Intake and Output: 09/15/17 09/15/17 06:59 18:59 Intake Total 200 720 Output Total 445 335 Balance -245 385 - Medications Medications: Current Medications Amlodipine Besylate (Norvasc) 5 mg PO DAILY [facility] Last Admin: 09/15/17 09:15 Dose: 5 mg Dextrose (Dextrose 50% Inj) 0 ml IV STAT PRN; Protocol PRN Reason: Hypoglycemia Protocol Dextrose (Glutose 15) 0 gm PO ONCE PRN; Protocol PRN Reason: Hypoglycemia Protocol Digoxin (Digoxin) 0.125 mg PO DAILY@1800 [facility] Last Admin: 09/15/17 18:00 Dose: 0.125 mg Furosemide (Lasix) 20 mg IVP Q12 [facility] Last Admin: 09/15/17 09:15 Dose: 20 mg Glucagon (Glucagen Diagnostic Kit) 0 mg IM STAT PRN; Protocol PRN Reason: Hypoglycemia Protocol Dextrose (Dextrose 5% In Water 1000 Ml) 1,000 mls @ 0 mls/hr IV .Q0M PRN; Protocol; Per Protocol PRN Reason: Hypoglycemia Protocol Insulin Human Regular (Novolin R) 0 unit SC ACHS [facility] PRN Reason: Protocol Last Admin: 09/15/17 16:24 Dose: 2 unit Levothyroxine Sodium (Synthroid) 100 mcg PO 0630 [facility] Last Admin: 09/15/17 05:46 Dose: 100 mcg Losartan Potassium (Cozaar) 100 mg PO DAILY [facility] Last Admin: 09/15/17 09:14 Dose: 100 mg Metoprolol Succinate (Toprol Xl) 100 mg PO DAILY [facility] Last Admin: 09/15/17 09:15 Dose: 100 mg Oxycodone/Acetaminophen (Percocet 5/325 Mg Tab) 1 tab PO Q6H PRN PRN Reason: Pain, moderate (4-7) Stop: 09/16/17 07:13 Rosuvastatin Calcium (Crestor) 5 mg PO HS [facility] Last Admin: 09/14/17 21:34 Dose: 5 mg Sitagliptin Phosphate (Januvia) 100 mg PO DAILY [facility] Last Admin: 09/15/17 09:15 Dose: 100 mg Spironolactone (Aldactone) 50 mg PO DAILY [facility] Last Admin: 09/15/17 09:15 Dose: 50 mg - Labs Labs: 09/15/17 05:53 09/15/17 05:53 PT 13.8 SECONDS (9.7-12.2) H 09/08/17 14:03 INR 1.2 09/08/17 14:03 APTT 30 SECONDS (21-34) 09/08/17 14:03 - Constitutional Appears: No Acute Distress, Confused - Head Exam Head Exam: ATRAUMATIC - ENT Exam ENT Exam: Mucous Membranes Dry Additional comments: bipap - Respiratory Exam Respiratory Exam: Decreased Breath Sounds. absent: Clear to Ausculation Bilateral, NORMAL BREATHING PATTERN - Cardiovascular Exam Cardiovascular Exam: REGULAR RHYTHM, +S1, +S2 - GI/Abdominal Exam GI & Abdominal Exam: Soft, Normal Bowel Sounds. absent: Tenderness, Organomegaly - Extremities Exam Extremities Exam: Pedal Edema - Neurological Exam Neurological Exam: Alert, Awake. absent: Oriented x3 Assessment and Plan - Assessment and Plan (Free Text) Assessment: chf acute on chronic respiratory failure due to acute chf requiring bipap assitance
--- NOTE | 2017-09-15 22:07 | CP.PCM.PN ---
Subjective - Date & Time of Evaluation Date of Evaluation: 09/15/17 Time of Evaluation: 15:05 - Subjective Subjective: Patient seen and examined. Patient reports no acute complaints at this time. He is not short of breath nor does he have any chest pain at this time. Physical Examination - Physical Exam Head: Positive for: Atraumatic, Normocephalic Pupils: Positive for: PERRL Extroacular Muscles: Positive for: EOMI Conjunctiva: Positive for: Normal Mouth: Positive for: Moist Mucous Membranes Respiratory/Chest: Positive for: Other (Coarse breath sounds). Negative for: Wheezes, Rales, Rhonchi Cardiovascular: Positive for: Normal S1, S2, Irregular Rhythm Abdomen: Positive for: Distention, Normal Bowel Sounds. Negative for: Tenderness Upper Extremity: Positive for: Normal Inspection Lower Extremity: Positive for: Edema Neurological: Positive for: GCS=15 Skin: Positive for: Warm, Dry Psychiatric: Positive for: Alert, Oriented x 3 Objective - Vital Signs/Intake and Output Vital Signs (last 24 hours): Temp Pulse Resp BP Pulse Ox 98.1 F 77 33 H 141/101 H 97 09/15/17 16:00 09/15/17 19:00 09/15/17 20:43 09/15/17 21:44 09/15/17 19:00 Intake and Output: 09/15/17 09/16/17 18:59 06:59 Intake Total 720 Output Total 335 25 Balance 385 -25 - Medications Medications: Current Medications Amlodipine Besylate (Norvasc) 5 mg PO DAILY [facility] Last Admin: 09/15/17 09:15 Dose: 5 mg Dextrose (Dextrose 50% Inj) 0 ml IV STAT PRN; Protocol PRN Reason: Hypoglycemia Protocol Dextrose (Glutose 15) 0 gm PO ONCE PRN; Protocol PRN Reason: Hypoglycemia Protocol Digoxin (Digoxin) 0.125 mg PO DAILY@1800 [facility] Last Admin: 09/15/17 18:00 Dose: 0.125 mg Furosemide (Lasix) 20 mg IVP Q12 [facility] Last Admin: 09/15/17 21:44 Dose: 20 mg Glucagon (Glucagen Diagnostic Kit) 0 mg IM STAT PRN; Protocol PRN Reason: Hypoglycemia Protocol Dextrose (Dextrose 5% In Water 1000 Ml) 1,000 mls @ 0 mls/hr IV .Q0M PRN; Protocol; Per Protocol PRN Reason: Hypoglycemia Protocol Insulin Human Regular (Novolin R) 0 unit SC ACHS [facility] PRN Reason: Protocol Last Admin: 09/15/17 21:46 Dose: Not Given Levothyroxine Sodium (Synthroid) 100 mcg PO 0630 [facility] Last Admin: 09/15/17 05:46 Dose: 100 mcg Losartan Potassium (Cozaar) 100 mg PO DAILY [facility] Last Admin: 09/15/17 09:14 Dose: 100 mg Metoprolol Succinate (Toprol Xl) 100 mg PO DAILY [facility] Last Admin: 09/15/17 09:15 Dose: 100 mg Oxycodone/Acetaminophen (Percocet 5/325 Mg Tab) 1 tab PO Q6H PRN PRN Reason: Pain, moderate (4-7) Stop: 09/16/17 07:13 Rosuvastatin Calcium (Crestor) 5 mg PO HS [facility] Last Admin: 09/15/17 21:44 Dose: 5 mg Sitagliptin Phosphate (Januvia) 100 mg PO DAILY [facility] Last Admin: 09/15/17 09:15 Dose: 100 mg Spironolactone (Aldactone) 50 mg PO DAILY [facility] Last Admin: 09/15/17 09:15 Dose: 50 mg - Labs Labs: 09/15/17 05:53 09/15/17 05:53 PT 13.8 SECONDS (9.7-12.2) H 09/08/17 14:03 INR 1.2 09/08/17 14:03 APTT 30 SECONDS (21-34) 09/08/17 14:03 Assessment and Plan - Assessment and Plan (Free Text) Assessment: CHF exacerbation, acute on chronic (preserved EF) Ad[facility] Continue fluid restriction, daily weights, I/Os - BNP 5540 (previous 3710) - Chest X-ray: mild venous congestion, small right pleural effusion, patchy right basilar airspace opacity. enlarged ectatic aorta. mild cardiomegaly. degenerative changes in spine and shoulders - Troponin negative x3 Decrease Lasix 20mg IV BID Aldactone 50 mg po daily Start IV nesiritide ggt - ECHO (06/22/17): EF 55-60%, Left ventricle cavity is normal in size; the aortic valve is tri-leaflet and calcified. There is no significant aortic regurgitation * Repeat echo 09/08/17: LVEF-55%, borderline concentric left ventricular hypertrophy. left ventricular systolic function is normal. flattened septum consistent with right ventricle pressure overload. Grade II-pseudonormal filling dynamics. right ventricle is moderately dilated with mildly to moderately reduced systolic function. right atrium is moderately to severly dilated. aortic valve sclerosis. Severe tricuspid regurgitation. right ventricular systolic pressure is estimated at greater than 60 mmHg compatible with severe pulmonary hypertension. Pulmonary hypertension repeat echo shows progressed pulmonary htn History of Afib Rate controlled - CHADs(2) Score: 3; Hasbled 2 Continue Medications - Metoprolol Succinate XL 100mg po daily - Digoxin 0.125mg po daily, dig level 1.5 Hypertension well controlled Metoprolol Succinate XL 100mg po daily Losartan 100mg po daily Norvasc 5mg po daily History of HLD Crestor 5mg po HS
[2017-09-16] MEDS: Levothyroxine 100 MCG TAB PO SCH (05:31)
[2017-09-16 06:26] LABS: BASO # 0.1 K/uL (0.0-0.2); BASO % 0.5 % (0.0-2.0); EOS # 0.2 K/uL (0.0-0.7); EOS % 2.1 % (0.0-4.0); HEMOGLOBIN 12.4 g/dL (12.0-18.0); LYMPH # 0.6 K/uL (1.0-4.3); LYMPH % 5.7 % (20.0-40.0); MEAN CELL VOLUME 86.9 fL (80.0-94.0); MEAN CORPUSCULAR HEMOGLOBIN 29.6 pg (27.0-31.0); MEAN CORPUSCULAR HGB CONC 34.1 g/dL (33.0-37.0); MONO % 9.7 % (0.0-10.0); NEUT # 8.7 K/uL (1.8-7.0); PLATELET COUNT 149 K/uL (130-400); RBC 4.19 Mil/uL (4.40-5.90); RED CELL DISTRIBUTION WIDTH 15.2 % (11.5-14.5); WHITE BLOOD COUNT 10.6 K/uL (4.8-10.8)
[2017-09-16 06:53] LABS: ALB/GLOB RATIO 1.1 (1.0-2.1); ALBUMIN 3.2 g/dL (3.5-5.0); ALT/SGPT 30 U/L (21-72); AST/SGOT 28 U/L (17-59); BLOOD UREA NITROGEN 25 mg/dL (9-20); CALCIUM 8.9 mg/dl (8.6-10.4); GFR AFRICAN-AMERICAN > 60; GFR NON-AFRICAN AMERICAN > 60
[2017-09-16] MEDS: (Novolin R) Insulin Human Regular 100 units/ml vial SC SCH ×3 (07:30→17:01)
[2017-09-16 08:11] LABS: ANISOCYTOSIS SLIGHT; BASOPHIL 1 % (0-2); BURR CELLS SLIGHT; EOSINOPHIL 2 % (0-4); HYPOCHROMIC SLIGHT; LYMPHOCYTE 6 % (20-40); MONOCYTE 7 % (0-10); NEUTROPHIL 84 % (50-75); PLATELET ESTIMATE NORMAL (NORMAL); POIKILOCYTOSIS SLIGHT; TARGET CELLS SLIGHT; TOTAL CELLS COUNTED 100
[2017-09-16 08:12] LABS: OVALOCYTES SLIGHT
[2017-09-16] MEDS: Metoprolol Succinate 100 mg XL Tab PO SCH (10:16)
--- NOTE | 2017-09-16 11:47 | RAD ---
HISTORY: CHF COMPARISON: 09/15/2017 FINDINGS: LUNGS: Bilateral alveolar opacity, at the right base and throughout most of the left lung sparing the apex. Nonspecific. Slightly improved on the left side compared to prior examination. PLEURA: No definite pleural effusion. CARDIOVASCULAR: Normal. OSSEOUS STRUCTURES: No significant abnormalities. VISUALIZED UPPER ABDOMEN: Normal. OTHER FINDINGS: None. IMPRESSION: Alveolar opacity at right base and throughout most of the left lung common nonspecific. This may reflect pulmonary edema but infectious etiology must also be considered. Mild improvement compared to prior.
--- NOTE | 2017-09-16 12:31 | CP.CCUPN ---
<Min Taylor - Last Filed: 09/16/17 13:01> CCU Subjective - Physician Review Subjective (Free Text): 09/15/17 16:01 Patient seen and examined. Patient reports no acute complaints at this time. He is not short of breath nor does he have any chest pain at this time. Per nursing staff, he does well as long as he is not moving or off of the BiPAP. 09/16/17 12:20 Patient seen and examined. Patient is not short of breath at the moment, but his saturation dropped when he was blowing his nose. Patient was previously on the high flow nasal cannula but was placed back on the BiPAP due to desaturation. CCU Objective - Vital Signs / Intake & Output Vital Signs (Last 4 hours): Vital Signs Temp Pulse Resp BP Pulse Ox 09/16/17 12:02 84 17 112/79 96 09/16/17 12:00 98.1 F 83 16 112/79 97 09/16/17 11:02 93 H 27 H 147/98 H 100 09/16/17 11:00 92 H 34 H 94 L 09/16/17 10:31 142/89 09/16/17 10:30 142/89 09/16/17 10:28 142/89 09/16/17 10:02 98 H 37 H 142/89 89 L 09/16/17 10:00 99 H 42 H 88 L 09/16/17 09:05 98 H 29 H 89/28 L 81 L 09/16/17 09:00 90 20 84 L Intake and Output (Last 8hrs): Intake & Output 09/15/17 09/16/17 09/16/17 22:59 06:59 14:59 Intake Total 280 80 580 Output Total 210 250 240 Balance 70 -170 340 Weight 163 lb 2.273 oz Intake: Oral 280 80 550 Other 30 Output: Urine 210 250 240 Urethral (Cao) 210 250 240 Stool 0 - Physical Exam Head: Positive for: Atraumatic, Normocephalic Pupils: Positive for: PERRL Extroacular Muscles: Positive for: EOMI Conjunctiva: Positive for: Normal Mouth: Positive for: Moist Mucous Membranes Respiratory/Chest: Positive for: Other (Coarse breath sounds). Negative for: Wheezes, Rales, Rhonchi Cardiovascular: Positive for: Normal S1, S2, Irregular Rhythm Abdomen: Positive for: Distention, Normal Bowel Sounds. Negative for: Tenderness Upper Extremity: Positive for: Normal Inspection Lower Extremity: Positive for: Edema Neurological: Positive for: GCS=15 Skin: Positive for: Warm, Dry Psychiatric: Positive for: Alert, Oriented x 3 - Medications Active Medications: Active Medications Generic Name Dose Route Start Last Admin Trade Name Freq PRN Reason Stop Dose Admin Amlodipine Besylate 5 mg 09/09/17 10:00 09/16/17 10:16 Norvasc PO 5 mg DAILY OMAR Administration Dextrose 0 ml 09/08/17 15:54 Dextrose 50% Inj IV STAT PRN Hypoglycemia Protocol Protocol Dextrose 0 gm 09/08/17 15:54 Glutose 15 PO ONCE PRN Hypoglycemia Protocol Protocol Digoxin 0.125 mg 09/08/17 18:00 09/15/17 18:00 Digoxin PO 0.125 mg DAILY@1800 OMAR Administration Furosemide 40 mg 09/16/17 18:00 Lasix IVP Q12 OMAR Glucagon 0 mg 09/08/17 15:54 Glucagen Diagnostic Kit IM STAT PRN Hypoglycemia Protocol Protocol Dextrose 1,000 mls @ 0 mls/hr 09/08/17 15:54 Dextrose 5% In Water 1000 Ml IV .Q0M PRN Hypoglycemia Protocol Protocol Per Protocol Insulin Human Regular 0 unit 09/08/17 16:30 09/16/17 11:41 Novolin R SC 2 unit ACHS OMAR Administration Protocol Levothyroxine Sodium 100 mcg 09/09/17 06:30 09/16/17 05:31 Synthroid PO 100 mcg 0630 OMAR Administration Losartan Potassium 100 mg 09/09/17 10:00 09/16/17 10:16 Cozaar PO 100 mg DAILY OMAR Administration Metoprolol Succinate 100 mg 09/09/17 10:00 09/16/17 10:16 Toprol Xl PO 100 mg DAILY OMAR Administration Rosuvastatin Calcium 5 mg 09/09/17 22:00 09/15/17 21:44 Crestor PO 5 mg HS OMAR Administration Sitagliptin Phosphate 100 mg 09/09/17 10:00 09/16/17 10:16 Januvia PO 100 mg DAILY OMAR Administration Spironolactone 50 mg 09/13/17 10:00 09/16/17 10:17 Aldactone PO 50 mg DAILY OMAR Administration - Patient Studies Lab Studies: Microbiology Studies 09/14/17 Unknown MRSA Culture (Admit) - Final Nose MRSA NOT DETECTED Lab Studies 09/16/17 09/16/17 09/16/17 Range/Units 11:25 07:31 06:15 WBC (4.8-10.8) K/uL RBC (4.40-5.90) Mil/uL Hgb (12.0-18.0) g/dL Hct (35.0-51.0) % MCV (80.0-94.0) fL MCH (27.0-31.0) pg MCHC (33.0-37.0) g/dL RDW (11.5-14.5) % Plt Count (130-400) K/uL MPV (7.2-11.7) fL Neut % (Auto) (50.0-75.0) % Lymph % (Auto) (20.0-40.0) % Ashley % (Auto) (0.0-10.0) % Eos % (Auto) (0.0-4.0) % Baso % (Auto) (0.0-2.0) % Neut # (Auto) (1.8-7.0) K/uL Lymph # (Auto) (1.0-4.3) K/uL Ashley # (Auto) (0.0-0.8) K/uL Eos # (Auto) (0.0-0.7) K/uL Baso # (Auto) (0.0-0.2) K/uL Neutrophils % (Manual) (50-75) % Lymphocytes % (Manual) (20-40) % Monocytes % (Manual) (0-10) % Eosinophils % (Manual) (0-4) % Basophils % (Manual) (0-2) % Platelet Estimate (NORMAL) Hypochromasia (manual) Poikilocytosis (manual Anisocytosis (manual) Target Cells Ovalocytes [place] Cells Sodium 135 (132-148) mmol/L Potassium 4.1 (3.6-5.2) mmol/L Chloride 96 L (98-107) mmol/L Carbon Dioxide 27 (22-30) mmol/L Anion Gap 16 (10-20) BUN 25 H (9-20) mg/dL Creatinine 1.0 (0.8-1.5) mg/dL Est GFR ( Amer) > 60 Est GFR (Non-Af Amer) > 60 POC Glucose (mg/dL) 181 H 131 H (65-110) mg/dL Random Glucose 134 H (75-110) mg/dL Calcium 8.9 (8.6-10.4) mg/dl Phosphorus 3.6 (2.5-4.5) mg/dL Magnesium 1.8 (1.6-2.3) mg/dL Total Bilirubin 1.1 (0.2-1.3) mg/dL AST 28 (17-59) U/L ALT 30 (21-72) U/L Alkaline Phosphatase 102 (38-126) U/L Total Protein 6.2 L (6.3-8.3) g/dL Albumin 3.2 L (3.5-5.0) g/dL Globulin 3.0 (2.2-3.9) gm/dL Albumin/Globulin Ratio 1.1 (1.0-2.1) 09/16/17 09/15/17 09/15/17 Range/Units 06:15 21:12 16:09 WBC 10.6 (4.8-10.8) K/uL RBC 4.19 L (4.40-5.90) Mil/uL Hgb 12.4 (12.0-18.0) g/dL Hct 36.4 (35.0-51.0) % MCV 86.9 (80.0-94.0) fL MCH 29.6 (27.0-31.0) pg MCHC 34.1 (33.0-37.0) g/dL RDW 15.2 H (11.5-14.5) % Plt Count 149 (130-400) K/uL MPV 9.0 (7.2-11.7) fL Neut % (Auto) 82.0 H (50.0-75.0) % Lymph % (Auto) 5.7 L (20.0-40.0) % Ashley % (Auto) 9.7 (0.0-10.0) % Eos % (Auto) 2.1 (0.0-4.0) % Baso % (Auto) 0.5 (0.0-2.0) % Neut # (Auto) 8.7 H (1.8-7.0) K/uL Lymph # (Auto) 0.6 L (1.0-4.3) K/uL Ashley # (Auto) 1.0 H (0.0-0.8) K/uL Eos # (Auto) 0.2 (0.0-0.7) K/uL Baso # (Auto) 0.1 (0.0-0.2) K/uL Neutrophils % (Manual) 84 H (50-75) % Lymphocytes % (Manual) 6 L (20-40) % Monocytes % (Manual) 7 (0-10) % Eosinophils % (Manual) 2 (0-4) % Basophils % (Manual) 1 (0-2) % Platelet Estimate Normal (NORMAL) Hypochromasia (manual) Slight Poikilocytosis (manual Slight Anisocytosis (manual) Slight Target Cells Slight Ovalocytes Slight [place] Cells Slight Sodium (132-148) mmol/L Potassium (3.6-5.2) mmol/L Chloride (98-107) mmol/L Carbon Dioxide (22-30) mmol/L Anion Gap (10-20) BUN (9-20) mg/dL Creatinine (0.8-1.5) mg/dL Est GFR ( Amer) Est GFR (Non-Af Amer) POC Glucose (mg/dL) 189 H 174 H (65-110) mg/dL Random Glucose (75-110) mg/dL Calcium (8.6-10.4) mg/dl Phosphorus (2.5-4.5) mg/dL Magnesium (1.6-2.3) mg/dL Total Bilirubin (0.2-1.3) mg/dL AST (17-59) U/L ALT (21-72) U/L Alkaline Phosphatase (38-126) U/L Total Protein (6.3-8.3) g/dL Albumin (3.5-5.0) g/dL Globulin (2.2-3.9) gm/dL Albumin/Globulin Ratio (1.0-2.1) Laboratory Results - last 24 hr 09/15/17 09/15/17 09/16/17 16:09 21:12 06:15 WBC 10.6 RBC 4.19 L Hgb 12.4 Hct 36.4 MCV 86.9 MCH 29.6 MCHC 34.1 RDW 15.2 H Plt Count 149 MPV 9.0 Neut % (Auto) 82.0 H Lymph % (Auto) 5.7 L Ashley % (Auto) 9.7 Eos % (Auto) 2.1 Baso % (Auto) 0.5 Neut # (Auto) 8.7 H Lymph # (Auto) 0.6 L Ashley # (Auto) 1.0 H Eos # (Auto) 0.2 Baso # (Auto) 0.1 Neutrophils % (Manual) 84 H Lymphocytes % (Manual) 6 L Monocytes % (Manual) 7 Eosinophils % (Manual) 2 Basophils % (Manual) 1 Platelet Estimate Normal Hypochromasia (manual) Slight Poikilocytosis (manual Slight Anisocytosis (manual) Slight Target Cells Slight Ovalocytes Slight [place] Cells Slight Sodium Potassium Chloride Carbon Dioxide Anion Gap BUN Creatinine Est GFR ( Amer) Est GFR (Non-Af Amer) POC Glucose (mg/dL) 174 H 189 H Random Glucose Calcium Phosphorus Magnesium Total Bilirubin AST ALT Alkaline Phosphatase Total Protein Albumin Globulin Albumin/Globulin Ratio 09/16/17 09/16/17 09/16/17 06:15 07:31 11:25 WBC RBC Hgb Hct MCV MCH MCHC RDW Plt Count MPV Neut % (Auto) Lymph % (Auto) Ashley % (Auto) Eos % (Auto) Baso % (Auto) Neut # (Auto) Lymph # (Auto) Ashley # (Auto) Eos # (Auto) Baso # (Auto) Neutrophils % (Manual) Lymphocytes % (Manual) Monocytes % (Manual) Eosinophils % (Manual) Basophils % (Manual) Platelet Estimate Hypochromasia (manual) Poikilocytosis (manual Anisocytosis (manual) Target Cells Ovalocytes Vinny Cells Sodium 135 Potassium 4.1 Chloride 96 L Carbon Dioxide 27 Anion Gap 16 BUN 25 H Creatinine 1.0 Est GFR ( Amer) > 60 Est GFR (Non-Af Amer) > 60 POC Glucose (mg/dL) 131 H 181 H Random Glucose 134 H Calcium 8.9 Phosphorus 3.6 Magnesium 1.8 Total Bilirubin 1.1 AST 28 ALT 30 Alkaline Phosphatase 102 Total Protein 6.2 L Albumin 3.2 L Globulin 3.0 Albumin/Globulin Ratio 1.1 Fingerstick Blood Sugar Results: 181 Critical Care Progress Note - Nutrition Nutrition: Nutrition Category Date Time Status Heart Healthy Diet [DIET] Diets 09/14/17 Dinner Active Assessment/Plan - Assessment and Plan (Free Text) Assessment: This is a 72 year old male with PMHx HTN, A-fib, DM, HLD who presented to the hospital for shortness of breath. Echocardiogram showed acute on chronic right sided CHF He was diagnosed with acute on chronic right sided CHF. Patient was sent to the ICU because of rapid response on 09/14/17 where he desaturated off of BiPAP. He is being medically managed at this time with diuresis. 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 Per pulmonology, his acute on chronic decompensated heart failure may be stemming from the CAD. Neuro Awake, verbal Cardio Assessments: Acute on Chronic right sided decompensated heart failure, Hypertension, Atrial Fibrillation Norvasc 5 mg PO daily Digoxin 0.125 mg PO daily Lasix 40 mg IV Q12H Losartan 100 mg PO daily Toprol XL 100 mg PO daily Aldactone 50 mg PO daily Crestor 5 mg PO HS Pulm Assessments: Pulmonary Hypertension Saturating well on BiPAP but deteriorates off of it GI Heart Healthy Diet Endocrine Assessments: DM 2, Hypothyroidism Accuchecks ACHS Regular ISS Januvia 100 mg PO daily Synthroid 100 mcg PO daily Urology Assessment: Blood clots in the bladder Hematuria urology on consult s/p cystoscopy and removal of clots Prophylaxis VTE contraindicated due to bleed GI ppx contraindicated Discussed with Dr. Houston <Alberto Houston - Last Filed: 09/16/17 14:59> CCU Objective - Vital Signs / Intake & Output Vital Signs (Last 4 hours): Vital Signs Temp Pulse Resp BP Pulse Ox 09/16/17 13:32 86 09/16/17 13:02 72 15 120/75 93 L 09/16/17 13:00 67 16 93 L 09/16/17 12:21 79 09/16/17 12:02 84 17 112/79 96 09/16/17 12:00 98.1 F 83 16 112/79 97 09/16/17 11:02 93 H 27 H 147/98 H 100 09/16/17 11:00 92 H 34 H 94 L Intake and Output (Last 8hrs): Intake & Output 09/15/17 09/16/17 09/16/17 22:59 06:59 14:59 Intake Total 280 80 580 Output Total 210 250 280 Balance 70 -170 300 Weight 163 lb 2.273 oz Intake: Oral 280 80 550 Other 30 Output: Urine 210 250 280 Urethral (Cao) 210 250 280 Stool 0 - Medications Active Medications: Active Medications Generic Name Dose Route Start Last Admin Trade Name Freq PRN Reason Stop Dose Admin Amlodipine Besylate 5 mg 09/09/17 10:00 09/16/17 10:16 Norvasc PO 5 mg DAILY OMAR Administration Dextrose 0 ml 09/08/17 15:54 Dextrose 50% Inj IV STAT PRN Hypoglycemia Protocol Protocol Dextrose 0 gm 09/08/17 15:54 Glutose 15 PO ONCE PRN Hypoglycemia Protocol Protocol Digoxin 0.125 mg 09/08/17 18:00 09/15/17 18:00 Digoxin PO 0.125 mg DAILY@1800 OMAR Administration Furosemide 40 mg 09/16/17 18:00 Lasix IVP Q12 OMAR Glucagon 0 mg 09/08/17 15:54 Glucagen Diagnostic Kit IM STAT PRN Hypoglycemia Protocol Protocol Dextrose 1,000 mls @ 0 mls/hr 09/08/17 15:54 Dextrose 5% In Water 1000 Ml IV .Q0M PRN Hypoglycemia Protocol Protocol Per Protocol Insulin Human Regular 0 unit 09/08/17 16:30 09/16/17 11:41 Novolin R SC 2 unit ACHS OMAR Administration Protocol Levothyroxine Sodium 100 mcg 09/09/17 06:30 09/16/17 05:31 Synthroid PO 100 mcg 0630 OMAR Administration Losartan Potassium 100 mg 09/09/17 10:00 09/16/17 10:16 Cozaar PO 100 mg DAILY OMAR Administration Metoprolol Succinate 100 mg 09/09/17 10:00 09/16/17 10:16 Toprol Xl PO 100 mg DAILY OMAR Administration Rosuvastatin Calcium 5 mg 09/09/17 22:00 09/15/17 21:44 Crestor PO 5 mg HS OMAR Administration Sitagliptin Phosphate 100 mg 09/09/17 10:00 09/16/17 10:16 Januvia PO 100 mg DAILY OMAR Administration Spironolactone 50 mg 09/13/17 10:00 09/16/17 10:17 Aldactone PO 50 mg DAILY OMAR Administration - Patient Studies Lab Studies: Microbiology Studies 09/14/17 Unknown MRSA Culture (Admit) - Final Nose MRSA NOT DETECTED Lab Studies 09/16/17 09/16/1709/16/18 Range/Units 11:25 07:31 06:15 WBC (4.8-10.8) K/uL RBC (4.40-5.90) Mil/uL Hgb (12.0-18.0) g/dL Hct (35.0-51.0) % MCV (80.0-94.0) fL MCH (27.0-31.0) pg MCHC (33.0-37.0) g/dL RDW (11.5-14.5) % Plt Count (130-400) K/uL MPV (7.2-11.7) fL Neut % (Auto) (50.0-75.0) % Lymph % (Auto) (20.0-40.0) % Ashley % (Auto) (0.0-10.0) % Eos % (Auto) (0.0-4.0) % Baso % (Auto) (0.0-2.0) % Neut # (Auto) (1.8-7.0) K/uL Lymph # (Auto) (1.0-4.3) K/uL Ashley # (Auto) (0.0-0.8) K/uL Eos # (Auto) (0.0-0.7) K/uL Baso # (Auto) (0.0-0.2) K/uL Neutrophils % (Manual) (50-75) % Lymphocytes % (Manual) (20-40) % Monocytes % (Manual) (0-10) % Eosinophils % (Manual) (0-4) % Basophils % (Manual) (0-2) % Platelet Estimate (NORMAL) Hypochromasia (manual) Poikilocytosis (manual Anisocytosis (manual) Target Cells Ovalocytes [place] Cells Sodium 135 (132-148) mmol/L Potassium 4.1 (3.6-5.2) mmol/L Chloride 96 L (98-107) mmol/L Carbon Dioxide 27 (22-30) mmol/L Anion Gap 16 (10-20) BUN 25 H (9-20) mg/dL Creatinine 1.0 (0.8-1.5) mg/dL Est GFR ( Amer) > 60 Est GFR (Non-Af Amer) > 60 POC Glucose (mg/dL) 181 H 131 H (65-110) mg/dL Random Glucose 134 H (75-110) mg/dL Calcium 8.9 (8.6-10.4) mg/dl Phosphorus 3.6 (2.5-4.5) mg/dL Magnesium 1.8 (1.6-2.3) mg/dL Total Bilirubin 1.1 (0.2-1.3) mg/dL AST 28 (17-59) U/L ALT 30 (21-72) U/L Alkaline Phosphatase 102 (38-126) U/L Total Protein 6.2 L (6.3-8.3) g/dL Albumin 3.2 L (3.5-5.0) g/dL Globulin 3.0 (2.2-3.9) gm/dL Albumin/Globulin Ratio 1.1 (1.0-2.1) 09/16/17 09/15/17 09/15/17 Range/Units 06:15 21:12 16:09 WBC 10.6 (4.8-10.8) K/uL RBC 4.19 L (4.40-5.90) Mil/uL Hgb 12.4 (12.0-18.0) g/dL Hct 36.4 (35.0-51.0) % MCV 86.9 (80.0-94.0) fL MCH 29.6 (27.0-31.0) pg MCHC 34.1 (33.0-37.0) g/dL RDW 15.2 H (11.5-14.5) % Plt Count 149 (130-400) K/uL MPV 9.0 (7.2-11.7) fL Neut % (Auto) 82.0 H (50.0-75.0) % Lymph % (Auto) 5.7 L (20.0-40.0) % Ashley % (Auto) 9.7 (0.0-10.0) % Eos % (Auto) 2.1 (0.0-4.0) % Baso % (Auto) 0.5 (0.0-2.0) % Neut # (Auto) 8.7 H (1.8-7.0) K/uL Lymph # (Auto) 0.6 L (1.0-4.3) K/uL Ashley # (Auto) 1.0 H (0.0-0.8) K/uL Eos # (Auto) 0.2 (0.0-0.7) K/uL Baso # (Auto) 0.1 (0.0-0.2) K/uL Neutrophils % (Manual) 84 H (50-75) % Lymphocytes % (Manual) 6 L (20-40) % Monocytes % (Manual) 7 (0-10) % Eosinophils % (Manual) 2 (0-4) % Basophils % (Manual) 1 (0-2) % Platelet Estimate Normal (NORMAL) Hypochromasia (manual) Slight Poikilocytosis (manual Slight Anisocytosis (manual) Slight Target Cells Slight Ovalocytes Slight [place] Cells Slight Sodium (132-148) mmol/L Potassium (3.6-5.2) mmol/L Chloride (98-107) mmol/L Carbon Dioxide (22-30) mmol/L Anion Gap (10-20) BUN (9-20) mg/dL Creatinine (0.8-1.5) mg/dL Est GFR ( Amer) Est GFR (Non-Af Amer) POC Glucose (mg/dL) 189 H 174 H (65-110) mg/dL Random Glucose (75-110) mg/dL Calcium (8.6-10.4) mg/dl Phosphorus (2.5-4.5) mg/dL Magnesium (1.6-2.3) mg/dL Total Bilirubin (0.2-1.3) mg/dL AST (17-59) U/L ALT (21-72) U/L Alkaline Phosphatase (38-126) U/L Total Protein (6.3-8.3) g/dL Albumin (3.5-5.0) g/dL Globulin (2.2-3.9) gm/dL Albumin/Globulin Ratio (1.0-2.1) Laboratory Results - last 24 hr 09/15/17 09/15/17 09/16/17 16:09 21:12 06:15 WBC 10.6 RBC 4.19 L Hgb 12.4 Hct 36.4 MCV 86.9 MCH 29.6 MCHC 34.1 RDW 15.2 H Plt Count 149 MPV 9.0 Neut % (Auto) 82.0 H Lymph % (Auto) 5.7 L Ashley % (Auto) 9.7 Eos % (Auto) 2.1 Baso % (Auto) 0.5 Neut # (Auto) 8.7 H Lymph # (Auto) 0.6 L Ashley # (Auto) 1.0 H Eos # (Auto) 0.2 Baso # (Auto) 0.1 Neutrophils % (Manual) 84 H Lymphocytes % (Manual) 6 L Monocytes % (Manual) 7 Eosinophils % (Manual) 2 Basophils % (Manual) 1 Platelet Estimate Normal Hypochromasia (manual) Slight Poikilocytosis (manual Slight Anisocytosis (manual) Slight Target Cells Slight Ovalocytes Slight [place] Cells Slight Sodium Potassium Chloride Carbon Dioxide Anion Gap BUN Creatinine Est GFR ( Amer) Est GFR (Non-Af Amer) POC Glucose (mg/dL) 174 H 189 H Random Glucose Calcium Phosphorus Magnesium Total Bilirubin AST ALT Alkaline Phosphatase Total Protein Albumin Globulin Albumin/Globulin Ratio 09/16/17 09/16/17 09/16/17 06:15 07:31 11:25 WBC RBC Hgb Hct MCV MCH MCHC RDW Plt Count MPV Neut % (Auto) Lymph % (Auto) Ashley % (Auto) Eos % (Auto) Baso % (Auto) Neut # (Auto) Lymph # (Auto) Ashley # (Auto) Eos # (Auto) Baso # (Auto) Neutrophils % (Manual) Lymphocytes % (Manual) Monocytes % (Manual) Eosinophils % (Manual) Basophils % (Manual) Platelet Estimate Hypochromasia (manual) Poikilocytosis (manual Anisocytosis (manual) Target Cells Ovalocytes [place] Cells Sodium 135 Potassium 4.1 Chloride 96 L Carbon Dioxide 27 Anion Gap 16 BUN 25 H Creatinine 1.0 Est GFR ( Amer) > 60 Est GFR (Non-Af Amer) > 60 POC Glucose (mg/dL) 131 H 181 H Random Glucose 134 H Calcium 8.9 Phosphorus 3.6 Magnesium 1.8 Total Bilirubin 1.1 AST 28 ALT 30 Alkaline Phosphatase 102 Total Protein 6.2 L Albumin 3.2 L Globulin 3.0 Albumin/Globulin Ratio 1.1 Critical Care Progress Note - Nutrition Nutrition: Nutrition Category Date Time Status Heart Healthy Diet [DIET] Diets 09/14/17 Dinner Active Attending/Attestation - Attestation I have personally seen and examined this patient.: Yes I have fully participated in the care of the patient.: Yes I have reviewed all pertinent clinical information: Yes Notes (Text): 09/16/17 14:56 I have seen and examined the patient. Medical records, lab studies, and imaging were reviewed by me and a management plan was formulated on multidisciplinary rounds with resident Dr. Taylor. I agree with their documented assessment and plan. The patient will need a CABG but is not stable for this intervention at this time. Treating for decompensated acute on chronic right ventricular and diastolic heart failure with aggressive diuresis and intermittent BIPAP. Patient slowly improving. Critical Care Time 35 minutes. Multi-disciplinary rounds were performed with house staff, nursing, speech therapy, respiratory therapy, pharmacy and nutrition with integrated input from the primary team/attending and other consulting services. The documented time is cumulative and includes review of patient data/exams/labs/chart review and examination of the patient on rounds and throughout the day; time is exclusive of any procedures or teaching time. 09/16/17 14:59
--- NOTE | 2017-09-16 12:58 | CP.PCM.PN ---
Subjective - Date & Time of Evaluation Date of Evaluation: 09/16/17 Time of Evaluation: 09:20 - Subjective Subjective: Patient seen and examined at bedside . Patient now off BiPAP, was put on high flow O2 and was noted to be saturating low 90s-high 80s. The patient states that he is feeling better and that his breathing has improved. Patient states he was supposed to have a CABG, left a message with his Compliance Auditor Dr. Garcia trying to get more information. Assessment and Plan: 1. Dyspnea on Exertion, pulmonary hypertension /CHF - CTA 09/12: No evidence of PE, extensive patchy ground-glass opacities in b/l upper lobes possibly infectious. - Dr. Bay, cardiology on-board - Echo 09/08: right atrial and right ventricular dilation, pulmonary hypertension with RVSP>60 mmHg, LVEF 55%, - amlodipine - digoxin - diuresis 2. Bilateral pleural effusions, resolving - CXR 09/15: Stable moderate pulmonary vascular congestion, trace right pleural effusion - CTA 09/12: small to moderate pleural effusions - IV antibiotics completed Objective - Vital Signs/Intake and Output Vital Signs (last 24 hours): Temp Pulse Resp BP Pulse Ox 98.1 F 79 17 112/79 96 09/16/17 12:00 09/16/17 12:21 09/16/17 12:02 09/16/17 12:02 09/16/17 12:02 Intake and Output: 09/16/17 09/16/17 06:59 18:59 Intake Total 180 580 Output Total 340 240 Balance -160 340 - Medications Medications: Current Medications Amlodipine Besylate (Norvasc) 5 mg PO DAILY [facility] Last Admin: 09/16/17 10:16 Dose: 5 mg Dextrose (Dextrose 50% Inj) 0 ml IV STAT PRN; Protocol PRN Reason: Hypoglycemia Protocol Dextrose (Glutose 15) 0 gm PO ONCE PRN; Protocol PRN Reason: Hypoglycemia Protocol Digoxin (Digoxin) 0.125 mg PO DAILY@1800 OMAR Last Admin: 09/15/17 18:00 Dose: 0.125 mg Furosemide (Lasix) 40 mg IVP Q12 [facility] Glucagon (Glucagen Diagnostic Kit) 0 mg IM STAT PRN; Protocol PRN Reason: Hypoglycemia Protocol Dextrose (Dextrose 5% In Water 1000 Ml) 1,000 mls @ 0 mls/hr IV .Q0M PRN; Protocol; Per Protocol PRN Reason: Hypoglycemia Protocol Insulin Human Regular (Novolin R) 0 unit SC ACHS [facility] PRN Reason: Protocol Last Admin: 09/16/17 11:41 Dose: 2 unit Levothyroxine Sodium (Synthroid) 100 mcg PO 0630 [facility] Last Admin: 09/16/17 05:31 Dose: 100 mcg Losartan Potassium (Cozaar) 100 mg PO DAILY [facility] Last Admin: 09/16/17 10:16 Dose: 100 mg Metoprolol Succinate (Toprol Xl) 100 mg PO DAILY [facility] Last Admin: 09/16/17 10:16 Dose: 100 mg Rosuvastatin Calcium (Crestor) 5 mg PO HS [facility] Last Admin: 09/15/17 21:44 Dose: 5 mg Sitagliptin Phosphate (Januvia) 100 mg PO DAILY [facility] Last Admin: 09/16/17 10:16 Dose: 100 mg Spironolactone (Aldactone) 50 mg PO DAILY [facility] Last Admin: 09/16/17 10:17 Dose: 50 mg - Labs Labs: 09/16/17 06:15 09/16/17 06:15 PT 13.8 SECONDS (9.7-12.2) H 09/08/17 14:03 INR 1.2 09/08/17 14:03 APTT 30 SECONDS (21-34) 09/08/17 14:03
--- NOTE | 2017-09-16 15:08 | CP.PCM.CON ---
History of Present Illness - History of Present Illness History of Present Illness: Palliative consult requested by Doctor Johnson Patient is a 72 yo male admitted from home with edema of LEs X 1 day. Upon admission CXR was significant for mild pulmonary venous congestion and small plural effusion. During this admission Cao cat. Cao inserted with good output. Hb stable, no more hematuria. CT chest negative PE. h was accidentally removed by the patient what caused some bladder injury and hemathuria as result. Doctor Sarah is fallowing. Patient is Post cystoscopy. On 09/14/17 [employer] was called for o2Sat < 90 and BP 169/124. Patient was placed on BiPap ant transfered to ICU for further treatement. PMH: A fib, CHF, HTN Soc. Hx: lives alone, , sister Mellisa in [place] [phone], niece Thierry visits , Fam. Hx: denies Review of Systems - Review of Systems All systems: reviewed and no additional remarkable complaints except Review of Systems: ROS obtained from nursing due to patient using Bipap. Per nursing, patient is still with swollen edema and scrotum Past Patient History - Past Medical History & Family History Past Medical History?: Yes - Past Social History Smoking Status: Never Smoked - CARDIAC Hx Atrial Fibrillation: Yes Hx Congestive Heart Failure: Yes Hx Hypercholesterolemia: Yes Hx Hypertension: Yes - PULMONARY Hx Respiratory Disorders: No - NEUROLOGICAL Hx Neurological Disorder: No - HEENT Hx HEENT Problems: Yes Other/Comment: wear eyeglasses - ENDOCRINE/METABOLIC Hx Endocrine Disorders: Yes Hx Diabetes Mellitus Type 1: Yes - HEMATOLOGICAL/ONCOLOGICAL Hx Blood Disorders: No - INTEGUMENTARY Hx Dermatological Problems: No - MUSCULOSKELETAL/RHEUMATOLOGICAL Hx Falls: No - GASTROINTESTINAL Hx Gastrointestinal Disorders: No - GENITOURINARY/GYNECOLOGICAL Hx Genitourinary Disorders: Yes Hx Prostate Problems: Yes (Hx of prostate surgery) - PSYCHIATRIC Hx Substance Use: No - SURGICAL HISTORY Hx Surgeries: No - ANESTHESIA Hx Anesthesia: No Meds Allergies/Adverse Reactions: Allergies Allergy/AdvReac Type Severity Reaction Status Date / Time No Known Allergies Allergy Verified 09/08/17 13:35 - Medications Medications: Current Medications Amlodipine Besylate (Norvasc) 5 mg PO DAILY [facility] Last Admin: 09/16/17 10:16 Dose: 5 mg Dextrose (Dextrose 50% Inj) 0 ml IV STAT PRN; Protocol PRN Reason: Hypoglycemia Protocol Dextrose (Glutose 15) 0 gm PO ONCE PRN; Protocol PRN Reason: Hypoglycemia Protocol Digoxin (Digoxin) 0.125 mg PO DAILY@1800 [facility] Last Admin: 09/15/17 18:00 Dose: 0.125 mg Furosemide (Lasix) 40 mg IVP Q12 [facility] Glucagon (Glucagen Diagnostic Kit) 0 mg IM STAT PRN; Protocol PRN Reason: Hypoglycemia Protocol Dextrose (Dextrose 5% In Water 1000 Ml) 1,000 mls @ 0 mls/hr IV .Q0M PRN; Protocol; Per Protocol PRN Reason: Hypoglycemia Protocol Insulin Human Regular (Novolin R) 0 unit SC ACHS [facility] PRN Reason: Protocol Last Admin: 09/16/17 11:41 Dose: 2 unit Levothyroxine Sodium (Synthroid) 100 mcg PO 0630 [facility] Last Admin: 09/16/17 05:31 Dose: 100 mcg Losartan Potassium (Cozaar) 100 mg PO DAILY [facility] Last Admin: 09/16/17 10:16 Dose: 100 mg Metoprolol Succinate (Toprol Xl) 100 mg PO DAILY [facility] Last Admin: 09/16/17 10:16 Dose: 100 mg Rosuvastatin Calcium (Crestor) 5 mg PO HS [facility] Last Admin: 09/15/17 21:44 Dose: 5 mg Sitagliptin Phosphate (Januvia) 100 mg PO DAILY [facility] Last Admin: 09/16/17 10:16 Dose: 100 mg Spironolactone (Aldactone) 50 mg PO DAILY [facility] Last Admin: 09/16/17 10:17 Dose: 50 mg Physical Exam - Constitutional Appears: No Acute Distress, Chronically Ill - Head Exam Head Exam: ATRAUMATIC, NORMAL INSPECTION, NORMOCEPHALIC - Eye Exam Eye Exam: EOMI, Normal appearance, PERRL Pupil Exam: NORMAL ACCOMODATION, PERRL - ENT Exam ENT Exam: Mucous Membranes Moist, Normal Exam - Neck Exam Neck exam: Positive for: Normal Inspection - Respiratory Exam Respiratory Exam: Decreased Breath Sounds Additional comments: On BiPap - Cardiovascular Exam Cardiovascular Exam: Tachycardia - GI/Abdominal Exam GI & Abdominal Exam: Hypoactive Bowel Sounds - Rectal Exam Rectal Exam: Deferred - Exam Exam: Scrotal Swelling - Extremities Exam Extremities exam: Positive for: pedal edema - Back Exam Back exam: NORMAL INSPECTION - Neurological Exam Neurological exam: Alert - Psychiatric Exam Psychiatric exam: Normal Affect, Normal Mood - Skin Skin Exam: Mottled Results - Vital Signs Recent Vital Signs: Last Vital Signs Temp 98.1 F 09/16/17 12:00 Pulse 86 09/16/17 13:32 Resp 15 09/16/17 13:02 BP 120/75 09/16/17 13:02 Pulse Ox 93 L 09/16/17 13:02 - Labs Result Diagrams: 09/16/17 06:15 09/16/17 06:15 Labs: Laboratory Results - last 24 hr 09/15/17 09/15/17 09/16/17 16:09 21:12 06:15 WBC 10.6 RBC 4.19 L Hgb 12.4 Hct 36.4 MCV 86.9 MCH 29.6 MCHC 34.1 RDW 15.2 H Plt Count 149 MPV 9.0 Neut % (Auto) 82.0 H Lymph % (Auto) 5.7 L Spencer % (Auto) 9.7 Eos % (Auto) 2.1 Baso % (Auto) 0.5 Neut # (Auto) 8.7 H Lymph # (Auto) 0.6 L Spencer # (Auto) 1.0 H Eos # (Auto) 0.2 Baso # (Auto) 0.1 Neutrophils % (Manual) 84 H Lymphocytes % (Manual) 6 L Monocytes % (Manual) 7 Eosinophils % (Manual) 2 Basophils % (Manual) 1 Platelet Estimate Normal Hypochromasia (manual) Slight Poikilocytosis (manual Slight Anisocytosis (manual) Slight Target Cells Slight Ovalocytes Slight [place] Cells Slight Sodium Potassium Chloride Carbon Dioxide Anion Gap BUN Creatinine Est GFR ( Amer) Est GFR (Non-Af Amer) POC Glucose (mg/dL) 174 H 189 H Random Glucose Calcium Phosphorus Magnesium Total Bilirubin AST ALT Alkaline Phosphatase Total Protein Albumin Globulin Albumin/Globulin Ratio 09/16/17 09/16/17 09/16/17 06:15 07:31 11:25 WBC RBC Hgb Hct MCV MCH MCHC RDW Plt Count MPV Neut % (Auto) Lymph % (Auto) Spencer % (Auto) Eos % (Auto) Baso % (Auto) Neut # (Auto) Lymph # (Auto) Spencer # (Auto) Eos # (Auto) Baso # (Auto) Neutrophils % (Manual) Lymphocytes % (Manual) Monocytes % (Manual) Eosinophils % (Manual) Basophils % (Manual) Platelet Estimate Hypochromasia (manual) Poikilocytosis (manual Anisocytosis (manual) Target Cells Ovalocytes [place] Cells Sodium 135 Potassium 4.1 Chloride 96 L Carbon Dioxide 27 Anion Gap 16 BUN 25 H Creatinine 1.0 Est GFR ( Amer) > 60 Est GFR (Non-Af Amer) > 60 POC Glucose (mg/dL) 131 H 181 H Random Glucose 134 H Calcium 8.9 Phosphorus 3.6 Magnesium 1.8 Total Bilirubin 1.1 AST 28 ALT 30 Alkaline Phosphatase 102 Total Protein 6.2 L Albumin 3.2 L Globulin 3.0 Albumin/Globulin Ratio 1.1 Assessment & Plan - Assessment and Plan (Free Text) Assessment: Palliative consult Full Code, no Advance directive on chart, PPS 30% I reviewed medical records, all diagnostic studies, examined patient in the bed , discussed his condition with ICU team Patient seen and examined in bed in no acute distress, with BiPap on. Skin is of normal color. Hb 12.4. Breath sounds diminished, O2Sat 98% on Bipap. Patient able to remove BiPap while eating or talking. Abdomen oftly distended, hypoactive bowel sounds. Scrotum is swollen. Cao cah in, urine yellow. Both LEs swollen from bellow the knees. Significant pitting edema. Alb low at 3.2 and Total protein low at 6.2. Albumin IV ordered, Lasix 60 mg IV Q 12 hr. Patient is on bed rest, able to lightly move his legs, but needs max assistance with repositioning. patient's clinical presentation discussed with Doctor Johnson and osteopathic resident. We agreed that patient retains fluid and needs Albumin replacemnt as well as lasix. Impression * Chronically ill man with acute shortness of breath and edema of LEs due to CHF exacerbation * Limited mobility due to edema * At risk for DVT due to limited mobi;ity * At risk for pressure sore due to poor perfusion and prolonged bed rest Suggestions * Agree with Albumin IV and lasix IV * Promote skin integrity, off load scrotum * Turn and position Q 2 hr * OOB daily * Elevate legs while in bed * Monitor urine output I will fallow with patient and assist with symptoms control. Will schedule family meeting with niece and the sster ( over the phone) for further goals of care discussion
[2017-09-16] MEDS ORDERED: Albumin Human 5% (12.5 gm/250 ml) IV SCH (15:15)
--- NOTE | 2017-09-16 16:47 | CP.PCM.PN ---
Subjective - Date & Time of Evaluation Date of Evaluation: 09/16/17 Time of Evaluation: 16:45 - Subjective Subjective: still on bipap fails - tachypnea and hypoxia off bipap able to vocalize on bipap Objective - Vital Signs/Intake and Output Vital Signs (last 24 hours): Temp Pulse Resp BP Pulse Ox 98.1 F 83 15 120/75 93 L 09/16/17 12:00 09/16/17 15:40 09/16/17 13:02 09/16/17 13:02 09/16/17 13:02 Intake and Output: 09/16/17 09/16/17 06:59 18:59 Intake Total 180 580 Output Total 340 280 Balance -160 300 - Medications Medications: Current Medications Albumin Human (Albumin Human 5% (12.5 Gm/250 Ml)) 12.5 gm IV Q10H [facility] Stop: 09/17/17 01:16 Amlodipine Besylate (Norvasc) 5 mg PO DAILY [facility] Last Admin: 09/16/17 10:16 Dose: 5 mg Dextrose (Dextrose 50% Inj) 0 ml IV STAT PRN; Protocol PRN Reason: Hypoglycemia Protocol Dextrose (Glutose 15) 0 gm PO ONCE PRN; Protocol PRN Reason: Hypoglycemia Protocol Digoxin (Digoxin) 0.125 mg PO DAILY@1800 [facility] Last Admin: 09/15/17 18:00 Dose: 0.125 mg Furosemide (Lasix) 60 mg IVP Q12 [facility] Glucagon (Glucagen Diagnostic Kit) 0 mg IM STAT PRN; Protocol PRN Reason: Hypoglycemia Protocol Insulin Human Regular (Novolin R) 0 unit SC ACHS [facility] PRN Reason: Protocol Last Admin: 09/16/17 11:41 Dose: 2 unit Levothyroxine Sodium (Synthroid) 100 mcg PO 0630 [facility] Last Admin: 09/16/17 05:31 Dose: 100 mcg Losartan Potassium (Cozaar) 100 mg PO DAILY [facility] Last Admin: 09/16/17 10:16 Dose: 100 mg Metoprolol Succinate (Toprol Xl) 100 mg PO DAILY [facility] Last Admin: 09/16/17 10:16 Dose: 100 mg Rosuvastatin Calcium (Crestor) 5 mg PO HS [facility] Last Admin: 09/15/17 21:44 Dose: 5 mg Sitagliptin Phosphate (Januvia) 100 mg PO DAILY [facility] Last Admin: 09/16/17 10:16 Dose: 100 mg Spironolactone (Aldactone) 50 mg PO DAILY [facility] Last Admin: 09/16/17 10:17 Dose: 50 mg - Labs Labs: 09/16/17 06:15 09/16/17 06:15 PT 13.8 SECONDS (9.7-12.2) H 09/08/17 14:03 INR 1.2 09/08/17 14:03 APTT 30 SECONDS (21-34) 09/08/17 14:03 - Constitutional Appears: Non-toxic - Head Exam Head Exam: ATRAUMATIC - Eye Exam Additional comments: bipap - ENT Exam ENT Exam: Mucous Membranes Dry - Respiratory Exam Additional comments: coarse bs bipap sounds good air movement - Cardiovascular Exam Cardiovascular Exam: REGULAR RHYTHM, +S1, +S2 - GI/Abdominal Exam GI & Abdominal Exam: Soft, Normal Bowel Sounds. absent: Tenderness, Organomegaly - Extremities Exam Extremities Exam: Pedal Edema Additional comments: edema 3+ up to thigh - Neurological Exam Neurological Exam: Alert, Awake, Oriented x3 Assessment and Plan - Assessment and Plan (Free Text) Assessment: chf acute on chronic respiratory failure due to acute chf requiring bipap assitance afib off anticoagulation due to hematuria unable to wean off bipap increase diuretics added albumin cont icu care
[2017-09-16] MEDS: Digoxin 125 mcg (0.125 mg) Tab PO SCH (18:07)
[2017-09-16 18:08] VITALS: PULSE 77
[2017-09-16 20:11] LABS: ARTERIAL BLOOD GAS HCO3 23.5 mmol/L (21-28); ARTERIAL BLOOD GAS O2 SAT 42.9 % (95-98); ARTERIAL BLOOD GAS PCO2 47 mm/Hg (35-45); ARTERIAL BLOOD GAS PH 7.36 (7.35-7.45); ARTERIAL BLOOD GAS PO2 19 mm/Hg (80-100)
[2017-09-16 20:38] LABS: ARTERIAL BLOOD GAS HCO3 19.2 mmol/L (21-28); ARTERIAL BLOOD GAS O2 SAT 73.4 % (95-98); ARTERIAL BLOOD GAS PCO2 52 mm/Hg (35-45); ARTERIAL BLOOD GAS PH 7.23 (7.35-7.45); ARTERIAL BLOOD GAS PO2 41 mm/Hg (80-100); ARTERIAL BLOOD GAS TCO2 23.4 mmol/L (22-28)
--- NOTE | 2017-09-16 20:39 | PCM.PROC ---
Procedures Attestation:: I certify that I have explained the specified Operation(s) or Procedure(s), risks, benefits and reasonable alternatives to the Patient and/or other person responsible. The opportunity was given to ask questions and all questions answered - Arterial Line Right Radial Aseptic technique was employed throughout the procedure: Full sterile barriers ( mask, hair cover, sterile gown, sterile gloves), Chloraprep Antiseptic: 30 second prep for IJ or SC sites Time Out Performed: Yes Pt. placed on Pulse Ox Monitor: Yes Central Line Prep: Chlorhexidine-Alcohol Combination Ultrasound Used for Placement: No Gauge (Size): 20 gauge Technique Used: Direct Puncture Technique Secured by: Suture Post procedure dressing: Gauze, Clear vapor permeable, Chlorhexidine disc ( Biopatch) Patient Tolerated Procedure: well Immediate Complications: none
--- NOTE | 2017-09-16 20:40 | PCM.PROC ---
Procedures Attestation:: I certify that I have explained the specified Operation(s) or Procedure(s), risks, benefits and reasonable alternatives to the Patient and/or other person responsible. The opportunity was given to ask questions and all questions answered - Central Line Placement Right Femoral Triple Lumen Catheter Aseptic technique was employed throughout the procedure: Full sterile barriers ( mask, hair cover, sterile gown, sterile gloves) CVP Time Out Performed: Yes Pt. Placed on Pulse Ox Monitor: Yes Central Line Prep: Chlorhexidine-Alcohol Combination Local Anesthesia Used: Lidocaine 1% Ultrasound Used for Placement: No Central Line Lumen Inserted: triple Central Line Length: 20 cm Post Procedure: Sutured in Place, Good Blood Return, All Ports Aspirated, Flushed, Capped, Sterile Dressing Applied Secured by: Suture Post procedure dressing: Gauze, Clear vapor permeable, Chlorhexidine disc ( Biopatch) Post Procedure X-Ray: No Patient Tolerated Procedure: Well Immediate Complications: None
[2017-09-16] MEDS ORDERED: Dexmedetomidine Hydrochloride 200 MCG in Sodium Chloride 0.9% 48 ML IV PRN (20:43)
[2017-09-16 20:44] LABS: BASO # 0.1 K/uL (0.0-0.2); BASO % 0.8 % (0.0-2.0); EOS # 0.2 K/uL (0.0-0.7); EOS % 1.3 % (0.0-4.0); HEMOGLOBIN 13.7 g/dL (12.0-18.0); LYMPH # 2.6 K/uL (1.0-4.3); MEAN CELL VOLUME 89.3 fL (80.0-94.0); MEAN CORPUSCULAR HEMOGLOBIN 29.6 pg (27.0-31.0); MEAN CORPUSCULAR HGB CONC 33.1 g/dL (33.0-37.0); MEAN PLATELET VOLUME 9.5 fL (7.2-11.7); MONO # 1.3 K/uL (0.0-0.8); MONO % 8.9 % (0.0-10.0); NEUT # 10.4 K/uL (1.8-7.0); RBC 4.65 Mil/uL (4.40-5.90); WHITE BLOOD COUNT 14.7 K/uL (4.8-10.8)
[2017-09-16] MEDS ORDERED: (Novolin R) Insulin Human Regular 100 units/ml vial SC SCH (20:45)
[2017-09-16] MEDS: MethylPREDNISolone 40 mg Vial IV SCH ×2 (20:45→22:09)
[2017-09-16] MEDS ORDERED: Vancomycin 1 GM in Sodium Chloride 0.9% 200 ML IVPB STA (20:50)
[2017-09-16 20:51] LABS: INR 1.3; PROTHROMBIN TIME 14.9 SECONDS (9.7-12.2)
--- NOTE | 2017-09-16 20:55 | CP.CCUPN ---
CCU Subjective - Physician Review Events Since Last Encounter (Free Text): 09/16/17 20:52 Patient unresponsive due to hypercapneic respiratory failure and hypoxic respiratory failure while being on bi-pap and IV albumin infusion. NO other information could be obtained from this patient. Critical Care Time Spent (in minutes): 50 CCU Objective - Vital Signs / Intake & Output Vital Signs (Last 4 hours): Vital Signs Pulse Resp BP Pulse Ox 09/16/17 19:00 72 27 H 93 L 09/16/17 18:07 140/81 09/16/17 18:02 74 24 140/81 95 09/16/17 18:00 70 12 93 L 09/16/17 17:02 70 32 H 128/82 92 L 09/16/17 17:00 78 30 H 93 L Intake and Output (Last 8hrs): Intake & Output 09/16/17 09/16/17 09/16/17 06:59 14:59 22:59 Intake Total 80 780 305 Output Total 250 310 190 Balance -170 470 115 Weight 163 lb 2.273 oz Intake: Intake, IV Amount 75 Right Antecubital 75 Oral 80 750 200 Other 30 30 Output: Urine 250 310 190 Urethral (Cao) 250 310 190 Stool 0 - Physical Exam Physical Exam Limitations: Positive for: Altered Mental Status Head: Positive for: Atraumatic, Normocephalic Pupils: Positive for: PERRL Extroacular Muscles: Positive for: EOMI Conjunctiva: Positive for: Normal Mouth: Positive for: Moist Mucous Membranes Respiratory/Chest: Positive for: Wheezes, Rales, Other (Coarse breath sounds). Negative for: Rhonchi Cardiovascular: Positive for: Normal S1, S2, Irregular Rhythm, Bradycardic, Rub Abdomen: Positive for: Distention, Normal Bowel Sounds. Negative for: Tenderness Upper Extremity: Positive for: Normal Inspection, Cyanosis Lower Extremity: Positive for: Edema, Cyanosis Neurological: Negative for: GCS=15 Skin: Positive for: Warm, Dry Psychiatric: Positive for: Alert, Oriented x 3 - Medications Active Medications: Active Medications Generic Name Dose Route Start Last Admin Trade Name Freq PRN Reason Stop Dose Admin Albuterol/Ipratropium 3 ml 09/17/17 00:00 Duoneb 3 Mg/0.5 Mg (3 Ml) Ud INH RQ4 OMAR Dextrose 0 ml 04/12/18 15:54 Dextrose 50% Inj IV STAT PRN Hypoglycemia Protocol Protocol Dextrose 0 gm 09/08/17 15:54 Glutose 15 PO ONCE PRN Hypoglycemia Protocol Protocol Digoxin 0.125 mg 09/08/17 18:00 09/16/17 18:07 Digoxin PO 0.125 mg DAILY@1800 OMAR Administration Furosemide 60 mg 09/16/17 18:00 09/16/17 18:07 Lasix IVP 60 mg Q12 OMAR Administration Glucagon 0 mg 09/08/17 15:54 Glucagen Diagnostic Kit IM STAT PRN Hypoglycemia Protocol Protocol Dexmedetomidine HCl 200 mcg/ 50 mls @ 3.7 mls/hr 09/16/17 20:43 Sodium Chloride IV TITR PRN Sedation Protocol 0.2 MCG/KG/HR Norepinephrine Bitartrate 8 mg 258 mls @ 7.74 mls/hr 09/16/17 21:00 / Sodium Chloride IV .Q24H PRN TITRATE PER MD ORDER Protocol 4 MCG/MIN Insulin Human Regular 0 unit 09/16/17 20:45 Novolin R SC Q6H OMAR Protocol Levothyroxine Sodium 100 mcg 09/09/17 06:30 09/16/17 05:31 Synthroid PO 100 mcg 0630 OMAR Administration Methylprednisolone 40 mg 09/16/17 20:45 Solu-Medrol IV Q6H OMAR - Patient Studies Lab Studies: Lab Studies 09/16/17 09/16/17 09/16/17 Range/Units 20:35 20:29 20:29 WBC 14.7 H (4.8-10.8) K/uL RBC 4.65 (4.40-5.90) Mil/uL Hgb 13.7 (12.0-18.0) g/dL Hct 41.5 (35.0-51.0) % MCV 89.3 D (80.0-94.0) fL MCH 29.6 (27.0-31.0) pg MCHC 33.1 (33.0-37.0) g/dL RDW 16.0 H (11.5-14.5) % Plt Count 162 (130-400) K/uL MPV 9.5 (7.2-11.7) fL Neut % (Auto) 71.0 (50.0-75.0) % Lymph % (Auto) 18.0 L (20.0-40.0) % [place] % (Auto) 8.9 (0.0-10.0) % Eos % (Auto) 1.3 (0.0-4.0) % Baso % (Auto) 0.8 (0.0-2.0) % Neut # (Auto) 10.4 H (1.8-7.0) K/uL Lymph # (Auto) 2.6 (1.0-4.3) K/uL [place] # (Auto) 1.3 H (0.0-0.8) K/uL Eos # (Auto) 0.2 (0.0-0.7) K/uL Baso # (Auto) 0.1 (0.0-0.2) K/uL Neutrophils % (Manual) (50-75) % Lymphocytes % (Manual) (20-40) % Monocytes % (Manual) (0-10) % Eosinophils % (Manual) (0-4) % Basophils % (Manual) (0-2) % Platelet Estimate (NORMAL) Hypochromasia (manual) Poikilocytosis (manual Anisocytosis (manual) Target Cells Ovalocytes [place] Cells PT 14.9 H (9.7-12.2) SECONDS INR 1.3 APTT 30 (21-34) SECONDS Puncture Site [place] pCO2 52 H (35-45) mm/Hg pO2 41 L* (80-100) mm/Hg HCO3 19.2 L (21-28) mmol/L ABG pH 7.23 L (7.35-7.45) ABG Total CO2 23.4 (22-28) mmol/L ABG O2 Saturation 73.4 L (95-98) % ABG Base Excess -6.2 L (-2.0-3.0) mmol/L Ed Test Na ABG Potassium 4.6 (3.6-5.2) mmol/L A-a O2 Difference 607.0 mm/Hg Respiratory Index 14.8 Glucose 180 H (75-110) mg/dl Lactate 6.2 H* (0.7-2.1) mmol/L Vent Mode Prvc Mechanical Rate 16 FiO2 100.0 % Tidal Volume 500 PEEP 5 Crit Value Called To Dr guerrero Crit Value Called By [facility] Crit Value Read Back Y Blood Gas Notified Time 2037 Sodium 134.0 (132-148) mmol/L Potassium (3.6-5.2) mmol/L Chloride 99.0 (98-107) mmol/L Carbon Dioxide (22-30) mmol/L Anion Gap (10-20) BUN (9-20) mg/dL Creatinine (0.8-1.5) mg/dL Est GFR ( Amer) Est GFR (Non-Af Amer) POC Glucose (mg/dL) (65-110) mg/dL Random Glucose (75-110) mg/dL Calcium (8.6-10.4) mg/dl Phosphorus (2.5-4.5) mg/dL Magnesium (1.6-2.3) mg/dL Total Bilirubin (0.2-1.3) mg/dL AST (17-59) U/L ALT (21-72) U/L Alkaline Phosphatase (38-126) U/L Total Protein (6.3-8.3) g/dL Albumin (3.5-5.0) g/dL Globulin (2.2-3.9) gm/dL Albumin/Globulin Ratio (1.0-2.1) Arterial Blood Potassium 4.6 (3.6-5.2) mmol/L 09/16/17 09/16/17 09/16/17 Range/Units 20:04 19:58 16:17 WBC (4.8-10.8) K/uL RBC (4.40-5.90) Mil/uL Hgb (12.0-18.0) g/dL Hct (35.0-51.0) % MCV (80.0-94.0) fL MCH (27.0-31.0) pg MCHC (33.0-37.0) g/dL RDW (11.5-14.5) % Plt Count (130-400) K/uL MPV (7.2-11.7) fL Neut % (Auto) (50.0-75.0) % Lymph % (Auto) (20.0-40.0) % [place] % (Auto) (0.0-10.0) % Eos % (Auto) (0.0-4.0) % Baso % (Auto) (0.0-2.0) % Neut # (Auto) (1.8-7.0) K/uL Lymph # (Auto) (1.0-4.3) K/uL [place] # (Auto) (0.0-0.8) K/uL Eos # (Auto) (0.0-0.7) K/uL Baso # (Auto) (0.0-0.2) K/uL Neutrophils % (Manual) (50-75) % Lymphocytes % (Manual) (20-40) % Monocytes % (Manual) (0-10) % Eosinophils % (Manual) (0-4) % Basophils % (Manual) (0-2) % Platelet Estimate (NORMAL) Hypochromasia (manual) Poikilocytosis (manual Anisocytosis (manual) Target Cells Ovalocytes [place] Cells PT (9.7-12.2) SECONDS INR APTT (21-34) SECONDS Puncture Site Rra pCO2 47 H (35-45) mm/Hg pO2 19 L* (80-100) mm/Hg HCO3 23.5 (21-28) mmol/L ABG pH 7.36 (7.35-7.45) ABG Total CO2 28.0 (22-28) mmol/L ABG O2 Saturation 42.9 L (95-98) % ABG Base Excess 0.6 (-2.0-3.0) mmol/L Ed Test Na ABG Potassium 5.5 H (3.6-5.2) mmol/L A-a O2 Difference 635.0 mm/Hg Respiratory Index 33.4 Glucose 156 H (75-110) mg/dl Lactate 3.0 H (0.7-2.1) mmol/L Vent Mode Mechanical Rate FiO2 100.0 % Tidal Volume PEEP Crit Value Called To [facility] icu Crit Value Called By Virgilio Crit Value Read Back Y Blood Gas Notified Time 2010 Sodium 134.0 (132-148) mmol/L Potassium (3.6-5.2) mmol/L Chloride 101.0 (98-107) mmol/L Carbon Dioxide (22-30) mmol/L Anion Gap (10-20) BUN (9-20) mg/dL Creatinine (0.8-1.5) mg/dL Est GFR ( Amer) Est GFR (Non-Af Amer) POC Glucose (mg/dL) 159 H 149 H (65-110) mg/dL Random Glucose (75-110) mg/dL Calcium (8.6-10.4) mg/dl Phosphorus (2.5-4.5) mg/dL Magnesium (1.6-2.3) mg/dL Total Bilirubin (0.2-1.3) mg/dL AST (17-59) U/L ALT (21-72) U/L Alkaline Phosphatase (38-126) U/L Total Protein (6.3-8.3) g/dL Albumin (3.5-5.0) g/dL Globulin (2.2-3.9) gm/dL Albumin/Globulin Ratio (1.0-2.1) Arterial Blood Potassium 5.5 H (3.6-5.2) mmol/L 09/16/17 09/16/17 09/16/17 Range/Units 11:25 07:31 06:15 WBC (4.8-10.8) K/uL RBC (4.40-5.90) Mil/uL Hgb (12.0-18.0) g/dL Hct (35.0-51.0) % MCV (80.0-94.0) fL MCH (27.0-31.0) pg MCHC (33.0-37.0) g/dL RDW (11.5-14.5) % Plt Count (130-400) K/uL MPV (7.2-11.7) fL Neut % (Auto) (50.0-75.0) % Lymph % (Auto) (20.0-40.0) % [place] % (Auto) (0.0-10.0) % Eos % (Auto) (0.0-4.0) % Baso % (Auto) (0.0-2.0) % Neut # (Auto) (1.8-7.0) K/uL Lymph # (Auto) (1.0-4.3) K/uL [place] # (Auto) (0.0-0.8) K/uL Eos # (Auto) (0.0-0.7) K/uL Baso # (Auto) (0.0-0.2) K/uL Neutrophils % (Manual) (50-75) % Lymphocytes % (Manual) (20-40) % Monocytes % (Manual) (0-10) % Eosinophils % (Manual) (0-4) % Basophils % (Manual) (0-2) % Platelet Estimate (NORMAL) Hypochromasia (manual) Poikilocytosis (manual Anisocytosis (manual) Target Cells Ovalocytes [place] Cells PT (9.7-12.2) SECONDS INR APTT (21-34) SECONDS Puncture Site pCO2 (35-45) mm/Hg pO2 (80-100) mm/Hg HCO3 (21-28) mmol/L ABG pH (7.35-7.45) ABG Total CO2 (22-28) mmol/L ABG O2 Saturation (95-98) % ABG Base Excess (-2.0-3.0) mmol/L Ed Test ABG Potassium (3.6-5.2) mmol/L A-a O2 Difference mm/Hg Respiratory Index Glucose (75-110) mg/dl Lactate (0.7-2.1) mmol/L Vent Mode Mechanical Rate FiO2 % Tidal Volume PEEP Crit Value Called To Crit Value Called By Crit Value Read Back Blood Gas Notified Time Sodium 135 (132-148) mmol/L Potassium 4.1 (3.6-5.2) mmol/L Chloride 96 L (98-107) mmol/L Carbon Dioxide 27 (22-30) mmol/L Anion Gap 16 (10-20) BUN 25 H (9-20) mg/dL Creatinine 1.0 (0.8-1.5) mg/dL Est GFR ( Amer) > 60 Est GFR (Non-Af Amer) > 60 POC Glucose (mg/dL) 181 H 131 H (65-110) mg/dL Random Glucose 134 H (75-110) mg/dL Calcium 8.9 (8.6-10.4) mg/dl Phosphorus 3.6 (2.5-4.5) mg/dL Magnesium 1.8 (1.6-2.3) mg/dL Total Bilirubin 1.1 (0.2-1.3) mg/dL AST 28 (17-59) U/L ALT 30 (21-72) U/L Alkaline Phosphatase 102 (38-126) U/L Total Protein 6.2 L (6.3-8.3) g/dL Albumin 3.2 L (3.5-5.0) g/dL Globulin 3.0 (2.2-3.9) gm/dL Albumin/Globulin Ratio 1.1 (1.0-2.1) Arterial Blood Potassium (3.6-5.2) mmol/L 09/16/17 09/15/17 Range/Units 06:15 21:12 WBC 10.6 (4.8-10.8) K/uL RBC 4.19 L (4.40-5.90) Mil/uL Hgb 12.4 (12.0-18.0) g/dL Hct 36.4 (35.0-51.0) % MCV 86.9 (80.0-94.0) fL MCH 29.6 (27.0-31.0) pg MCHC 34.1 (33.0-37.0) g/dL RDW 15.2 H (11.5-14.5) % Plt Count 149 (130-400) K/uL MPV 9.0 (7.2-11.7) fL Neut % (Auto) 82.0 H (50.0-75.0) % Lymph % (Auto) 5.7 L (20.0-40.0) % [place] % (Auto) 9.7 (0.0-10.0) % Eos % (Auto) 2.1 (0.0-4.0) % Baso % (Auto) 0.5 (0.0-2.0) % Neut # (Auto) 8.7 H (1.8-7.0) K/uL Lymph # (Auto) 0.6 L (1.0-4.3) K/uL [place] # (Auto) 1.0 H (0.0-0.8) K/uL Eos # (Auto) 0.2 (0.0-0.7) K/uL Baso # (Auto) 0.1 (0.0-0.2) K/uL Neutrophils % (Manual) 84 H (50-75) % Lymphocytes % (Manual) 6 L (20-40) % Monocytes % (Manual) 7 (0-10) % Eosinophils % (Manual) 2 (0-4) % Basophils % (Manual) 1 (0-2) % Platelet Estimate Normal (NORMAL) Hypochromasia (manual) Slight Poikilocytosis (manual Slight Anisocytosis (manual) Slight Target Cells Slight Ovalocytes Slight [place]inny Cells Slight PT (9.7-12.2) SECONDS INR APTT (21-34) SECONDS Puncture Site pCO2 (35-45) mm/Hg pO2 (80-100) mm/Hg HCO3 (21-28) mmol/L ABG pH (7.35-7.45) ABG Total CO2 (22-28) mmol/L ABG O2 Saturation (95-98) % ABG Base Excess (-2.0-3.0) mmol/L Ed Test ABG Potassium (3.6-5.2) mmol/L A-a O2 Difference mm/Hg Respiratory Index Glucose (75-110) mg/dl Lactate (0.7-2.1) mmol/L Vent Mode Mechanical Rate FiO2 % Tidal Volume PEEP Crit Value Called To Crit Value Called By Crit Value Read Back Blood Gas Notified Time Sodium (132-148) mmol/L Potassium (3.6-5.2) mmol/L Chloride (98-107) mmol/L Carbon Dioxide (22-30) mmol/L Anion Gap (10-20) BUN (9-20) mg/dL Creatinine (0.8-1.5) mg/dL Est GFR ( Amer) Est GFR (Non-Af Amer) POC Glucose (mg/dL) 189 H (65-110) mg/dL Random Glucose (75-110) mg/dL Calcium (8.6-10.4) mg/dl Phosphorus (2.5-4.5) mg/dL Magnesium (1.6-2.3) mg/dL Total Bilirubin (0.2-1.3) mg/dL AST (17-59) U/L ALT (21-72) U/L Alkaline Phosphatase (38-126) U/L Total Protein (6.3-8.3) g/dL Albumin (3.5-5.0) g/dL Globulin (2.2-3.9) gm/dL Albumin/Globulin Ratio (1.0-2.1) Arterial Blood Potassium (3.6-5.2) mmol/L Laboratory Results - last 24 hr 09/15/17 09/16/17 09/16/17 21:12 06:15 06:15 WBC 10.6 RBC 4.19 L Hgb 12.4 Hct 36.4 MCV 86.9 MCH 29.6 MCHC 34.1 RDW 15.2 H Plt Count 149 MPV 9.0 Neut % (Auto) 82.0 H Lymph % (Auto) 5.7 L [place] % (Auto) 9.7 Eos % (Auto) 2.1 Baso % (Auto) 0.5 Neut # (Auto) 8.7 H Lymph # (Auto) 0.6 L [place] # (Auto) 1.0 H Eos # (Auto) 0.2 Baso # (Auto) 0.1 Neutrophils % (Manual) 84 H Lymphocytes % (Manual) 6 L Monocytes % (Manual) 7 Eosinophils % (Manual) 2 Basophils % (Manual) 1 Platelet Estimate Normal Hypochromasia (manual) Slight Poikilocytosis (manual Slight Anisocytosis (manual) Slight Target Cells Slight Ovalocytes Slight [place] Cells Slight PT INR APTT Puncture Site pCO2 pO2 HCO3 ABG pH ABG Total CO2 ABG O2 Saturation ABG Base Excess Ed Test ABG Potassium A-a O2 Difference Respiratory Index Glucose Lactate Vent Mode Mechanical Rate FiO2 Tidal Volume PEEP Crit Value Called To Crit Value Called By Crit Value Read Back Blood Gas Notified Time Sodium 135 Potassium 4.1 Chloride 96 L Carbon Dioxide 27 Anion Gap 16 BUN 25 H Creatinine 1.0 Est GFR ( Amer) > 60 Est GFR (Non-Af Amer) > 60 POC Glucose (mg/dL) 189 H Random Glucose 134 H Calcium 8.9 Phosphorus 3.6 Magnesium 1.8 Total Bilirubin 1.1 AST 28 ALT 30 Alkaline Phosphatase 102 Total Protein 6.2 L Albumin 3.2 L Globulin 3.0 Albumin/Globulin Ratio 1.1 Arterial Blood Potassium 09/16/17 09/16/17 09/16/17 07:31 11:25 16:17 WBC RBC Hgb Hct MCV MCH MCHC RDW Plt Count MPV Neut % (Auto) Lymph % (Auto) [place] % (Auto) Eos % (Auto) Baso % (Auto) Neut # (Auto) Lymph # (Auto) [place] # (Auto) Eos # (Auto) Baso # (Auto) Neutrophils % (Manual) Lymphocytes % (Manual) Monocytes % (Manual) Eosinophils % (Manual) Basophils % (Manual) Platelet Estimate Hypochromasia (manual) Poikilocytosis (manual Anisocytosis (manual) Target Cells Ovalocytes [place] Cells PT INR APTT Puncture Site pCO2 pO2 HCO3 ABG pH ABG Total CO2 ABG O2 Saturation ABG Base Excess Ed Test ABG Potassium A-a O2 Difference Respiratory Index Glucose Lactate Vent Mode Mechanical Rate FiO2 Tidal Volume PEEP Crit Value Called To Crit Value Called By Crit Value Read Back Blood Gas Notified Time Sodium Potassium Chloride Carbon Dioxide Anion Gap BUN Creatinine Est GFR ( Amer) Est GFR (Non-Af Amer) POC Glucose (mg/dL) 131 H 181 H 149 H Random Glucose Calcium Phosphorus Magnesium Total Bilirubin AST ALT Alkaline Phosphatase Total Protein Albumin Globulin Albumin/Globulin Ratio Arterial Blood Potassium 09/16/17 09/16/17 09/16/17 19:58 20:04 20:29 WBC 14.7 H RBC 4.65 Hgb 13.7 Hct 41.5 MCV 89.3 D MCH 29.6 MCHC 33.1 RDW 16.0 H Plt Count 162 MPV 9.5 Neut % (Auto) 71.0 Lymph % (Auto) 18.0 L [place] % (Auto) 8.9 Eos % (Auto) 1.3 Baso % (Auto) 0.8 Neut # (Auto) 10.4 H Lymph # (Auto) 2.6 [place] # (Auto) 1.3 H Eos # (Auto) 0.2 Baso # (Auto) 0.1 Neutrophils % (Manual) Lymphocytes % (Manual) Monocytes % (Manual) Eosinophils % (Manual) Basophils % (Manual) Platelet Estimate Hypochromasia (manual) Poikilocytosis (manual Anisocytosis (manual) Target Cells Ovalocytes [place] Cells PT INR APTT Puncture Site Rra pCO2 47 H pO2 19 L* HCO3 23.5 ABG pH 7.36 ABG Total CO2 28.0 ABG O2 Saturation 42.9 L ABG Base Excess 0.6 Ed Test Na ABG Potassium 5.5 H A-a O2 Difference 635.0 Respiratory Index 33.4 Glucose 156 H Lactate 3.0 H Vent Mode Mechanical Rate FiO2 100.0 Tidal Volume PEEP Crit Value Called To [place] icu Crit Value Called By Virgilio Crit Value Read Back Y Blood Gas Notified Time 2010 Sodium 134.0 Potassium Chloride 101.0 Carbon Dioxide Anion Gap BUN Creatinine Est GFR ( Amer) Est GFR (Non-Af Amer) POC Glucose (mg/dL) 159 H Random Glucose Calcium Phosphorus Magnesium Total Bilirubin AST ALT Alkaline Phosphatase Total Protein Albumin Globulin Albumin/Globulin Ratio Arterial Blood Potassium 5.5 H 09/16/17 09/16/17 20:29 20:35 WBC RBC Hgb Hct MCV MCH MCHC RDW Plt Count MPV Neut % (Auto) Lymph % (Auto) [place] % (Auto) Eos % (Auto) Baso % (Auto) Neut # (Auto) Lymph # (Auto) [place] # (Auto) Eos # (Auto) Baso # (Auto) Neutrophils % (Manual) Lymphocytes % (Manual) Monocytes % (Manual) Eosinophils % (Manual) Basophils % (Manual) Platelet Estimate Hypochromasia (manual) Poikilocytosis (manual Anisocytosis (manual) Target Cells Ovalocytes Vinny Cells PT 14.9 H INR 1.3 APTT 30 Puncture Site [place] pCO2 52 H pO2 41 L* HCO3 19.2 L ABG pH 7.23 L ABG Total CO2 23.4 ABG O2 Saturation 73.4 L ABG Base Excess -6.2 L Ed Test Na ABG Potassium 4.6 A-a O2 Difference 607.0 Respiratory Index 14.8 Glucose 180 H Lactate 6.2 H* Vent Mode Prvc Mechanical Rate 16 FiO2 100.0 Tidal Volume 500 PEEP 5 Crit Value Called To Dr guerrero Crit Value Called By [facility] Crit Value Read Back Y Blood Gas Notified Time 2037 Sodium 134.0 Potassium Chloride 99.0 Carbon Dioxide Anion Gap BUN Creatinine Est GFR ( Amer) Est GFR (Non-Af Amer) POC Glucose (mg/dL) Random Glucose Calcium Phosphorus Magnesium Total Bilirubin AST ALT Alkaline Phosphatase Total Protein Albumin Globulin Albumin/Globulin Ratio Arterial Blood Potassium 4.6 EKG/Cardiology Studies: Cardiology / EKG Studies 09/16/17 20:11 EKG [ELECTROCARDIOGRAM] Stat Comment: Mode Of Transportation: Reason For Exam: post bradycardia Fingerstick Blood Sugar Results: 147 Review of Systems - Review of Systems Review of Systems: LImited as aptient was unresponsive Critical Care Progress Note - Ventilator Checklist Daily Sedation Vacation: Yes Daily Assessment of Readiness to Wean: Yes Daily Spontaneous Breathing Trial: Yes PUD Prophalyxis: Yes DVT Prophylaxis: Yes Oral Care with Chlorhexidine Gluconate {CHG}: Yes - Nutrition Nutrition: Nutrition Category Date Time Status Heart Healthy Diet [DIET] Diets 09/14/17 Dinner Active Assessment/Plan - Assessment and Plan (Free Text) Assessment: Hypoxic and hypercapenic respiratory failure: immediately intubated to keep spo2 >92 and pH b/w 7.35-7.45, start bronchodialtrs, stop IV albuimin and start diuresis -AMS: obtain Utox, CT head when stable -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
[2017-09-16] MEDS ORDERED: Azithromycin 500 MG in Sodium Chloride 0.9% 250 ML IVPB SCH (21:00)
[2017-09-16 21:05] LABS: ALB/GLOB RATIO 1.1 (1.0-2.1); ALBUMIN 3.5 g/dL (3.5-5.0); ALT/SGPT 43 U/L (21-72); AST/SGOT 47 U/L (17-59); BLOOD UREA NITROGEN 28 mg/dL (9-20); CALCIUM 8.8 mg/dl (8.6-10.4); GFR AFRICAN-AMERICAN > 60; GFR NON-AFRICAN AMERICAN 59
[2017-09-16 21:12] LABS: CK-MB 0.87 ng/mL (0.0-3.38)
[2017-09-16] MEDS: Propofol 10 mg/ml 1,000 MG/100 ML VIAL IV PRN (22:00)
[2017-09-16] MEDS: Cefepime IV 1 gm in Dextrose 1 GM/50 ML BAG IVPB SCH (22:01)
[2017-09-16] MEDS: Albuterol-Ipratrop 3 mg / 0.5 (3 ml) UD INH SCH (23:39)
[2017-09-16 23:57] LABS: ARTERIAL BLOOD GAS HCO3 25.4 mmol/L (21-28); ARTERIAL BLOOD GAS O2 SAT 97.8 % (95-98); ARTERIAL BLOOD GAS PCO2 36 mm/Hg (35-45); ARTERIAL BLOOD GAS PH 7.44 (7.35-7.45); ARTERIAL BLOOD GAS PO2 78 mm/Hg (80-100); ARTERIAL BLOOD GAS TCO2 25.6 mmol/L (22-28)
[2017-09-17] MEDS ORDERED: DOPamine 400mg/250ml D5W 400 MG/250 ML BAG IV PRN (00:15)
[2017-09-17] MEDS ORDERED: DOPamine 400mg/250ml D5W 400 MG/250 ML BAG IV ONE (00:18)
[2017-09-17] MEDS: Albuterol-Ipratrop 3 mg / 0.5 (3 ml) UD INH SCH ×2 (03:10→07:30)
[2017-09-17] MEDS: MethylPREDNISolone 40 mg Vial IV SCH ×2 (03:20→08:03)
[2017-09-17 04:19] LABS: ARTERIAL BLOOD GAS HCO3 22.7 mmol/L (21-28); ARTERIAL BLOOD GAS O2 SAT 93.8 % (95-98); ARTERIAL BLOOD GAS PCO2 31 mm/Hg (35-45); ARTERIAL BLOOD GAS PH 7.43 (7.35-7.45); ARTERIAL BLOOD GAS PO2 64 mm/Hg (80-100); ARTERIAL BLOOD GAS TCO2 21.6 mmol/L (22-28)
[2017-09-17] MEDS ORDERED: (Novolin R) Insulin Human Regular 100 units/ml vial SC SCH (06:00)
[2017-09-17 06:33] LABS: BASO % 0.2 % (0.0-2.0); EOS % 0.1 % (0.0-4.0); HEMOGLOBIN 13.3 g/dL (12.0-18.0); LYMPH # 0.4 K/uL (1.0-4.3); LYMPH % 2.2 % (20.0-40.0); MEAN CELL VOLUME 86.7 fL (80.0-94.0); MEAN CORPUSCULAR HEMOGLOBIN 29.4 pg (27.0-31.0); MEAN CORPUSCULAR HGB CONC 33.9 g/dL (33.0-37.0); MEAN PLATELET VOLUME 9.5 fL (7.2-11.7); MONO # 0.3 K/uL (0.0-0.8); MONO % 1.4 % (0.0-10.0); NEUT # 18.7 K/uL (1.8-7.0); NEUT % 96.1 % (50.0-75.0); PLATELET COUNT 186 K/uL (130-400); RBC 4.53 Mil/uL (4.40-5.90); RED CELL DISTRIBUTION WIDTH 15.4 % (11.5-14.5); WHITE BLOOD COUNT 19.5 K/uL (4.8-10.8)
[2017-09-17] MEDS: Levothyroxine 100 MCG TAB PO SCH (06:33)
[2017-09-17 06:55] LABS: ALBUMIN 3.1 g/dL (3.5-5.0); CALCIUM 8.9 mg/dl (8.6-10.4)
[2017-09-17 06:59] LABS: TROPONIN I 0.059 ng/mL (0.00-0.120)
[2017-09-17] MEDS: Propofol 10 mg/ml 1,000 MG/100 ML VIAL IV PRN (07:23)
[2017-09-17 08:31] LABS: ARTERIAL BLOOD GAS HCO3 10.8 mmol/L (21-28); ARTERIAL BLOOD GAS O2 SAT 97.6 % (95-98); ARTERIAL BLOOD GAS PCO2 18 mm/Hg (35-45); ARTERIAL BLOOD GAS PH 7.22 (7.35-7.45); ARTERIAL BLOOD GAS PO2 96 mm/Hg (80-100)
--- NOTE | 2017-09-17 08:34 | RAD ---
HISTORY: CHF COMPARISON: Portable chest 09/16/2017. FINDINGS: Endotracheal tube stable in position with nasogastric tube again identified. LUNGS: Prior dense airspace disease at the right apex appears to have markedly reduced with limited medial apical residual. PLEURA: No significant pleural effusion identified, no pneumothorax apparent. CARDIOVASCULAR: Cardiac size remains grossly normal however there is diffuse increased interstitial change with accompanying hypervascular hilar markings in a pattern that suggests significantly increased pulmonary vascular congestion. OSSEOUS STRUCTURES: No significant abnormalities. VISUALIZED UPPER ABDOMEN: Unremarkable other than NG tube. OTHER FINDINGS: None. IMPRESSION: 1. Significant interval increase in pulmonary vascular congestion. 2. Marked improvement right apical airspace disease with residual noted medially.
--- NOTE | 2017-09-17 08:54 | RAD ---
HISTORY: post intubation COMPARISON: Portable chest 09/16/2017. FINDINGS: Endotracheal tube is in place terminating approximate 2.5 cm above the [place]. A nasogastric tube is also in place terminating at the left upper quadrant abdomen. LUNGS: Interval likely atelectasis is seen at the right apex with questionable fluid in the minor fissure versus limited right middle lobe atelectasis. No left-sided airspace disease. PLEURA: No significant pleural effusion identified, no pneumothorax apparent. CARDIOVASCULAR: There is a likely mild improvement in pulmonary vascular congestion pattern with diminished reticular and vascular changes noted diffusely. OSSEOUS STRUCTURES: No significant abnormalities. VISUALIZED UPPER ABDOMEN: Normal. OTHER FINDINGS: None. IMPRESSION: Improved CHF. Grossly prominent atelectasis favored over infiltrate at the right apex. Limited fluid minor fissure versus atelectasis in right middle lobe. Adequate endotracheal intubation with nasogastric tube identified in the interval as well.
[2017-09-17] MEDS ORDERED: DOBUTamine 500mg/250ml D5W 500 MG/250 ML BAG ONE (08:56)
[2017-09-17] MEDS ORDERED: DOBUTamine 500mg/250ml D5W 500 MG/250 ML BAG IV PRN (09:00)
--- NOTE | 2017-09-17 09:11 | CP.PCM.PN ---
Subjective - Date & Time of Evaluation Date of Evaluation: 09/17/17 - Subjective Subjective: patient seen and examined in the intensive care unit. Previous events noted as patient got intubated for hypoxemic and hypercapnic respiratory failure Started on dopamine for hypotension now at max dose/ heart rate in the 40s/50s irregularly irregul Patient sedated and on ventilatory support Afebrile elevated white count and lactate level Chest x-ray consistent with CHF No evidence of pulmonary fibrosis in the previous CAT scan or chest x-ray Case discussed with cardiology For echocardiogram IV antibiotics Culture and sensitivity Followup ABG Objective - Vital Signs/Intake and Output Vital Signs (last 24 hours): Temp Pulse Resp BP Pulse Ox 99.3 F 162 H 21 125/87 93 L 09/17/17 04:00 09/17/17 09:00 09/17/17 09:00 09/17/17 09:00 09/17/17 09:00 Intake and Output: 09/17/17 09/17/17 06:59 18:59 Intake Total 1063.7 196.1 Output Total 420 Balance 643.7 196.1 - Medications Medications: Current Medications Albuterol/Ipratropium (Duoneb 3 Mg/0.5 Mg (3 Ml) Ud) 3 ml INH RQ4 [facility] Last Admin: 09/17/17 07:30 Dose: 3 ml Dextrose (Dextrose 50% Inj) 0 ml IV STAT PRN; Protocol PRN Reason: Hypoglycemia Protocol Dextrose (Glutose 15) 0 gm PO ONCE PRN; Protocol PRN Reason: Hypoglycemia Protocol Digoxin (Digoxin) 0.125 mg PO DAILY@1800 [facility] Last Admin: 09/16/17 18:07 Dose: 0.125 mg Furosemide (Lasix) 60 mg IVP Q12 [facility] Last Admin: 09/16/17 22:02 Dose: Not Given Glucagon (Glucagen Diagnostic Kit) 0 mg IM STAT PRN; Protocol PRN Reason: Hypoglycemia Protocol Norepinephrine Bitartrate 8 mg (/ Sodium Chloride) 258 mls @ 7.74 mls/hr IV .Q24H PRN; Protocol; 4 MCG/MIN PRN Reason: TITRATE PER MD ORDER Last Titration: 09/17/17 08:15 Dose: 20 mcg/min, 38.7 mls/hr Cefepime HCl (Maxipime Iv 1 Gm Premix) 1 gm in 50 mls @ 100 mls/hr IVPB Q12H OMAR PRN Reason: Protocol Last Admin: 09/16/17 22:01 Dose: 100 mls/hr Azithromycin 500 mg/ Sodium (Chloride) 250 mls @ 250 mls/hr IVPB Q24H OMAR PRN Reason: Protocol Last Admin: 09/16/17 22:00 Dose: 250 mls/hr Propofol (Diprivan) 1,000 mg in 100 mls @ 2.22 mls/hr IV .Q24H PRN; Protocol; 5 MCG/KG/MIN PRN Reason: TITRATE PER MD ORDER Last Titration: 09/17/17 08:20 Dose: 0 mcg/kg/min, 0 mls/hr Dopamine HCl/Dextrose (Dopamine 400mg/250ml D5w) 400 mg in 250 mls @ 5.55 mls/ hr IV .Q24H PRN; Protocol; 2 MCG/KG/MIN PRN Reason: TITRATE PER MD ORDER Last Titration: 09/17/17 08:25 Dose: 20 mcg/kg/min, 55.5 mls/hr Sodium Bicarbonate 150 meq/ (Sodium Chloride) 1,150 mls @ 200 mls/hr IV .Q5H45M OMAR Dobutamine HCl/Dextrose (Dobutamine/Dextrose 5% 500mg/250ml) 500 mg in 250 mls @ 5.475 mls/hr IV .Q24H PRN; Protocol; 2.5 MCG/KG/MIN PRN Reason: FOLLOW PROTOCOL Last Admin: 09/17/17 09:00 Dose: 2.5 mcg/kg/min, 5.475 mls/hr Insulin Human Regular (Novolin R) 0 unit SC Q6H OMAR PRN Reason: Protocol Last Admin: 09/17/17 06:28 Dose: Not Given Levothyroxine Sodium (Synthroid) 100 mcg PO 0630 [facility] Last Admin: 09/17/17 06:33 Dose: 100 mcg Methylprednisolone (Solu-Medrol) 40 mg IV Q6H [facility] Last Admin: 09/17/17 08:03 Dose: 40 mg Pantoprazole Sodium (Protonix Inj) 40 mg IVP Q12H [facility] Last Admin: 09/16/17 22:09 Dose: 40 mg - Labs Labs: 09/17/17 06:23 09/17/17 06:23 PT 14.9 SECONDS (9.7-12.2) H 09/16/17 20:29 INR 1.3 09/16/17 20:29 APTT 30 SECONDS (21-34) 09/16/17 20:29
[2017-09-17 09:16] LABS: BANDS 1 % (0-2); LYMPHOCYTE 3 % (20-40); METAMYELOCYTE 1 % (0-0); MONOCYTE 1 % (0-10); NEUTROPHIL 94 % (50-75); PLATELET ESTIMATE NORMAL (NORMAL); TOTAL CELLS COUNTED 100; TOXIC GRANULATION PRESENT
[2017-09-17 09:17] LABS: ANISOCYTOSIS SLIGHT; BURR CELLS SLIGHT; HYPOCHROMIC SLIGHT; LARGE PLATELETS PRESENT; OVALOCYTES SLIGHT; POIKILOCYTOSIS SLIGHT; POLYCHROMIC SLIGHT
[2017-09-17] MEDS: Cefepime IV 1 gm in Dextrose 1 GM/50 ML BAG IVPB SCH (09:21)
[2017-09-17] MEDS ORDERED: Phenylephrine 30 MG in Sodium Chloride 0.9% 250 ML IV PRN (09:30)
--- NOTE | 2017-09-17 09:45 | CP.PCM.PN ---
Subjective - Date & Time of Evaluation Date of Evaluation: 09/17/17 Time of Evaluation: 09:30 - Subjective Subjective: Patient is non responsive and non verbal, and he remains intubated. I spoke with the patient's sister who explains that the patient's returned to her home country. I explained to her the that the situation is very grave He remains intubated and on 3 pressor medications - even then the blood pressures are low. I had a radiation oncology therapist present to help explain the prognosis, sister still wants the patient to be full code Very likley the patient will CODE soon from this time. Objective - Vital Signs/Intake and Output Vital Signs (last 24 hours): Temp Pulse Resp BP Pulse Ox 99.3 F 162 H 21 125/87 93 L 09/17/17 04:00 09/17/17 09:00 09/17/17 09:00 09/17/17 09:00 09/17/17 09:00 Intake and Output: 09/17/17 09/17/17 06:59 18:59 Intake Total 1063.7 196.1 Output Total 420 Balance 643.7 196.1 - Medications Medications: Current Medications Albuterol/Ipratropium (Duoneb 3 Mg/0.5 Mg (3 Ml) Ud) 3 ml INH RQ4 [facility] Last Admin: 09/17/17 07:30 Dose: 3 ml Dextrose (Dextrose 50% Inj) 0 ml IV STAT PRN; Protocol PRN Reason: Hypoglycemia Protocol Dextrose (Glutose 15) 0 gm PO ONCE PRN; Protocol PRN Reason: Hypoglycemia Protocol Digoxin (Digoxin) 0.125 mg PO DAILY@1800 [facility] Last Admin: 09/16/17 18:07 Dose: 0.125 mg Furosemide (Lasix) 60 mg IVP Q12 [facility] Last Admin: 09/16/17 22:02 Dose: Not Given Glucagon (Glucagen Diagnostic Kit) 0 mg IM STAT PRN; Protocol PRN Reason: Hypoglycemia Protocol Norepinephrine Bitartrate 8 mg (/ Sodium Chloride) 258 mls @ 7.74 mls/hr IV .Q24H PRN; Protocol; 4 MCG/MIN PRN Reason: TITRATE PER MD ORDER Last Titration: 09/17/17 08:15 Dose: 20 mcg/min, 38.7 mls/hr Cefepime HCl (Maxipime Iv 1 Gm Premix) 1 gm in 50 mls @ 100 mls/hr IVPB Q12H [facility] PRN Reason: Protocol Last Admin: 09/17/17 09:21 Dose: 100 mls/hr Azithromycin 500 mg/ Sodium (Chloride) 250 mls @ 250 mls/hr IVPB Q24H [facility] PRN Reason: Protocol Last Admin: 09/16/17 22:00 Dose: 250 mls/hr Propofol (Diprivan) 1,000 mg in 100 mls @ 2.22 mls/hr IV .Q24H PRN; Protocol; 5 MCG/KG/MIN PRN Reason: TITRATE PER MD ORDER Last Titration: 09/17/17 08:20 Dose: 0 mcg/kg/min, 0 mls/hr Dopamine HCl/Dextrose (Dopamine 400mg/250ml D5w) 400 mg in 250 mls @ 5.55 mls/ hr IV .Q24H PRN; Protocol; 2 MCG/KG/MIN PRN Reason: TITRATE PER MD ORDER Last Titration: 09/17/17 08:25 Dose: 20 mcg/kg/min, 55.5 mls/hr Sodium Bicarbonate 150 meq/ (Sodium Chloride) 1,150 mls @ 200 mls/hr IV .Q5H45M [facility] Last Admin: 09/17/17 09:24 Dose: 200 mls/hr Dobutamine HCl/Dextrose (Dobutamine/Dextrose 5% 500mg/250ml) 500 mg in 250 mls @ 5.475 mls/hr IV .Q24H PRN; Protocol; 2.5 MCG/KG/MIN PRN Reason: FOLLOW PROTOCOL Last Admin: 09/17/17 09:00 Dose: 2.5 mcg/kg/min, 5.475 mls/hr Phenylephrine HCl 30 mg/ (Sodium Chloride) 253 mls @ 10.12 mls/hr IV .Q24H PRN ; Protocol; 20 MCG/MIN PRN Reason: TITRATE PER MD ORDER Insulin Human Regular (Novolin R) 0 unit SC Q6H [facility] PRN Reason: Protocol Last Admin: 09/17/17 06:28 Dose: Not Given Levothyroxine Sodium (Synthroid) 100 mcg PO 0630 [facility] Last Admin: 09/17/17 06:33 Dose: 100 mcg Methylprednisolone (Solu-Medrol) 40 mg IV Q6H [facility] Last Admin: 09/17/17 08:03 Dose: 40 mg Pantoprazole Sodium (Protonix Inj) 40 mg IVP Q12H [facility] Last Admin: 09/17/17 09:20 Dose: 40 mg - Labs Labs: 09/17/17 06:23 09/17/17 06:23 PT 14.9 SECONDS (9.7-12.2) H 09/16/17 20:29 INR 1.3 09/16/17 20:29 APTT 30 SECONDS (21-34) 09/16/17 20:29 - Constitutional Appears: Toxic, In Acute Distress, Unkempt, Chronically Ill - Eye Exam Eye Exam: absent: EOMI - ENT Exam ENT Exam: Mucous Membranes Moist - Respiratory Exam Respiratory Exam: Decreased Breath Sounds Additional comments: Intubated - Cardiovascular Exam Cardiovascular Exam: Bradycardia - Neurological Exam Neurological Exam: absent: Alert, Altered, Awake, CN II-XII Intact, Oriented x3 Neuro motor strength exam: Left Upper Extremity: 0, Right Upper Extremity: 0, Left Lower Extremity: 0, Right Lower Extremity: 0 - Skin Skin Exam: Pallor, Pallor Assessment and Plan - Assessment and Plan (Free Text) Assessment: Hypercapnic Respiratory failure secondary to Right side CHF 09/17: Previous days my colleages have been seeing patient. Prognosis remains poor. He remains intubated now. The blood pressures are very low despite multiple pressor medications. The patient's sister was present this morning and with a radiation oncology therapist I explained to her that the prognosis is extremely poor and that he may be CODING very soon. She still wants the patient FULL CODE despite such a poor prognosis. She explains there is a however that the returned to home country and is incompacitated. 09/14: Now moved to ICU. He remains on Bipap. ABG showed a lot of CO2 retention and this improved after he was placed back on Bipap The CXRAY still has a lot of congestion. Right side CHF exacerbation, acute on chronic (preserved EF) 09/17: Prognosis is very poor. Likely will today. 09/14: CXRAYs still have a lot of congestion, on exam still with signifigant pitting edema. Will try increasing lasix back to 60 mg IV BID, Continue with Aldactone, and ARB, and BB - Patient is comfortable on BIPAP at night - BNP 5540 -troponins negative x 3 - ECHO was done as an outpatient 06/22/17: * EF 55-60%, borderline conecntric left ventricular hypertrophy, grade II pseudonormal filling dynamics * Left ventricle cavity is normal in size; the aortic valve is tri-leaflet and calcified. There is no significant aortic regurgitation. * Repeat echo 09/08/17: LVEF-55%, borderline concentric left ventricular hypertrophy. left ventricular systolic function is normal. flattened septum consistent with right ventricle pressure overload. Grade II-pseudonormal filling dynamics. right ventricle is moderately dilated with mildly to moderately reduced systolic function. right atrium is moderately to severly dilated. aortic valve sclerosis. Severe tricuspid regurgitation. right ventricular systolic pressure is estimated at greater than 60 mmHg compatible with severe pulmonary hypertension. Pulmonary hypertension Per cardiology the repeat echo shows progressed pulmonary htn CTA: No PE. Small to moderate pleural effusions. Lower lobe compressive atelectasis. Extensive patchy ground glass opacities in both upper lobes, possibly infectious. Ascites. Finding of wedge like areas of decreased cortical enhancement in the upper half of both kidneys of questionable significance due to the very early stage of enhancement at the time of image acquisition. B/L Pleural Effusion 09/14: We ordered the CT scan in case he developed worsening pleural effusion however compared to previous hospitalizations - the pleural effusions are smaller. I had thought maybe he would need a thoracenteis - however for now will monitor. History of Afib 09/17: Currently remains in atrial fibrillation and bradycardia in the 40s 09/14/2017: Currently of of the Xarelto at this moment as he just had procedure - Monitor on tele - Rate controlled - CHADs(2) Score: 3 - Medications * Metoprolol Succinate XL 100mg po daily * Xarelto 20mg po daily will restart on 09/13 * Digoxin 0.125mg po daily, dig level 1.5 Hypertension 09/17: Currently patient is hypotensive and on multiple pressor medications Diabetes Continue Januvia 100mg daily patient used Trulicity on Tuesday (once/ weekly medication) Insulin sliding scale - moderateAccuchecks Hematuria -Dr. Perico Smith consulted (urology) - help appreciated -possible cystoscopy today 09/13, held xarelto - Urine culture 09/09 - negative - CBC is stable, hematuria is improving (09/10 Praveen blood seen in mendoza bag- patient pulled out on accident overnight on 09/10) - CT abd/pelvis: high attenuation fluid in bladder likely represent hemorrhage and clots. No CT evidence of bladder rupture. Small to moderate amount of ascites in abdomen and pelvis. Moderate anasarca. Moderately enlarged prostate. Moderate right and small left pleural effusion. Hypothyroid - Continue home medication * Synthroid 100mg PO daily Prophylaxis scds contraindicated GI: Not indicated
[2017-09-17] MEDS ORDERED: Sodium Bicarbonate (8.4%) 50 Meq Syringe ONE (09:58)
[2017-09-17] MEDS ORDERED: EPINEPHrine 1 mg/ml (1:1000) Inj IV ONE (10:00)
--- NOTE | 2017-09-17 10:45 | CP.PCM.PRO ---
Pronouncement of Note - Clinical Findings Physical Exam: No Response Verbal/Painful Stimuli, Absent Heart & Breath Sounds , No Pupillary Light Reflex, Pupils Fixed & Dilated, Absence of Vital Signs - Pronouncement Time Time of Pronouncement of : 10:38 - Notifications Pronouncement Notifications: Family Notified, Atending Notified Medicaid Billing Clerk Notified: No - Autopsy Autopsy Requested: No [place] [id number]
--- NOTE | 2017-09-17 11:18 | CP.PCM.DIS ---
Provider - Provider Date of Admission: 09/08/17 15:58 Attending physician: Luis M Chan DO Consults: Cardiology ~ Dr Bay Pulmonology ~ Dr Newton Urology ~ Dr Smith Time Spent in preparation of Discharge (in minutes): 15 Hospital Course - Lab Results Lab Results: Micro Results 09/14/17 Unknown Nose MRSA Culture (Admit) - Final MRSA NOT DETECTED 09/09/17 16:00 Urine Urine Culture - Final No Growth (<1,000 CFU/ML) Most Recent Lab Values WBC 19.5 K/uL (4.8-10.8) H 09/17/17 06:23 RBC 4.53 Mil/uL (4.40-5.90) 09/17/17 06:23 Hgb 13.3 g/dL (12.0-18.0) 09/17/17 06:23 Hct 39.3 % (35.0-51.0) 09/17/17 06:23 MCV 86.7 fL (80.0-94.0) D 09/17/17 06:23 MCH 29.4 pg (27.0-31.0) 09/17/17 06:23 MCHC 33.9 g/dL (33.0-37.0) 09/17/17 06:23 RDW 15.4 % (11.5-14.5) H 09/17/17 06:23 Plt Count 186 K/uL (130-400) 09/17/17 06:23 MPV 9.5 fL (7.2-11.7) 09/17/17 06:23 Neut % (Auto) 96.1 % (50.0-75.0) H 09/17/17 06:23 Lymph % (Auto) 2.2 % (20.0-40.0) L 09/17/17 06:23 Cuming % (Auto) 1.4 % (0.0-10.0) 09/17/17 06:23 Eos % (Auto) 0.1 % (0.0-4.0) 09/17/17 06:23 Baso % (Auto) 0.2 % (0.0-2.0) 09/17/17 06:23 Neut # (Auto) 18.7 K/uL (1.8-7.0) H 09/17/17 06:23 Lymph # (Auto) 0.4 K/uL (1.0-4.3) L 09/17/17 06:23 Cuming # (Auto) 0.3 K/uL (0.0-0.8) 09/17/17 06:23 Eos # (Auto) 0.0 K/uL (0.0-0.7) 09/17/17 06:23 Baso # (Auto) 0.0 K/uL (0.0-0.2) 09/17/17 06:23 Neutrophils % (Manual) 94 % (50-75) H 09/17/17 06:23 Band Neutrophils % 1 % (0-2) 09/17/17 06:23 Lymphocytes % (Manual) 3 % (20-40) L 09/17/17 06:23 Reactive Lymphs % 1 % (0-0) H 09/08/17 14:03 Monocytes % (Manual) 1 % (0-10) 09/17/17 06:23 Eosinophils % (Manual) 2 % (0-4) 09/16/17 06:15 Basophils % (Manual) 1 % (0-2) 09/16/17 06:15 Metamyelocytes % 1 % (0-0) H 09/17/17 06:23 Toxic Granulation Present 09/17/17 06:23 Platelet Estimate Normal (NORMAL) 09/17/17 06:23 Plt Clumps, EDTA 09/09/17 07:06 Large Platelets Present 09/17/17 06:23 Giant Platelets Present 09/09/17 07:06 Polychromasia Slight 09/17/17 06:23 Hypochromasia (manual) Slight 09/17/17 06:23 Poikilocytosis (manual Slight 09/17/17 06:23 Anisocytosis (manual) Slight 09/17/17 06:23 Target Cells Slight 09/16/17 06:15 Ovalocytes Slight 09/17/17 06:23 Switchback Cells Slight 09/17/17 06:23 PT 14.9 SECONDS (9.7-12.2) H 09/16/17 20:29 INR 1.3 09/16/17 20:29 APTT 30 SECONDS (21-34) 09/16/17 20:29 Puncture Site A-line 09/17/17 08:20 pCO2 18 mm/Hg (35-45) L* 09/17/17 08:20 pO2 96 mm/Hg (80-100) 09/17/17 08:20 HCO3 10.8 mmol/L (21-28) L 09/17/17 08:20 ABG pH 7.22 (7.35-7.45) L 09/17/17 08:20 ABG Total CO2 8.0 mmol/L (22-28) L 09/17/17 08:20 ABG O2 Saturation 97.6 % (95-98) 09/17/17 08:20 ABG Base Excess -18.0 mmol/L (-2.0-3.0) L 09/17/17 08:20 ABG Hemoglobin 11.8 g/dL (11.7-17.4) 09/15/17 11:40 ABG Carboxyhemoglobin 2.0 % (0.5-1.5) H 09/15/17 11:40 POC ABG HHb (Measured) 5.7 % (0.0-5.0) H 09/15/17 11:40 ABG Methemoglobin 1.1 % (0.0-3.0) 09/15/17 11:40 Ed Test Na 09/17/17 08:20 ABG Potassium 2.4 mmol/L (3.6-5.2) L* 09/17/17 08:20 A-a O2 Difference 595.0 mm/Hg 09/17/17 08:20 Respiratory Index 6.2 09/17/17 08:20 Hgb O2 Saturation 91.3 % (95.0-98.0) L 09/15/17 11:40 Sodium 143.0 mmol/l (132-148) 09/17/17 08:20 Chloride 122.0 mmol/L (98-107) H 09/17/17 08:20 Glucose 91 mg/dl (75-110) 09/17/17 08:20 Lactate 3.7 mmol/L (0.7-2.1) H 09/17/17 08:20 Vent Mode Prvc 09/17/17 04:10 Mechanical Rate 22 09/17/17 08:20 FiO2 100.0 % 09/17/17 08:20 Tidal Volume 500 09/17/17 08:20 PEEP 5 09/17/17 08:20 Inspiratory BiPAP 14 09/15/17 11:40 Expiratory BiPAP 7 09/15/17 11:40 Crit Value Called To Dr nur 09/17/17 08:20 Crit Value Called By Panda coleman crt 09/17/17 08:20 Crit Value Read Back Y 09/17/17 08:20 Blood Gas Notified Time 832 09/17/17 08:20 Sodium 137 mmol/L (132-148) 09/17/17 06:23 Potassium 4.7 mmol/L (3.6-5.2) 09/17/17 06:23 Chloride 97 mmol/L (98-107) L 09/17/17 06:23 Carbon Dioxide 21 mmol/L (22-30) L 09/17/17 06:23 Anion Gap 24 (10-20) H 09/17/17 06:23 BUN 34 mg/dL (9-20) H 09/17/17 06:23 Creatinine 1.4 mg/dL (0.8-1.5) 09/17/17 06:23 Est GFR ( Amer) 60 09/17/17 06:23 Est GFR (Non-Af Amer) 50 09/17/17 06:23 POC Glucose (mg/dL) 190 mg/dL (65-110) H 09/17/17 05:44 Random Glucose 170 mg/dL (75-110) H 09/17/17 06:23 Lactic Acid 5.5 mmol/L (0.7-2.1) H* 09/16/17 20:29 Calcium 8.9 mg/dl (8.6-10.4) 09/17/17 06:23 Phosphorus 4.7 mg/dL (2.5-4.5) H 09/17/17 06:23 Magnesium 1.8 mg/dL (1.6-2.3) 09/17/17 06:23 Total Bilirubin 2.4 mg/dL (0.2-1.3) H 09/17/17 06:23 AST 816 U/L (17-59) H D 09/17/17 06:23 ALT 606 U/L (21-72) H D 09/17/17 06:23 Alkaline Phosphatase 229 U/L (38-126) H D 09/17/17 06:23 Total Creatine Kinase 25 U/L (55-170) L 09/16/17 20:29 CK-MB (Mass) 0.87 ng/mL (0.0-3.38) 09/16/17 20:29 Troponin I 0.0590 ng/mL (0.00-0.120) 09/17/17 06:23 NT-Pro-B Natriuret Pep 47073 pg/mL (0-900) H 09/16/17 23:00 Total Protein 6.1 g/dL (6.3-8.3) L 09/17/17 06:23 Albumin 3.1 g/dL (3.5-5.0) L 09/17/17 06:23 Globulin 3.0 gm/dL (2.2-3.9) 09/17/17 06:23 Albumin/Globulin Ratio 1.0 (1.0-2.1) 09/17/17 06:23 Procalcitonin 0.15 NG/ML (0.19-0.49) L 09/16/17 22:43 Arterial Blood Potassium 2.4 mmol/L (3.6-5.2) L* 09/17/17 08:20 Urine Color Red (YELLOW) 09/09/17 14:52 Urine Clarity Hazy (Clear) 09/09/17 14:52 Urine pH 6.0 (5.0-8.0) 09/09/17 14:52 Ur Specific Sparks 1.011 (1.003-1.030) 09/09/17 14:52 Urine Protein 2+ mg/dL (NEGATIVE) H 09/09/17 14:52 Urine Glucose (UA) Normal mg/dL (Normal) 09/09/17 14:52 Urine Ketones Negative mg/dL (NEGATIVE) 09/09/17 14:52 Urine Blood 3+ (NEGATIVE) H 09/09/17 14:52 Urine Nitrate Negative (NEGATIVE) 09/09/17 14:52 Urine Bilirubin Negative (NEGATIVE) 09/09/17 14:52 Urine Urobilinogen Normal mg/dL (0.2-1.0) 09/09/17 14:52 Ur Leukocyte Esterase 1+ Mari/uL (Negative) H 09/09/17 14:52 Urine WBC (Auto) 88 /hpf (0-5) H 09/09/17 14:52 Urine RBC (Auto) 4129 /hpf (0-3) H 09/09/17 14:52 Ur Squamous Epith Cells 5 /hpf (0-5) 09/09/17 14:52 Urine Bacteria Occ (<OCC) H 09/09/17 14:52 Digoxin 1.6 ng/mL (0.8-2.0) 09/15/17 05:53 Blood Type O NEGATIVE 09/17/17 06:25 Antibody Screen Negative 09/17/17 06:25 - Hospital Course Hospital Course: Patient on 09/17/2017 @ 10:38. Family members present at bedside. This is a 72 year old male admitted on 09/08/2017 with a CHF exacerbation. He has a history also of Atril Fibrillation, HLD, HTN, and Hypothyroid. He has a history of CHF with extesive problems with the right atrium and right ventricule. He had extensive pulmonary vascular congestion because of the CHF. He was on the medical floors to try to control the CHF and vascular pulmonary congestion. He was on Bipap extensively - at one point when the mask was removed so that he could eat - he could not tolerate this and desturation which resulted in an [employer] and patient being moved to the ICU on 09/14. He did not improve and his condition worsened until 09/16 when he required intubation. The patient on 09/17 CODED twice and on the second code . The [place] EDRS is [id number]. Family present at bedside and I wished them my condolences. Discharge Plan - Follow Up Plan Condition: GUARDED Disposition: WITH WITHOUT AUTOPSY
[2017-09-17 11:33] VITALS: BP 58/30; RESP 0; O2SAT 37
[2017-09-17 11:36] VITALS: TEMP 98.7
[2017-09-17 15:07] VITALS: PULSE 22
--- NOTE | 2017-09-18 09:35 | CARD ---
APPROVED REPORT EXAM: Two-dimensional and M-mode echocardiogram with Doppler and color Doppler. Other Information Quality : Technically LimitedRhythm : NSR INDICATION Pleural Effusion Congestive Heart Failure LEFT VENTRICLE The left ventricle appears normal size. Left ventricle systolic function appears moderately impaired. The left ventricular diastolic function is normal. No left ventricle thrombus noted on this study. RIGHT VENTRICLE The right ventricle looks normal size. Systolic function appears moderately reduced. ATRIA The left atrium is mildly dilated. The right atrium is mildly dilated. AORTIC VALVE The aortic valve is moderately to severely calcified. The aortic valve is probably trileaflet. No aortic regurgitation is present. There is severe valvular aortic stenosis. Calculated aortic valve area is 0.6 cm2 with maximum pressure gradient of 30 mmHg and mean pressure gradient of 19 mmHg. MITRAL VALVE Mitral annular calcification is moderate. There is no evidence of mitral valve prolapse. There is no mitral valve stenosis. Mitral regurgitation is mild to moderate. TRICUSPID VALVE The tricuspid valve is normal in structure. There is moderate to severe tricuspid regurgitation. Right ventricular systolic pressure is estimated at greater than 60 mmHg. There is moderate-severe pulmonary hypertension. There is no tricuspid valve prolapse or vegetation. There is no tricuspid valve stenosis. PULMONIC VALVE The pulmonic valve is not well visualized. GREAT VESSELS The aortic root is normal in size. The IVC collapses <50% with inspiration. PERICARDIAL EFFUSION There is no pericardial effusion. <Conclusion> Technically limited study. The left ventricle appears normal size. Left ventricle systolic function appears moderately impaired. The left ventricular diastolic function is normal. The right ventricle looks normal size. Systolic function appears moderately reduced. The left atrium is mildly dilated. The right atrium is mildly dilated. There is severe valvular aortic stenosis. Calculated aortic valve area is 0.6 cm2 with maximum pressure gradient of 30 mmHg and mean pressure gradient of 19 mmHg. Mitral regurgitation is mild to moderate. There is moderate to severe tricuspid regurgitation. Right ventricular systolic pressure is estimated at greater than 60 mmHg. There is moderate-severe pulmonary hypertension.
== END 2017-09-17 13:50 | DRG 291 ==
LOC: C.ER 13:20 → C.9E 15:58 → C.6T 16:19 → C.9I 09-14 08:44
PROVIDERS: ADMIT Hospitalist; ATTEND Hospitalist
PROC: 5A09457 Assistance with Respiratory Ventilation, 24-96 Consecutive Hours, Continuous Positive Airway Pressure (ICD-10-PCS; 2017-09-08)
PROC: 03HY32Z Insertion of Monitoring Device into Upper Artery, Percutaneous Approach (ICD-10-PCS; principal; 2017-09-16)
PROC: 02HV33Z Insertion of Infusion Device into Superior Vena Cava, Percutaneous Approach (ICD-10-PCS; 2017-09-16)
PROC: 0BH17EZ Insertion of Endotracheal Airway into Trachea, Via Natural or Artificial Opening (ICD-10-PCS; 2017-09-16)
PROC: 5A1945Z Respiratory Ventilation, 24-96 Consecutive Hours (ICD-10-PCS; 2017-09-16)
DX: I11.0 Hypertensive heart disease with heart failure (principal); J96.01 Acute respiratory failure with hypoxia; J96.02 Acute respiratory failure with hypercapnia; A41.9 Sepsis, unspecified organism; R65.21 Severe sepsis with septic shock; J98.11 Atelectasis; R18.8 Other ascites; E87.1 Hypo-osmolality and hyponatremia; E87.2 Acidosis; I50.43 Acute on chronic combined systolic (congestive) and diastolic (congestive) heart failure; N40.0 Benign prostatic hyperplasia without lower urinary tract symptoms; R31.0 Gross hematuria; J84.10 Pulmonary fibrosis, unspecified; E78.5 Hyperlipidemia, unspecified; E03.9 Hypothyroidism, unspecified; E10.9 Type 1 diabetes mellitus without complications; E78.00 Pure hypercholesterolemia, unspecified; I07.1 Rheumatic tricuspid insufficiency; I27.20 Pulmonary hypertension, unspecified; I35.8 Other nonrheumatic aortic valve disorders; I48.91 Unspecified atrial fibrillation; Z79.4 Long term (current) use of insulin; Z95.1 Presence of aortocoronary bypass graft